=== PATIENT | male | born 1960 | race Hispanic/Latino ===

== ENCOUNTER 2016-12-20 11:06 | Emergency (ER) | payer SELFPAY ==
[2016-12-20 12:49] VITALS: BP 115/92
== END 2016-12-20 15:55 | disposition left against medical advice (07) ==
LOC: ED 11:06
DX: R07.81 Pleurodynia (principal); Z53.21 Procedure and treatment not carried out due to patient leaving prior to being seen by health care provider

== ENCOUNTER 2017-09-22 16:55 | Emergency (ER) | payer MEDICAID, OTHER ==
[2017-09-22 17:15] VITALS: BP 114/74
== END 2017-09-22 17:49 | disposition left against medical advice (07) ==
LOC: ED 16:55
DX: R56.9 Unspecified convulsions (principal); Z53.21 Procedure and treatment not carried out due to patient leaving prior to being seen by health care provider

== ENCOUNTER 2017-09-26 07:24 | Day surgery (SDC) | payer OTHER ==
[~2017-09-26 07:24] MED LIST: TETRACAINE 0.5% OD PRN
--- NOTE | 2017-09-26 08:12 | Anesthesia Consultation ---
Anesthesia Consult and Med Hx Date of service: 09/26/17 - Airway Anesthetic Teeth Evaluation: Edentulous ROM Head & Neck: Adequate Mental/Hyoid Distance: Adequate Mallampati Class: Class III Intubation Access Assessment: Probably Good - Pulmonary Exam CTA: Yes - Cardiac Exam Cardiac Exam: RRR - Pre-Operative Health Status ASA Pre-Surgery Classification: ASA4 Proposed Anesthetic Plan: MAC - Pulmonary Hx Smoking: Yes Hx Asthma: No COPD: No Hx Sleep Apnea: No - Cardiovascular System Hx Hypertension: No Hx Heart Attack/AMI: No Hx Angina: No Hx Heart Murmur: No - Central Nervous System Hx Seizures: Yes (STATES HE HAD SEIZURES EARLIER THIS YEAR BUT DOES NOT TAKE MEDS) CVA: Yes (STAETS HE HAD MILD STROKES IN APRIL AND JUNE 2017) - Endocrine Hx End Stage Renal Disease: No Hx Cirrhosis: No Hx Liver Disease: Yes - Hematic Hx Anemia: No Hx Sickle Cell Disease: No - Other Systems Hx Alcohol Use: No Hx Substance Use: Yes (USES MARIJUANA DAILY) Hx Cancer: Yes (h/p lung cancer, pancreatic cancer) - Additional Comments Anesthesia Medical History Comments: Informed consent obtained
--- NOTE | 2017-09-26 08:13 | Anesthesia Day of Surgery ---
Anesthesia Day of Surgery - Day of Surgery Patient Examined: Yes Patient H&P Reviewed: Yes Patient is NPO: Yes
[2017-09-26] MEDS: VIGAMOX OD SCH ×3 (08:35→08:45)
[2017-09-26] MEDS: AK-Dilate OD SCH ×3 (08:35→08:45)
[2017-09-26] MEDS: MYDRIACYL OD SCH ×3 (08:35→08:45)
[2017-09-26] MEDS ORDERED: VERSED ONE (08:53)
[2017-09-26] MEDS ORDERED: SUBLIMAZE ONE ×2 (08:53→09:15)
--- NOTE | 2017-09-26 09:36 | Operative Report ---
Operative Report Operative Report: PATIENT'S NAME: DATE OF : DATE OF SURGERY: 09/26/2017 PREOPERATIVE DIAGNOSIS: Cataract right eye POSTOPERATIVE DIAGNOSIS: Same OPERATIVE PROCEDURE: Phacoemulsification with intraocular lens implantation, right right eye SURGEON: Gabriela Rodriguez M.D. MENTAL HYGIENIST SURGEON: Victor Manuel Lens: [id number] 24.0 D ANESTHESIA: Monitored anesthesia care in combination with topical and intracameral anesthesia because of the established specific risk of reflux, arrhythmias, or anxiety attacks associated with ocular manipulation, as well as the difficulty of the timber repairer to manage such potentially catastrophic events while simultaneously attempting to complete the surgical procedure and was deemed necessary for the patient's safety to have an Ice Cutter present during the procedure whenever possible. An Ice Cutter was utilized to regulate the intravenous sedation of the patient so the patient was cooperative yet not asleep in order for the patient to successfully maintain fixation of the eye on the operating light of the microscope. COMPLICATIONS: No surgical complications No blood loss. ALLERGIES: No known drug allergies PROGNOSIS: Excellent INDICATIONS FOR SURGERY: The patient is undergoing surgery in the hopes of eliminating or improving these visual difficulties. PROCEDURE: After arriving at the surgery center, the patient was given topical anesthetic and dilating drops, as noted in the record. The patient was then taken into the operating room and given more anesthetic drops. The eyelids , lashes, and lid margins were scrubbed with Betadine solution, and the patient was draped. The Nurse Ice Cutter administered IV sedation and monitored the patient during the procedure. The eye was then fixated with a 0.12, and a stab incision was made in the peripheral clear cornea into the anterior chamber. This was made on my left side. Viscoelastic was next used to fill the anterior chamber. The eye was once again fixated with the 0.12 forceps and a keratome was used make an incision in clear cornea peripherally on my right hand side temporally. The capsule forceps were used to open the central anterior capsule and then make a continuous round capsulotomy. Hydrodissection was carried out utilizing a cannula and balanced salt solution to delineate the cortical material from the capsule and the nucleus from the cortical material. The phaco tip was introduced into the eye and used to remove the anterior cortical material in the area of the capsulotomy. Then the phaco tip was buried into the nucleus, and a chopping instrument was introduced into the eye and used to provide countertraction in the nucleus between this instrument and the phaco tip fracturing the nucleus. This procedure was repeated multiple times, providing multiple small segments of the lens, and then the phaco tip was used to remove each of these segments. An I/A tip was then used to remove the remaining cortex. The anterior chamber was refilled with viscoelastic. An one-piece, acrylic intraocular lens was then placed into an inserting cartridge. The tip of the inserting cartridge was introduced into the keratome incision and into the anterior chamber. The implant was gently advanced through the cartridge and into the eye, where it unfolded, and both haptics were placed in the capsular bag, where it centered nicely and appeared to be well fixated. After placement of the intraocular lens, the I~and~A handpiece was placed back into the eye and used to remove the viscoelastic, including viscoelastic that was behind the optic of the intraocular lens. The anterior chamber was then filled with balanced salt solution, and hydration of the wound was used to cause swelling of the wound and more appropriate watertight closure. When the wound was found to be firm, the patient was asked to comment on how bright the light was. If there was no light perception at all or if the light was substantially dimmer than during the rest of the surgery, the amount of fluid in the eye was decompressed to lower the intraocular pressure until the patient could see the bright light again. This was done to avoid any damage or decreased blood flow to the optic nerve. MEDICATIONS APPLIED AT END OF SURGERY: One drop of Pred Forte and Vigamox The patient was given a shield to wear at night and was instructed not to rub or push on the eye. DISCHARGE SUMMARY: The patient was released in stable condition. The patient and those with the patient were given a written sheet of postoperative instructions and counseling on any abnormal laboratory studies. The patient is to see us tomorrow for follow-up in the office and is to call immediately for any difficulties. Gabriela Rodriguez M.D. Date
--- NOTE | 2017-09-26 09:38 | Short Stay Summary ---
Short Stay Documentation Date of service: 09/26/17 - History H&P: obtained from office - Allergies and Medications Current Medications: Allergies No Known Allergies Allergy (Unverified 12/20/16 12:43) Home Medications Medication Instructions Recorded Confirmed Last Taken Type Bupropion HCl [Bupropion HCl Sr] 150 mg PO BID 09/10/17 09/18/17 Unknown History Dextran 70/Hypromellose 1 each OP QID 09/10/17 09/18/17 Unknown History [Artificial Tears] Ergocalciferol [Vitamin D2] 1 cap PO QWEEK 09/10/17 09/18/17 Unknown History Everolimus [Afinitor] 10 mg PO QDAY 09/10/17 09/18/17 Unknown History Insulin Aspart [NovoLOG Flexpen] 8 units SQ TID 09/10/17 09/18/17 Unknown History Insulin Detemir [Levemir Flextouch] 4 unit SQ BID 09/10/17 09/18/17 Unknown History Lanreotide Acetate [Somatuline 120 mg SQ QMONTH 09/10/17 09/18/17 Unknown History Depot] Multivit-Min/FA/Lycopen/Lutein 1 each PO DAILY 09/10/17 09/18/17 Unknown History [Centrum Silver Tablet] Sertraline [Zoloft] 200 mg PO QDAY 09/10/17 09/18/17 Unknown History Sildenafil Citrate [Viagra] 100 mg PO PRN PRN 09/10/17 09/18/17 Unknown History Sod Sulfacetamide-Sulfur Lotn 1 dose TRANSDERMA DAILY 09/10/17 09/18/17 Unknown History traZODone [Desyrel] 100 mg PO PRN PRN 09/10/17 09/18/17 Unknown History Active Medications Moxifloxacin HCl (Vigamox) 1 drops OD Q5MIN [facility] Stop: 09/28/17 06:01 Last Admin: 09/26/17 08:45 Dose: 1 drops Phenylephrine HCl (Ak-Dilate) 1 drops OD Q5MIN [facility] Stop: 09/28/17 06:01 Last Admin: 09/26/17 08:45 Dose: 1 drops Prednisolone Acetate (Pred Forte 1%) 1 drops OD QID [facility] Tetracaine HCl (Tetracaine 0.5%) 1 drops OD Q5M PRN PRN Reason: Analgesia Last Admin: 09/26/17 08:35 Dose: 1 drops Tropicamide (Mydriacyl) 1 drops OD Q5MIN [facility] Stop: 09/28/17 06:01 Last Admin: 09/26/17 08:45 Dose: 1 drops - Brief post op/procedure progress note Date of procedure: 09/26/17 Pre-op diagnosis: right cataract Post-op diagnosis: same Procedure: Phacoemulsification with intraocular lens insertion right eye Anesthesia: MAC, local Surgeon: MARTHA ARMIJO Estimated blood loss: none Pathology: none Condition: stable - Disposition Condition at discharge: Good Disposition: DC-01 TO HOME OR SELFCARE - Discharge Diagnoses (1) Cataract Status: Acute Qualifiers: Cataract type: age-related Age-related cataract type: nuclear Laterality : right Qualified Code(s): H25.11 - Age-related nuclear cataract, right eye Short Stay Discharge Plan Follow up with: NATALYA CH MD [Primary Care Provider] - 7 Days
[2017-09-26 09:55] VITALS: BP 149/86
[2017-09-26] MEDS ORDERED: PRED FORTE 1% OD SCH (10:00)
--- NOTE | 2017-09-26 12:20 | Post Anesthesia Evaluation ---
- Post Anesthesia Evaluation Patient Participated: Yes Airway Patent: Yes Stable Respiratory Function: Yes Nausea/Vomiting: No Temp > 96.8F: Yes Pain Manageable: Yes Adequeate Hydration: Yes Anesthesia Complications: No
== END 2017-09-26 10:27 | disposition home or self-care (01) ==
LOC: OR 07:24
DX: H26.9 Unspecified cataract (principal); B19.20 Unspecified viral hepatitis C without hepatic coma; F17.210 Nicotine dependence, cigarettes, uncomplicated; Z86.73 Personal history of transient ischemic attack (TIA), and cerebral infarction without residual deficits; Z85.118 Personal history of other malignant neoplasm of bronchus and lung; Z85.07 Personal history of malignant neoplasm of pancreas; Z86.718 Personal history of other venous thrombosis and embolism; Z79.01 Long term (current) use of anticoagulants; Z86.11 Personal history of tuberculosis
CPT/HCPCS: 82962; J2250; J3010; V2632

== ENCOUNTER 2017-10-10 06:06 | Day surgery (SDC) | payer OTHER ==
[~2017-10-10 06:06] MED LIST changes: -TETRACAINE 0.5% OD PRN; +TETRACAINE 0.5% OS PRN
--- NOTE | 2017-10-10 06:49 | Anesthesia Consultation ---
Anesthesia Consult and Med Hx Date of service: 10/10/17 - Airway Anesthetic Teeth Evaluation: Edentulous ROM Head & Neck: Adequate Mental/Hyoid Distance: Adequate Mallampati Class: Class I Intubation Access Assessment: Good - Pulmonary Exam CTA: Yes - Cardiac Exam Cardiac Exam: RRR - Pre-Operative Health Status ASA Pre-Surgery Classification: ASA3 Proposed Anesthetic Plan: MAC - Pulmonary Hx Smoking: Yes Hx Asthma: No COPD: No Hx Sleep Apnea: No - Cardiovascular System Hx Hypertension: Yes Hx Heart Attack/AMI: No Hx Angina: No Hx Heart Murmur: No - Central Nervous System Hx Seizures: Yes (STATES HE HAD SEIZURES EARLIER THIS YEAR BUT DOES NOT TAKE MEDS) CVA: Yes (STAETS HE HAD MILD STROKES IN APRIL AND JUNE 2017) - Endocrine Hx End Stage Renal Disease: No Hx Cirrhosis: No Hx Liver Disease: Yes - Hematic Hx Anemia: No Hx Sickle Cell Disease: No - Other Systems Hx Alcohol Use: No Hx Substance Use: Yes (USES MARIJUANA DAILY) Hx Cancer: Yes (h/p lung cancer, pancreatic cancer) - Additional Comments Anesthesia Medical History Comments: lumg and pancreatic cancer
--- NOTE | 2017-10-10 06:49 | Anesthesia Day of Surgery ---
Anesthesia Day of Surgery - Day of Surgery Patient Examined: Yes Patient H&P Reviewed: Yes Patient is NPO: Yes
[2017-10-10] MEDS ORDERED: VERSED ONE ×2 (07:28→08:50)
[2017-10-10] MEDS ORDERED: SUBLIMAZE ONE (07:29)
[2017-10-10] MEDS: MYDRIACYL OS SCH ×3 (07:30→07:50)
[2017-10-10] MEDS: AK-Dilate OS SCH ×3 (07:45→07:55)
[2017-10-10] MEDS: VIGAMOX OS SCH ×3 (07:45→07:55)
--- NOTE | 2017-10-10 09:12 | Operative Report ---
Operative Report Operative Report: PATIENT'S NAME: DATE OF : DATE OF SURGERY: 10/10/2017 PREOPERATIVE DIAGNOSIS: Cataract left eye POSTOPERATIVE DIAGNOSIS: Same OPERATIVE PROCEDURE: Phacoemulsification with intraocular lens implantation, left eye SURGEON: Gabriela Rodriguez M.D. BEAM CARRIER HAULER PUSHER SURGEON: Victor Manuel Lens: [id number] 24.5 D ANESTHESIA: Monitored anesthesia care in combination with topical and intracameral anesthesia because of the established specific risk of reflux, arrhythmias, or anxiety attacks associated with ocular manipulation, as well as the difficulty of the soil biology teacher to manage such potentially catastrophic events while simultaneously attempting to complete the surgical procedure and was deemed necessary for the patient's safety to have an Wirer present during the procedure whenever possible. An Wirer was utilized to regulate the intravenous sedation of the patient so the patient was cooperative yet not asleep in order for the patient to successfully maintain fixation of the eye on the operating light of the microscope. COMPLICATIONS: No surgical complications No blood loss. ALLERGIES: No known drug allergies PROGNOSIS: Excellent INDICATIONS FOR SURGERY: The patient is undergoing surgery in the hopes of eliminating or improving these visual difficulties. PROCEDURE: After arriving at the surgery center, the patient was given topical anesthetic and dilating drops, as noted in the record. The patient was then taken into the operating room and given more anesthetic drops. The eyelids , lashes, and lid margins were scrubbed with Betadine solution, and the patient was draped. The Nurse Wirer administered IV sedation and monitored the patient during the procedure. The eye was then fixated with a 0.12, and a stab incision was made in the peripheral clear cornea into the anterior chamber. This was made on my left side. Viscoelastic was next used to fill the anterior chamber. The eye was once again fixated with the 0.12 forceps and a keratome was used make an incision in clear cornea peripherally on my right hand side temporally. The capsule forceps were used to open the central anterior capsule and then make a continuous round capsulotomy. Hydrodissection was carried out utilizing a cannula and balanced salt solution to delineate the cortical material from the capsule and the nucleus from the cortical material. The phaco tip was introduced into the eye and used to remove the anterior cortical material in the area of the capsulotomy. Then the phaco tip was buried into the nucleus, and a chopping instrument was introduced into the eye and used to provide countertraction in the nucleus between this instrument and the phaco tip fracturing the nucleus. This procedure was repeated multiple times, providing multiple small segments of the lens, and then the phaco tip was used to remove each of these segments. An I/A tip was then used to remove the remaining cortex. The anterior chamber was refilled with viscoelastic. An one-piece, acrylic intraocular lens was then placed into an inserting cartridge. The tip of the inserting cartridge was introduced into the keratome incision and into the anterior chamber. The implant was gently advanced through the cartridge and into the eye, where it unfolded, and both haptics were placed in the capsular bag, where it centered nicely and appeared to be well fixated. After placement of the intraocular lens, the I~and~A handpiece was placed back into the eye and used to remove the viscoelastic, including viscoelastic that was behind the optic of the intraocular lens. The anterior chamber was then filled with balanced salt solution, and hydration of the wound was used to cause swelling of the wound and more appropriate watertight closure. When the wound was found to be firm, the patient was asked to comment on how bright the light was. If there was no light perception at all or if the light was substantially dimmer than during the rest of the surgery, the amount of fluid in the eye was decompressed to lower the intraocular pressure until the patient could see the bright light again. This was done to avoid any damage or decreased blood flow to the optic nerve. MEDICATIONS APPLIED AT END OF SURGERY: One drop of Pred Forte and Vigamox The patient was given a shield to wear at night and was instructed not to rub or push on the eye. DISCHARGE SUMMARY: The patient was released in stable condition. The patient and those with the patient were given a written sheet of postoperative instructions and counseling on any abnormal laboratory studies. The patient is to see us tomorrow for follow-up in the office and is to call immediately for any difficulties. Gabriela Rodriguez M.D. Date
--- NOTE | 2017-10-10 09:13 | Short Stay Summary ---
Short Stay Documentation Date of service: 10/10/17 - History H&P: obtained from office - Allergies and Medications Current Medications: Allergies No Known Allergies Allergy (Verified 10/09/17 10:46) Home Medications Medication Instructions Recorded Confirmed Last Taken Type Bupropion HCl [Bupropion HCl Sr] 150 mg PO BID 09/10/17 10/09/17 09/25/17 History Dextran 70/Hypromellose 1 each OP QID 09/10/17 10/09/17 09/25/17 History [Artificial Tears] Ergocalciferol [Vitamin D2] 1 cap PO QWEEK 09/10/17 10/09/17 09/25/17 History Everolimus [Afinitor] 10 mg PO QDAY 09/10/17 10/09/17 09/25/17 History Insulin Aspart [NovoLOG Flexpen] 8 units SQ TID 09/10/17 10/09/17 09/25/17 History Insulin Detemir [Levemir Flextouch] 4 unit SQ BID 09/10/17 10/09/17 09/25/17 History Lanreotide Acetate [Somatuline 120 mg SQ QMONTH 09/10/17 10/09/17 09/19/17 History Depot] Multivit-Min/FA/Lycopen/Lutein 1 each PO DAILY 09/10/17 10/09/17 09/25/17 History [Centrum Silver Tablet] Sertraline [Zoloft] 200 mg PO QDAY 09/10/17 10/09/17 09/25/17 History Sildenafil Citrate [Viagra] 100 mg PO PRN PRN 09/10/17 10/09/17 Unknown History Sod Sulfacetamide-Sulfur Lotn 1 dose TRANSDERMA DAILY 09/10/17 10/09/17 History traZODone [Desyrel] 100 mg PO PRN PRN 09/10/17 10/09/17 09/25/17 History Active Medications Acetazolamide (Diamox) 500 mg IV Q12HR ONE Stop: 10/10/17 10:01 Moxifloxacin HCl (Vigamox) 1 drops OS Q5MIN [facility] Stop: 10/12/17 06:01 Last Admin: 10/10/17 07:55 Dose: 1 drops Phenylephrine HCl (Ak-Dilate) 1 drops OS Q5MIN [facility] Stop: 10/12/17 06:01 Last Admin: 10/10/17 07:55 Dose: 1 drops Prednisolone Acetate (Pred Forte 1%) 1 drops OS QID [facility] Tetracaine HCl (Tetracaine 0.5%) 1 drops OS Q5M PRN PRN Reason: Analgesia Last Admin: 10/10/17 07:45 Dose: 1 drops Tropicamide (Mydriacyl) 1 drops OS Q5MIN [facility] Stop: 10/12/17 06:01 Last Admin: 10/10/17 07:50 Dose: 1 drops - Brief post op/procedure progress note Date of procedure: 10/10/17 Pre-op diagnosis: left cataract Post-op diagnosis: same Procedure: A core emulsification with intraocular lens insertion left eye Anesthesia: MAC Surgeon: MARTHA ARMIJO Estimated blood loss: none Pathology: none Condition: stable - Disposition Condition at discharge: Good Disposition: DC-01 TO HOME OR SELFCARE - Discharge Diagnoses (1) Cataract Status: Acute Qualifiers: Cataract type: age-related Age-related cataract type: nuclear Laterality : left Qualified Code(s): H25.12 - Age-related nuclear cataract, left eye Short Stay Discharge Plan Follow up with: NATALYA CH MD [Primary Care Provider] - 7 Days
[2017-10-10] MEDS ORDERED: DIAMOX PO ONE (09:20)
[2017-10-10 09:47] VITALS: BP 120/80
[2017-10-10] MEDS ORDERED: DIAMOX IV ONE (10:00)
[2017-10-10] MEDS ORDERED: PRED FORTE 1% OS SCH (10:00)
== END 2017-10-10 10:40 | disposition home or self-care (01) ==
LOC: OR 06:06
DX: E11.36 Type 2 diabetes mellitus with diabetic cataract (principal); I10 Essential (primary) hypertension; I73.9 Peripheral vascular disease, unspecified; B18.2 Chronic viral hepatitis C; F32.9 Major depressive disorder, single episode, unspecified; F17.200 Nicotine dependence, unspecified, uncomplicated; Z79.4 Long term (current) use of insulin; Z79.899 Other long term (current) drug therapy; Z85.05 Personal history of malignant neoplasm of liver; Z86.73 Personal history of transient ischemic attack (TIA), and cerebral infarction without residual deficits; Z85.118 Personal history of other malignant neoplasm of bronchus and lung; Z85.07 Personal history of malignant neoplasm of pancreas
CPT/HCPCS: 82962; J1120; J2250; J3010; V2632

== ENCOUNTER 2018-11-27 05:39 | Inpatient (IN) | payer MEDICAID, OTHER ==
[2018-11-27] MEDS ORDERED: MORPHINE IV ONE (07:08)
[2018-11-27] MEDS ORDERED: ZOFRAN IV ONE (07:08)
[2018-11-27] MEDS ORDERED: NACL 0.9% 1000 ML 1,000 ML IV ONE (07:09)
[2018-11-27 07:39] LABS: Bacteria,Urine 1+ /HPF (Negative); Bilirubin,Urine NEG (Negative); Blood,Urine MOD (Negative); Color,Urine Straw (Yellow); Mucus,Urine FEW /HPF; Urobilinogen,Urine < 2.0 mg/dL (<2.0)
[2018-11-27 07:40] LABS: Basophils % (Auto) 0.2 % (0.0-1.8); Eosinophils # (Auto) 0.1 K/mm3 (0.0-0.4); Eosinophils % (Auto) 1.2 % (0.0-4.3); Hematocrit 24.4 % (35.5-45.6); Hemoglobin 8.3 gm/dl (11.8-15.2); Lymphocytes % (Auto) 15.3 % (13.4-35.0); Mean Corpuscular HGB Conc 34 % (32-34); Mean Corpuscular Volume 84 fl (84-94); Monocytes # (Auto) 0.6 K/mm3 (0.0-0.8); Platelet Count 255 K/mm3 (140-440); Red Cell Distribution Width 16.7 % (13.2-15.2)
[2018-11-27 07:51] LABS: INR 1.01 (0.87-1.13)
[2018-11-27 07:52] LABS: Partial Thromboplastin Time 34.3 Sec. (24.2-36.6)
[2018-11-27 08:01] LABS: Creatine Kinase MB 7.2 ng/mL (0.0-4.0)
[2018-11-27 08:03] LABS: Alanine Aminotransferase 16 units/L (7-56); Albumin 3.1 g/dL (3.9-5); BUN/Creatinine Ratio 12; Blood Urea Nitrogen 18 mg/dL (9-20); Calcium 8.4 mg/dL (8.4-10.2); Hemolysis Index 0
[2018-11-27 08:04] LABS: Cannabinoid Screen,Urine PRESUMPTIVE POSITIVE
[2018-11-27 08:04] LABS: Bilirubin,Direct < 0.2 mg/dL (0-0.2)
[2018-11-27 08:10] LABS: Amphetamine Screen,Urine PRESUMPTIVE NEGATIVE; Benzodiazepines Screen,Urine PRESUMPTIVE NEGATIVE; Cocaine Screen,Urine PRESUMPTIVE NEGATIVE; Methadone Screen,Urine PRESUMPTIVE NEGATIVE; Opiate Screen,Urine PRESUMPTIVE NEGATIVE
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
[2018-11-27] MEDS ORDERED: MAGNESIUM SULFATE 2GM/50ML 2 GM/50 ML BAG IV ONE (08:20)
[2018-11-27] MEDS ORDERED: BABY ASPIRIN PO ONE (08:24)
--- NOTE | 2018-11-27 09:02 | XRay Report ---
AP CHEST: HISTORY: Hypertension Normal heart size and pulmonary vascularity. Right middle lobe atelectasis is suspected. Otherwise, the lungs are adequately aerated. No evidence for pneumonia, pleural effusion or pneumothorax. The bony structures are demineralized but grossly intact. IMPRESSION: Right middle lobe atelectasis.
--- NOTE | 2018-11-27 09:02 | XRay Report ---
RIGHT HIP, 2 views: History: Trauma, hip pain. Findings: Osteopenia is evident. A mildly displaced right femoral neck fracture is identified. The right femoral head remains well-seated within the right acetabulum. No obvious pelvic fracture. IMPRESSION: Right femoral neck fracture. Osteopenia.
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
--- NOTE | 2018-11-27 14:20 | Anesthesia Consultation ---
Anesthesia Consult and Med Hx Date of service: 11/27/18 - Airway Anesthetic Teeth Evaluation: Edentulous ROM Head & Neck: Adequate Mental/Hyoid Distance: Adequate Mallampati Class: Class II Intubation Access Assessment: Probably Good - Pre-Operative Health Status ASA Pre-Surgery Classification: ASA3 Proposed Anesthetic Plan: General - Pulmonary Hx Smoking: Yes (1 p/d x 45 years) Hx Asthma: No COPD: No Hx Sleep Apnea: No - Cardiovascular System Hx Hypertension: Yes Hx Heart Attack/AMI: No Hx Angina: No Hx Heart Murmur: No - Central Nervous System Hx Seizures: Yes (STATES HE HAD SEIZURES EARLIER THIS YEAR BUT DOES NOT TAKE MEDS) CVA: Yes (STAETS HE HAD MILD STROKES IN APRIL AND JUNE 2017) Hx Psychiatric Problems: Yes (depression) - Endocrine Hx End Stage Renal Disease: No Hx Cirrhosis: No Hx Liver Disease: Yes Hx Insulin Dependent Diabetes: Yes - Hematic Hx Anemia: No Hx Sickle Cell Disease: No - Other Systems Hx Alcohol Use: No Hx Substance Use: Yes (USES MARIJUANA DAILY) Hx Cancer: Yes (h/p lung cancer, pancreatic cancer) - Additional Comments Anesthesia Medical History Comments: Right hip fracture
[2018-11-27] MEDS ORDERED: SODIUM CHLORIDE FLUSH SYRINGE 10 ML IV PRN (19:34)
[2018-11-27] MEDS ORDERED: TYLENOL PO PRN (19:34)
[2018-11-27] MEDS: PEPCID PO SCH (21:03)
[2018-11-27] MEDS: SODIUM CHLORIDE FLUSH SYRINGE 10 ML IV SCH (21:04)
[2018-11-27] MEDS: MORPHINE IV PRN (23:47)
[2018-11-28] MEDS: PEPCID PO SCH ×3 (00:01→22:33)
[2018-11-28 05:00] LABS: Basophils % (Auto) 0.8 % (0.0-1.8); Eosinophils # (Auto) 0.1 K/mm3 (0.0-0.4); Eosinophils % (Auto) 2.5 % (0.0-4.3); Hematocrit 23.7 % (35.5-45.6); Lymphocytes # (Auto) 1.2 K/mm3 (1.2-5.4); Lymphocytes % (Auto) 20.8 % (13.4-35.0); Mean Corpuscular HGB Conc 34 % (32-34); Mean Corpuscular Volume 84 fl (84-94); Monocytes # (Auto) 0.6 K/mm3 (0.0-0.8); Monocytes % (Auto) 10.4 % (0.0-7.3); Platelet Count 266 K/mm3 (140-440); Red Blood Count 2.81 M/mm3 (3.65-5.03)
[2018-11-28 05:12] LABS: Calcium 8.5 mg/dL (8.4-10.2)
[2018-11-28] MEDS: NACL 0.9% 1000 ML 1,000 ML IV SCH ×2 (06:24→08:11)
[2018-11-28] MEDS ORDERED: PEPCID IV NR (07:00)
[2018-11-28] MEDS ORDERED: VERSED IV NR (07:00)
[2018-11-28] MEDS ORDERED: MARCAINE 0.5% INFILTRATI ONE ×2 (07:18→09:50)
[2018-11-28] MEDS ORDERED: MORPHINE ONE (07:19)
[2018-11-28] MEDS ORDERED: TORADOL ONE (07:25)
[2018-11-28] MEDS ORDERED: TRANEXAMIC ACID ONE (07:25)
[2018-11-28] MEDS ORDERED: NACL 0.9% 200 ML ONE (07:25)
[2018-11-28] MEDS ORDERED: DIPRIVAN 10 MG/ML IV ONE (07:25)
[2018-11-28] MEDS ORDERED: XYLOCAINE MPF 2% ONE (07:25)
[2018-11-28] MEDS ORDERED: SUBLIMAZE ONE ×2 (07:25→09:02)
[2018-11-28] MEDS ORDERED: NACL 0.9% 100 ML ONE (07:29)
[2018-11-28] MEDS ORDERED: ANCEF/STERILE WATER 2 GM/20 ML IV NR (08:00)
[2018-11-28] MEDS ORDERED: NACL 0.9% IR ONE (09:00)
[2018-11-28] MEDS ORDERED: NACL 0.9% 500 ML 500 ML IV ONE (09:00)
[2018-11-28] MEDS ORDERED: DILAUDID ONE (09:10)
--- NOTE | 2018-11-28 09:13 | Anesthesia Day of Surgery ---
Anesthesia Day of Surgery - Day of Surgery Patient Examined: Yes Patient H&P Reviewed: Yes Patient is NPO: Yes
--- NOTE | 2018-11-28 09:13 | Anesthesia Day of Surgery ---
Anesthesia Day of Surgery - Day of Surgery Patient Examined: Yes Patient H&P Reviewed: Yes Patient is NPO: Yes
[2018-11-28] MEDS ORDERED: DILAUDID IV PRN (09:30)
[2018-11-28] MEDS ORDERED: ROBINUL ONE ×2 (09:33)
[2018-11-28] MEDS ORDERED: BLOXIVERZ ONE (09:33)
[2018-11-28] MEDS ORDERED: ZOFRAN ONE (09:34)
[2018-11-28] MEDS ORDERED: AMIDATE IV ONE (09:38)
[2018-11-28] MEDS ORDERED: TORADOL IV ONE (09:50)
[2018-11-28] MEDS ORDERED: MORPHINE IM ONE (09:50)
[2018-11-28] MEDS ORDERED: NACL 0.9% IV ONE (09:50)
[2018-11-28] MEDS ORDERED: NORMODYNE IV ONE (10:13)
[2018-11-28] MEDS ORDERED: NARCAN 0.4 MG/1 ML ONE (12:05)
[2018-11-28] MEDS: SODIUM CHLORIDE FLUSH SYRINGE 10 ML IV SCH ×2 (12:06→22:32)
[2018-11-28] MEDS: ZOFRAN IV PRN (12:12)
[2018-11-28] MEDS ORDERED: MORPHINE IV PRN (13:50)
--- NOTE | 2018-11-28 13:56 | Procedure Note ---
Date of procedure: 11/28/18 Pre-op diagnosis: displaced right femoral neck fracture Post-op diagnosis: same Procedure: Bipolar hemiarthroplasty right hip Procedure The patient was brought to the OR and placed on the OR table in supine position following induction and intubation by anesthesia the patient was placed in the left lateral decubitus position The right hip was then prepped and draped in the usual sterile manner a timeout procedure was done to identify the patient and t he correct operative site. Next a lateral incision was made along the proximal femur was taken down sharply through skin and subcutaneous the fascia ernie was seen and incised A Charnley retractor was placed deep within the wound next the anterior capsule was entered the femoral neck fracture was seen the remaining portion of the femoral neck was then osteotomized in line with a stem template The femoral head was retrieved using a corkscrew device measuring the size of the femoral head and a 55 mm diameter was chosen, followed by reaming and broaching to a #5 stem utilizing a neutral neck and a 28 mm head and the construct was then reduced the hip was taken through a range of motion and was found to be stable. All components were removed. Final components were assembled and inserted the hip was then reduced and taken through a range of motion and again it was found to be stable next the wound was copiously irrigated a cocktail mixture of Toradol and morphine. Again and saline was injected into the surrounding soft tissue for postop pain management following this the wound was closed in a standard routine fashion. Dressings were applied the patient tolerated the procedure there were no complications and he was sent to post anesthesia recovery Anesthesia: PARMJIT Surgeon: FRACISCO QUINTANA Inspector Salvage: NATALYA CARDENAS Estimated blood loss: other (300 mL) Pathology: list (right femoral head) Specimen disposition: to lab Condition: stable Disposition: PACU
[2018-11-28] MEDS ORDERED: SODIUM CHLORIDE FLUSH SYRINGE 10 ML IV NR (14:00)
--- NOTE | 2018-11-28 15:04 | Progress Note ---
Assessment and Plan Assessment and plan: Right femur neck fracture after fall. Admitted to surgical floor Ortho consulted and he was evaluated in ED s/p bipolar hemiarthroplasty right hip today 11/28/18 Morphine for pain management Diabetes mellitus type 2 Accucheck Q ac and hs Review home meds Depression History of prostate cancer with mets to lungs Full code status History Interval history: s/p surgery today Hospitalist Physical - Physical exam Narrative exam: GEN: Not in acute distress, lying in bed HEENT: Normocephalic, atraumatic, Neck: supple, No JVD heart: S1 and S2 reg, no murmurs, rubs or gallop Lungs: Clear to auscultation bilaterally, no wheeze Abd:soft, non tender, non distended, normal bowel sounds Ext: No edema,no clubbing, no cyanosis, dressing over right hip Neuro: Lethargic, post-op from anesthesia Skin:multiple bruises - Constitutional Vitals: Temp Pulse Resp BP Pulse Ox 97.9 F 85 10 L 150/82 100 11/28/18 13:15 11/28/18 13:30 11/28/18 13:30 11/28/18 13:30 11/28/18 13:30 Results - Labs CBC & Chem 7: 11/29/18 04:29 11/29/18 04:29 Labs: Laboratory Last Values WBC 5.8 K/mm3 (4.5-11.0) 11/28/18 04:42 RBC 2.81 M/mm3 (3.65-5.03) L 11/28/18 04:42 Hgb 8.0 gm/dl (11.8-15.2) L 11/28/18 04:42 Hct 23.7 % (35.5-45.6) L 11/28/18 04:42 MCV 84 fl (84-94) 11/28/18 04:42 MCH 29 pg (28-32) 11/28/18 04:42 MCHC 34 % (32-34) 11/28/18 04:42 RDW 17.0 % (13.2-15.2) H 11/28/18 04:42 Plt Count 266 K/mm3 (140-440) 11/28/18 04:42 Lymph % (Auto) 20.8 % (13.4-35.0) 11/28/18 04:42 [place] % (Auto) 10.4 % (0.0-7.3) H 11/28/18 04:42 Eos % (Auto) 2.5 % (0.0-4.3) 11/28/18 04:42 Baso % (Auto) 0.8 % (0.0-1.8) 11/28/18 04:42 Lymph # 1.2 K/mm3 (1.2-5.4) 11/28/18 04:42 [place] # 0.6 K/mm3 (0.0-0.8) 11/28/18 04:42 Eos # 0.1 K/mm3 (0.0-0.4) 11/28/18 04:42 Baso # 0.0 K/mm3 (0.0-0.1) 11/28/18 04:42 Seg Neutrophils % 65.5 % (40.0-70.0) 11/28/18 04:42 Seg Neutrophils # 3.8 K/mm3 (1.8-7.7) 11/28/18 04:42 PT 13.9 Sec. (12.2-14.9) 11/27/18 07:20 INR 1.01 (0.87-1.13) 11/27/18 07:20 APTT 34.3 Sec. (24.2-36.6) 11/27/18 07:20 Sodium 135 mmol/L (137-145) L 11/28/18 04:42 Potassium 3.6 mmol/L (3.6-5.0) 11/28/18 04:42 Chloride 103.1 mmol/L (98-107) 11/28/18 04:42 Carbon Dioxide 20 mmol/L (22-30) L 11/28/18 04:42 Anion Gap 16 mmol/L 11/28/18 04:42 BUN 16 mg/dL (9-20) 11/28/18 04:42 Creatinine 1.5 mg/dL (0.8-1.5) 11/28/18 04:42 Estimated GFR 48 ml/min 11/28/18 04:42 BUN/Creatinine Ratio 11 % 11/28/18 04:42 Glucose 177 mg/dL (75-100) H 11/28/18 04:42 POC Glucose 193 (70-105) H 11/28/18 12:55 Hemoglobin A1c 7.7 % (4-6) H 11/27/18 07:20 Lactic Acid 0.80 mmol/L (0.7-2.0) 11/27/18 07:20 Calcium 8.5 mg/dL (8.4-10.2) 11/28/18 04:42 Magnesium 1.60 mg/dL (1.7-2.3) L 11/27/18 07:20 Total Bilirubin 0.30 mg/dL (0.1-1.2) 11/27/18 07:20 Direct Bilirubin < 0.2 mg/dL (0-0.2) 11/27/18 07:20 AST 18 units/L (5-40) 11/27/18 07:20 ALT 16 units/L (7-56) 11/27/18 07:20 Alkaline Phosphatase 93 units/L (35-129) 11/27/18 07:20 Ammonia 34.0 umol/L (25-60) 11/27/18 07:20 Total Creatine Kinase 208 units/L (55-170) H 11/27/18 07:20 CK-MB (CK-2) 7.2 ng/mL (0.0-4.0) H 11/27/18 07:20 CK-MB (CK-2) Rel Index 3.4 (0-4) 11/27/18 07:20 Troponin T 0.023 ng/mL (0.00-0.029) 11/27/18 07:20 NT-Pro-B Natriuret Pep 4286 pg/mL (0-900) H 11/27/18 07:20 Total Protein 6.5 g/dL (6.3-8.2) 11/27/18 07:20 Albumin 3.1 g/dL (3.9-5) L 11/27/18 07:20 Albumin/Globulin Ratio 0.9 % 11/27/18 07:20 Urine Color Straw (Yellow) 11/27/18 Unknown Urine Turbidity Clear (Clear) 11/27/18 Unknown Urine pH 6.0 (5.0-7.0) 11/27/18 Unknown Ur Specific [place] 1.009 (1.003-1.030) 11/27/18 Unknown Urine Protein 100 mg/dl mg/dL (Negative) 11/27/18 Unknown Urine Glucose (UA) >=500 mg/dL (Negative) 11/27/18 Unknown Urine Ketones Neg mg/dL (Negative) 11/27/18 Unknown Urine Blood Mod (Negative) 11/27/18 Unknown Urine Nitrite Neg (Negative) 11/27/18 Unknown Urine Bilirubin Neg (Negative) 11/27/18 Unknown Urine Urobilinogen < 2.0 mg/dL (<2.0) 11/27/18 Unknown Ur Leukocyte Esterase Neg (Negative) 11/27/18 Unknown Urine WBC (Auto) Not Reportable 11/27/18 Unknown Urine RBC (Auto) 2.0 /HPF (0.0-6.0) 11/27/18 Unknown Urine Bacteria (Auto) 1+ /HPF (Negative) 11/27/18 Unknown Urine Mucus Few /HPF 11/27/18 Unknown Urine Opiates Screen Presumptive negative 11/27/18 Unknown Urine Methadone Screen Presumptive negative 11/27/18 Unknown Ur Barbiturates Screen Presumptive negative 11/27/18 Unknown Ur Phencyclidine Scrn Presumptive negative 11/27/18 Unknown Ur Amphetamines Screen Presumptive negative 11/27/18 Unknown U Benzodiazepines Scrn Presumptive negative 11/27/18 Unknown Urine Cocaine Screen Presumptive negative 11/27/18 Unknown U Marijuana (THC) Screen Presumptive positive 11/27/18 Unknown Drugs of Abuse Note Disclamer 11/27/18 Unknown Plasma/Serum Alcohol < 0.01 % (0-0.07) 11/27/18 07:20 Blood Type A POSITIVE 11/27/18 07:20 Antibody Screen Negative 11/27/18 07:20 Crossmatch See Detail 11/27/18 07:20 Active Medications - Current Medications Current Medications: Generic Name Dose Route Start Last Admin Trade Name Freq PRN Reason Stop Dose Admin Acetaminophen 650 mg 11/27/18 19:34 Tylenol PO Q4H PRN Pain MILD(1-3)/Fever >100.5/ISAAC Cefazolin Sodium 2 gm 11/28/18 08:00 Ancef/Sterile Water 2 Gm/20 Ml IV 11/28/18 23:59 PREOP NR Enoxaparin Sodium 40 mg 11/29/18 10:00 Lovenox SUB-Q QDAY SHRUTHI Famotidine 20 mg 11/28/18 07:00 11/28/18 08:11 Pepcid IV 11/28/18 23:00 20 mg PREOP NR Administration Famotidine 20 mg 11/27/18 19:34 11/28/18 12:06 Pepcid PO Not Given BID SHRUTHI Hydromorphone HCl 0.5 mg 11/28/18 09:30 Dilaudid IV 11/28/18 16:00 Q10MIN PRN Pain , Severe (7-10) Sodium Chloride 1,000 mls @ 75 mls/hr 11/28/18 07:00 11/28/18 08:11 Nacl 0.9% 1000 Ml IV 75 mls/hr DIRECT SHRUTHI Administration Midazolam HCl 2 mg 11/28/18 07:00 11/28/18 08:09 Versed IV 11/28/18 23:59 2 mg PREOP NR Administration Morphine Sulfate 2 mg 11/27/18 19:34 11/27/18 23:47 Morphine IV 2 mg Q4H PRN Administration Pain, Moderate (4-6) Morphine Sulfate 4 mg 11/28/18 13:50 Morphine IV Q4H PRN Pain , Severe (7-10) Ondansetron HCl 4 mg 11/27/18 19:34 11/28/18 12:12 Zofran IV 4 mg Q8H PRN Administration Nausea And Vomiting Sodium Chloride 10 ml 11/27/18 22:00 11/28/18 12:06 Sodium Chloride Flush Syringe 10 Ml IV Not Given BID SHRUTHI Sodium Chloride 10 ml 11/27/18 19:34 Sodium Chloride Flush Syringe 10 Ml IV PRN PRN LINE FLUSH Sodium Chloride 10 ml 11/28/18 14:00 Sodium Chloride Flush Syringe 10 Ml IV 11/29/18 13:59 PRN NR
--- NOTE | 2018-11-28 15:06 | Post Anesthesia Evaluation ---
- Post Anesthesia Evaluation Patient Participated: Yes Airway Patent: Yes Stable Respiratory Function: Yes Nausea/Vomiting: No Temp > 96.8F: Yes Pain Manageable: Yes Adequeate Hydration: Yes Anesthesia Complications: No Other Comments: Received narcan x2 in PACU for depressed respiratory rate and slow arousal. No desaturations or hemodynamic instability. At time of discharge, patient arousable to voice, denies pain, mentation at preop baseline.
--- NOTE | 2018-11-28 23:46 | XRay Report ---
PROCEDURE: XR HIP 1V RT TECHNIQUE: Right hip radiograph, one view. HISTORY: postop evaluation COMPARISONS: None . FINDINGS: There has been right hip arthroplasty. The hardware is properly positioned. Please refer to the surge on's procedure notes for full details. IMPRESSION: As above . This document is electronically signed by Elisha Stokes DO., November 28 2018 11:44:30 PM ET
[2018-11-29] MEDS: MORPHINE IV PRN (01:07)
[2018-11-29 04:43] LABS: Hematocrit 23.8 % (35.5-45.6)
[2018-11-29 05:05] LABS: Calcium 8.7 mg/dL (8.4-10.2)
[2018-11-29] MEDS: LOPRESSOR PO SCH ×2 (09:55→21:51)
[2018-11-29] MEDS: PEPCID PO SCH ×2 (09:56→21:51)
[2018-11-29] MEDS: LOVENOX SUB-Q SCH (09:56)
[2018-11-29] MEDS: SODIUM CHLORIDE FLUSH SYRINGE 10 ML IV SCH ×2 (09:56→22:06)
[2018-11-29] MEDS ORDERED: D50W (25GM) Syringe IV PRN (12:46)
--- NOTE | 2018-11-29 13:58 | Progress Note ---
Assessment and Plan Assessment and plan: Right femur neck fracture after fall. Admitted to surgical floor Ortho consulted and he was evaluated in ED s/p bipolar hemiarthroplasty right hip 11/28/18, POD#1 Morphine for pain management Diabetes mellitus type 2 Accucheck Q ac and hs Reviewed home meds Will start Lantus in am Depression History of prostate cancer with mets to lungs Full code status History Interval history: s/p surgery yesterday 11/28 Mild pain at surgical site Hospitalist Physical - Physical exam Narrative exam: GEN: Not in acute distress, lying in bed HEENT: Normocephalic, atraumatic, Neck: supple, No JVD heart: S1 and S2 reg, no murmurs, rubs or gallop Lungs: Clear to auscultation bilaterally, no wheeze Abd:soft, non tender, non distended, normal bowel sounds Ext: No edema,no clubbing, no cyanosis, dressing over right hip Neuro: Lethargic, post-op from anesthesia Skin:multiple bruises - Constitutional Vitals: Temp Pulse Resp BP Pulse Ox 97.9 F 85 16 160/88 100 11/29/18 11:48 11/29/18 11:48 11/29/18 11:48 11/29/18 11:48 11/29/18 08:16 Results - Labs CBC & Chem 7: 11/29/18 04:29 11/29/18 04:29 Labs: Laboratory Last Values WBC 5.8 K/mm3 (4.5-11.0) 11/28/18 04:42 RBC 2.81 M/mm3 (3.65-5.03) L 11/28/18 04:42 Hgb 8.0 gm/dl (11.8-15.2) L 11/29/18 04:29 Hct 23.8 % (35.5-45.6) L 11/29/18 04:29 MCV 84 fl (84-94) 11/28/18 04:42 MCH 29 pg (28-32) 11/28/18 04:42 MCHC 34 % (32-34) 11/28/18 04:42 RDW 17.0 % (13.2-15.2) H 11/28/18 04:42 Plt Count 266 K/mm3 (140-440) 11/28/18 04:42 Lymph % (Auto) 20.8 % (13.4-35.0) 11/28/18 04:42 [place] % (Auto) 10.4 % (0.0-7.3) H 11/28/18 04:42 Eos % (Auto) 2.5 % (0.0-4.3) 11/28/18 04:42 Baso % (Auto) 0.8 % (0.0-1.8) 11/28/18 04:42 Lymph # 1.2 K/mm3 (1.2-5.4) 11/28/18 04:42 [place] # 0.6 K/mm3 (0.0-0.8) 11/28/18 04:42 Eos # 0.1 K/mm3 (0.0-0.4) 11/28/18 04:42 Baso # 0.0 K/mm3 (0.0-0.1) 11/28/18 04:42 Seg Neutrophils % 65.5 % (40.0-70.0) 11/28/18 04:42 Seg Neutrophils # 3.8 K/mm3 (1.8-7.7) 11/28/18 04:42 PT 13.9 Sec. (12.2-14.9) 11/27/18 07:20 INR 1.01 (0.87-1.13) 11/27/18 07:20 APTT 34.3 Sec. (24.2-36.6) 11/27/18 07:20 Sodium 141 mmol/L (137-145) 11/29/18 04:29 Potassium 4.1 mmol/L (3.6-5.0) 11/29/18 04:29 Chloride 108.5 mmol/L (98-107) H 11/29/18 04:29 Carbon Dioxide 18 mmol/L (22-30) L 11/29/18 04:29 Anion Gap 19 mmol/L 11/29/18 04:29 BUN 17 mg/dL (9-20) 11/29/18 04:29 Creatinine 1.5 mg/dL (0.8-1.5) 11/29/18 04:29 Estimated GFR 48 ml/min 11/29/18 04:29 BUN/Creatinine Ratio 11 % 11/29/18 04:29 Glucose 194 mg/dL (75-100) H 11/29/18 04:29 POC Glucose 209 (70-105) H 11/29/18 11:31 Hemoglobin A1c 7.7 % (4-6) H 11/27/18 07:20 Lactic Acid 0.80 mmol/L (0.7-2.0) 11/27/18 07:20 Calcium 8.7 mg/dL (8.4-10.2) 11/29/18 04:29 Magnesium 1.60 mg/dL (1.7-2.3) L 11/27/18 07:20 Total Bilirubin 0.30 mg/dL (0.1-1.2) 11/27/18 07:20 Direct Bilirubin < 0.2 mg/dL (0-0.2) 11/27/18 07:20 AST 18 units/L (5-40) 11/27/18 07:20 ALT 16 units/L (7-56) 11/27/18 07:20 Alkaline Phosphatase 93 units/L (35-129) 11/27/18 07:20 Ammonia 34.0 umol/L (25-60) 11/27/18 07:20 Total Creatine Kinase 208 units/L (55-170) H 11/27/18 07:20 CK-MB (CK-2) 7.2 ng/mL (0.0-4.0) H 11/27/18 07:20 CK-MB (CK-2) Rel Index 3.4 (0-4) 11/27/18 07:20 Troponin T 0.023 ng/mL (0.00-0.029) 11/27/18 07:20 NT-Pro-B Natriuret Pep 4286 pg/mL (0-900) H 11/27/18 07:20 Total Protein 6.5 g/dL (6.3-8.2) 11/27/18 07:20 Albumin 3.1 g/dL (3.9-5) L 11/27/18 07:20 Albumin/Globulin Ratio 0.9 % 11/27/18 07:20 Urine Color Straw (Yellow) 11/27/18 Unknown Urine Turbidity Clear (Clear) 11/27/18 Unknown Urine pH 6.0 (5.0-7.0) 11/27/18 Unknown Ur Specific [place] 1.009 (1.003-1.030) 11/27/18 Unknown Urine Protein 100 mg/dl mg/dL (Negative) 11/27/18 Unknown Urine Glucose (UA) >=500 mg/dL (Negative) 11/27/18 Unknown Urine Ketones Neg mg/dL (Negative) 11/27/18 Unknown Urine Blood Mod (Negative) 11/27/18 Unknown Urine Nitrite Neg (Negative) 11/27/18 Unknown Urine Bilirubin Neg (Negative) 11/27/18 Unknown Urine Urobilinogen < 2.0 mg/dL (<2.0) 11/27/18 Unknown Ur Leukocyte Esterase Neg (Negative) 11/27/18 Unknown Urine WBC (Auto) Not Reportable 11/27/18 Unknown Urine RBC (Auto) 2.0 /HPF (0.0-6.0) 11/27/18 Unknown Urine Bacteria (Auto) 1+ /HPF (Negative) 11/27/18 Unknown Urine Mucus Few /HPF 11/27/18 Unknown Urine Opiates Screen Presumptive negative 11/27/18 Unknown Urine Methadone Screen Presumptive negative 11/27/18 Unknown Ur Barbiturates Screen Presumptive negative 11/27/18 Unknown Ur Phencyclidine Scrn Presumptive negative 11/27/18 Unknown Ur Amphetamines Screen Presumptive negative 11/27/18 Unknown U Benzodiazepines Scrn Presumptive negative 11/27/18 Unknown Urine Cocaine Screen Presumptive negative 11/27/18 Unknown U Marijuana (THC) Screen Presumptive positive 11/27/18 Unknown Drugs of Abuse Note Disclamer 11/27/18 Unknown Plasma/Serum Alcohol < 0.01 % (0-0.07) 11/27/18 07:20 Blood Type A POSITIVE 11/27/18 07:20 Antibody Screen Negative 11/27/18 07:20 Crossmatch See Detail 11/27/18 07:20 Active Medications - Current Medications Current Medications: Generic Name Dose Route Start Last Admin Trade Name Freq PRN Reason Stop Dose Admin Acetaminophen 650 mg 11/27/18 19:34 Tylenol PO Q4H PRN Pain MILD(1-3)/Fever >100.5/ISAAC Dextrose 50 ml 11/29/18 12:46 D50w (25gm) Syringe IV PRN PRN Hypoglycemia Enoxaparin Sodium 40 mg 11/29/18 10:00 11/29/18 09:56 Lovenox SUB-Q 40 mg QDAY SHRUTHI Administration Famotidine 20 mg 11/27/18 19:34 11/29/18 09:56 Pepcid PO 20 mg BID SHRUTHI Administration Sodium Chloride 1,000 mls @ 75 mls/hr 11/28/18 07:00 11/28/18 08:11 Nacl 0.9% 1000 Ml IV 75 mls/hr DIRECT SHRUTHI Administration Insulin Human Lispro 0 unit 11/29/18 16:30 Humalog SUB-Q AC SHRUTHI Protocol Insulin Human Lispro 0 unit 11/29/18 22:00 Humalog SUB-Q QHS [facility] Protocol Metoprolol Tartrate 25 mg 11/29/18 09:00 11/29/18 09:55 Lopressor PO 25 mg BID SHRUTHI Administration Morphine Sulfate 2 mg 11/27/18 19:34 11/29/18 01:07 Morphine IV 2 mg Q4H PRN Administration Pain, Moderate (4-6) Morphine Sulfate 4 mg 11/28/18 13:50 Morphine IV Q4H PRN Pain , Severe (7-10) Ondansetron HCl 4 mg 11/27/18 19:34 11/28/18 12:12 Zofran IV 4 mg Q8H PRN Administration Nausea And Vomiting Sodium Chloride 10 ml 11/27/18 22:00 11/29/18 09:56 Sodium Chloride Flush Syringe 10 Ml IV 10 ml BID SHRUTHI Administration Sodium Chloride 10 ml 11/27/18 19:34 Sodium Chloride Flush Syringe 10 Ml IV PRN PRN LINE FLUSH Sodium Chloride 10 ml 11/28/18 14:00 Sodium Chloride Flush Syringe 10 Ml IV 11/29/18 13:59 PRN NR Nutrition/Malnutrition Assess - Dietary Evaluation Nutrition/Malnutrition Findings: Nutrition Notes Start: 11/28/18 15:37 Freq: Status: Active Protocol: Document 11/28/18 15:37 RM (Rec: 11/28/18 15:44 RM [id number]) Nutrition Notes 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 [place] 18 points. Pt NPO for arthroplasty of hip. Regular diet planned for dinner. Nurse has not seen pt yet d/t pt being in surgery. No indication of nutrition support or need of nutrition support in record. Nutrition Intervention Follow-Up By: 12/01/18 Additional Comments Follow for DM diet education, assessment
[2018-11-29] MEDS: HumaLOG SUB-Q SCH (16:11)
[2018-11-29] MEDS: NORCO 5/325 PO PRN (18:20)
[2018-11-30] MEDS: HumaLOG SUB-Q SCH ×5 (02:29→22:54)
[2018-11-30 07:51] LABS: Hematocrit 23.3 % (35.5-45.6); Mean Corpuscular HGB Conc 34 % (32-34); Mean Corpuscular Volume 85 fl (84-94); Platelet Count 302 K/mm3 (140-440); Red Blood Count 2.75 M/mm3 (3.65-5.03); Red Cell Distribution Width 16.6 % (13.2-15.2)
[2018-11-30 08:14] LABS: Calcium 8.6 mg/dL (8.4-10.2)
[2018-11-30] MEDS: SODIUM CHLORIDE FLUSH SYRINGE 10 ML IV SCH ×2 (10:00→22:21)
[2018-11-30] MEDS: LOPRESSOR PO SCH ×2 (10:58→22:20)
[2018-11-30] MEDS: PEPCID PO SCH ×2 (10:58→22:18)
[2018-11-30] MEDS: LOVENOX SUB-Q SCH (10:59)
--- NOTE | 2018-11-30 11:27 | Progress Note ---
Assessment and Plan Assessment and plan: Right femur neck fracture after fall. Admitted to surgical floor Ortho consulted and he was evaluated in ED s/p bipolar hemiarthroplasty right hip 11/28/18, POD#2 Morphine for pain management Diabetes mellitus type 2 Accucheck Q ac and hs Reviewed home meds Resume metformin Depression History of prostate cancer with mets to lungs Follow with his Physician as outpatient Full code status History Interval history: s/p hip surgery 11/28 Mild pain at surgical site Hospitalist Physical - Physical exam Narrative exam: GEN: Not in acute distress, lying in bed HEENT: Normocephalic, atraumatic, Neck: supple, No JVD heart: S1 and S2 reg, no murmurs, rubs or gallop Lungs: Clear to auscultation bilaterally, no wheeze Abd:soft, non tender, non distended, normal bowel sounds Ext: No edema,no clubbing, no cyanosis, dressing over right hip Neuro: Awake,alert, moves all ext Skin:multiple bruises - Constitutional Vitals: Temp Pulse Resp BP Pulse Ox 97.5 F L 77 18 176/88 95 11/30/18 07:38 11/30/18 10:58 11/30/18 10:28 11/30/18 10:58 11/30/18 10:42 Results - Labs CBC & Chem 7: 11/30/18 07:33 11/30/18 07:33 Labs: Laboratory Last Values WBC 8.9 K/mm3 (4.5-11.0) 11/30/18 07:33 RBC 2.75 M/mm3 (3.65-5.03) L 11/30/18 07:33 Hgb 8.0 gm/dl (11.8-15.2) L 11/30/18 07:33 Hct 23.3 % (35.5-45.6) L 11/30/18 07:33 MCV 85 fl (84-94) 11/30/18 07:33 MCH 29 pg (28-32) 11/30/18 07:33 MCHC 34 % (32-34) 11/30/18 07:33 RDW 16.6 % (13.2-15.2) H 11/30/18 07:33 Plt Count 302 K/mm3 (140-440) 11/30/18 07:33 Lymph % (Auto) 20.8 % (13.4-35.0) 11/28/18 04:42 [place] % (Auto) 10.4 % (0.0-7.3) H 11/28/18 04:42 Eos % (Auto) 2.5 % (0.0-4.3) 11/28/18 04:42 Baso % (Auto) 0.8 % (0.0-1.8) 11/28/18 04:42 Lymph # 1.2 K/mm3 (1.2-5.4) 11/28/18 04:42 [place] # 0.6 K/mm3 (0.0-0.8) 11/28/18 04:42 Eos # 0.1 K/mm3 (0.0-0.4) 11/28/18 04:42 Baso # 0.0 K/mm3 (0.0-0.1) 11/28/18 04:42 Seg Neutrophils % 65.5 % (40.0-70.0) 11/28/18 04:42 Seg Neutrophils # 3.8 K/mm3 (1.8-7.7) 11/28/18 04:42 PT 13.9 Sec. (12.2-14.9) 11/27/18 07:20 INR 1.01 (0.87-1.13) 11/27/18 07:20 APTT 34.3 Sec. (24.2-36.6) 11/27/18 07:20 Sodium 136 mmol/L (137-145) L 11/30/18 07:33 Potassium 3.6 mmol/L (3.6-5.0) 11/30/18 07:33 Chloride 102.7 mmol/L (98-107) 11/30/18 07:33 Carbon Dioxide 18 mmol/L (22-30) L 11/30/18 07:33 Anion Gap 19 mmol/L 11/30/18 07:33 BUN 16 mg/dL (9-20) 11/30/18 07:33 Creatinine 1.4 mg/dL (0.8-1.5) 11/30/18 07:33 Estimated GFR 52 ml/min 11/30/18 07:33 BUN/Creatinine Ratio 11 % 11/30/18 07:33 Glucose 164 mg/dL (75-100) H 11/30/18 07:33 POC Glucose 190 (70-105) H 11/30/18 11:04 Hemoglobin A1c 7.7 % (4-6) H 11/27/18 07:20 Lactic Acid 0.80 mmol/L (0.7-2.0) 11/27/18 07:20 Calcium 8.6 mg/dL (8.4-10.2) 11/30/18 07:33 Magnesium 1.60 mg/dL (1.7-2.3) L 11/27/18 07:20 Total Bilirubin 0.30 mg/dL (0.1-1.2) 11/27/18 07:20 Direct Bilirubin < 0.2 mg/dL (0-0.2) 11/27/18 07:20 AST 18 units/L (5-40) 11/27/18 07:20 ALT 16 units/L (7-56) 11/27/18 07:20 Alkaline Phosphatase 93 units/L (35-129) 11/27/18 07:20 Ammonia 34.0 umol/L (25-60) 11/27/18 07:20 Total Creatine Kinase 208 units/L (55-170) H 11/27/18 07:20 CK-MB (CK-2) 7.2 ng/mL (0.0-4.0) H 11/27/18 07:20 CK-MB (CK-2) Rel Index 3.4 (0-4) 11/27/18 07:20 Troponin T 0.023 ng/mL (0.00-0.029) 11/27/18 07:20 NT-Pro-B Natriuret Pep 4286 pg/mL (0-900) H 11/27/18 07:20 Total Protein 6.5 g/dL (6.3-8.2) 11/27/18 07:20 Albumin 3.1 g/dL (3.9-5) L 11/27/18 07:20 Albumin/Globulin Ratio 0.9 % 11/27/18 07:20 Urine Color Straw (Yellow) 11/27/18 Unknown Urine Turbidity Clear (Clear) 11/27/18 Unknown Urine pH 6.0 (5.0-7.0) 11/27/18 Unknown Ur Specific [place] 1.009 (1.003-1.030) 11/27/18 Unknown Urine Protein 100 mg/dl mg/dL (Negative) 11/27/18 Unknown Urine Glucose (UA) >=500 mg/dL (Negative) 11/27/18 Unknown Urine Ketones Neg mg/dL (Negative) 11/27/18 Unknown Urine Blood Mod (Negative) 11/27/18 Unknown Urine Nitrite Neg (Negative) 11/27/18 Unknown Urine Bilirubin Neg (Negative) 11/27/18 Unknown Urine Urobilinogen < 2.0 mg/dL (<2.0) 11/27/18 Unknown Ur Leukocyte Esterase Neg (Negative) 11/27/18 Unknown Urine WBC (Auto) Not Reportable 11/27/18 Unknown Urine RBC (Auto) 2.0 /HPF (0.0-6.0) 11/27/18 Unknown Urine Bacteria (Auto) 1+ /HPF (Negative) 11/27/18 Unknown Urine Mucus Few /HPF 11/27/18 Unknown Urine Opiates Screen Presumptive negative 11/27/18 Unknown Urine Methadone Screen Presumptive negative 11/27/18 Unknown Ur Barbiturates Screen Presumptive negative 11/27/18 Unknown Ur Phencyclidine Scrn Presumptive negative 11/27/18 Unknown Ur Amphetamines Screen Presumptive negative 11/27/18 Unknown U Benzodiazepines Scrn Presumptive negative 11/27/18 Unknown Urine Cocaine Screen Presumptive negative 11/27/18 Unknown U Marijuana (THC) Screen Presumptive positive 11/27/18 Unknown Drugs of Abuse Note Disclamer 11/27/18 Unknown Plasma/Serum Alcohol < 0.01 % (0-0.07) 11/27/18 07:20 Blood Type A POSITIVE 11/27/18 07:20 Antibody Screen Negative 11/27/18 07:20 Crossmatch See Detail 11/27/18 07:20 Active Medications - Current Medications Current Medications: Generic Name Dose Route Start Last Admin Trade Name Freq PRN Reason Stop Dose Admin Acetaminophen 650 mg 11/27/18 19:34 Tylenol PO Q4H PRN Pain MILD(1-3)/Fever >100.5/ISAAC Acetaminophen/Hydrocodone Bitart 1 each 11/29/18 17:00 11/29/18 18:20 [place] 5/325 PO 1 each Q6H PRN Administration Pain, Moderate (4-6) Dextrose 50 ml 11/29/18 12:46 D50w (25gm) Syringe IV PRN PRN Hypoglycemia Enoxaparin Sodium 40 mg 11/29/18 10:00 11/30/18 10:59 Lovenox SUB-Q 40 mg QDAY SHRUTHI Administration Famotidine 20 mg 11/27/18 19:34 11/30/18 10:58 Pepcid PO 20 mg BID SHRUTHI Administration Insulin Human Lispro 0 unit 11/29/18 16:30 11/29/18 16:11 Humalog SUB-Q 2 unit AC SHRUTHI Administration Protocol Insulin Human Lispro 0 unit 11/29/18 22:00 11/30/18 02:29 Humalog SUB-Q Not Given QHS ON LICENSE OF [facility] Protocol Metoprolol Tartrate 25 mg 11/29/18 09:00 11/30/18 10:58 Lopressor PO 25 mg BID SHRUTHI Administration Morphine Sulfate 2 mg 11/27/18 19:34 11/29/18 01:07 Morphine IV 2 mg Q4H PRN Administration Pain, Moderate (4-6) Morphine Sulfate 4 mg 11/28/18 13:50 Morphine IV Q4H PRN Pain , Severe (7-10) Ondansetron HCl 4 mg 11/27/18 19:34 11/28/18 12:12 Zofran IV 4 mg Q8H PRN Administration Nausea And Vomiting Sodium Bicarbonate 650 mg 11/30/18 14:00 Sodium Bicarbonate PO TID SHRUTHI Sodium Chloride 10 ml 11/27/18 22:00 11/29/18 22:06 Sodium Chloride Flush Syringe 10 Ml IV 10 ml BID SHRUTHI Administration Sodium Chloride 10 ml 11/27/18 19:34 Sodium Chloride Flush Syringe 10 Ml IV PRN PRN LINE FLUSH Nutrition/Malnutrition Assess - Dietary Evaluation Nutrition/Malnutrition Findings: Nutrition Notes Start: 11/28/18 15:37 Freq: Status: Active Protocol: Document 11/28/18 15:37 RM (Rec: 11/28/18 15:44 RM [id number]) Nutrition Notes Need for Assessment generated from: travel service consultant Initial or Follow up Brief Note Current Diagnosis Diabetes Other Pertinent Diagnosis Hx cancer, R femoral neck fracture Current Diet NPO Labs/Tests A1c 7.7 Pertinent Medications Reviewed Height 6 ft Weight 63.5 kg [place] Body Weight (kg) 80.90 BMI 19.0 Subjective/Other Information Screened for new onset DM diet education, difficulty chewing , skin risk, and Hx of TF or TPN. Cesar 18 points. Pt NPO for arthroplasty of hip. Regular diet planned for dinner. Nurse has not seen pt yet d/t pt being in surgery. No indication of nutrition support or need of nutrition support in record. Nutrition Intervention Follow-Up By: 12/01/18 Additional Comments Follow for DM diet education, assessment
[2018-11-30] MEDS ORDERED: NON-FORMULARY (Bupropion Hcl [Bupropion Hcl Sr] 150 MG) PO SCH (12:00)
[2018-11-30] MEDS ORDERED: NON-FORMULARY (Metformin Hcl [Glucophage] 1,000 MG) PO SCH (12:00)
[2018-11-30] MEDS ORDERED: GLUCOPHAGE PO SCH (12:30)
[2018-11-30] MEDS: GLUCOPHAGE PO SCH ×2 (12:51→22:18)
[2018-11-30] MEDS: WELLBUTRIN SR PO SCH ×2 (12:52→22:18)
[2018-11-30] MEDS: SODIUM BICARBONATE PO SCH ×2 (13:00→22:18)
[2018-11-30] MEDS: NORCO 5/325 PO PRN (22:18)
[2018-12-01] MEDS: NORCO 5/325 PO PRN ×2 (05:13→22:41)
[2018-12-01] MEDS: HumaLOG SUB-Q SCH ×4 (07:40→22:50)
[2018-12-01] MEDS: SODIUM BICARBONATE PO SCH ×3 (08:00→22:33)
[2018-12-01] MEDS: SODIUM CHLORIDE FLUSH SYRINGE 10 ML IV SCH ×2 (10:00→22:31)
[2018-12-01] MEDS: LOPRESSOR PO SCH ×2 (10:10→22:47)
[2018-12-01] MEDS: PEPCID PO SCH ×2 (10:10→22:34)
[2018-12-01] MEDS: LOVENOX SUB-Q SCH (10:10)
[2018-12-01] MEDS: WELLBUTRIN SR PO SCH ×2 (10:10→22:34)
[2018-12-01] MEDS: GLUCOPHAGE PO SCH ×2 (12:15→22:33)
[2018-12-01] MEDS: ZOLOFT PO SCH (12:15)
--- NOTE | 2018-12-01 13:58 | Progress Note ---
Assessment and Plan Assessment and plan: Patient is 89 yo with diabetes, depression. He presented to hospital after a fall. He complains he has had repeated falls about 4-5 times over past 1 month. Was evaluated in Emergency Derpartment and hip X-ray revealed right femoral neck fracture . He was admitted, evaluated by Dr. Laird, Orthopedic surgeon and had surgery bipolar hemiarthroplasty right hip on 11/28/18. Placement as per PT. He is medically stable to discharge home or acute rehab. he will need follow up at [place] for known prostate cancer with metastases to lungs. Right femur neck fracture after fall. Admitted to surgical floor Ortho consulted and he was evaluated in ED s/p bipolar hemiarthroplasty right hip 11/28/18, POD#2 Morphine for pain management Diabetes mellitus type 2 Accucheck Q ac and hs Reviewed home meds Resume metformin Depression History of prostate cancer with mets to lungs Follow with his Physician as outpatient Full code status History Interval history: s/p hip surgery 11/28 Mild pain at surgical site Hospitalist Physical - Physical exam Narrative exam: GEN: Not in acute distress, lying in bed HEENT: Normocephalic, atraumatic, Neck: supple, No JVD heart: S1 and S2 reg, no murmurs, rubs or gallop Lungs: Clear to auscultation bilaterally, no wheeze Abd:soft, non tender, non distended, normal bowel sounds Ext: No edema,no clubbing, no cyanosis, dressing over right hip Neuro: Awake,alert, oriented, moves all ext Skin:multiple bruises - Constitutional Vitals: Temp Pulse Resp BP Pulse Ox 97.8 F 64 18 166/78 97 12/01/18 04:51 12/01/18 05:23 12/01/18 11:34 12/01/18 10:10 12/01/18 10:00 Results - Labs CBC & Chem 7: 11/30/18 07:33 11/30/18 07:33 Labs: Laboratory Last Values WBC 8.9 K/mm3 (4.5-11.0) 11/30/18 07:33 RBC 2.75 M/mm3 (3.65-5.03) L 11/30/18 07:33 Hgb 8.0 gm/dl (11.8-15.2) L 11/30/18 07:33 Hct 23.3 % (35.5-45.6) L 11/30/18 07:33 MCV 85 fl (84-94) 11/30/18 07:33 MCH 29 pg (28-32) 11/30/18 07:33 MCHC 34 % (32-34) 11/30/18 07:33 RDW 16.6 % (13.2-15.2) H 11/30/18 07:33 Plt Count 302 K/mm3 (140-440) 11/30/18 07:33 Lymph % (Auto) 20.8 % (13.4-35.0) 11/28/18 04:42 [place] % (Auto) 10.4 % (0.0-7.3) H 11/28/18 04:42 Eos % (Auto) 2.5 % (0.0-4.3) 11/28/18 04:42 Baso % (Auto) 0.8 % (0.0-1.8) 11/28/18 04:42 Lymph # 1.2 K/mm3 (1.2-5.4) 11/28/18 04:42 [place] # 0.6 K/mm3 (0.0-0.8) 11/28/18 04:42 Eos # 0.1 K/mm3 (0.0-0.4) 11/28/18 04:42 Baso # 0.0 K/mm3 (0.0-0.1) 11/28/18 04:42 Seg Neutrophils % 65.5 % (40.0-70.0) 11/28/18 04:42 Seg Neutrophils # 3.8 K/mm3 (1.8-7.7) 11/28/18 04:42 PT 13.9 Sec. (12.2-14.9) 11/27/18 07:20 INR 1.01 (0.87-1.13) 11/27/18 07:20 APTT 34.3 Sec. (24.2-36.6) 11/27/18 07:20 Sodium 136 mmol/L (137-145) L 11/30/18 07:33 Potassium 3.6 mmol/L (3.6-5.0) 11/30/18 07:33 Chloride 102.7 mmol/L (98-107) 11/30/18 07:33 Carbon Dioxide 18 mmol/L (22-30) L 11/30/18 07:33 Anion Gap 19 mmol/L 11/30/18 07:33 BUN 16 mg/dL (9-20) 11/30/18 07:33 Creatinine 1.4 mg/dL (0.8-1.5) 11/30/18 07:33 Estimated GFR 52 ml/min 11/30/18 07:33 BUN/Creatinine Ratio 11 % 11/30/18 07:33 Glucose 164 mg/dL (75-100) H 11/30/18 07:33 POC Glucose 206 (70-105) H 12/01/18 11:11 Hemoglobin A1c 7.7 % (4-6) H 11/27/18 07:20 Lactic Acid 0.80 mmol/L (0.7-2.0) 11/27/18 07:20 Calcium 8.6 mg/dL (8.4-10.2) 11/30/18 07:33 Magnesium 1.60 mg/dL (1.7-2.3) L 11/27/18 07:20 Total Bilirubin 0.30 mg/dL (0.1-1.2) 11/27/18 07:20 Direct Bilirubin < 0.2 mg/dL (0-0.2) 11/27/18 07:20 AST 18 units/L (5-40) 11/27/18 07:20 ALT 16 units/L (7-56) 11/27/18 07:20 Alkaline Phosphatase 93 units/L (35-129) 11/27/18 07:20 Ammonia 34.0 umol/L (25-60) 11/27/18 07:20 Total Creatine Kinase 208 units/L (55-170) H 11/27/18 07:20 CK-MB (CK-2) 7.2 ng/mL (0.0-4.0) H 11/27/18 07:20 CK-MB (CK-2) Rel Index 3.4 (0-4) 11/27/18 07:20 Troponin T 0.023 ng/mL (0.00-0.029) 11/27/18 07:20 NT-Pro-B Natriuret Pep 4286 pg/mL (0-900) H 11/27/18 07:20 Total Protein 6.5 g/dL (6.3-8.2) 11/27/18 07:20 Albumin 3.1 g/dL (3.9-5) L 11/27/18 07:20 Albumin/Globulin Ratio 0.9 % 11/27/18 07:20 Urine Color Straw (Yellow) 11/27/18 Unknown Urine Turbidity Clear (Clear) 11/27/18 Unknown Urine pH 6.0 (5.0-7.0) 11/27/18 Unknown Ur Specific [place] 1.009 (1.003-1.030) 11/27/18 Unknown Urine Protein 100 mg/dl mg/dL (Negative) 11/27/18 Unknown Urine Glucose (UA) >=500 mg/dL (Negative) 11/27/18 Unknown Urine Ketones Neg mg/dL (Negative) 11/27/18 Unknown Urine Blood Mod (Negative) 11/27/18 Unknown Urine Nitrite Neg (Negative) 11/27/18 Unknown Urine Bilirubin Neg (Negative) 11/27/18 Unknown Urine Urobilinogen < 2.0 mg/dL (<2.0) 11/27/18 Unknown Ur Leukocyte Esterase Neg (Negative) 11/27/18 Unknown Urine WBC (Auto) Not Reportable 11/27/18 Unknown Urine RBC (Auto) 2.0 /HPF (0.0-6.0) 11/27/18 Unknown Urine Bacteria (Auto) 1+ /HPF (Negative) 11/27/18 Unknown Urine Mucus Few /HPF 11/27/18 Unknown Urine Opiates Screen Presumptive negative 11/27/18 Unknown Urine Methadone Screen Presumptive negative 11/27/18 Unknown Ur Barbiturates Screen Presumptive negative 11/27/18 Unknown Ur Phencyclidine Scrn Presumptive negative 11/27/18 Unknown Ur Amphetamines Screen Presumptive negative 11/27/18 Unknown U Benzodiazepines Scrn Presumptive negative 11/27/18 Unknown Urine Cocaine Screen Presumptive negative 11/27/18 Unknown U Marijuana (THC) Screen Presumptive positive 11/27/18 Unknown Drugs of Abuse Note Disclamer 11/27/18 Unknown Plasma/Serum Alcohol < 0.01 % (0-0.07) 11/27/18 07:20 Blood Type A POSITIVE 11/27/18 07:20 Antibody Screen Negative 11/27/18 07:20 Crossmatch See Detail 11/27/18 07:20 Active Medications - Current Medications Current Medications: Generic Name Dose Route Start Last Admin Trade Name Freq PRN Reason Stop Dose Admin Acetaminophen 650 mg 11/27/18 19:34 Tylenol PO Q4H PRN Pain MILD(1-3)/Fever >100.5/ISAAC Acetaminophen/Hydrocodone Bitart 1 each 11/29/18 17:00 12/01/18 05:13 [place] 5/325 PO 1 each Q6H PRN Administration Pain, Moderate (4-6) Bupropion HCl 150 mg 11/30/18 12:30 12/01/18 10:10 Wellbutrin Sr PO 150 mg BID SHRUTHI Administration Dextrose 50 ml 11/29/18 12:46 D50w (25gm) Syringe IV PRN PRN Hypoglycemia Enoxaparin Sodium 40 mg 11/29/18 10:00 12/01/18 10:10 Lovenox SUB-Q 40 mg QDAY [facility] Administration Famotidine 20 mg 11/27/18 19:34 12/01/18 10:10 Pepcid PO 20 mg BID SHRUTHI Administration Insulin Human Lispro 0 unit 11/29/18 16:30 11/30/18 17:33 Humalog SUB-Q Not Given AC [facility] Protocol Insulin Human Lispro 0 unit 11/29/18 22:00 11/30/18 22:54 Humalog SUB-Q Not Given QHS [facility] Protocol Metformin HCl 1,000 mg 11/30/18 12:30 11/30/18 22:18 Glucophage PO 1,000 mg BID SHRUTHI Administration Metoprolol Tartrate 25 mg 11/29/18 09:00 12/01/18 10:10 Lopressor PO 25 mg BID SHRUTHI Administration Morphine Sulfate 2 mg 11/27/18 19:34 11/29/18 01:07 Morphine IV 2 mg Q4H PRN Administration Pain, Moderate (4-6) Morphine Sulfate 4 mg 11/28/18 13:50 Morphine IV Q4H PRN Pain , Severe (7-10) Ondansetron HCl 4 mg 11/27/18 19:34 11/28/18 12:12 Zofran IV 4 mg Q8H PRN Administration Nausea And Vomiting Sertraline HCl 200 mg 12/01/18 10:00 Zoloft PO QDAY SHRUTHI Sodium Bicarbonate 650 mg 11/30/18 14:00 12/01/18 08:00 Sodium Bicarbonate PO 650 mg TID SHRUTHI Administration Sodium Chloride 10 ml 11/27/18 22:00 11/30/18 22:21 Sodium Chloride Flush Syringe 10 Ml IV Not Given BID SHRUTHI Sodium Chloride 10 ml 11/27/18 19:34 Sodium Chloride Flush Syringe 10 Ml IV PRN PRN LINE FLUSH Trazodone HCl 100 mg 11/30/18 11:53 Desyrel PO PRN PRN Insomnia Nutrition/Malnutrition Assess - Dietary Evaluation Nutrition/Malnutrition Findings: Nutrition Notes Start: 11/28/18 15:37 Freq: Status: Active Protocol: Document 11/28/18 15:37 RM (Rec: 11/28/18 15:44 RM [id number]) Nutrition Notes Need for Assessment generated from: [employer] supervisor Initial or Follow up Brief Note Current Diagnosis Diabetes Other Pertinent Diagnosis Hx cancer, R femoral neck fracture Current Diet NPO Labs/Tests A1c 7.7 Pertinent Medications Reviewed Height 6 ft Weight 63.5 kg [place] Body Weight (kg) 80.90 BMI 19.0 Subjective/Other Information Screened for new onset DM diet education, difficulty chewing , skin risk, and Hx of TF or TPN. Cesar 18 points. Pt NPO for arthroplasty of hip. Regular diet planned for dinner. Nurse has not seen pt yet d/t pt being in surgery. No indication of nutrition support or need of nutrition support in record. Nutrition Intervention Follow-Up By: 12/01/18 Additional Comments Follow for DM diet education, assessment
[2018-12-02] MEDS ORDERED: APRESOLINE IV PRN (02:44)
[2018-12-02 05:47] LABS: Hematocrit 23.1 % (35.5-45.6); Hemoglobin 7.9 gm/dl (11.8-15.2); Mean Corpuscular HGB Conc 34 % (32-34); Mean Corpuscular Volume 84 fl (84-94); Platelet Count 339 K/mm3 (140-440); Red Blood Count 2.76 M/mm3 (3.65-5.03); Red Cell Distribution Width 16.4 % (13.2-15.2)
[2018-12-02 06:13] LABS: Calcium 8.5 mg/dL (8.4-10.2)
[2018-12-02] MEDS: APRESOLINE IV PRN (06:15)
[2018-12-02] MEDS: MORPHINE IV PRN (06:15)
[2018-12-02] MEDS: SODIUM BICARBONATE PO SCH ×3 (08:30→23:40)
[2018-12-02] MEDS: WELLBUTRIN SR PO SCH ×2 (11:28→23:33)
[2018-12-02] MEDS: GLUCOPHAGE PO SCH ×2 (11:28→23:34)
[2018-12-02] MEDS: PEPCID PO SCH ×2 (11:29→23:33)
[2018-12-02] MEDS: ZOLOFT PO SCH (11:29)
[2018-12-02] MEDS: LOVENOX SUB-Q SCH (11:30)
[2018-12-02] MEDS: SODIUM CHLORIDE FLUSH SYRINGE 10 ML IV SCH ×2 (11:30→23:36)
[2018-12-02] MEDS: LOPRESSOR PO SCH ×2 (11:31→23:33)
--- NOTE | 2018-12-02 11:59 | Progress Note ---
Assessment and Plan Assessment and plan: Right femur neck fracture after fall. Admitted to surgical floor Ortho consulted and he was evaluated in ED s/p bipolar hemiarthroplasty right hip 11/28/18, POD#2 Morphine for pain management Diabetes mellitus type 2 Accucheck Q ac and hs Reviewed home meds Resume metformin Depression History of prostate cancer with mets to lungs Follow with his Physician as outpatient Full code status History Interval history: Patient is 89 yo with diabetes, depression. He presented to hospital after a fall. He complains he has had repeated falls about 4-5 times over past 1 month. Was evaluated in Emergency Derpartment and hip X-ray revealed right femoral neck fracture . He was admitted, evaluated by Dr. Laird, Orthopedic surgeon and had surgery bipolar hemiarthroplasty right hip on 11/28/18. Placement as per PT. He is medically stable to discharge home or acute rehab. he will need follow up at [place] for known prostate cancer with metastases to lungs. No new issues overnight. Hospitalist Physical - Constitutional Vitals: Temp Pulse Resp BP Pulse Ox 97.8 F 79 18 146/85 99 12/02/18 07:30 12/02/18 11:31 12/02/18 07:30 12/02/18 11:31 12/02/18 07:30 General appearance: Present: no acute distress, well-nourished - EENT Eyes: Present: PERRL, EOM intact ENT: hearing intact, clear oral mucosa, dentition normal - Neck Neck: Present: supple, normal ROM - Respiratory Respiratory effort: normal Respiratory: bilateral: CTA - Cardiovascular Rhythm: regular Heart Sounds: Present: S1 & S2. Absent: gallop, rub - Extremities Extremities: no ischemia, No edema, Full ROM - Abdominal General gastrointestinal: soft, non-tender, non-distended, normal bowel sounds - Integumentary Integumentary: Present: clear, warm, dry - Neurologic Neurologic: CNII-XII intact, moves all extremities Results - Labs CBC & Chem 7: 12/02/18 05:22 12/02/18 05:22 Labs: Laboratory Last Values WBC 5.9 K/mm3 (4.5-11.0) 12/02/18 05:22 RBC 2.76 M/mm3 (3.65-5.03) L 12/02/18 05:22 Hgb 7.9 gm/dl (11.8-15.2) L 12/02/18 05:22 Hct 23.1 % (35.5-45.6) L 12/02/18 05:22 MCV 84 fl (84-94) 12/02/18 05:22 MCH 29 pg (28-32) 12/02/18 05:22 MCHC 34 % (32-34) 12/02/18 05:22 RDW 16.4 % (13.2-15.2) H 12/02/18 05:22 Plt Count 339 K/mm3 (140-440) 12/02/18 05:22 Lymph % (Auto) 20.8 % (13.4-35.0) 11/28/18 04:42 [place] % (Auto) 10.4 % (0.0-7.3) H 11/28/18 04:42 Eos % (Auto) 2.5 % (0.0-4.3) 11/28/18 04:42 Baso % (Auto) 0.8 % (0.0-1.8) 11/28/18 04:42 Lymph # 1.2 K/mm3 (1.2-5.4) 11/28/18 04:42 [place] # 0.6 K/mm3 (0.0-0.8) 11/28/18 04:42 Eos # 0.1 K/mm3 (0.0-0.4) 11/28/18 04:42 Baso # 0.0 K/mm3 (0.0-0.1) 11/28/18 04:42 Seg Neutrophils % 65.5 % (40.0-70.0) 11/28/18 04:42 Seg Neutrophils # 3.8 K/mm3 (1.8-7.7) 11/28/18 04:42 PT 13.9 Sec. (12.2-14.9) 11/27/18 07:20 INR 1.01 (0.87-1.13) 11/27/18 07:20 APTT 34.3 Sec. (24.2-36.6) 11/27/18 07:20 Sodium 139 mmol/L (137-145) 12/02/18 05:22 Potassium 3.6 mmol/L (3.6-5.0) 12/02/18 05:22 Chloride 103.3 mmol/L (98-107) 12/02/18 05:22 Carbon Dioxide 20 mmol/L (22-30) L 12/02/18 05:22 Anion Gap 19 mmol/L 12/02/18 05:22 BUN 19 mg/dL (9-20) 12/02/18 05:22 Creatinine 1.3 mg/dL (0.8-1.5) 12/02/18 05:22 Estimated GFR 57 ml/min 12/02/18 05:22 BUN/Creatinine Ratio 15 % 12/02/18 05:22 Glucose 183 mg/dL (75-100) H 12/02/18 05:22 POC Glucose 184 (70-105) H 12/02/18 07:11 Hemoglobin A1c 7.7 % (4-6) H 11/27/18 07:20 Lactic Acid 0.80 mmol/L (0.7-2.0) 11/27/18 07:20 Calcium 8.5 mg/dL (8.4-10.2) 12/02/18 05:22 Magnesium 1.60 mg/dL (1.7-2.3) L 11/27/18 07:20 Total Bilirubin 0.30 mg/dL (0.1-1.2) 11/27/18 07:20 Direct Bilirubin < 0.2 mg/dL (0-0.2) 11/27/18 07:20 AST 18 units/L (5-40) 11/27/18 07:20 ALT 16 units/L (7-56) 11/27/18 07:20 Alkaline Phosphatase 93 units/L (35-129) 11/27/18 07:20 Ammonia 34.0 umol/L (25-60) 11/27/18 07:20 Total Creatine Kinase 208 units/L (55-170) H 11/27/18 07:20 CK-MB (CK-2) 7.2 ng/mL (0.0-4.0) H 11/27/18 07:20 CK-MB (CK-2) Rel Index 3.4 (0-4) 11/27/18 07:20 Troponin T 0.023 ng/mL (0.00-0.029) 11/27/18 07:20 NT-Pro-B Natriuret Pep 4286 pg/mL (0-900) H 11/27/18 07:20 Total Protein 6.5 g/dL (6.3-8.2) 11/27/18 07:20 Albumin 3.1 g/dL (3.9-5) L 11/27/18 07:20 Albumin/Globulin Ratio 0.9 % 11/27/18 07:20 Urine Color Straw (Yellow) 11/27/18 Unknown Urine Turbidity Clear (Clear) 11/27/18 Unknown Urine pH 6.0 (5.0-7.0) 11/27/18 Unknown Ur Specific [place] 1.009 (1.003-1.030) 11/27/18 Unknown Urine Protein 100 mg/dl mg/dL (Negative) 11/27/18 Unknown Urine Glucose (UA) >=500 mg/dL (Negative) 11/27/18 Unknown Urine Ketones Neg mg/dL (Negative) 11/27/18 Unknown Urine Blood Mod (Negative) 11/27/18 Unknown Urine Nitrite Neg (Negative) 11/27/18 Unknown Urine Bilirubin Neg (Negative) 11/27/18 Unknown Urine Urobilinogen < 2.0 mg/dL (<2.0) 11/27/18 Unknown Ur Leukocyte Esterase Neg (Negative) 11/27/18 Unknown Urine WBC (Auto) Not Reportable 11/27/18 Unknown Urine RBC (Auto) 2.0 /HPF (0.0-6.0) 11/27/18 Unknown Urine Bacteria (Auto) 1+ /HPF (Negative) 11/27/18 Unknown Urine Mucus Few /HPF 11/27/18 Unknown Urine Opiates Screen Presumptive negative 11/27/18 Unknown Urine Methadone Screen Presumptive negative 11/27/18 Unknown Ur Barbiturates Screen Presumptive negative 11/27/18 Unknown Ur Phencyclidine Scrn Presumptive negative 11/27/18 Unknown Ur Amphetamines Screen Presumptive negative 11/27/18 Unknown U Benzodiazepines Scrn Presumptive negative 11/27/18 Unknown Urine Cocaine Screen Presumptive negative 11/27/18 Unknown U Marijuana (THC) Screen Presumptive positive 11/27/18 Unknown Drugs of Abuse Note Disclamer 11/27/18 Unknown Plasma/Serum Alcohol < 0.01 % (0-0.07) 11/27/18 07:20 Blood Type A POSITIVE 11/27/18 07:20 Antibody Screen Negative 11/27/18 07:20 Crossmatch See Detail 11/27/18 07:20 Active Medications - Current Medications Current Medications: Generic Name Dose Route Start Last Admin Trade Name Freq PRN Reason Stop Dose Admin Acetaminophen 650 mg 11/27/18 19:34 Tylenol PO Q4H PRN Pain MILD(1-3)/Fever >100.5/ISAAC Acetaminophen/Hydrocodone Bitart 1 each 11/29/18 17:00 12/01/18 22:41 [place] 5/325 PO 1 each Q6H PRN Administration Pain, Moderate (4-6) Bupropion HCl 150 mg 11/30/18 12:30 12/02/18 11:28 Wellbutrin Sr PO 150 mg BID SHRUTHI Administration Dextrose 50 ml 11/29/18 12:46 D50w (25gm) Syringe IV PRN PRN Hypoglycemia Enoxaparin Sodium 40 mg 11/29/18 10:00 12/02/18 11:30 Lovenox SUB-Q 40 mg QDAY SHRUTHI Administration Famotidine 20 mg 11/27/18 19:34 12/02/18 11:29 Pepcid PO 20 mg BID SHRUTHI Administration Hydralazine HCl 10 mg 12/02/18 05:32 12/02/18 06:15 Apresoline IV 10 mg Q4HR PRN Administration SBP greater than 160 Insulin Human Lispro 0 unit 11/29/18 16:30 12/01/18 17:50 Humalog SUB-Q 2 unit AC SHRUTHI Administration Protocol Insulin Human Lispro 0 unit 11/29/18 22:00 12/01/18 22:50 Humalog SUB-Q Not Given QHS [facility] Protocol Metformin HCl 1,000 mg 11/30/18 12:30 12/02/18 11:28 Glucophage PO 1,000 mg BID SHRUTHI Administration Metoprolol Tartrate 25 mg 11/29/18 09:00 12/02/18 11:31 Lopressor PO 25 mg BID SHRUTHI Administration Morphine Sulfate 2 mg 11/27/18 19:34 12/02/18 06:15 Morphine IV 2 mg Q4H PRN Administration Pain, Moderate (4-6) Morphine Sulfate 4 mg 11/28/18 13:50 Morphine IV Q4H PRN Pain , Severe (7-10) Ondansetron HCl 4 mg 11/27/18 19:34 11/28/18 12:12 Zofran IV 4 mg Q8H PRN Administration Nausea And Vomiting Sertraline HCl 200 mg 12/01/18 10:00 12/02/18 11:29 Zoloft PO 200 mg QDAY SHRUTHI Administration Sodium Bicarbonate 650 mg 11/30/18 14:00 12/01/18 22:33 Sodium Bicarbonate PO 650 mg TID SHRUTHI Administration Sodium Chloride 10 ml 11/27/18 22:00 12/01/18 22:31 Sodium Chloride Flush Syringe 10 Ml IV 10 ml BID SHRUTHI Administration Sodium Chloride 10 ml 11/27/18 19:34 Sodium Chloride Flush Syringe 10 Ml IV PRN PRN LINE FLUSH Trazodone HCl 100 mg 11/30/18 11:53 Desyrel PO PRN PRN Insomnia Nutrition/Malnutrition Assess - Dietary Evaluation Nutrition/Malnutrition Findings: Nutrition Notes Start: 11/28/18 15:37 Freq: Status: Active Protocol: Document 12/02/18 11:08 (Rec: 12/02/18 11:45 SA [id number]) Co-Sign 12/02/18 11:08 LP Nutrition Notes Initial or Follow up Assessment Current Diagnosis Diabetes Other Pertinent Diagnosis Hx cancer, R femoral neck fracture, depression Current Diet Consistent Carbohydrate Diet Labs/Tests A1c 7.7 Height 6 ft Weight 63.5 kg [place] Body Weight (kg) 80.90 BMI 19.0 Subjective/Other Information Pt unable to understand diet education, wants to be educated another day. Patient confused at time of visit. Pt reports no appetite. Pt says eats average of 50% of trays. Patient UBW: 180#. Patient experiencing N/V after taking metformin. Percent of energy/protein needs met: 58%/70% Burn Absent Trauma Absent #1 Nutrition Diagnosis Inadequate oral intake Etiology no appetite and nausea and vomiting after taking metformin As Evidenced by Signs and Symptoms eating 50% of trays Is patient on ventilator? No Is Patient Ambulatory and/or Out of Bed No REE-([facility]-confined to bed) [phone] Additional Notes Protein: 1-1.2 g/kg (64-76 grams/day) Fluid: 1ml/kcal Nutrition Intervention Change Diet Order: Continue current Add Supplement/Snack (indicate name/kcal Glucerna 1 daily /protein ) Provides kCal: 220 Provides Protein (gm) 10 Goal #1 Meet at least 75% of kcals and pro needs via PO and ONS intake. Goal #2 Wt maintenance Follow-Up By: 12/04/18 Additional Comments F/U: for DM diet education and PO intakes
[2018-12-02] MEDS: HumaLOG SUB-Q SCH ×3 (12:30→23:41)
[2018-12-02] MEDS: NORCO 5/325 PO PRN (23:33)
[2018-12-03] MEDS: HumaLOG SUB-Q SCH ×3 (08:02→17:57)
[2018-12-03] MEDS: SODIUM BICARBONATE PO SCH ×3 (08:18→21:40)
[2018-12-03] MEDS: LOVENOX SUB-Q SCH (11:03)
[2018-12-03] MEDS: GLUCOPHAGE PO SCH ×2 (11:04→21:42)
[2018-12-03] MEDS: PEPCID PO SCH ×2 (11:04→21:40)
[2018-12-03] MEDS: WELLBUTRIN SR PO SCH ×2 (11:04→21:42)
[2018-12-03] MEDS: LOPRESSOR PO SCH ×2 (11:05→21:40)
[2018-12-03] MEDS: ZOLOFT PO SCH (11:05)
[2018-12-03] MEDS: NORCO 5/325 PO PRN (11:05)
[2018-12-03] MEDS: SODIUM CHLORIDE FLUSH SYRINGE 10 ML IV SCH (11:12)
--- NOTE | 2018-12-03 12:37 | Progress Note ---
Assessment and Plan Assessment and plan: Right femur neck fracture after fall. Admitted to surgical floor Ortho consulted and he was evaluated in ED s/p bipolar hemiarthroplasty right hip 11/28/18, POD#2 Morphine for pain management Diabetes mellitus type 2 Accucheck Q ac and hs Reviewed home meds Resume metformin Depression History of prostate cancer with mets to lungs Follow with his Physician as outpatient Disposition. Await subacute rehabilitation placement. Full code status History Interval history: Patient is 89 yo with diabetes, depression. He presented to hospital after a fall. He complains he has had repeated falls about 4-5 times over past 1 month. Was evaluated in Emergency Derpartment and hip X-ray revealed right femoral neck fracture . He was admitted, evaluated by Dr. Laird, Orthopedic surgeon and had surgery bipolar hemiarthroplasty right hip on 11/28/18. Placement as per PT. He is medically stable to discharge home or acute rehab. he will need follow up at [place] for known prostate cancer with metastases to lungs. No new issues overnight. Hospitalist Physical - Constitutional Vitals: Temp Pulse Resp BP Pulse Ox 97.6 F 81 15 161/84 99 12/03/18 10:14 12/03/18 11:05 12/03/18 12:05 12/03/18 11:05 12/03/18 10:14 General appearance: Present: no acute distress, well-nourished - EENT Eyes: Present: PERRL, EOM intact ENT: hearing intact, clear oral mucosa, dentition normal - Neck Neck: Present: supple, normal ROM - Respiratory Respiratory effort: normal Respiratory: bilateral: CTA - Cardiovascular Rhythm: regular Heart Sounds: Present: S1 & S2. Absent: gallop, rub - Extremities Extremities: no ischemia, No edema, Full ROM - Abdominal General gastrointestinal: soft, non-tender, non-distended, normal bowel sounds - Integumentary Integumentary: Present: clear, warm, dry - Neurologic Neurologic: CNII-XII intact, moves all extremities Results - Labs CBC & Chem 7: 12/02/18 05:22 12/02/18 05:22 Labs: Laboratory Last Values WBC 5.9 K/mm3 (4.5-11.0) 12/02/18 05:22 RBC 2.76 M/mm3 (3.65-5.03) L 12/02/18 05:22 Hgb 7.9 gm/dl (11.8-15.2) L 12/02/18 05:22 Hct 23.1 % (35.5-45.6) L 12/02/18 05:22 MCV 84 fl (84-94) 12/02/18 05:22 MCH 29 pg (28-32) 12/02/18 05:22 MCHC 34 % (32-34) 12/02/18 05:22 RDW 16.4 % (13.2-15.2) H 12/02/18 05:22 Plt Count 339 K/mm3 (140-440) 12/02/18 05:22 Lymph % (Auto) 20.8 % (13.4-35.0) 11/28/18 04:42 [place] % (Auto) 10.4 % (0.0-7.3) H 11/28/18 04:42 Eos % (Auto) 2.5 % (0.0-4.3) 11/28/18 04:42 Baso % (Auto) 0.8 % (0.0-1.8) 11/28/18 04:42 Lymph # 1.2 K/mm3 (1.2-5.4) 11/28/18 04:42 [place] # 0.6 K/mm3 (0.0-0.8) 11/28/18 04:42 Eos # 0.1 K/mm3 (0.0-0.4) 11/28/18 04:42 Baso # 0.0 K/mm3 (0.0-0.1) 11/28/18 04:42 Seg Neutrophils % 65.5 % (40.0-70.0) 11/28/18 04:42 Seg Neutrophils # 3.8 K/mm3 (1.8-7.7) 11/28/18 04:42 PT 13.9 Sec. (12.2-14.9) 11/27/18 07:20 INR 1.01 (0.87-1.13) 11/27/18 07:20 APTT 34.3 Sec. (24.2-36.6) 11/27/18 07:20 Sodium 139 mmol/L (137-145) 12/02/18 05:22 Potassium 3.6 mmol/L (3.6-5.0) 12/02/18 05:22 Chloride 103.3 mmol/L (98-107) 12/02/18 05:22 Carbon Dioxide 20 mmol/L (22-30) L 12/02/18 05:22 Anion Gap 19 mmol/L 12/02/18 05:22 BUN 19 mg/dL (9-20) 12/02/18 05:22 Creatinine 1.3 mg/dL (0.8-1.5) 12/02/18 05:22 Estimated GFR 57 ml/min 12/02/18 05:22 BUN/Creatinine Ratio 15 % 12/02/18 05:22 Glucose 183 mg/dL (75-100) H 12/02/18 05:22 POC Glucose 148 (70-105) H 12/03/18 11:56 Hemoglobin A1c 7.7 % (4-6) H 11/27/18 07:20 Lactic Acid 0.80 mmol/L (0.7-2.0) 11/27/18 07:20 Calcium 8.5 mg/dL (8.4-10.2) 12/02/18 05:22 Magnesium 1.60 mg/dL (1.7-2.3) L 11/27/18 07:20 Total Bilirubin 0.30 mg/dL (0.1-1.2) 11/27/18 07:20 Direct Bilirubin < 0.2 mg/dL (0-0.2) 11/27/18 07:20 AST 18 units/L (5-40) 11/27/18 07:20 ALT 16 units/L (7-56) 11/27/18 07:20 Alkaline Phosphatase 93 units/L (35-129) 11/27/18 07:20 Ammonia 34.0 umol/L (25-60) 11/27/18 07:20 Total Creatine Kinase 208 units/L (55-170) H 11/27/18 07:20 CK-MB (CK-2) 7.2 ng/mL (0.0-4.0) H 11/27/18 07:20 CK-MB (CK-2) Rel Index 3.4 (0-4) 11/27/18 07:20 Troponin T 0.023 ng/mL (0.00-0.029) 11/27/18 07:20 NT-Pro-B Natriuret Pep 4286 pg/mL (0-900) H 11/27/18 07:20 Total Protein 6.5 g/dL (6.3-8.2) 11/27/18 07:20 Albumin 3.1 g/dL (3.9-5) L 11/27/18 07:20 Albumin/Globulin Ratio 0.9 % 11/27/18 07:20 Urine Color Straw (Yellow) 11/27/18 Unknown Urine Turbidity Clear (Clear) 11/27/18 Unknown Urine pH 6.0 (5.0-7.0) 11/27/18 Unknown Ur Specific [place] 1.009 (1.003-1.030) 11/27/18 Unknown Urine Protein 100 mg/dl mg/dL (Negative) 11/27/18 Unknown Urine Glucose (UA) >=500 mg/dL (Negative) 11/27/18 Unknown Urine Ketones Neg mg/dL (Negative) 11/27/18 Unknown Urine Blood Mod (Negative) 11/27/18 Unknown Urine Nitrite Neg (Negative) 11/27/18 Unknown Urine Bilirubin Neg (Negative) 11/27/18 Unknown Urine Urobilinogen < 2.0 mg/dL (<2.0) 11/27/18 Unknown Ur Leukocyte Esterase Neg (Negative) 11/27/18 Unknown Urine WBC (Auto) Not Reportable 11/27/18 Unknown Urine RBC (Auto) 2.0 /HPF (0.0-6.0) 11/27/18 Unknown Urine Bacteria (Auto) 1+ /HPF (Negative) 11/27/18 Unknown Urine Mucus Few /HPF 11/27/18 Unknown Urine Opiates Screen Presumptive negative 11/27/18 Unknown Urine Methadone Screen Presumptive negative 11/27/18 Unknown Ur Barbiturates Screen Presumptive negative 11/27/18 Unknown Ur Phencyclidine Scrn Presumptive negative 11/27/18 Unknown Ur Amphetamines Screen Presumptive negative 11/27/18 Unknown U Benzodiazepines Scrn Presumptive negative 11/27/18 Unknown Urine Cocaine Screen Presumptive negative 11/27/18 Unknown U Marijuana (THC) Screen Presumptive positive 11/27/18 Unknown Drugs of Abuse Note Disclamer 11/27/18 Unknown Plasma/Serum Alcohol < 0.01 % (0-0.07) 11/27/18 07:20 Blood Type A POSITIVE 11/27/18 07:20 Antibody Screen Negative 11/27/18 07:20 Crossmatch See Detail 11/27/18 07:20 Active Medications - Current Medications Current Medications: Generic Name Dose Route Start Last Admin Trade Name Freq PRN Reason Stop Dose Admin Acetaminophen 650 mg 11/27/18 19:34 Tylenol PO Q4H PRN Pain MILD(1-3)/Fever >100.5/ISAAC Acetaminophen/Hydrocodone Bitart 1 each 11/29/18 17:00 12/03/18 11:05 [place] 5/325 PO 1 each Q6H PRN Administration Pain, Moderate (4-6) Bupropion HCl 150 mg 11/30/18 12:30 12/03/18 11:04 Wellbutrin Sr PO 150 mg BID SHRUTHI Administration Dextrose 50 ml 11/29/18 12:46 D50w (25gm) Syringe IV PRN PRN Hypoglycemia Enoxaparin Sodium 40 mg 11/29/18 10:00 12/03/18 11:03 Lovenox SUB-Q 40 mg QDAY SHRUTHI Administration Famotidine 20 mg 11/27/18 19:34 12/03/18 11:04 Pepcid PO 20 mg BID SHRUTHI Administration Hydralazine HCl 10 mg 12/02/18 05:32 12/02/18 06:15 Apresoline IV 10 mg Q4HR PRN Administration SBP greater than 160 Insulin Human Lispro 0 unit 11/29/18 16:30 12/03/18 11:59 Humalog SUB-Q Not Given [facility] Protocol Insulin Human Lispro 0 unit 11/29/18 22:00 12/02/18 23:41 Humalog SUB-Q 2 unit QHS SHRUTHI Administration Protocol Metformin HCl 1,000 mg 11/30/18 12:30 12/03/18 11:04 Glucophage PO 1,000 mg BID SHRUTHI Administration Metoprolol Tartrate 25 mg 11/29/18 09:00 12/03/18 11:05 Lopressor PO 25 mg BID SHRUTHI Administration Morphine Sulfate 2 mg 11/27/18 19:34 12/02/18 06:15 Morphine IV 2 mg Q4H PRN Administration Pain, Moderate (4-6) Morphine Sulfate 4 mg 11/28/18 13:50 Morphine IV Q4H PRN Pain , Severe (7-10) Ondansetron HCl 4 mg 11/27/18 19:34 11/28/18 12:12 Zofran IV 4 mg Q8H PRN Administration Nausea And Vomiting Sertraline HCl 200 mg 12/01/18 10:00 12/03/18 11:05 Zoloft PO 200 mg QDAY SHRUTHI Administration Sodium Bicarbonate 650 mg 11/30/18 14:00 12/03/18 08:18 Sodium Bicarbonate PO 650 mg TID SHRUTHI Administration Sodium Chloride 10 ml 11/27/18 22:00 12/03/18 11:12 Sodium Chloride Flush Syringe 10 Ml IV 10 ml BID SHRUTHI Administration Sodium Chloride 10 ml 11/27/18 19:34 Sodium Chloride Flush Syringe 10 Ml IV PRN PRN LINE FLUSH Trazodone HCl 100 mg 11/30/18 11:53 Desyrel PO PRN PRN Insomnia Nutrition/Malnutrition Assess - Dietary Evaluation Nutrition/Malnutrition Findings: Nutrition Notes Start: 11/28/18 15:37 Freq: Status: Active Protocol: Document 12/02/18 11:08 SA (Rec: 12/02/18 11:45 SA [id number]) Co-Sign 12/02/18 11:08 LP Nutrition Notes Initial or Follow up Assessment Current Diagnosis Diabetes Other Pertinent Diagnosis Hx cancer, R femoral neck fracture, depression Current Diet Consistent Carbohydrate Diet Labs/Tests A1c 7.7 Height 6 ft Weight 63.5 kg [place] Body Weight (kg) 80.90 BMI 19.0 Subjective/Other Information Pt unable to understand diet education, wants to be educated another day. Patient confused at time of visit. Pt reports no appetite. Pt says eats average of 50% of trays. Patient UBW: 180#. Patient experiencing N/V after taking metformin. Percent of energy/protein needs met: 58%/70% Burn Absent Trauma Absent #1 Nutrition Diagnosis Inadequate oral intake Etiology no appetite and nausea and vomiting after taking metformin As Evidenced by Signs and Symptoms eating 50% of trays Is patient on ventilator? No Is Patient Ambulatory and/or Out of Bed No REE-([facility]-confined to bed) 1515.139 Additional Notes Protein: 1-1.2 g/kg (64-76 grams/day) Fluid: 1ml/kcal Nutrition Intervention Change Diet Order: Continue current Add Supplement/Snack (indicate name/kcal Glucerna 1 daily /protein ) Provides kCal: 220 Provides Protein (gm) 10 Goal #1 Meet at least 75% of kcals and pro needs via PO and ONS intake. Goal #2 Wt maintenance Follow-Up By: 12/04/18 Additional Comments F/U: for DM diet education and PO intakes
[2018-12-03] MEDS: MORPHINE IV PRN (13:28)
[2018-12-03] MEDS: HALDOL IV SCH (16:03)
[2018-12-03] MEDS: APRESOLINE IV PRN (17:47)
[2018-12-04] MEDS: SODIUM CHLORIDE FLUSH SYRINGE 10 ML IV SCH ×3 (07:54→22:06)
[2018-12-04] MEDS: HALDOL IV SCH ×5 (07:54→21:59)
[2018-12-04] MEDS: HumaLOG SUB-Q SCH ×6 (07:55→21:59)
[2018-12-04] MEDS: GLUCOPHAGE PO SCH ×2 (09:49→21:56)
[2018-12-04] MEDS: NORCO 5/325 PO PRN (09:49)
[2018-12-04] MEDS: ZOLOFT PO SCH (09:49)
[2018-12-04] MEDS: PEPCID PO SCH ×2 (09:49→21:55)
[2018-12-04] MEDS: SODIUM BICARBONATE PO SCH ×3 (09:49→21:54)
[2018-12-04] MEDS: WELLBUTRIN SR PO SCH ×2 (09:49→21:55)
[2018-12-04] MEDS: LOPRESSOR PO SCH ×2 (09:50→21:56)
[2018-12-04] MEDS: LOVENOX SUB-Q SCH (09:50)
--- NOTE | 2018-12-04 11:04 | Progress Note ---
Assessment and Plan Assessment and plan: Right femur neck fracture after fall. Admitted to surgical floor Ortho consulted and he was evaluated in ED s/p bipolar hemiarthroplasty right hip 11/28/18, POD#2 Morphine for pain management Diabetes mellitus type 2 Accucheck Q ac and hs Reviewed home meds Resume metformin Depression History of prostate cancer with mets to lungs Follow with his Physician as outpatient Disposition. Await subacute rehabilitation placement. Full code status History Interval history: Patient is 89 yo with diabetes, depression. He presented to hospital after a fall. He complains he has had repeated falls about 4-5 times over past 1 month. Was evaluated in Emergency Derpartment and hip X-ray revealed right femoral neck fracture . He was admitted, evaluated by Dr. Laird, Orthopedic surgeon and had surgery bipolar hemiarthroplasty right hip on 11/28/18. Placement as per PT. He is medically stable to discharge home or acute rehab. he will need follow up at [place] for known prostate cancer with metastases to lungs. No new issues overnight. Hospitalist Physical - Constitutional Vitals: Temp Pulse Resp BP Pulse Ox 97.8 F 77 16 156/69 97 12/04/18 04:36 12/04/18 09:50 12/04/18 09:49 12/04/18 09:50 12/04/18 08:08 General appearance: Present: no acute distress, well-nourished - EENT Eyes: Present: PERRL, EOM intact ENT: hearing intact, clear oral mucosa, dentition normal - Neck Neck: Present: supple, normal ROM - Respiratory Respiratory effort: normal Respiratory: bilateral: CTA - Cardiovascular Rhythm: regular Heart Sounds: Present: S1 & S2. Absent: gallop, rub - Extremities Extremities: no ischemia, No edema, Full ROM - Abdominal General gastrointestinal: soft, non-tender, non-distended, normal bowel sounds - Integumentary Integumentary: Present: clear, warm, dry - Neurologic Neurologic: CNII-XII intact, moves all extremities Results - Labs CBC & Chem 7: 12/02/18 05:22 12/02/18 05:22 Labs: Laboratory Last Values WBC 5.9 K/mm3 (4.5-11.0) 12/02/18 05:22 RBC 2.76 M/mm3 (3.65-5.03) L 12/02/18 05:22 Hgb 7.9 gm/dl (11.8-15.2) L 12/02/18 05:22 Hct 23.1 % (35.5-45.6) L 12/02/18 05:22 MCV 84 fl (84-94) 12/02/18 05:22 MCH 29 pg (28-32) 12/02/18 05:22 MCHC 34 % (32-34) 12/02/18 05:22 RDW 16.4 % (13.2-15.2) H 12/02/18 05:22 Plt Count 339 K/mm3 (140-440) 12/02/18 05:22 Lymph % (Auto) 20.8 % (13.4-35.0) 11/28/18 04:42 [place] % (Auto) 10.4 % (0.0-7.3) H 11/28/18 04:42 Eos % (Auto) 2.5 % (0.0-4.3) 11/28/18 04:42 Baso % (Auto) 0.8 % (0.0-1.8) 11/28/18 04:42 Lymph # 1.2 K/mm3 (1.2-5.4) 11/28/18 04:42 [place] # 0.6 K/mm3 (0.0-0.8) 11/28/18 04:42 Eos # 0.1 K/mm3 (0.0-0.4) 11/28/18 04:42 Baso # 0.0 K/mm3 (0.0-0.1) 11/28/18 04:42 Seg Neutrophils % 65.5 % (40.0-70.0) 11/28/18 04:42 Seg Neutrophils # 3.8 K/mm3 (1.8-7.7) 11/28/18 04:42 PT 13.9 Sec. (12.2-14.9) 11/27/18 07:20 INR 1.01 (0.87-1.13) 11/27/18 07:20 APTT 34.3 Sec. (24.2-36.6) 11/27/18 07:20 Sodium 139 mmol/L (137-145) 12/02/18 05:22 Potassium 3.6 mmol/L (3.6-5.0) 12/02/18 05:22 Chloride 103.3 mmol/L (98-107) 12/02/18 05:22 Carbon Dioxide 20 mmol/L (22-30) L 12/02/18 05:22 Anion Gap 19 mmol/L 12/02/18 05:22 BUN 19 mg/dL (9-20) 12/02/18 05:22 Creatinine 1.3 mg/dL (0.8-1.5) 12/02/18 05:22 Estimated GFR 57 ml/min 12/02/18 05:22 BUN/Creatinine Ratio 15 % 12/02/18 05:22 Glucose 183 mg/dL (75-100) H 12/02/18 05:22 POC Glucose 165 (70-105) H 12/04/18 08:29 Hemoglobin A1c 7.7 % (4-6) H 11/27/18 07:20 Lactic Acid 0.80 mmol/L (0.7-2.0) 11/27/18 07:20 Calcium 8.5 mg/dL (8.4-10.2) 12/02/18 05:22 Magnesium 1.60 mg/dL (1.7-2.3) L 11/27/18 07:20 Total Bilirubin 0.30 mg/dL (0.1-1.2) 11/27/18 07:20 Direct Bilirubin < 0.2 mg/dL (0-0.2) 11/27/18 07:20 AST 18 units/L (5-40) 11/27/18 07:20 ALT 16 units/L (7-56) 11/27/18 07:20 Alkaline Phosphatase 93 units/L (35-129) 11/27/18 07:20 Ammonia 34.0 umol/L (25-60) 11/27/18 07:20 Total Creatine Kinase 208 units/L (55-170) H 11/27/18 07:20 CK-MB (CK-2) 7.2 ng/mL (0.0-4.0) H 11/27/18 07:20 CK-MB (CK-2) Rel Index 3.4 (0-4) 11/27/18 07:20 Troponin T 0.023 ng/mL (0.00-0.029) 11/27/18 07:20 NT-Pro-B Natriuret Pep 4286 pg/mL (0-900) H 11/27/18 07:20 Total Protein 6.5 g/dL (6.3-8.2) 11/27/18 07:20 Albumin 3.1 g/dL (3.9-5) L 11/27/18 07:20 Albumin/Globulin Ratio 0.9 % 11/27/18 07:20 Urine Color Straw (Yellow) 11/27/18 Unknown Urine Turbidity Clear (Clear) 11/27/18 Unknown Urine pH 6.0 (5.0-7.0) 11/27/18 Unknown Ur Specific [place] 1.009 (1.003-1.030) 11/27/18 Unknown Urine Protein 100 mg/dl mg/dL (Negative) 11/27/18 Unknown Urine Glucose (UA) >=500 mg/dL (Negative) 11/27/18 Unknown Urine Ketones Neg mg/dL (Negative) 11/27/18 Unknown Urine Blood Mod (Negative) 11/27/18 Unknown Urine Nitrite Neg (Negative) 11/27/18 Unknown Urine Bilirubin Neg (Negative) 11/27/18 Unknown Urine Urobilinogen < 2.0 mg/dL (<2.0) 11/27/18 Unknown Ur Leukocyte Esterase Neg (Negative) 11/27/18 Unknown Urine WBC (Auto) Not Reportable 11/27/18 Unknown Urine RBC (Auto) 2.0 /HPF (0.0-6.0) 11/27/18 Unknown Urine Bacteria (Auto) 1+ /HPF (Negative) 11/27/18 Unknown Urine Mucus Few /HPF 11/27/18 Unknown Urine Opiates Screen Presumptive negative 11/27/18 Unknown Urine Methadone Screen Presumptive negative 11/27/18 Unknown Ur Barbiturates Screen Presumptive negative 11/27/18 Unknown Ur Phencyclidine Scrn Presumptive negative 11/27/18 Unknown Ur Amphetamines Screen Presumptive negative 11/27/18 Unknown U Benzodiazepines Scrn Presumptive negative 11/27/18 Unknown Urine Cocaine Screen Presumptive negative 11/27/18 Unknown U Marijuana (THC) Screen Presumptive positive 11/27/18 Unknown Drugs of Abuse Note Disclamer 11/27/18 Unknown Plasma/Serum Alcohol < 0.01 % (0-0.07) 11/27/18 07:20 Blood Type A POSITIVE 11/27/18 07:20 Antibody Screen Negative 11/27/18 07:20 Crossmatch See Detail 11/27/18 07:20 Active Medications - Current Medications Current Medications: Generic Name Dose Route Start Last Admin Trade Name Freq PRN Reason Stop Dose Admin Acetaminophen 650 mg 11/27/18 19:34 Tylenol PO Q4H PRN Pain MILD(1-3)/Fever >100.5/ISAAC Acetaminophen/Hydrocodone Bitart 1 each 11/29/18 17:00 12/04/18 09:49 [place] 5/325 PO 1 each Q6H PRN Administration Pain, Moderate (4-6) Bupropion HCl 150 mg 11/30/18 12:30 12/04/18 09:49 Wellbutrin Sr PO 150 mg BID SHRUTHI Administration Dextrose 50 ml 11/29/18 12:46 D50w (25gm) Syringe IV PRN PRN Hypoglycemia Enoxaparin Sodium 40 mg 11/29/18 10:00 12/04/18 09:50 Lovenox SUB-Q 40 mg QDAY SHRUTHI Administration Famotidine 20 mg 11/27/18 19:34 12/04/18 09:49 Pepcid PO 20 mg BID SHRUTHI Administration Haloperidol Lactate 2 mg 12/03/18 15:00 12/04/18 07:54 Haldol IV Not Given Q6H SHRUTHI Hydralazine HCl 10 mg 12/02/18 05:32 12/03/18 17:47 Apresoline IV 10 mg Q4HR PRN Administration SBP greater than 160 Insulin Human Lispro 0 unit 11/29/18 16:30 12/04/18 08:34 Humalog SUB-Q Not Given [facility] Protocol Insulin Human Lispro 0 unit 11/29/18 22:00 12/04/18 07:55 Humalog SUB-Q Not Given QHS [facility] Protocol Metformin HCl 1,000 mg 11/30/18 12:30 12/04/18 09:49 Glucophage PO 1,000 mg BID SHRUTHI Administration Metoprolol Tartrate 25 mg 11/29/18 09:00 12/04/18 09:50 Lopressor PO 25 mg BID SHRUTHI Administration Morphine Sulfate 2 mg 11/27/18 19:34 12/03/18 13:28 Morphine IV 2 mg Q4H PRN Administration Pain, Moderate (4-6) Morphine Sulfate 4 mg 11/28/18 13:50 Morphine IV Q4H PRN Pain , Severe (7-10) Ondansetron HCl 4 mg 11/27/18 19:34 11/28/18 12:12 Zofran IV 4 mg Q8H PRN Administration Nausea And Vomiting Sertraline HCl 200 mg 12/01/18 10:00 12/04/18 09:49 Zoloft PO 200 mg QDAY SHRUTHI Administration Sodium Bicarbonate 650 mg 11/30/18 14:00 12/04/18 09:49 Sodium Bicarbonate PO 650 mg TID SHRUTHI Administration Sodium Chloride 10 ml 11/27/18 22:00 12/04/18 09:51 Sodium Chloride Flush Syringe 10 Ml IV 10 ml BID SHRUTHI Administration Sodium Chloride 10 ml 11/27/18 19:34 Sodium Chloride Flush Syringe 10 Ml IV PRN PRN LINE FLUSH Trazodone HCl 100 mg 11/30/18 11:53 Desyrel PO PRN PRN Insomnia Nutrition/Malnutrition Assess - Dietary Evaluation Nutrition/Malnutrition Findings: Nutrition Notes Start: 11/28/18 15:37 Freq: Status: Active Protocol: Document 12/02/18 11:08 (Rec: 12/02/18 11:45 SA [id number]) Co-Sign 12/02/18 11:08 LP Nutrition Notes Initial or Follow up Assessment Current Diagnosis Diabetes Other Pertinent Diagnosis Hx cancer, R femoral neck fracture, depression Current Diet Consistent Carbohydrate Diet Labs/Tests A1c 7.7 Height 6 ft Weight 63.5 kg [place] Body Weight (kg) 80.90 BMI 19.0 Subjective/Other Information Pt unable to understand diet education, wants to be educated another day. Patient confused at time of visit. Pt reports no appetite. Pt says eats average of 50% of trays. Patient UBW: 180#. Patient experiencing N/V after taking metformin. Percent of energy/protein needs met: 58%/70% Burn Absent Trauma Absent #1 Nutrition Diagnosis Inadequate oral intake Etiology no appetite and nausea and vomiting after taking metformin As Evidenced by Signs and Symptoms eating 50% of trays Is patient on ventilator? No Is Patient Ambulatory and/or Out of Bed No REE-([facility]-confined to bed) 7545.527 Additional Notes Protein: 1-1.2 g/kg (64-76 grams/day) Fluid: 1ml/kcal Nutrition Intervention Change Diet Order: Continue current Add Supplement/Snack (indicate name/kcal Glucerna 1 daily /protein ) Provides kCal: 220 Provides Protein (gm) 10 Goal #1 Meet at least 75% of kcals and pro needs via PO and ONS intake. Goal #2 Wt maintenance Follow-Up By: 12/04/18 Additional Comments F/U: for DM diet education and PO intakes
[2018-12-05] MEDS: HALDOL IV SCH ×4 (07:07→22:22)
[2018-12-05] MEDS: ZOLOFT PO SCH (09:41)
[2018-12-05] MEDS: GLUCOPHAGE PO SCH ×2 (09:41→22:11)
[2018-12-05] MEDS: PEPCID PO SCH ×2 (09:41→22:11)
[2018-12-05] MEDS: SODIUM BICARBONATE PO SCH ×3 (09:41→19:58)
[2018-12-05] MEDS: LOVENOX SUB-Q SCH (09:42)
[2018-12-05] MEDS: WELLBUTRIN SR PO SCH ×2 (09:42→22:11)
[2018-12-05] MEDS: LOPRESSOR PO SCH ×2 (09:42→22:11)
[2018-12-05] MEDS: HumaLOG SUB-Q SCH ×4 (09:43→22:24)
--- NOTE | 2018-12-05 11:33 | Progress Note ---
Assessment and Plan Assessment and plan: Right femur neck fracture after fall. Admitted to surgical floor Ortho consulted and he was evaluated in ED s/p bipolar hemiarthroplasty right hip 11/28/18, POD#2 Morphine for pain management Diabetes mellitus type 2 Accucheck Q ac and hs Reviewed home meds Resume metformin Depression History of prostate cancer with mets to lungs Follow with his Physician as outpatient Disposition. Await subacute rehabilitation placement. Full code status History Interval history: Patient is 89 yo with diabetes, depression. He presented to hospital after a fall. He complains he has had repeated falls about 4-5 times over past 1 month. Was evaluated in Emergency Derpartment and hip X-ray revealed right femoral neck fracture . He was admitted, evaluated by Dr. Laird, Orthopedic surgeon and had surgery bipolar hemiarthroplasty right hip on 11/28/18. Placement as per PT. He is medically stable to discharge home or acute rehab. he will need follow up at [facility] for known prostate cancer with metastases to lungs. No new issues overnight. Hospitalist Physical - Constitutional Vitals: Temp Pulse Resp BP Pulse Ox 97.5 F L 92 H 18 156/86 98 12/05/18 07:20 12/05/18 09:42 12/05/18 07:20 12/05/18 09:42 12/05/18 07:20 General appearance: Present: no acute distress, well-nourished - EENT Eyes: Present: PERRL, EOM intact ENT: hearing intact, clear oral mucosa, dentition normal - Neck Neck: Present: supple, normal ROM - Respiratory Respiratory effort: normal Respiratory: bilateral: CTA - Cardiovascular Rhythm: regular Heart Sounds: Present: S1 & S2. Absent: gallop, rub - Extremities Extremities: no ischemia, No edema, Full ROM - Abdominal General gastrointestinal: soft, non-tender, non-distended, normal bowel sounds - Integumentary Integumentary: Present: clear, warm, dry - Neurologic Neurologic: CNII-XII intact, moves all extremities Results - Labs CBC & Chem 7: 12/02/18 05:22 12/02/18 05:22 Labs: Laboratory Last Values WBC 5.9 K/mm3 (4.5-11.0) 12/02/18 05:22 RBC 2.76 M/mm3 (3.65-5.03) L 12/02/18 05:22 Hgb 7.9 gm/dl (11.8-15.2) L 12/02/18 05:22 Hct 23.1 % (35.5-45.6) L 12/02/18 05:22 MCV 84 fl (84-94) 12/02/18 05:22 MCH 29 pg (28-32) 12/02/18 05:22 MCHC 34 % (32-34) 12/02/18 05:22 RDW 16.4 % (13.2-15.2) H 12/02/18 05:22 Plt Count 339 K/mm3 (140-440) 12/02/18 05:22 Lymph % (Auto) 20.8 % (13.4-35.0) 11/28/18 04:42 [place] % (Auto) 10.4 % (0.0-7.3) H 11/28/18 04:42 Eos % (Auto) 2.5 % (0.0-4.3) 11/28/18 04:42 Baso % (Auto) 0.8 % (0.0-1.8) 11/28/18 04:42 Lymph # 1.2 K/mm3 (1.2-5.4) 11/28/18 04:42 [place] # 0.6 K/mm3 (0.0-0.8) 11/28/18 04:42 Eos # 0.1 K/mm3 (0.0-0.4) 11/28/18 04:42 Baso # 0.0 K/mm3 (0.0-0.1) 11/28/18 04:42 Seg Neutrophils % 65.5 % (40.0-70.0) 11/28/18 04:42 Seg Neutrophils # 3.8 K/mm3 (1.8-7.7) 11/28/18 04:42 PT 13.9 Sec. (12.2-14.9) 11/27/18 07:20 INR 1.01 (0.87-1.13) 11/27/18 07:20 APTT 34.3 Sec. (24.2-36.6) 11/27/18 07:20 Sodium 139 mmol/L (137-145) 12/02/18 05:22 Potassium 3.6 mmol/L (3.6-5.0) 12/02/18 05:22 Chloride 103.3 mmol/L (98-107) 12/02/18 05:22 Carbon Dioxide 20 mmol/L (22-30) L 12/02/18 05:22 Anion Gap 19 mmol/L 12/02/18 05:22 BUN 19 mg/dL (9-20) 12/02/18 05:22 Creatinine 1.3 mg/dL (0.8-1.5) 12/02/18 05:22 Estimated GFR 57 ml/min 12/02/18 05:22 BUN/Creatinine Ratio 15 % 12/02/18 05:22 Glucose 183 mg/dL (75-100) H 12/02/18 05:22 POC Glucose 221 (70-105) H 12/05/18 11:14 Hemoglobin A1c 7.7 % (4-6) H 11/27/18 07:20 Lactic Acid 0.80 mmol/L (0.7-2.0) 11/27/18 07:20 Calcium 8.5 mg/dL (8.4-10.2) 12/02/18 05:22 Magnesium 1.60 mg/dL (1.7-2.3) L 11/27/18 07:20 Total Bilirubin 0.30 mg/dL (0.1-1.2) 11/27/18 07:20 Direct Bilirubin < 0.2 mg/dL (0-0.2) 11/27/18 07:20 AST 18 units/L (5-40) 11/27/18 07:20 ALT 16 units/L (7-56) 11/27/18 07:20 Alkaline Phosphatase 93 units/L (35-129) 11/27/18 07:20 Ammonia 34.0 umol/L (25-60) 11/27/18 07:20 Total Creatine Kinase 208 units/L (55-170) H 11/27/18 07:20 CK-MB (CK-2) 7.2 ng/mL (0.0-4.0) H 11/27/18 07:20 CK-MB (CK-2) Rel Index 3.4 (0-4) 11/27/18 07:20 Troponin T 0.023 ng/mL (0.00-0.029) 11/27/18 07:20 NT-Pro-B Natriuret Pep 4286 pg/mL (0-900) H 11/27/18 07:20 Total Protein 6.5 g/dL (6.3-8.2) 11/27/18 07:20 Albumin 3.1 g/dL (3.9-5) L 11/27/18 07:20 Albumin/Globulin Ratio 0.9 % 11/27/18 07:20 Urine Color Straw (Yellow) 11/27/18 Unknown Urine Turbidity Clear (Clear) 11/27/18 Unknown Urine pH 6.0 (5.0-7.0) 11/27/18 Unknown Ur Specific [place] 1.009 (1.003-1.030) 11/27/18 Unknown Urine Protein 100 mg/dl mg/dL (Negative) 11/27/18 Unknown Urine Glucose (UA) >=500 mg/dL (Negative) 11/27/18 Unknown Urine Ketones Neg mg/dL (Negative) 11/27/18 Unknown Urine Blood Mod (Negative) 11/27/18 Unknown Urine Nitrite Neg (Negative) 11/27/18 Unknown Urine Bilirubin Neg (Negative) 11/27/18 Unknown Urine Urobilinogen < 2.0 mg/dL (<2.0) 11/27/18 Unknown Ur Leukocyte Esterase Neg (Negative) 11/27/18 Unknown Urine WBC (Auto) Not Reportable 11/27/18 Unknown Urine RBC (Auto) 2.0 /HPF (0.0-6.0) 11/27/18 Unknown Urine Bacteria (Auto) 1+ /HPF (Negative) 11/27/18 Unknown Urine Mucus Few /HPF 11/27/18 Unknown Urine Opiates Screen Presumptive negative 11/27/18 Unknown Urine Methadone Screen Presumptive negative 11/27/18 Unknown Ur Barbiturates Screen Presumptive negative 11/27/18 Unknown Ur Phencyclidine Scrn Presumptive negative 11/27/18 Unknown Ur Amphetamines Screen Presumptive negative 11/27/18 Unknown U Benzodiazepines Scrn Presumptive negative 11/27/18 Unknown Urine Cocaine Screen Presumptive negative 11/27/18 Unknown U Marijuana (THC) Screen Presumptive positive 11/27/18 Unknown Drugs of Abuse Note Disclamer 11/27/18 Unknown Plasma/Serum Alcohol < 0.01 % (0-0.07) 11/27/18 07:20 Blood Type A POSITIVE 11/27/18 07:20 Antibody Screen Negative 11/27/18 07:20 Crossmatch See Detail 11/27/18 07:20 Active Medications - Current Medications Current Medications: Generic Name Dose Route Start Last Admin Trade Name Freq PRN Reason Stop Dose Admin Acetaminophen 650 mg 11/27/18 19:34 Tylenol PO Q4H PRN Pain MILD(1-3)/Fever >100.5/ISAAC Acetaminophen/Hydrocodone Bitart 1 each 11/29/18 17:00 12/04/18 09:49 [place] 5/325 PO 1 each Q6H PRN Administration Pain, Moderate (4-6) Bupropion HCl 150 mg 11/30/18 12:30 12/05/18 09:42 Wellbutrin Sr PO 150 mg BID SHRUTHI Administration Dextrose 50 ml 11/29/18 12:46 D50w (25gm) Syringe IV PRN PRN Hypoglycemia Enoxaparin Sodium 40 mg 11/29/18 10:00 12/05/18 09:42 Lovenox SUB-Q 40 mg QDAY SHRUTHI Administration Famotidine 20 mg 11/27/18 19:34 12/05/18 09:41 Pepcid PO 20 mg BID SHRUTHI Administration Haloperidol Lactate 2 mg 12/03/18 15:00 12/05/18 09:42 Haldol IV 2 mg Q6H SHRUTHI Administration Hydralazine HCl 10 mg 12/02/18 05:32 12/03/18 17:47 Apresoline IV 10 mg Q4HR PRN Administration SBP greater than 160 Insulin Human Lispro 0 unit 11/29/18 16:30 12/05/18 09:43 Humalog SUB-Q 2 unit AC SHRUTHI Administration Protocol Insulin Human Lispro 0 unit 11/29/18 22:00 12/04/18 21:59 Humalog SUB-Q Not Given QHS [facility] Protocol Metformin HCl 1,000 mg 11/30/18 12:30 12/05/18 09:41 Glucophage PO 1,000 mg BID SHRUTHI Administration Metoprolol Tartrate 25 mg 11/29/18 09:00 12/05/18 09:42 Lopressor PO 25 mg BID SHRUTHI Administration Morphine Sulfate 2 mg 11/27/18 19:34 12/03/18 13:28 Morphine IV 2 mg Q4H PRN Administration Pain, Moderate (4-6) Morphine Sulfate 4 mg 11/28/18 13:50 Morphine IV Q4H PRN Pain , Severe (7-10) Ondansetron HCl 4 mg 11/27/18 19:34 11/28/18 12:12 Zofran IV 4 mg Q8H PRN Administration Nausea And Vomiting Sertraline HCl 200 mg 12/01/18 10:00 12/05/18 09:41 Zoloft PO 200 mg QDAY SHRUTHI Administration Sodium Bicarbonate 650 mg 11/30/18 14:00 12/05/18 09:41 Sodium Bicarbonate PO 650 mg TID SHRUTHI Administration Sodium Chloride 10 ml 11/27/18 22:00 12/04/18 22:06 Sodium Chloride Flush Syringe 10 Ml IV 10 ml BID SHRUTHI Administration Sodium Chloride 10 ml 11/27/18 19:34 Sodium Chloride Flush Syringe 10 Ml IV PRN PRN LINE FLUSH Trazodone HCl 100 mg 11/30/18 11:53 Desyrel PO PRN PRN Insomnia Nutrition/Malnutrition Assess - Dietary Evaluation Nutrition/Malnutrition Findings: Nutrition Notes Start: 11/28/18 15:37 Freq: Status: Active Protocol: Document 12/04/18 11:59 EB (Rec: 12/04/18 12:14 EB [id number]) Co-Sign 12/04/18 11:59 LP Nutrition Notes Initial or Follow up Reassessment Current Diagnosis Diabetes Other Pertinent Diagnosis Hx cancer, R femoral neck fracture, depression Current Diet Consistent Carbohydrate Diet Labs/Tests Reviewed Pertinent Medications Reviewed Height 6 ft Weight 63.5 kg Usual Body Weight 81.647 kg [place] Body Weight (kg) 80.90 BMI 19.0 Subjective/Other Information F/u for intakes. Pt consumed 0% of tray this am and reports not wanting to eat. Pt aware he should eat but reports not being hungry. Observed overall emaciation of pt, including clavicular, temporal, deltoid, and interosseus muscle wasting, as well as sunken eyes. Pt not ready for diet education at this time. Pt accepted offer of ONS daily. 29% wt loss in 3 months. Percent of energy/protein needs met: 0%/0% Burn Absent Trauma Absent Current % PO Negligible Minimum of two criteria Yes Interpretation of Weight Loss (non- 7.5% in 3 months severe) Interpretation of Weight Loss (severe) >7.5% in 3 months Body Fat Depletion Moderate depletion (severe) Muscle Mass Moderate Depletion (severe) Fluid Accumulation N/A Reduced [employer] Strength N/A (non-severe) Protein-Calorie Malnutrition N\A #2 Nutrition Diagnosis Malnutrition Etiology Hx CA and femoral neck Fx As Evidenced by Signs and Symptoms Severe muscle wasting in temporal, clavicular, interosseous, and deltoid regions. Fat depletion noted in orbital region resulting in sunken eyes as well as tricep regions. 29% wt loss in last 3 months #1 Diagnosis Progress(for reassessment Continues documentation) Is patient on ventilator? No Is Patient Ambulatory and/or Out of Bed No REE-([place]-confined to bed) 1790.508 Kcal/Kg value to use for calculation 32 Approximate Energy Requirements Using 2031 kcal/Kg Calculation Used for Recommendations Kcal/kg Additional Notes Protein: 1.2-1.5 g/kg (77-96 grams/day) Fluid: 1ml/kcal Nutrition Intervention Change Diet Order: Continue current Add Supplement/Snack (indicate name/kcal Glucerna BID /protein ) Provides kCal: 440 Provides Protein (gm) 20 Goal #1 Meet at least 75% of kcals and pro needs via PO and ONS intake. Goal #2 Wt maintenance and/or gain Follow-Up By: 12/08/18 Additional Comments F/u: PO and ONS intakes
[2018-12-05] MEDS: SODIUM CHLORIDE FLUSH SYRINGE 10 ML IV SCH ×2 (13:36→22:27)
[2018-12-05] MEDS: NORCO 5/325 PO PRN (22:20)
[2018-12-06] MEDS: MORPHINE IV PRN ×3 (01:09→21:24)
[2018-12-06] MEDS: NORCO 5/325 PO PRN (04:23)
[2018-12-06] MEDS: HALDOL IV SCH ×4 (04:27→21:27)
[2018-12-06] MEDS: LOVENOX SUB-Q SCH (10:09)
[2018-12-06] MEDS: ZOLOFT PO SCH (10:10)
[2018-12-06] MEDS: LOPRESSOR PO SCH ×2 (10:11→21:22)
[2018-12-06] MEDS: SODIUM BICARBONATE PO SCH ×3 (10:11→21:22)
[2018-12-06] MEDS: GLUCOPHAGE PO SCH ×2 (10:11→21:22)
[2018-12-06] MEDS: WELLBUTRIN SR PO SCH ×2 (10:11→21:23)
[2018-12-06] MEDS: PEPCID PO SCH ×2 (10:12→21:22)
[2018-12-06] MEDS: HumaLOG SUB-Q SCH ×4 (10:14→23:04)
--- NOTE | 2018-12-06 12:30 | Progress Note ---
Assessment and Plan Assessment and plan: Right femur neck fracture after fall. Admitted to surgical floor Ortho consulted and he was evaluated in ED s/p bipolar hemiarthroplasty right hip 11/28/18, POD#2 Morphine for pain management Diabetes mellitus type 2 Accucheck Q ac and hs Reviewed home meds Resume metformin Depression History of prostate cancer with mets to lungs Follow with his Physician as outpatient Disposition. Await subacute rehabilitation placement. Full code status History Interval history: Patient is 89 yo with diabetes, depression. He presented to hospital after a fall. He complains he has had repeated falls about 4-5 times over past 1 month. Was evaluated in Emergency Derpartment and hip X-ray revealed right femoral neck fracture . He was admitted, evaluated by Dr. Laird, Orthopedic surgeon and had surgery bipolar hemiarthroplasty right hip on 11/28/18. Placement as per PT. He is medically stable to discharge home or acute rehab. he will need follow up at [place] for known prostate cancer with metastases to lungs. No new issues overnight. Hospitalist Physical - Constitutional Vitals: Temp Pulse Resp BP Pulse Ox 97.0 F L 95 H 16 134/62 99 12/06/18 07:03 12/06/18 10:11 12/06/18 07:03 12/06/18 10:11 12/06/18 03:57 General appearance: Present: no acute distress, well-nourished - EENT Eyes: Present: PERRL, EOM intact ENT: hearing intact, clear oral mucosa, dentition normal - Neck Neck: Present: supple, normal ROM - Respiratory Respiratory effort: normal Respiratory: bilateral: CTA - Cardiovascular Rhythm: regular Heart Sounds: Present: S1 & S2. Absent: gallop, rub - Extremities Extremities: no ischemia, No edema, Full ROM - Abdominal General gastrointestinal: soft, non-tender, non-distended, normal bowel sounds - Integumentary Integumentary: Present: clear, warm, dry - Neurologic Neurologic: CNII-XII intact, moves all extremities Results - Labs CBC & Chem 7: 12/02/18 05:22 12/02/18 05:22 Labs: Laboratory Last Values WBC 5.9 K/mm3 (4.5-11.0) 12/02/18 05:22 RBC 2.76 M/mm3 (3.65-5.03) L 12/02/18 05:22 Hgb 7.9 gm/dl (11.8-15.2) L 12/02/18 05:22 Hct 23.1 % (35.5-45.6) L 12/02/18 05:22 MCV 84 fl (84-94) 12/02/18 05:22 MCH 29 pg (28-32) 12/02/18 05:22 MCHC 34 % (32-34) 12/02/18 05:22 RDW 16.4 % (13.2-15.2) H 12/02/18 05:22 Plt Count 339 K/mm3 (140-440) 12/02/18 05:22 Lymph % (Auto) 20.8 % (13.4-35.0) 11/28/18 04:42 [place] % (Auto) 10.4 % (0.0-7.3) H 11/28/18 04:42 Eos % (Auto) 2.5 % (0.0-4.3) 11/28/18 04:42 Baso % (Auto) 0.8 % (0.0-1.8) 11/28/18 04:42 Lymph # 1.2 K/mm3 (1.2-5.4) 11/28/18 04:42 [place] # 0.6 K/mm3 (0.0-0.8) 11/28/18 04:42 Eos # 0.1 K/mm3 (0.0-0.4) 11/28/18 04:42 Baso # 0.0 K/mm3 (0.0-0.1) 11/28/18 04:42 Seg Neutrophils % 65.5 % (40.0-70.0) 11/28/18 04:42 Seg Neutrophils # 3.8 K/mm3 (1.8-7.7) 11/28/18 04:42 PT 13.9 Sec. (12.2-14.9) 11/27/18 07:20 INR 1.01 (0.87-1.13) 11/27/18 07:20 APTT 34.3 Sec. (24.2-36.6) 11/27/18 07:20 Sodium 139 mmol/L (137-145) 12/02/18 05:22 Potassium 3.6 mmol/L (3.6-5.0) 12/02/18 05:22 Chloride 103.3 mmol/L (98-107) 12/02/18 05:22 Carbon Dioxide 20 mmol/L (22-30) L 12/02/18 05:22 Anion Gap 19 mmol/L 12/02/18 05:22 BUN 19 mg/dL (9-20) 12/02/18 05:22 Creatinine 1.3 mg/dL (0.8-1.5) 12/02/18 05:22 Estimated GFR 57 ml/min 12/02/18 05:22 BUN/Creatinine Ratio 15 % 12/02/18 05:22 Glucose 183 mg/dL (75-100) H 12/02/18 05:22 POC Glucose 249 (70-105) H 12/06/18 11:19 Hemoglobin A1c 7.7 % (4-6) H 11/27/18 07:20 Lactic Acid 0.80 mmol/L (0.7-2.0) 11/27/18 07:20 Calcium 8.5 mg/dL (8.4-10.2) 12/02/18 05:22 Magnesium 1.60 mg/dL (1.7-2.3) L 11/27/18 07:20 Total Bilirubin 0.30 mg/dL (0.1-1.2) 11/27/18 07:20 Direct Bilirubin < 0.2 mg/dL (0-0.2) 11/27/18 07:20 AST 18 units/L (5-40) 11/27/18 07:20 ALT 16 units/L (7-56) 11/27/18 07:20 Alkaline Phosphatase 93 units/L (35-129) 11/27/18 07:20 Ammonia 34.0 umol/L (25-60) 11/27/18 07:20 Total Creatine Kinase 208 units/L (55-170) H 11/27/18 07:20 CK-MB (CK-2) 7.2 ng/mL (0.0-4.0) H 11/27/18 07:20 CK-MB (CK-2) Rel Index 3.4 (0-4) 11/27/18 07:20 Troponin T 0.023 ng/mL (0.00-0.029) 11/27/18 07:20 NT-Pro-B Natriuret Pep 4286 pg/mL (0-900) H 11/27/18 07:20 Total Protein 6.5 g/dL (6.3-8.2) 11/27/18 07:20 Albumin 3.1 g/dL (3.9-5) L 11/27/18 07:20 Albumin/Globulin Ratio 0.9 % 11/27/18 07:20 Urine Color Straw (Yellow) 11/27/18 Unknown Urine Turbidity Clear (Clear) 11/27/18 Unknown Urine pH 6.0 (5.0-7.0) 11/27/18 Unknown Ur Specific [place] 1.009 (1.003-1.030) 11/27/18 Unknown Urine Protein 100 mg/dl mg/dL (Negative) 11/27/18 Unknown Urine Glucose (UA) >=500 mg/dL (Negative) 11/27/18 Unknown Urine Ketones Neg mg/dL (Negative) 11/27/18 Unknown Urine Blood Mod (Negative) 11/27/18 Unknown Urine Nitrite Neg (Negative) 11/27/18 Unknown Urine Bilirubin Neg (Negative) 11/27/18 Unknown Urine Urobilinogen < 2.0 mg/dL (<2.0) 11/27/18 Unknown Ur Leukocyte Esterase Neg (Negative) 11/27/18 Unknown Urine WBC (Auto) Not Reportable 11/27/18 Unknown Urine RBC (Auto) 2.0 /HPF (0.0-6.0) 11/27/18 Unknown Urine Bacteria (Auto) 1+ /HPF (Negative) 11/27/18 Unknown Urine Mucus Few /HPF 11/27/18 Unknown Urine Opiates Screen Presumptive negative 11/27/18 Unknown Urine Methadone Screen Presumptive negative 11/27/18 Unknown Ur Barbiturates Screen Presumptive negative 11/27/18 Unknown Ur Phencyclidine Scrn Presumptive negative 11/27/18 Unknown Ur Amphetamines Screen Presumptive negative 11/27/18 Unknown U Benzodiazepines Scrn Presumptive negative 11/27/18 Unknown Urine Cocaine Screen Presumptive negative 11/27/18 Unknown U Marijuana (THC) Screen Presumptive positive 11/27/18 Unknown Drugs of Abuse Note Disclamer 11/27/18 Unknown Plasma/Serum Alcohol < 0.01 % (0-0.07) 11/27/18 07:20 Blood Type A POSITIVE 11/27/18 07:20 Antibody Screen Negative 11/27/18 07:20 Crossmatch See Detail 11/27/18 07:20 Active Medications - Current Medications Current Medications: Generic Name Dose Route Start Last Admin Trade Name Freq PRN Reason Stop Dose Admin Acetaminophen 650 mg 11/27/18 19:34 Tylenol PO Q4H PRN Pain MILD(1-3)/Fever >100.5/ISAAC Acetaminophen/Hydrocodone Bitart 1 each 11/29/18 17:00 12/06/18 04:23 [place] 5/325 PO 1 each Q6H PRN Administration Pain, Moderate (4-6) Bupropion HCl 150 mg 11/30/18 12:30 12/06/18 10:11 Wellbutrin Sr PO 150 mg BID SHRUTHI Administration Dextrose 50 ml 11/29/18 12:46 D50w (25gm) Syringe IV PRN PRN Hypoglycemia Enoxaparin Sodium 40 mg 11/29/18 10:00 12/06/18 10:09 Lovenox SUB-Q 40 mg QDAY SHRUTHI Administration Famotidine 20 mg 11/27/18 19:34 12/06/18 10:12 Pepcid PO 20 mg BID SHRUTHI Administration Haloperidol Lactate 2 mg 12/03/18 15:00 12/06/18 10:24 Haldol IV 2 mg Q6H SHRUTHI Administration Hydralazine HCl 10 mg 12/02/18 05:32 12/03/18 17:47 Apresoline IV 10 mg Q4HR PRN Administration SBP greater than 160 Insulin Human Lispro 0 unit 11/29/18 16:30 12/06/18 10:14 Humalog SUB-Q 1 unit AC SHRUTHI Administration Protocol Insulin Human Lispro 0 unit 11/29/18 22:00 12/05/18 22:24 Humalog SUB-Q 3 unit QHS SHRUTHI Administration Protocol Metformin HCl 1,000 mg 11/30/18 12:30 12/06/18 10:11 Glucophage PO 1,000 mg BID SHRUTHI Administration Metoprolol Tartrate 25 mg 11/29/18 09:00 12/06/18 10:11 Lopressor PO 25 mg BID SHRUTHI Administration Morphine Sulfate 2 mg 11/27/18 19:34 12/06/18 10:10 Morphine IV 2 mg Q4H PRN Administration Pain, Moderate (4-6) Morphine Sulfate 4 mg 11/28/18 13:50 Morphine IV Q4H PRN Pain , Severe (7-10) Ondansetron HCl 4 mg 11/27/18 19:34 11/28/18 12:12 Zofran IV 4 mg Q8H PRN Administration Nausea And Vomiting Sertraline HCl 200 mg 12/01/18 10:00 12/06/18 10:10 Zoloft PO 200 mg QDAY SHRUTHI Administration Sodium Bicarbonate 650 mg 11/30/18 14:00 12/06/18 10:11 Sodium Bicarbonate PO 650 mg TID SHRUTHI Administration Sodium Chloride 10 ml 11/27/18 22:00 12/05/18 22:27 Sodium Chloride Flush Syringe 10 Ml IV 10 ml BID SHRUTHI Administration Sodium Chloride 10 ml 11/27/18 19:34 Sodium Chloride Flush Syringe 10 Ml IV PRN PRN LINE FLUSH Trazodone HCl 100 mg 11/30/18 11:53 Desyrel PO PRN PRN Insomnia Nutrition/Malnutrition Assess - Dietary Evaluation Nutrition/Malnutrition Findings: Nutrition Notes Start: 11/28/18 15:37 Freq: Status: Active Protocol: Document 12/04/18 11:59 EB (Rec: 12/04/18 12:14 EB [id number]) Co-Sign 12/04/18 11:59 LP Nutrition Notes Initial or Follow up Reassessment Current Diagnosis Diabetes Other Pertinent Diagnosis Hx cancer, R femoral neck fracture, depression Current Diet Consistent Carbohydrate Diet Labs/Tests Reviewed Pertinent Medications Reviewed Height 6 ft Weight 63.5 kg Usual Body Weight 81.647 kg [place] Body Weight (kg) 80.90 BMI 19.0 Subjective/Other Information F/u for intakes. Pt consumed 0% of tray this am and reports not wanting to eat. Pt aware he should eat but reports not being hungry. Observed overall emaciation of pt, including clavicular, temporal, deltoid, and interosseus muscle wasting, as well as sunken eyes. Pt not ready for diet education at this time. Pt accepted offer of ONS daily. 29% wt loss in 3 months. Percent of energy/protein needs met: 0%/0% Burn Absent Trauma Absent Current % PO Negligible Minimum of two criteria Yes Interpretation of Weight Loss (non- 7.5% in 3 months severe) Interpretation of Weight Loss (severe) >7.5% in 3 months Body Fat Depletion Moderate depletion (severe) Muscle Mass Moderate Depletion (severe) Fluid Accumulation N/A Reduced [employer] Strength N/A (non-severe) Protein-Calorie Malnutrition N\A #2 Nutrition Diagnosis Malnutrition Etiology Hx CA and femoral neck Fx As Evidenced by Signs and Symptoms Severe muscle wasting in temporal, clavicular, interosseous, and deltoid regions. Fat depletion noted in orbital region resulting in sunken eyes as well as tricep regions. 29% wt loss in last 3 months #1 Diagnosis Progress(for reassessment Continues documentation) Is patient on ventilator? No Is Patient Ambulatory and/or Out of Bed No REE-([facility]-confined to bed) 1790.508 Kcal/Kg value to use for calculation 32 Approximate Energy Requirements Using 2031 kcal/Kg Calculation Used for Recommendations Kcal/kg Additional Notes Protein: 1.2-1.5 g/kg (77-96 grams/day) Fluid: 1ml/kcal Nutrition Intervention Change Diet Order: Continue current Add Supplement/Snack (indicate name/kcal Glucerna BID /protein ) Provides kCal: 440 Provides Protein (gm) 20 Goal #1 Meet at least 75% of kcals and pro needs via PO and ONS intake. Goal #2 Wt maintenance and/or gain Follow-Up By: 12/08/18 Additional Comments F/u: PO and ONS intakes
[2018-12-06] MEDS: SODIUM CHLORIDE FLUSH SYRINGE 10 ML IV SCH ×2 (13:12→23:03)
[2018-12-07] MEDS: HALDOL IV SCH ×4 (04:28→21:38)
[2018-12-07] MEDS: SODIUM BICARBONATE PO SCH ×3 (08:40→21:34)
[2018-12-07] MEDS: LOVENOX SUB-Q SCH (10:34)
[2018-12-07] MEDS: WELLBUTRIN SR PO SCH ×2 (10:34→21:35)
[2018-12-07] MEDS: PEPCID PO SCH ×2 (10:34→21:35)
[2018-12-07] MEDS: ZOLOFT PO SCH (10:34)
[2018-12-07] MEDS: LOPRESSOR PO SCH ×2 (10:34→21:35)
[2018-12-07] MEDS: GLUCOPHAGE PO SCH ×2 (10:35→21:35)
[2018-12-07] MEDS: HumaLOG SUB-Q SCH ×4 (10:40→22:04)
--- NOTE | 2018-12-07 11:06 | Progress Note ---
Assessment and Plan Assessment and plan: Right femur neck fracture after fall. Admitted to surgical floor Ortho consulted and he was evaluated in ED s/p bipolar hemiarthroplasty right hip 11/28/18, POD#2 Morphine for pain management Diabetes mellitus type 2 Accucheck Q ac and hs Reviewed home meds Resume metformin Depression History of prostate cancer with mets to lungs Follow with his Physician as outpatient Disposition. Await subacute rehabilitation placement. Full code status History Interval history: Patient is 89 yo with diabetes, depression. He presented to hospital after a fall. He complains he has had repeated falls about 4-5 times over past 1 month. Was evaluated in Emergency Derpartment and hip X-ray revealed right femoral neck fracture . He was admitted, evaluated by Dr. Laird, Orthopedic surgeon and had surgery bipolar hemiarthroplasty right hip on 11/28/18. Placement as per PT. He is medically stable to discharge home or acute rehab. he will need follow up at [place] for known prostate cancer with metastases to lungs. No new issues overnight. Patient currently out of restraints Hospitalist Physical - Constitutional Vitals: Temp Pulse Resp BP Pulse Ox 97.5 F L 70 18 162/79 97 12/07/18 08:15 12/07/18 08:15 12/07/18 08:15 12/07/18 08:15 12/07/18 08:15 General appearance: Present: no acute distress, well-nourished - EENT Eyes: Present: PERRL, EOM intact ENT: hearing intact, clear oral mucosa, dentition normal - Neck Neck: Present: supple, normal ROM - Respiratory Respiratory effort: normal Respiratory: bilateral: CTA - Cardiovascular Rhythm: regular Heart Sounds: Present: S1 & S2. Absent: gallop, rub - Extremities Extremities: no ischemia, No edema, Full ROM - Abdominal General gastrointestinal: soft, non-tender, non-distended, normal bowel sounds - Integumentary Integumentary: Present: clear, warm, dry - Neurologic Neurologic: CNII-XII intact, moves all extremities Results - Labs CBC & Chem 7: 12/02/18 05:22 12/02/18 05:22 Labs: Laboratory Last Values WBC 5.9 K/mm3 (4.5-11.0) 12/02/18 05:22 RBC 2.76 M/mm3 (3.65-5.03) L 12/02/18 05:22 Hgb 7.9 gm/dl (11.8-15.2) L 12/02/18 05:22 Hct 23.1 % (35.5-45.6) L 12/02/18 05:22 MCV 84 fl (84-94) 12/02/18 05:22 MCH 29 pg (28-32) 12/02/18 05:22 MCHC 34 % (32-34) 12/02/18 05:22 RDW 16.4 % (13.2-15.2) H 12/02/18 05:22 Plt Count 339 K/mm3 (140-440) 12/02/18 05:22 Lymph % (Auto) 20.8 % (13.4-35.0) 11/28/18 04:42 [place] % (Auto) 10.4 % (0.0-7.3) H 11/28/18 04:42 Eos % (Auto) 2.5 % (0.0-4.3) 11/28/18 04:42 Baso % (Auto) 0.8 % (0.0-1.8) 11/28/18 04:42 Lymph # 1.2 K/mm3 (1.2-5.4) 11/28/18 04:42 [place] # 0.6 K/mm3 (0.0-0.8) 11/28/18 04:42 Eos # 0.1 K/mm3 (0.0-0.4) 11/28/18 04:42 Baso # 0.0 K/mm3 (0.0-0.1) 11/28/18 04:42 Seg Neutrophils % 65.5 % (40.0-70.0) 11/28/18 04:42 Seg Neutrophils # 3.8 K/mm3 (1.8-7.7) 11/28/18 04:42 PT 13.9 Sec. (12.2-14.9) 11/27/18 07:20 INR 1.01 (0.87-1.13) 11/27/18 07:20 APTT 34.3 Sec. (24.2-36.6) 11/27/18 07:20 Sodium 139 mmol/L (137-145) 12/02/18 05:22 Potassium 3.6 mmol/L (3.6-5.0) 12/02/18 05:22 Chloride 103.3 mmol/L (98-107) 12/02/18 05:22 Carbon Dioxide 20 mmol/L (22-30) L 12/02/18 05:22 Anion Gap 19 mmol/L 12/02/18 05:22 BUN 19 mg/dL (9-20) 12/02/18 05:22 Creatinine 1.3 mg/dL (0.8-1.5) 12/02/18 05:22 Estimated GFR 57 ml/min 12/02/18 05:22 BUN/Creatinine Ratio 15 % 12/02/18 05:22 Glucose 183 mg/dL (75-100) H 12/02/18 05:22 POC Glucose 191 (70-105) H 12/07/18 08:18 Hemoglobin A1c 7.7 % (4-6) H 11/27/18 07:20 Lactic Acid 0.80 mmol/L (0.7-2.0) 11/27/18 07:20 Calcium 8.5 mg/dL (8.4-10.2) 12/02/18 05:22 Magnesium 1.60 mg/dL (1.7-2.3) L 11/27/18 07:20 Total Bilirubin 0.30 mg/dL (0.1-1.2) 11/27/18 07:20 Direct Bilirubin < 0.2 mg/dL (0-0.2) 11/27/18 07:20 AST 18 units/L (5-40) 11/27/18 07:20 ALT 16 units/L (7-56) 11/27/18 07:20 Alkaline Phosphatase 93 units/L (35-129) 11/27/18 07:20 Ammonia 34.0 umol/L (25-60) 11/27/18 07:20 Total Creatine Kinase 208 units/L (55-170) H 11/27/18 07:20 CK-MB (CK-2) 7.2 ng/mL (0.0-4.0) H 11/27/18 07:20 CK-MB (CK-2) Rel Index 3.4 (0-4) 11/27/18 07:20 Troponin T 0.023 ng/mL (0.00-0.029) 11/27/18 07:20 NT-Pro-B Natriuret Pep 4286 pg/mL (0-900) H 11/27/18 07:20 Total Protein 6.5 g/dL (6.3-8.2) 11/27/18 07:20 Albumin 3.1 g/dL (3.9-5) L 11/27/18 07:20 Albumin/Globulin Ratio 0.9 % 11/27/18 07:20 Urine Color Straw (Yellow) 11/27/18 Unknown Urine Turbidity Clear (Clear) 11/27/18 Unknown Urine pH 6.0 (5.0-7.0) 11/27/18 Unknown Ur Specific [place] 1.009 (1.003-1.030) 11/27/18 Unknown Urine Protein 100 mg/dl mg/dL (Negative) 11/27/18 Unknown Urine Glucose (UA) >=500 mg/dL (Negative) 11/27/18 Unknown Urine Ketones Neg mg/dL (Negative) 11/27/18 Unknown Urine Blood Mod (Negative) 11/27/18 Unknown Urine Nitrite Neg (Negative) 11/27/18 Unknown Urine Bilirubin Neg (Negative) 11/27/18 Unknown Urine Urobilinogen < 2.0 mg/dL (<2.0) 11/27/18 Unknown Ur Leukocyte Esterase Neg (Negative) 11/27/18 Unknown Urine WBC (Auto) Not Reportable 11/27/18 Unknown Urine RBC (Auto) 2.0 /HPF (0.0-6.0) 11/27/18 Unknown Urine Bacteria (Auto) 1+ /HPF (Negative) 11/27/18 Unknown Urine Mucus Few /HPF 11/27/18 Unknown Urine Opiates Screen Presumptive negative 11/27/18 Unknown Urine Methadone Screen Presumptive negative 11/27/18 Unknown Ur Barbiturates Screen Presumptive negative 11/27/18 Unknown Ur Phencyclidine Scrn Presumptive negative 11/27/18 Unknown Ur Amphetamines Screen Presumptive negative 11/27/18 Unknown U Benzodiazepines Scrn Presumptive negative 11/27/18 Unknown Urine Cocaine Screen Presumptive negative 11/27/18 Unknown U Marijuana (THC) Screen Presumptive positive 11/27/18 Unknown Drugs of Abuse Note Disclamer 11/27/18 Unknown Plasma/Serum Alcohol < 0.01 % (0-0.07) 11/27/18 07:20 Blood Type A POSITIVE 11/27/18 07:20 Antibody Screen Negative 11/27/18 07:20 Crossmatch See Detail 11/27/18 07:20 Active Medications - Current Medications Current Medications: Generic Name Dose Route Start Last Admin Trade Name Freq PRN Reason Stop Dose Admin Acetaminophen 650 mg 11/27/18 19:34 Tylenol PO Q4H PRN Pain MILD(1-3)/Fever >100.5/ISAAC Acetaminophen/Hydrocodone Bitart 1 each 11/29/18 17:00 12/06/18 04:23 [place] 5/325 PO 1 each Q6H PRN Administration Pain, Moderate (4-6) Bupropion HCl 150 mg 11/30/18 12:30 12/07/18 10:34 Wellbutrin Sr PO 150 mg BID SHRUTHI Administration Dextrose 50 ml 11/29/18 12:46 D50w (25gm) Syringe IV PRN PRN Hypoglycemia Enoxaparin Sodium 40 mg 11/29/18 10:00 12/07/18 10:34 Lovenox SUB-Q 40 mg QDAY SHRUTHI Administration Famotidine 20 mg 11/27/18 19:34 12/07/18 10:34 Pepcid PO 20 mg BID SHRUTHI Administration Haloperidol Lactate 2 mg 12/03/18 15:00 12/07/18 10:38 Haldol IV Not Given Q6H SHRUTHI Hydralazine HCl 10 mg 12/02/18 05:32 12/03/18 17:47 Apresoline IV 10 mg Q4HR PRN Administration SBP greater than 160 Insulin Human Lispro 0 unit 11/29/18 16:30 12/07/18 10:40 Humalog SUB-Q 1 unit AC SHRUTHI Administration Protocol Insulin Human Lispro 0 unit 11/29/18 22:00 12/06/18 23:04 Humalog SUB-Q 2 unit QHS SHRUTHI Administration Protocol Metformin HCl 1,000 mg 11/30/18 12:30 12/07/18 10:35 Glucophage PO 1,000 mg BID SHRUTHI Administration Metoprolol Tartrate 25 mg 11/29/18 09:00 12/07/18 10:34 Lopressor PO 25 mg BID SHRUTHI Administration Morphine Sulfate 2 mg 11/27/18 19:34 12/06/18 21:24 Morphine IV 2 mg Q4H PRN Administration Pain, Moderate (4-6) Morphine Sulfate 4 mg 11/28/18 13:50 Morphine IV Q4H PRN Pain , Severe (7-10) Ondansetron HCl 4 mg 11/27/18 19:34 11/28/18 12:12 Zofran IV 4 mg Q8H PRN Administration Nausea And Vomiting Sertraline HCl 200 mg 12/01/18 10:00 12/07/18 10:34 Zoloft PO 200 mg QDAY SHRUTHI Administration Sodium Bicarbonate 650 mg 11/30/18 14:00 12/07/18 08:40 Sodium Bicarbonate PO 650 mg TID SHRUTHI Administration Sodium Chloride 10 ml 11/27/18 22:00 12/06/18 23:03 Sodium Chloride Flush Syringe 10 Ml IV 10 ml BID SHRUTHI Administration Sodium Chloride 10 ml 11/27/18 19:34 Sodium Chloride Flush Syringe 10 Ml IV PRN PRN LINE FLUSH Trazodone HCl 100 mg 11/30/18 11:53 Desyrel PO PRN PRN Insomnia Nutrition/Malnutrition Assess - Dietary Evaluation Nutrition/Malnutrition Findings: Nutrition Notes Start: 11/28/18 15:37 Freq: Status: Active Protocol: Document 12/04/18 11:59 EB (Rec: 12/04/18 12:14 EB [id number]) Co-Sign 12/04/18 11:59 LP Nutrition Notes Initial or Follow up Reassessment Current Diagnosis Diabetes Other Pertinent Diagnosis Hx cancer, R femoral neck fracture, depression Current Diet Consistent Carbohydrate Diet Labs/Tests Reviewed Pertinent Medications Reviewed Height 6 ft Weight 63.5 kg Usual Body Weight 81.647 kg [place] Body Weight (kg) 80.90 BMI 19.0 Subjective/Other Information F/u for intakes. Pt consumed 0% of tray this am and reports not wanting to eat. Pt aware he should eat but reports not being hungry. Observed overall emaciation of pt, including clavicular, temporal, deltoid, and interosseus muscle wasting, as well as sunken eyes. Pt not ready for diet education at this time. Pt accepted offer of ONS daily. 29% wt loss in 3 months. 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 Fat depletion noted in orbital region resulting in sunken eyes as well as tricep regions. 29% wt loss in last 3 months #1 Diagnosis Progress(for reassessment Continues documentation) Is patient on ventilator? No Is Patient Ambulatory and/or Out of Bed No REE-([place]-confined to bed) 1790.508 Kcal/Kg value to use for calculation 32 Approximate Energy Requirements Using 2031 kcal/Kg Calculation Used for Recommendations Kcal/kg Additional Notes Protein: 1.2-1.5 g/kg (77-96 grams/day) Fluid: 1ml/kcal Nutrition Intervention Change Diet Order: Continue current Add Supplement/Snack (indicate name/kcal Glucerna BID /protein ) Provides kCal: 440 Provides Protein (gm) 20 Goal #1 Meet at least 75% of kcals and pro needs via PO and ONS intake. Goal #2 Wt maintenance and/or gain Follow-Up By: 12/08/18 Additional Comments F/u: PO and ONS intakes
[2018-12-07] MEDS: SODIUM CHLORIDE FLUSH SYRINGE 10 ML IV SCH (21:34)
[2018-12-08] MEDS: DESYREL PO PRN (01:12)
[2018-12-08] MEDS: MORPHINE IV PRN ×2 (01:13→21:35)
[2018-12-08] MEDS: HALDOL IV SCH ×4 (03:55→21:34)
[2018-12-08] MEDS: HumaLOG SUB-Q SCH ×4 (08:30→22:23)
--- NOTE | 2018-12-08 09:36 | Progress Note ---
Assessment and Plan Assessment and plan: Right femur neck fracture after fall. Admitted to surgical floor Ortho consulted and he was evaluated in ED s/p bipolar hemiarthroplasty right hip 11/28/18, Morphine for pain management Diabetes mellitus type 2 Accucheck Q ac and hs Reviewed home meds Continue metformin Depression History of prostate cancer with mets to lungs Follow with his Physician as outpatient Disposition. Await subacute rehabilitation placement. Full code status History Interval history: Patient is 89 yo with diabetes, depression. He presented to hospital after a fall. He complains he has had repeated falls about 4-5 times over past 1 month. Was evaluated in Emergency Derpartment and hip X-ray revealed right femoral neck fracture . He was admitted, evaluated by Dr. Laird, Orthopedic surgeon and had surgery bipolar hemiarthroplasty right hip on 11/28/18. Placement as per PT. He is medically stable to discharge home or acute rehab. he will need follow up at [place] for known prostate cancer with metastases to lungs. No new issues overnight. Patient currently out of restraints Hospitalist Physical - Constitutional Vitals: Temp Pulse Resp BP Pulse Ox 98.5 F 93 H 18 152/75 98 12/08/18 07:30 12/08/18 07:30 12/08/18 07:30 12/08/18 07:30 12/08/18 07:30 General appearance: Present: no acute distress, well-nourished - EENT Eyes: Present: PERRL, EOM intact ENT: hearing intact, clear oral mucosa, dentition normal - Neck Neck: Present: supple, normal ROM - Respiratory Respiratory effort: normal Respiratory: bilateral: CTA - Cardiovascular Rhythm: regular Heart Sounds: Present: S1 & S2. Absent: gallop, rub - Extremities Extremities: no ischemia, No edema, Full ROM - Abdominal General gastrointestinal: soft, non-tender, non-distended, normal bowel sounds - Integumentary Integumentary: Present: clear, warm, dry - Neurologic Neurologic: CNII-XII intact, moves all extremities Results - Labs CBC & Chem 7: 12/02/18 05:22 12/02/18 05:22 Labs: Laboratory Last Values WBC 5.9 K/mm3 (4.5-11.0) 12/02/18 05:22 RBC 2.76 M/mm3 (3.65-5.03) L 12/02/18 05:22 Hgb 7.9 gm/dl (11.8-15.2) L 12/02/18 05:22 Hct 23.1 % (35.5-45.6) L 12/02/18 05:22 MCV 84 fl (84-94) 12/02/18 05:22 MCH 29 pg (28-32) 12/02/18 05:22 MCHC 34 % (32-34) 12/02/18 05:22 RDW 16.4 % (13.2-15.2) H 12/02/18 05:22 Plt Count 339 K/mm3 (140-440) 12/02/18 05:22 Lymph % (Auto) 20.8 % (13.4-35.0) 11/28/18 04:42 [place] % (Auto) 10.4 % (0.0-7.3) H 11/28/18 04:42 Eos % (Auto) 2.5 % (0.0-4.3) 11/28/18 04:42 Baso % (Auto) 0.8 % (0.0-1.8) 11/28/18 04:42 Lymph # 1.2 K/mm3 (1.2-5.4) 11/28/18 04:42 [place] # 0.6 K/mm3 (0.0-0.8) 11/28/18 04:42 Eos # 0.1 K/mm3 (0.0-0.4) 11/28/18 04:42 Baso # 0.0 K/mm3 (0.0-0.1) 11/28/18 04:42 Seg Neutrophils % 65.5 % (40.0-70.0) 11/28/18 04:42 Seg Neutrophils # 3.8 K/mm3 (1.8-7.7) 11/28/18 04:42 PT 13.9 Sec. (12.2-14.9) 11/27/18 07:20 INR 1.01 (0.87-1.13) 11/27/18 07:20 APTT 34.3 Sec. (24.2-36.6) 11/27/18 07:20 Sodium 139 mmol/L (137-145) 12/02/18 05:22 Potassium 3.6 mmol/L (3.6-5.0) 12/02/18 05:22 Chloride 103.3 mmol/L (98-107) 12/02/18 05:22 Carbon Dioxide 20 mmol/L (22-30) L 12/02/18 05:22 Anion Gap 19 mmol/L 12/02/18 05:22 BUN 19 mg/dL (9-20) 12/02/18 05:22 Creatinine 1.3 mg/dL (0.8-1.5) 12/02/18 05:22 Estimated GFR 57 ml/min 12/02/18 05:22 BUN/Creatinine Ratio 15 % 12/02/18 05:22 Glucose 183 mg/dL (75-100) H 12/02/18 05:22 POC Glucose 195 (70-105) H 12/08/18 07:06 Hemoglobin A1c 7.7 % (4-6) H 11/27/18 07:20 Lactic Acid 0.80 mmol/L (0.7-2.0) 11/27/18 07:20 Calcium 8.5 mg/dL (8.4-10.2) 12/02/18 05:22 Magnesium 1.60 mg/dL (1.7-2.3) L 11/27/18 07:20 Total Bilirubin 0.30 mg/dL (0.1-1.2) 11/27/18 07:20 Direct Bilirubin < 0.2 mg/dL (0-0.2) 11/27/18 07:20 AST 18 units/L (5-40) 11/27/18 07:20 ALT 16 units/L (7-56) 11/27/18 07:20 Alkaline Phosphatase 93 units/L (35-129) 11/27/18 07:20 Ammonia 34.0 umol/L (25-60) 11/27/18 07:20 Total Creatine Kinase 208 units/L (55-170) H 11/27/18 07:20 CK-MB (CK-2) 7.2 ng/mL (0.0-4.0) H 11/27/18 07:20 CK-MB (CK-2) Rel Index 3.4 (0-4) 11/27/18 07:20 Troponin T 0.023 ng/mL (0.00-0.029) 11/27/18 07:20 NT-Pro-B Natriuret Pep 4286 pg/mL (0-900) H 11/27/18 07:20 Total Protein 6.5 g/dL (6.3-8.2) 11/27/18 07:20 Albumin 3.1 g/dL (3.9-5) L 11/27/18 07:20 Albumin/Globulin Ratio 0.9 % 11/27/18 07:20 Urine Color Straw (Yellow) 11/27/18 Unknown Urine Turbidity Clear (Clear) 11/27/18 Unknown Urine pH 6.0 (5.0-7.0) 11/27/18 Unknown Ur Specific [place] 1.009 (1.003-1.030) 11/27/18 Unknown Urine Protein 100 mg/dl mg/dL (Negative) 11/27/18 Unknown Urine Glucose (UA) >=500 mg/dL (Negative) 11/27/18 Unknown Urine Ketones Neg mg/dL (Negative) 11/27/18 Unknown Urine Blood Mod (Negative) 11/27/18 Unknown Urine Nitrite Neg (Negative) 11/27/18 Unknown Urine Bilirubin Neg (Negative) 11/27/18 Unknown Urine Urobilinogen < 2.0 mg/dL (<2.0) 11/27/18 Unknown Ur Leukocyte Esterase Neg (Negative) 11/27/18 Unknown Urine WBC (Auto) Not Reportable 11/27/18 Unknown Urine RBC (Auto) 2.0 /HPF (0.0-6.0) 11/27/18 Unknown Urine Bacteria (Auto) 1+ /HPF (Negative) 11/27/18 Unknown Urine Mucus Few /HPF 11/27/18 Unknown Urine Opiates Screen Presumptive negative 11/27/18 Unknown Urine Methadone Screen Presumptive negative 11/27/18 Unknown Ur Barbiturates Screen Presumptive negative 11/27/18 Unknown Ur Phencyclidine Scrn Presumptive negative 11/27/18 Unknown Ur Amphetamines Screen Presumptive negative 11/27/18 Unknown U Benzodiazepines Scrn Presumptive negative 11/27/18 Unknown Urine Cocaine Screen Presumptive negative 11/27/18 Unknown U Marijuana (THC) Screen Presumptive positive 11/27/18 Unknown Drugs of Abuse Note Disclamer 11/27/18 Unknown Plasma/Serum Alcohol < 0.01 % (0-0.07) 11/27/18 07:20 Blood Type A POSITIVE 11/27/18 07:20 Antibody Screen Negative 11/27/18 07:20 Crossmatch See Detail 11/27/18 07:20 Active Medications - Current Medications Current Medications: Generic Name Dose Route Start Last Admin Trade Name Freq PRN Reason Stop Dose Admin Acetaminophen 650 mg 11/27/18 19:34 Tylenol PO Q4H PRN Pain MILD(1-3)/Fever >100.5/ISAAC Acetaminophen/Hydrocodone Bitart 1 each 11/29/18 17:00 12/06/18 04:23 [place] 5/325 PO 1 each Q6H PRN Administration Pain, Moderate (4-6) Bupropion HCl 150 mg 11/30/18 12:30 12/07/18 21:35 Wellbutrin Sr PO 150 mg BID SHRUTHI Administration Dextrose 50 ml 11/29/18 12:46 D50w (25gm) Syringe IV PRN PRN Hypoglycemia Enoxaparin Sodium 40 mg 11/29/18 10:00 12/07/18 10:34 Lovenox SUB-Q 40 mg QDAY SHRUTHI Administration Famotidine 20 mg 11/27/18 19:34 12/07/18 21:35 Pepcid PO 20 mg BID SHRUTHI Administration Haloperidol Lactate 2 mg 12/03/18 15:00 12/08/18 03:55 Haldol IV 2 mg Q6H SHRUTHI Administration Hydralazine HCl 10 mg 12/02/18 05:32 12/03/18 17:47 Apresoline IV 10 mg Q4HR PRN Administration SBP greater than 160 Insulin Human Lispro 0 unit 11/29/18 16:30 12/07/18 17:51 Humalog SUB-Q Not Given [facility] Protocol Insulin Human Lispro 0 unit 11/29/18 22:00 12/07/18 22:04 Humalog SUB-Q 3 unit QHS SHRUTHI Administration Protocol Metformin HCl 1,000 mg 11/30/18 12:30 12/07/18 21:35 Glucophage PO 1,000 mg BID SHRUTHI Administration Metoprolol Tartrate 25 mg 11/29/18 09:00 12/07/18 21:35 Lopressor PO 25 mg BID SHRUTHI Administration Morphine Sulfate 2 mg 11/27/18 19:34 12/08/18 01:13 Morphine IV 2 mg Q4H PRN Administration Pain, Moderate (4-6) Morphine Sulfate 4 mg 11/28/18 13:50 Morphine IV Q4H PRN Pain , Severe (7-10) Ondansetron HCl 4 mg 11/27/18 19:34 11/28/18 12:12 Zofran IV 4 mg Q8H PRN Administration Nausea And Vomiting Sertraline HCl 200 mg 12/01/18 10:00 12/07/18 10:34 Zoloft PO 200 mg QDAY SHRUTHI Administration Sodium Bicarbonate 650 mg 11/30/18 14:00 12/07/18 21:34 Sodium Bicarbonate PO 650 mg TID SHRUTHI Administration Sodium Chloride 10 ml 11/27/18 22:00 12/07/18 21:34 Sodium Chloride Flush Syringe 10 Ml IV 10 ml BID SHRUTHI Administration Sodium Chloride 10 ml 11/27/18 19:34 Sodium Chloride Flush Syringe 10 Ml IV PRN PRN LINE FLUSH Trazodone HCl 100 mg 11/30/18 11:53 12/08/18 01:12 Desyrel PO 100 mg PRN PRN Administration Insomnia Nutrition/Malnutrition Assess - Dietary Evaluation Nutrition/Malnutrition Findings: Nutrition Notes Start: 11/28/18 15:37 Freq: Status: Active Protocol: Document 12/04/18 11:59 EB (Rec: 12/04/18 12:14 EB [id number]) Co-Sign 12/04/18 11:59 LP Nutrition Notes Initial or Follow up Reassessment Current Diagnosis Diabetes Other Pertinent Diagnosis Hx cancer, R femoral neck fracture, depression Current Diet Consistent Carbohydrate Diet Labs/Tests Reviewed Pertinent Medications Reviewed Height 6 ft Weight 63.5 kg Usual Body Weight 81.647 kg [place] Body Weight (kg) 80.90 BMI 19.0 Subjective/Other Information F/u for intakes. Pt consumed 0% of tray this am and reports not wanting to eat. Pt aware he should eat but reports not being hungry. Observed overall emaciation of pt, including clavicular, temporal, deltoid, and interosseus muscle wasting, as well as sunken eyes. Pt not ready for diet education at this time. Pt accepted offer of ONS daily. 29% wt loss in 3 months. Percent of energy/protein needs met: 0%/0% Burn Absent Trauma Absent Current % PO Negligible Minimum of two criteria Yes Interpretation of Weight Loss (non- 7.5% in 3 months severe) Interpretation of Weight Loss (severe) >7.5% in 3 months Body Fat Depletion Moderate depletion (severe) Muscle Mass Moderate Depletion (severe) Fluid Accumulation N/A Reduced [employer] E[employer]ing Strength N/A (non-severe) Protein-Calorie Malnutrition N\A #2 Nutrition Diagnosis Malnutrition Etiology Hx CA and femoral neck Fx As Evidenced by Signs and Symptoms Severe muscle wasting in temporal, clavicular, interosseous, and deltoid regions. Fat depletion noted in orbital region resulting in sunken eyes as well as tricep regions. 29% wt loss in last 3 months #1 Diagnosis Progress(for reassessment Continues documentation) Is patient on ventilator? No Is Patient Ambulatory and/or Out of Bed No REE-([place]-confined to bed) 1790.508 Kcal/Kg value to use for calculation 32 Approximate Energy Requirements Using 2031 kcal/Kg Calculation Used for Recommendations Kcal/kg Additional Notes Protein: 1.2-1.5 g/kg (77-96 grams/day) Fluid: 1ml/kcal Nutrition Intervention Change Diet Order: Continue current Add Supplement/Snack (indicate name/kcal Glucerna BID /protein ) Provides kCal: 440 Provides Protein (gm) 20 Goal #1 Meet at least 75% of kcals and pro needs via PO and ONS intake. Goal #2 Wt maintenance and/or gain Follow-Up By: 12/08/18 Additional Comments F/u: PO and ONS intakes
[2018-12-08] MEDS: GLUCOPHAGE PO SCH ×2 (10:59→21:27)
[2018-12-08] MEDS: PEPCID PO SCH ×2 (10:59→21:27)
[2018-12-08] MEDS: LOPRESSOR PO SCH ×2 (10:59→21:27)
[2018-12-08] MEDS: WELLBUTRIN SR PO SCH ×2 (10:59→21:27)
[2018-12-08] MEDS: ZOLOFT PO SCH (11:00)
[2018-12-08] MEDS: LOVENOX SUB-Q SCH (11:00)
[2018-12-08] MEDS: SODIUM CHLORIDE FLUSH SYRINGE 10 ML IV SCH ×3 (11:01→21:28)
[2018-12-08] MEDS: SODIUM BICARBONATE PO SCH ×3 (11:06→21:27)
[2018-12-08] MEDS: NORCO 5/325 PO PRN (23:56)
[2018-12-09 04:58] LABS: Basophils % (Auto) 0.7 % (0.0-1.8); Eosinophils # (Auto) 0.1 K/mm3 (0.0-0.4); Eosinophils % (Auto) 2.5 % (0.0-4.3); Hematocrit 20.4 % (35.5-45.6); Hemoglobin 6.9 gm/dl (11.8-15.2); Lymphocytes # (Auto) 1.2 K/mm3 (1.2-5.4); Lymphocytes % (Auto) 20.5 % (13.4-35.0); Mean Corpuscular HGB Conc 34 % (32-34); Mean Corpuscular Volume 85 fl (84-94); Monocytes # (Auto) 0.4 K/mm3 (0.0-0.8); Monocytes % (Auto) 7.4 % (0.0-7.3); Platelet Count 364 K/mm3 (140-440); Red Cell Distribution Width 16.4 % (13.2-15.2)
[2018-12-09 05:12] LABS: Calcium 8.5 mg/dL (8.4-10.2)
[2018-12-09] MEDS: HALDOL IV SCH ×4 (06:06→21:32)
[2018-12-09] MEDS: NORCO 5/325 PO PRN ×2 (06:11→21:31)
[2018-12-09] MEDS: GLUCOPHAGE PO SCH ×2 (09:54→21:20)
[2018-12-09] MEDS: ZOLOFT PO SCH (09:54)
[2018-12-09] MEDS: LOVENOX SUB-Q SCH (09:55)
[2018-12-09] MEDS: PEPCID PO SCH ×2 (09:55→21:20)
[2018-12-09] MEDS: LOPRESSOR PO SCH ×2 (09:55→21:20)
[2018-12-09] MEDS: WELLBUTRIN SR PO SCH ×2 (09:55→21:19)
[2018-12-09] MEDS: HumaLOG SUB-Q SCH ×4 (09:56→23:07)
[2018-12-09] MEDS: SODIUM BICARBONATE PO SCH ×3 (09:57→20:33)
[2018-12-09] MEDS: SODIUM CHLORIDE FLUSH SYRINGE 10 ML IV SCH (09:58)
[2018-12-09] MEDS ORDERED: NACL 0.9% 500 ML 500 ML IV ONE (13:12)
--- NOTE | 2018-12-09 13:21 | Progress Note ---
Assessment and Plan Assessment and plan: Patient is 89 yo with diabetes, depression. He presented to hospital after a fall. He complains he has had repeated falls about 4-5 times over past 1 month. Was evaluated in Emergency Derpartment and hip X-ray revealed right femoral neck fracture . He was admitted, evaluated by Dr. Laird, Orthopedic surgeon and had surgery bipolar hemiarthroplasty right hip on 11/28/18. Placement as per PT. He is medically stable to discharge home or acute rehab. 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 Severe anemia - Hemoglobin this morning was 6.9 and will transfuse 2 units of blood - Will do anemia W/u Right femur neck fracture after fall. Admitted to surgical floor Ortho consulted and he was evaluated in ED s/p bipolar hemiarthroplasty right hip 11/28/18, Morphine for pain management Diabetes mellitus type 2 Accucheck Q ac and hs Reviewed home meds Continue metformin Depression History of prostate cancer with mets to lungs Follow with his Physician as outpatient Disposition. Await subacute rehabilitation placement. Full code status Patient currently off restraints History Interval history: Patient was seen and evaluated this morning, patient didn't have any complaints. Patient was alert and oriented. Hospitalist Physical - Physical exam Narrative exam: Not in cardiopulmonary distress. The patient appeared well nourished and normally developed. Vital signs as documented. Head exam is unremarkable. No scleral icterus . Neck is without jugular venous distension, thyromegaly, or carotid bruits. Lungs are clear to auscultation. Cardiac exam reveals regular rate and Rhythm. First and second heart sounds normal. No murmurs, rubs or gallops. Abdominal exam reveals normal bowel sounds, no masses, no organomegaly and no aortic enlargement. Extremities are nonedematous and both femoral and pedal pulses are normal. 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 No focal weakness. - Constitutional Vitals: Temp Pulse Resp BP Pulse Ox 97.9 F 65 18 135/70 98 12/09/18 11:50 12/09/18 11:50 12/09/18 11:50 12/09/18 11:50 12/09/18 11:50 General appearance: Present: no acute distress, well-nourished Results - Labs CBC & Chem 7: 12/09/18 04:10 12/09/18 04:10 Labs: Laboratory Last Values WBC 5.9 K/mm3 (4.5-11.0) 12/09/18 04:10 RBC 2.40 M/mm3 (3.65-5.03) L 12/09/18 04:10 Hgb 6.9 gm/dl (11.8-15.2) L 12/09/18 04:10 Hct 20.4 % (35.5-45.6) L 12/09/18 04:10 MCV 85 fl (84-94) 12/09/18 04:10 MCH 29 pg (28-32) 12/09/18 04:10 MCHC 34 % (32-34) 12/09/18 04:10 RDW 16.4 % (13.2-15.2) H 12/09/18 04:10 Plt Count 364 K/mm3 (140-440) 12/09/18 04:10 Lymph % (Auto) 20.5 % (13.4-35.0) 12/09/18 04:10 [place] % (Auto) 7.4 % (0.0-7.3) H 12/09/18 04:10 Eos % (Auto) 2.5 % (0.0-4.3) 12/09/18 04:10 Baso % (Auto) 0.7 % (0.0-1.8) 12/09/18 04:10 Lymph # 1.2 K/mm3 (1.2-5.4) 12/09/18 04:10 [place] # 0.4 K/mm3 (0.0-0.8) 12/09/18 04:10 Eos # 0.1 K/mm3 (0.0-0.4) 12/09/18 04:10 Baso # 0.0 K/mm3 (0.0-0.1) 12/09/18 04:10 Seg Neutrophils % 68.9 % (40.0-70.0) 12/09/18 04:10 Seg Neutrophils # 4.1 K/mm3 (1.8-7.7) 12/09/18 04:10 PT 13.9 Sec. (12.2-14.9) 11/27/18 07:20 INR 1.01 (0.87-1.13) 11/27/18 07:20 APTT 34.3 Sec. (24.2-36.6) 11/27/18 07:20 Sodium 138 mmol/L (137-145) 12/09/18 04:10 Potassium 3.8 mmol/L (3.6-5.0) 12/09/18 04:10 Chloride 101.9 mmol/L (98-107) 12/09/18 04:10 Carbon Dioxide 25 mmol/L (22-30) 12/09/18 04:10 Anion Gap 15 mmol/L 12/09/18 04:10 BUN 15 mg/dL (9-20) 12/09/18 04:10 Creatinine 1.3 mg/dL (0.8-1.5) 12/09/18 04:10 Estimated GFR 57 ml/min 12/09/18 04:10 BUN/Creatinine Ratio 12 % 12/09/18 04:10 Glucose 180 mg/dL (75-100) H 12/09/18 04:10 POC Glucose 249 (70-105) H 12/09/18 11:11 Hemoglobin A1c 7.7 % (4-6) H 11/27/18 07:20 Lactic Acid 0.80 mmol/L (0.7-2.0) 11/27/18 07:20 Calcium 8.5 mg/dL (8.4-10.2) 12/09/18 04:10 Magnesium 1.60 mg/dL (1.7-2.3) L 11/27/18 07:20 Total Bilirubin 0.30 mg/dL (0.1-1.2) 11/27/18 07:20 Direct Bilirubin < 0.2 mg/dL (0-0.2) 11/27/18 07:20 AST 18 units/L (5-40) 11/27/18 07:20 ALT 16 units/L (7-56) 11/27/18 07:20 Alkaline Phosphatase 93 units/L (35-129) 11/27/18 07:20 Ammonia 34.0 umol/L (25-60) 11/27/18 07:20 Total Creatine Kinase 208 units/L (55-170) H 11/27/18 07:20 CK-MB (CK-2) 7.2 ng/mL (0.0-4.0) H 11/27/18 07:20 CK-MB (CK-2) Rel Index 3.4 (0-4) 11/27/18 07:20 Troponin T 0.023 ng/mL (0.00-0.029) 11/27/18 07:20 NT-Pro-B Natriuret Pep 4286 pg/mL (0-900) H 11/27/18 07:20 Total Protein 6.5 g/dL (6.3-8.2) 11/27/18 07:20 Albumin 3.1 g/dL (3.9-5) L 11/27/18 07:20 Albumin/Globulin Ratio 0.9 % 11/27/18 07:20 Urine Color Straw (Yellow) 11/27/18 Unknown Urine Turbidity Clear (Clear) 11/27/18 Unknown Urine pH 6.0 (5.0-7.0) 11/27/18 Unknown Ur Specific [place] 1.009 (1.003-1.030) 11/27/18 Unknown Urine Protein 100 mg/dl mg/dL (Negative) 11/27/18 Unknown Urine Glucose (UA) >=500 mg/dL (Negative) 11/27/18 Unknown Urine Ketones Neg mg/dL (Negative) 11/27/18 Unknown Urine Blood Mod (Negative) 11/27/18 Unknown Urine Nitrite Neg (Negative) 11/27/18 Unknown Urine Bilirubin Neg (Negative) 11/27/18 Unknown Urine Urobilinogen < 2.0 mg/dL (<2.0) 11/27/18 Unknown Ur Leukocyte Esterase Neg (Negative) 11/27/18 Unknown Urine WBC (Auto) Not Reportable 11/27/18 Unknown Urine RBC (Auto) 2.0 /HPF (0.0-6.0) 11/27/18 Unknown Urine Bacteria (Auto) 1+ /HPF (Negative) 11/27/18 Unknown Urine Mucus Few /HPF 11/27/18 Unknown Urine Opiates Screen Presumptive negative 11/27/18 Unknown Urine Methadone Screen Presumptive negative 11/27/18 Unknown Ur Barbiturates Screen Presumptive negative 11/27/18 Unknown Ur Phencyclidine Scrn Presumptive negative 11/27/18 Unknown Ur Amphetamines Screen Presumptive negative 11/27/18 Unknown U Benzodiazepines Scrn Presumptive negative 11/27/18 Unknown Urine Cocaine Screen Presumptive negative 11/27/18 Unknown U Marijuana (THC) Screen Presumptive positive 11/27/18 Unknown Drugs of Abuse Note Disclamer 11/27/18 Unknown Plasma/Serum Alcohol < 0.01 % (0-0.07) 11/27/18 07:20 Blood Type A POSITIVE 11/27/18 07:20 Antibody Screen Negative 11/27/18 07:20 Crossmatch See Detail 11/27/18 07:20 Active Medications - Current Medications Current Medications: Generic Name Dose Route Start Last Admin Trade Name Freq PRN Reason Stop Dose Admin Acetaminophen 650 mg 11/27/18 19:34 Tylenol PO Q4H PRN Pain MILD(1-3)/Fever >100.5/ISAAC Acetaminophen/Hydrocodone Bitart 1 each 11/29/18 17:00 12/09/18 06:11 [place] 5/325 PO 1 each Q6H PRN Administration Pain, Moderate (4-6) Bupropion HCl 150 mg 11/30/18 12:30 12/09/18 09:55 Wellbutrin Sr PO 150 mg BID SHRUTHI Administration Dextrose 50 ml 11/29/18 12:46 D50w (25gm) Syringe IV PRN PRN Hypoglycemia Enoxaparin Sodium 40 mg 11/29/18 10:00 12/09/18 09:55 Lovenox SUB-Q 40 mg QDAY SHRUTHI Administration Famotidine 20 mg 11/27/18 19:34 12/09/18 09:55 Pepcid PO 20 mg BID SHRUTHI Administration Haloperidol Lactate 2 mg 12/03/18 15:00 12/09/18 09:57 Haldol IV Not Given Q6H SHRUTHI Hydralazine HCl 10 mg 12/02/18 05:32 12/03/18 17:47 Apresoline IV 10 mg Q4HR PRN Administration SBP greater than 160 Sodium Chloride 500 mls @ 0 mls/hr 12/09/18 13:12 Nacl 0.9% 500 Ml IV 12/09/18 13:13 ONCE ONE As Directed Insulin Human Lispro 0 unit 11/29/18 16:30 12/09/18 11:46 Humalog SUB-Q 2 unit AC SHRUTHI Administration Protocol Insulin Human Lispro 0 unit 11/29/18 22:00 12/08/18 22:23 Humalog SUB-Q 1 unit [facility] Administration Protocol Metformin HCl 1,000 mg 11/30/18 12:30 12/09/18 09:54 Glucophage PO 1,000 mg BID SHRUTHI Administration Metoprolol Tartrate 25 mg 11/29/18 09:00 12/09/18 09:55 Lopressor PO 25 mg BID SHRUTHI Administration Morphine Sulfate 2 mg 11/27/18 19:34 12/08/18 21:35 Morphine IV 2 mg Q4H PRN Administration Pain, Moderate (4-6) Morphine Sulfate 4 mg 11/28/18 13:50 Morphine IV Q4H PRN Pain , Severe (7-10) Ondansetron HCl 4 mg 11/27/18 19:34 11/28/18 12:12 Zofran IV 4 mg Q8H PRN Administration Nausea And Vomiting Sertraline HCl 200 mg 12/01/18 10:00 12/09/18 09:54 Zoloft PO 200 mg QDAY SHRUTHI Administration Sodium Bicarbonate 650 mg 11/30/18 14:00 12/09/18 09:57 Sodium Bicarbonate PO 650 mg TID SHRUTHI Administration Sodium Chloride 10 ml 11/27/18 22:00 12/09/18 09:58 Sodium Chloride Flush Syringe 10 Ml IV 10 ml BID SHRUTHI Administration Sodium Chloride 10 ml 11/27/18 19:34 Sodium Chloride Flush Syringe 10 Ml IV PRN PRN LINE FLUSH Trazodone HCl 100 mg 11/30/18 11:53 12/08/18 01:12 Desyrel PO 100 mg PRN PRN Administration Insomnia Nutrition/Malnutrition Assess - Dietary Evaluation Nutrition/Malnutrition Findings: Nutrition Notes Start: 11/28/18 15:37 Freq: Status: Active Protocol: Document 12/08/18 16:31 FAROOQ (Rec: 12/08/18 16:36 [email or web address]) Nutrition Notes Initial or Follow up Reassessment Current Diagnosis Diabetes Other Pertinent Diagnosis (R) femur fx s/p repair, Depression Current Diet Consistent CHO + Glucerna BID Labs/Tests Reviewed Pertinent Medications Reviewed Height 6 ft Weight 56.8 kg [place] Body Weight (kg) 80.90 BMI 16.9 Weight change and time frame Current wt obtained from bed scale Subjective/Other Information Pt has consumed 27% of meals since last assessment. He says he drinks the ONS daily. Percent of energy/protein needs met: 59% energy 65% pro (includes ONS) Burn Absent Trauma Absent #2 Nutrition Diagnosis Malnutrition Diagnosis Progress(for reassessment Continues documentation) #1 Nutrition Diagnosis Inadequate oral intake Diagnosis Progress(for reassessment Continues documentation) Is patient on ventilator? No Is Patient Ambulatory and/or Out of Bed No REE-([place]-confined to bed) 1710.180 Kcal/Kg value to use for calculation 35 Approximate Energy Requirements Using 1988 kcal/Kg Calculation Used for Recommendations Kcal/kg Additional Notes Pro needs 1.2-1.5g/k-85g/ day. Fluid needs 1ml/kcal Nutrition Intervention Change Diet Order: Continue current diet Add Supplement/Snack (indicate name/kcal Glucerna TID /protein ) Provides kCal: 660 Provides Protein (gm) 30 Goal #1 PO intake of meals plus ONS to meet 100% energy and pro needs Goal #2 Wt maintenance and/or gain Follow-Up By: 12/15/18 Additional Comments F/U: intakes (meals/ONS), wt
[2018-12-09 14:05] LABS: Hematocrit 22.7 % (35.5-45.6); Hemoglobin 7.5 gm/dl (11.8-15.2)
[2018-12-09 14:32] LABS: Total Iron Binding Capacity 189 mcg/dL (250-450)
[2018-12-09 14:33] LABS: Iron 40 ug/dL (49-181)
[2018-12-10] MEDS: SODIUM CHLORIDE FLUSH SYRINGE 10 ML IV SCH ×3 (00:06→21:41)
[2018-12-10] MEDS: DESYREL PO PRN (00:07)
[2018-12-10] MEDS: HALDOL IV SCH ×2 (04:20→10:03)
[2018-12-10] MEDS: SODIUM BICARBONATE PO SCH ×3 (08:31→21:38)
[2018-12-10] MEDS: HumaLOG SUB-Q SCH ×4 (08:31→22:20)
[2018-12-10 09:37] LABS: Hematocrit 22.3 % (35.5-45.6); Hemoglobin 7.6 gm/dl (11.8-15.2)
[2018-12-10] MEDS ORDERED: LANTUS SUB-Q ONE (10:00)
[2018-12-10] MEDS: GLUCOPHAGE PO SCH ×2 (10:51→22:21)
[2018-12-10] MEDS: LOVENOX SUB-Q SCH (10:52)
[2018-12-10] MEDS: ZOLOFT PO SCH (10:53)
[2018-12-10] MEDS: PEPCID PO SCH ×2 (10:54→21:38)
[2018-12-10] MEDS: WELLBUTRIN SR PO SCH ×2 (10:54→21:38)
[2018-12-10] MEDS: LOPRESSOR PO SCH ×2 (10:55→21:38)
--- NOTE | 2018-12-10 14:50 | Progress Note ---
Assessment and Plan Assessment and plan: Patient is 89 yo with diabetes, depression. He presented to hospital after a fall. He complains he has had repeated falls about 4-5 times over past 1 month. Was evaluated in Emergency Derpartment and hip X-ray revealed right femoral neck fracture . He was admitted, evaluated by Dr. Laird, Orthopedic surgeon and had surgery bipolar hemiarthroplasty right hip on 11/28/18. Placement as per PT. He is medically stable to discharge home or acute rehab. he will need follow up at [place] for known prostate cancer with metastases to lungs. Severe anemia - patient's hemoglobin yesterday morning was reported as 6.9 but the repeat one was 7.6 and doesn't need transfusion - Iron workup showed 1 month chronic illness Right femur neck fracture after fall. Admitted to surgical floor Ortho consulted and he was evaluated in ED s/p bipolar hemiarthroplasty right hip 11/28/18, Morphine for pain management Diabetes mellitus type 2 Accucheck Q ac and hs Reviewed home meds Continue metformin Depression History of prostate cancer with mets to lungs Follow with his Physician as outpatient Disposition. Await subacute rehabilitation placement. Case management is working it. Full code status History Interval history: Patient was seen and evaluated this morning, patient didn't have any complaints. Patient was alert and oriented. Hospitalist Physical - Physical exam Narrative exam: Not in cardiopulmonary distress. The patient appeared well nourished and normally developed. Vital signs as documented. Head exam is unremarkable. No scleral icterus . Neck is without jugular venous distension, thyromegaly, or carotid bruits. Lungs are clear to auscultation. Cardiac exam reveals regular rate and Rhythm. First and second heart sounds normal. No murmurs, rubs or gallops. Abdominal exam reveals normal bowel sounds, no masses, no organomegaly and no aortic enlargement. Extremities are nonedematous and both femoral and pedal pulses are normal. 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 No focal weakness. - Constitutional Vitals: Temp Pulse Resp BP Pulse Ox 96.3 F L 70 16 118/64 98 12/10/18 07:41 12/10/18 10:55 12/10/18 07:41 12/10/18 10:55 12/10/18 07:41 General appearance: Present: no acute distress, well-nourished Results - Labs CBC & Chem 7: 12/10/18 09:28 12/09/18 04:10 Labs: Laboratory Last Values WBC 5.9 K/mm3 (4.5-11.0) 12/09/18 04:10 RBC 2.40 M/mm3 (3.65-5.03) L 12/09/18 04:10 Hgb 7.6 gm/dl (11.8-15.2) L 12/10/18 09:28 Hct 22.3 % (35.5-45.6) L 12/10/18 09:28 MCV 85 fl (84-94) 12/09/18 04:10 MCH 29 pg (28-32) 12/09/18 04:10 MCHC 34 % (32-34) 12/09/18 04:10 RDW 16.4 % (13.2-15.2) H 12/09/18 04:10 Plt Count 364 K/mm3 (140-440) 12/09/18 04:10 Lymph % (Auto) 20.5 % (13.4-35.0) 12/09/18 04:10 [place] % (Auto) 7.4 % (0.0-7.3) H 12/09/18 04:10 Eos % (Auto) 2.5 % (0.0-4.3) 12/09/18 04:10 Baso % (Auto) 0.7 % (0.0-1.8) 12/09/18 04:10 Lymph # 1.2 K/mm3 (1.2-5.4) 12/09/18 04:10 [place] # 0.4 K/mm3 (0.0-0.8) 12/09/18 04:10 Eos # 0.1 K/mm3 (0.0-0.4) 12/09/18 04:10 Baso # 0.0 K/mm3 (0.0-0.1) 12/09/18 04:10 Seg Neutrophils % 68.9 % (40.0-70.0) 12/09/18 04:10 Seg Neutrophils # 4.1 K/mm3 (1.8-7.7) 12/09/18 04:10 PT 13.9 Sec. (12.2-14.9) 11/27/18 07:20 INR 1.01 (0.87-1.13) 11/27/18 07:20 APTT 34.3 Sec. (24.2-36.6) 11/27/18 07:20 Sodium 138 mmol/L (137-145) 12/09/18 04:10 Potassium 3.8 mmol/L (3.6-5.0) 12/09/18 04:10 Chloride 101.9 mmol/L (98-107) 12/09/18 04:10 Carbon Dioxide 25 mmol/L (22-30) 12/09/18 04:10 Anion Gap 15 mmol/L 12/09/18 04:10 BUN 15 mg/dL (9-20) 12/09/18 04:10 Creatinine 1.3 mg/dL (0.8-1.5) 12/09/18 04:10 Estimated GFR 57 ml/min 12/09/18 04:10 BUN/Creatinine Ratio 12 % 12/09/18 04:10 Glucose 180 mg/dL (75-100) H 12/09/18 04:10 POC Glucose 225 (70-105) H 12/10/18 11:56 Hemoglobin A1c 7.7 % (4-6) H 11/27/18 07:20 Lactic Acid 0.80 mmol/L (0.7-2.0) 11/27/18 07:20 Calcium 8.5 mg/dL (8.4-10.2) 12/09/18 04:10 Magnesium 1.60 mg/dL (1.7-2.3) L 11/27/18 07:20 Iron 40 ug/dL (49-181) L 12/09/18 13:40 TIBC 189 mcg/dL (250-450) L 12/09/18 13:40 Ferritin 607.0 ng/mL (13.0-400.0) H 12/09/18 13:40 Total Bilirubin 0.30 mg/dL (0.1-1.2) 11/27/18 07:20 Direct Bilirubin < 0.2 mg/dL (0-0.2) 11/27/18 07:20 AST 18 units/L (5-40) 11/27/18 07:20 ALT 16 units/L (7-56) 11/27/18 07:20 Alkaline Phosphatase 93 units/L (35-129) 11/27/18 07:20 Ammonia 34.0 umol/L (25-60) 11/27/18 07:20 Total Creatine Kinase 208 units/L (55-170) H 11/27/18 07:20 CK-MB (CK-2) 7.2 ng/mL (0.0-4.0) H 11/27/18 07:20 CK-MB (CK-2) Rel Index 3.4 (0-4) 11/27/18 07:20 Troponin T 0.023 ng/mL (0.00-0.029) 11/27/18 07:20 NT-Pro-B Natriuret Pep 4286 pg/mL (0-900) H 11/27/18 07:20 Total Protein 6.5 g/dL (6.3-8.2) 11/27/18 07:20 Albumin 3.1 g/dL (3.9-5) L 11/27/18 07:20 Albumin/Globulin Ratio 0.9 % 11/27/18 07:20 Vitamin B12 365.2 pg/mL (211-911) 12/09/18 13:40 Urine Color Straw (Yellow) 11/27/18 Unknown Urine Turbidity Clear (Clear) 11/27/18 Unknown Urine pH 6.0 (5.0-7.0) 11/27/18 Unknown Ur Specific [place] 1.009 (1.003-1.030) 11/27/18 Unknown Urine Protein 100 mg/dl mg/dL (Negative) 11/27/18 Unknown Urine Glucose (UA) >=500 mg/dL (Negative) 11/27/18 Unknown Urine Ketones Neg mg/dL (Negative) 11/27/18 Unknown Urine Blood Mod (Negative) 11/27/18 Unknown Urine Nitrite Neg (Negative) 11/27/18 Unknown Urine Bilirubin Neg (Negative) 11/27/18 Unknown Urine Urobilinogen < 2.0 mg/dL (<2.0) 11/27/18 Unknown Ur Leukocyte Esterase Neg (Negative) 11/27/18 Unknown Urine WBC (Auto) Not Reportable 11/27/18 Unknown Urine RBC (Auto) 2.0 /HPF (0.0-6.0) 11/27/18 Unknown Urine Bacteria (Auto) 1+ /HPF (Negative) 11/27/18 Unknown Urine Mucus Few /HPF 11/27/18 Unknown Urine Opiates Screen Presumptive negative 11/27/18 Unknown Urine Methadone Screen Presumptive negative 11/27/18 Unknown Ur Barbiturates Screen Presumptive negative 11/27/18 Unknown Ur Phencyclidine Scrn Presumptive negative 11/27/18 Unknown Ur Amphetamines Screen Presumptive negative 11/27/18 Unknown U Benzodiazepines Scrn Presumptive negative 11/27/18 Unknown Urine Cocaine Screen Presumptive negative 11/27/18 Unknown U Marijuana (THC) Screen Presumptive positive 11/27/18 Unknown Drugs of Abuse Note Disclamer 11/27/18 Unknown Plasma/Serum Alcohol < 0.01 % (0-0.07) 11/27/18 07:20 Blood Type A POSITIVE 12/09/18 13:33 Antibody Screen Negative 12/09/18 13:33 Crossmatch See Detail 12/09/18 13:33 Active Medications - Current Medications Current Medications: Generic Name Dose Route Start Last Admin Trade Name Freq PRN Reason Stop Dose Admin Acetaminophen 650 mg 11/27/18 19:34 Tylenol PO Q4H PRN Pain MILD(1-3)/Fever >100.5/ISAAC Acetaminophen/Hydrocodone Bitart 1 each 11/29/18 17:00 12/09/18 21:31 [place] 5/325 PO 1 each Q6H PRN Administration Pain, Moderate (4-6) Bupropion HCl 150 mg 11/30/18 12:30 12/10/18 10:54 Wellbutrin Sr PO 150 mg BID SHRUTHI Administration Dextrose 50 ml 11/29/18 12:46 D50w (25gm) Syringe IV PRN PRN Hypoglycemia Enoxaparin Sodium 40 mg 11/29/18 10:00 12/10/18 10:52 Lovenox SUB-Q 40 mg QDAY SHRUTHI Administration Famotidine 20 mg 11/27/18 19:34 12/10/18 10:54 Pepcid PO 20 mg BID SHRUTHI Administration Haloperidol Lactate 2 mg 12/10/18 15:00 Haldol IM Q6H SHRUTHI Hydralazine HCl 10 mg 12/02/18 05:32 12/03/18 17:47 Apresoline IV 10 mg Q4HR PRN Administration SBP greater than 160 Insulin Human Lispro 0 unit 11/29/18 16:30 12/10/18 12:30 Humalog SUB-Q 2 unit AC SHRUTHI Administration Protocol Insulin Human Lispro 0 unit 11/29/18 22:00 12/09/18 23:07 Humalog SUB-Q 2 unit QHS SHRUTHI Administration Protocol Metformin HCl 1,000 mg 11/30/18 12:30 12/10/18 10:51 Glucophage PO 1,000 mg BID SHRUTHI Administration Metoprolol Tartrate 25 mg 11/29/18 09:00 12/10/18 10:55 Lopressor PO 25 mg BID SHRUTHI Administration Morphine Sulfate 2 mg 11/27/18 19:34 12/08/18 21:35 Morphine IV 2 mg Q4H PRN Administration Pain, Moderate (4-6) Morphine Sulfate 4 mg 11/28/18 13:50 Morphine IV Q4H PRN Pain , Severe (7-10) Ondansetron HCl 4 mg 11/27/18 19:34 11/28/18 12:12 Zofran IV 4 mg Q8H PRN Administration Nausea And Vomiting Sertraline HCl 200 mg 12/01/18 10:00 12/10/18 10:53 Zoloft PO 200 mg QDAY SHRUTHI Administration Sodium Bicarbonate 650 mg 11/30/18 14:00 12/10/18 08:31 Sodium Bicarbonate PO 650 mg TID SHRUTHI Administration Sodium Chloride 10 ml 11/27/18 22:00 12/10/18 11:07 Sodium Chloride Flush Syringe 10 Ml IV 10 ml BID SHRUTHI Administration Sodium Chloride 10 ml 11/27/18 19:34 Sodium Chloride Flush Syringe 10 Ml IV PRN PRN LINE FLUSH Trazodone HCl 100 mg 11/30/18 11:53 12/10/18 00:07 Desyrel PO 100 mg PRN PRN Administration Insomnia Nutrition/Malnutrition Assess - Dietary Evaluation Nutrition/Malnutrition Findings: Nutrition Notes Start: 11/28/18 15:37 Freq: Status: Active Protocol: Document 12/08/18 16:31 FAROOQ (Rec: 12/08/18 16:36 [facility] [email or web address]) Nutrition Notes Initial or Follow up Reassessment Current Diagnosis Diabetes Other Pertinent Diagnosis (R) femur fx s/p repair, Depression Current Diet Consistent CHO + Glucerna BID Labs/Tests Reviewed Pertinent Medications Reviewed Height 6 ft Weight 56.8 kg [place] Body Weight (kg) 80.90 BMI 16.9 Weight change and time frame Current wt obtained from bed scale Subjective/Other Information Pt has consumed 27% of meals since last assessment. He says he drinks the ONS daily. Percent of energy/protein needs met: 59% energy 65% pro (includes ONS) Burn Absent Trauma Absent #2 Nutrition Diagnosis Malnutrition Diagnosis Progress(for reassessment Continues documentation) #1 Nutrition Diagnosis Inadequate oral intake Diagnosis Progress(for reassessment Continues documentation) Is patient on ventilator? No Is Patient Ambulatory and/or Out of Bed No [facility] 1710.180 Kcal/Kg value to use for calculation 35 Approximate Energy Requirements Using 1988 kcal/Kg Calculation Used for Recommendations Kcal/kg Additional Notes Pro needs 1.2-1.5g/k-85g/ day. Fluid needs 1ml/kcal Nutrition Intervention Change Diet Order: Continue current diet Add Supplement/Snack (indicate name/kcal Glucerna TID /protein ) Provides kCal: 660 Provides Protein (gm) 30 Goal #1 PO intake of meals plus ONS to meet 100% energy and pro needs Goal #2 Wt maintenance and/or gain Follow-Up By: 12/15/18 Additional Comments F/U: intakes (meals/ONS), wt
[2018-12-10] MEDS: HALDOL IM SCH ×2 (15:00→23:22)
[2018-12-11] MEDS: DESYREL PO PRN (00:39)
[2018-12-11] MEDS: MORPHINE IV PRN ×2 (03:46→22:42)
[2018-12-11] MEDS: HALDOL IM SCH ×4 (05:48→21:33)
[2018-12-11] MEDS: SODIUM BICARBONATE PO SCH ×3 (08:58→21:31)
[2018-12-11] MEDS: ZOLOFT PO SCH (10:57)
[2018-12-11] MEDS: GLUCOPHAGE PO SCH ×2 (10:57→21:32)
[2018-12-11] MEDS: PEPCID PO SCH ×2 (10:58→21:32)
[2018-12-11] MEDS: LOPRESSOR PO SCH ×2 (10:58→21:32)
[2018-12-11] MEDS: WELLBUTRIN SR PO SCH ×2 (10:58→21:32)
[2018-12-11] MEDS: LOVENOX SUB-Q SCH (10:58)
[2018-12-11] MEDS: HumaLOG SUB-Q SCH ×2 (14:33→16:39)
--- NOTE | 2018-12-11 14:52 | Progress Note ---
Assessment and Plan Assessment and plan: Patient is 89 yo with diabetes, depression. He presented to hospital after a fall. He complains he has had repeated falls about 4-5 times over past 1 month. Was evaluated in Emergency Derpartment and hip X-ray revealed right femoral neck fracture . He was admitted, evaluated by Dr. Laird, Orthopedic surgeon and had surgery bipolar hemiarthroplasty right hip on 11/28/18. Placement as per PT. He is medically stable to discharge home or acute rehab. he will need follow up at [facility] for known prostate cancer with metastases to lungs. Severe anemia - patient's hemoglobin yesterday morning was reported as 6.9 but the repeat one was 7.6 and doesn't need transfusion - Iron workup showed 1 month chronic illness Right femur neck fracture after fall. Admitted to surgical floor Ortho consulted and he was evaluated in ED s/p bipolar hemiarthroplasty right hip 11/28/18, Morphine for pain management Diabetes mellitus type 2 Accucheck Q ac and hs Reviewed home meds Continue metformin still uncontrolled Added insulin 10 units QHS Depression History of prostate cancer with mets to lungs Follow with his Physician as outpatient Disposition. Await subacute rehabilitation placement. Case management is working it. Full code status History Interval history: Patient was seen and evaluated this morning, patient didn't have any complaints. Patient was alert and oriented. Hospitalist Physical - Physical exam Narrative exam: Not in cardiopulmonary distress. The patient appeared well nourished and normally developed. Vital signs as documented. Head exam is unremarkable. No scleral icterus . Neck is without jugular venous distension, thyromegaly, or carotid bruits. Lungs are clear to auscultation. Cardiac exam reveals regular rate and Rhythm. First and second heart sounds normal. No murmurs, rubs or gallops. Abdominal exam reveals normal bowel sounds, no masses, no organomegaly and no aortic enlargement. Extremities are nonedematous and both femoral and pedal pulses are normal. 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 No focal weakness. - Constitutional Vitals: Temp Pulse Resp BP Pulse Ox 98.4 F 74 18 121/70 99 12/11/18 12:00 12/11/18 12:00 12/11/18 12:00 12/11/18 12:00 12/11/18 11:51 General appearance: Present: no acute distress, well-nourished Results - Labs CBC & Chem 7: 12/10/18 09:28 12/09/18 04:10 Labs: Laboratory Last Values WBC 5.9 K/mm3 (4.5-11.0) 12/09/18 04:10 RBC 2.40 M/mm3 (3.65-5.03) L 12/09/18 04:10 Hgb 7.6 gm/dl (11.8-15.2) L 12/10/18 09:28 Hct 22.3 % (35.5-45.6) L 12/10/18 09:28 MCV 85 fl (84-94) 12/09/18 04:10 MCH 29 pg (28-32) 12/09/18 04:10 MCHC 34 % (32-34) 12/09/18 04:10 RDW 16.4 % (13.2-15.2) H 12/09/18 04:10 Plt Count 364 K/mm3 (140-440) 12/09/18 04:10 Lymph % (Auto) 20.5 % (13.4-35.0) 12/09/18 04:10 [place] % (Auto) 7.4 % (0.0-7.3) H 12/09/18 04:10 Eos % (Auto) 2.5 % (0.0-4.3) 12/09/18 04:10 Baso % (Auto) 0.7 % (0.0-1.8) 12/09/18 04:10 Lymph # 1.2 K/mm3 (1.2-5.4) 12/09/18 04:10 [place] # 0.4 K/mm3 (0.0-0.8) 12/09/18 04:10 Eos # 0.1 K/mm3 (0.0-0.4) 12/09/18 04:10 Baso # 0.0 K/mm3 (0.0-0.1) 12/09/18 04:10 Seg Neutrophils % 68.9 % (40.0-70.0) 12/09/18 04:10 Seg Neutrophils # 4.1 K/mm3 (1.8-7.7) 12/09/18 04:10 PT 13.9 Sec. (12.2-14.9) 11/27/18 07:20 INR 1.01 (0.87-1.13) 11/27/18 07:20 APTT 34.3 Sec. (24.2-36.6) 11/27/18 07:20 Sodium 138 mmol/L (137-145) 12/09/18 04:10 Potassium 3.8 mmol/L (3.6-5.0) 12/09/18 04:10 Chloride 101.9 mmol/L (98-107) 12/09/18 04:10 Carbon Dioxide 25 mmol/L (22-30) 12/09/18 04:10 Anion Gap 15 mmol/L 12/09/18 04:10 BUN 15 mg/dL (9-20) 12/09/18 04:10 Creatinine 1.3 mg/dL (0.8-1.5) 12/09/18 04:10 Estimated GFR 57 ml/min 12/09/18 04:10 BUN/Creatinine Ratio 12 % 12/09/18 04:10 Glucose 180 mg/dL (75-100) H 12/09/18 04:10 POC Glucose 323 (70-105) H 12/11/18 11:53 Hemoglobin A1c 7.7 % (4-6) H 11/27/18 07:20 Lactic Acid 0.80 mmol/L (0.7-2.0) 11/27/18 07:20 Calcium 8.5 mg/dL (8.4-10.2) 12/09/18 04:10 Magnesium 1.60 mg/dL (1.7-2.3) L 11/27/18 07:20 Iron 40 ug/dL (49-181) L 12/09/18 13:40 TIBC 189 mcg/dL (250-450) L 12/09/18 13:40 Ferritin 607.0 ng/mL (13.0-400.0) H 12/09/18 13:40 Total Bilirubin 0.30 mg/dL (0.1-1.2) 11/27/18 07:20 Direct Bilirubin < 0.2 mg/dL (0-0.2) 11/27/18 07:20 AST 18 units/L (5-40) 11/27/18 07:20 ALT 16 units/L (7-56) 11/27/18 07:20 Alkaline Phosphatase 93 units/L (35-129) 11/27/18 07:20 Ammonia 34.0 umol/L (25-60) 11/27/18 07:20 Total Creatine Kinase 208 units/L (55-170) H 11/27/18 07:20 CK-MB (CK-2) 7.2 ng/mL (0.0-4.0) H 11/27/18 07:20 CK-MB (CK-2) Rel Index 3.4 (0-4) 11/27/18 07:20 Troponin T 0.023 ng/mL (0.00-0.029) 11/27/18 07:20 NT-Pro-B Natriuret Pep 4286 pg/mL (0-900) H 11/27/18 07:20 Total Protein 6.5 g/dL (6.3-8.2) 11/27/18 07:20 Albumin 3.1 g/dL (3.9-5) L 11/27/18 07:20 Albumin/Globulin Ratio 0.9 % 11/27/18 07:20 Vitamin B12 365.2 pg/mL (211-911) 12/09/18 13:40 Urine Color Straw (Yellow) 11/27/18 Unknown Urine Turbidity Clear (Clear) 11/27/18 Unknown Urine pH 6.0 (5.0-7.0) 11/27/18 Unknown Ur Specific [place] 1.009 (1.003-1.030) 11/27/18 Unknown Urine Protein 100 mg/dl mg/dL (Negative) 11/27/18 Unknown Urine Glucose (UA) >=500 mg/dL (Negative) 11/27/18 Unknown Urine Ketones Neg mg/dL (Negative) 11/27/18 Unknown Urine Blood Mod (Negative) 11/27/18 Unknown Urine Nitrite Neg (Negative) 11/27/18 Unknown Urine Bilirubin Neg (Negative) 11/27/18 Unknown Urine Urobilinogen < 2.0 mg/dL (<2.0) 11/27/18 Unknown Ur Leukocyte Esterase Neg (Negative) 11/27/18 Unknown Urine WBC (Auto) Not Reportable 11/27/18 Unknown Urine RBC (Auto) 2.0 /HPF (0.0-6.0) 11/27/18 Unknown Urine Bacteria (Auto) 1+ /HPF (Negative) 11/27/18 Unknown Urine Mucus Few /HPF 11/27/18 Unknown Urine Opiates Screen Presumptive negative 11/27/18 Unknown Urine Methadone Screen Presumptive negative 11/27/18 Unknown Ur Barbiturates Screen Presumptive negative 11/27/18 Unknown Ur Phencyclidine Scrn Presumptive negative 11/27/18 Unknown Ur Amphetamines Screen Presumptive negative 11/27/18 Unknown U Benzodiazepines Scrn Presumptive negative 11/27/18 Unknown Urine Cocaine Screen Presumptive negative 11/27/18 Unknown U Marijuana (THC) Screen Presumptive positive 11/27/18 Unknown Drugs of Abuse Note Disclamer 11/27/18 Unknown Plasma/Serum Alcohol < 0.01 % (0-0.07) 11/27/18 07:20 Blood Type A POSITIVE 12/09/18 13:33 Antibody Screen Negative 12/09/18 13:33 Crossmatch See Detail 12/09/18 13:33 Active Medications - Current Medications Current Medications: Generic Name Dose Route Start Last Admin Trade Name Freq PRN Reason Stop Dose Admin Acetaminophen 650 mg 11/27/18 19:34 Tylenol PO Q4H PRN Pain MILD(1-3)/Fever >100.5/ISAAC Acetaminophen/Hydrocodone Bitart 1 each 11/29/18 17:00 12/09/18 21:31 [place] 5/325 PO 1 each Q6H PRN Administration Pain, Moderate (4-6) Bupropion HCl 150 mg 11/30/18 12:30 12/11/18 10:58 Wellbutrin Sr PO 150 mg BID SHRUTHI Administration Dextrose 50 ml 11/29/18 12:46 D50w (25gm) Syringe IV PRN PRN Hypoglycemia Enoxaparin Sodium 40 mg 11/29/18 10:00 12/11/18 10:58 Lovenox SUB-Q 40 mg QDAY SHRUTHI Administration Famotidine 20 mg 11/27/18 19:34 12/11/18 10:58 Pepcid PO 20 mg BID SHRUTHI Administration Haloperidol Lactate 2 mg 12/10/18 15:00 12/11/18 05:48 Haldol IM 2 mg Q6H SHRUTHI Administration Hydralazine HCl 10 mg 12/02/18 05:32 12/03/18 17:47 Apresoline IV 10 mg Q4HR PRN Administration SBP greater than 160 Insulin Glargine 10 units 12/11/18 22:00 Lantus SUB-Q QHS SHRUTHI Insulin Human Lispro 0 unit 11/29/18 16:30 12/11/18 14:33 Humalog SUB-Q 4 unit AC SHRUTHI Administration Protocol Insulin Human Lispro 0 unit 11/29/18 22:00 12/10/18 22:20 Humalog SUB-Q 2 unit QHS SHRUTHI Administration Protocol Metformin HCl 1,000 mg 11/30/18 12:30 12/11/18 10:57 Glucophage PO 1,000 mg BID SHRUTHI Administration Metoprolol Tartrate 25 mg 11/29/18 09:00 12/11/18 10:58 Lopressor PO 25 mg BID SHRUTHI Administration Morphine Sulfate 2 mg 11/27/18 19:34 12/11/18 03:46 Morphine IV 2 mg Q4H PRN Administration Pain, Moderate (4-6) Morphine Sulfate 4 mg 11/28/18 13:50 Morphine IV Q4H PRN Pain , Severe (7-10) Ondansetron HCl 4 mg 11/27/18 19:34 11/28/18 12:12 Zofran IV 4 mg Q8H PRN Administration Nausea And Vomiting Sertraline HCl 200 mg 12/01/18 10:00 12/11/18 10:57 Zoloft PO 200 mg QDAY SHRUTHI Administration Sodium Bicarbonate 650 mg 11/30/18 14:00 12/11/18 08:58 Sodium Bicarbonate PO 650 mg TID SHRUTHI Administration Sodium Chloride 10 ml 11/27/18 22:00 12/10/18 21:41 Sodium Chloride Flush Syringe 10 Ml IV 10 ml BID SHRUTHI Administration Sodium Chloride 10 ml 11/27/18 19:34 Sodium Chloride Flush Syringe 10 Ml IV PRN PRN LINE FLUSH Trazodone HCl 100 mg 11/30/18 11:53 12/11/18 00:39 Desyrel PO 100 mg PRN PRN Administration Insomnia Nutrition/Malnutrition Assess - Dietary Evaluation Nutrition/Malnutrition Findings: Nutrition Notes Start: 11/28/18 15:37 Freq: Status: Active Protocol: Document 12/08/18 16:31 FAROOQ (Rec: 12/08/18 16:36 [id number] [email or web address]) Nutrition Notes Initial or Follow up Reassessment Current Diagnosis Diabetes Other Pertinent Diagnosis (R) femur fx s/p repair, Depression Current Diet Consistent CHO + Glucerna BID Labs/Tests Reviewed Pertinent Medications Reviewed Height 6 ft Weight 56.8 kg [place] Body Weight (kg) 80.90 BMI 16.9 Weight change and time frame Current wt obtained from bed scale Subjective/Other Information Pt has consumed 27% of meals since last assessment. He says he drinks the ONS daily. Percent of energy/protein needs met: 59% energy 65% pro (includes ONS) Burn Absent Trauma Absent #2 Nutrition Diagnosis Malnutrition Diagnosis Progress(for reassessment Continues documentation) #1 Nutrition Diagnosis Inadequate oral intake Diagnosis Progress(for reassessment Continues documentation) Is patient on ventilator? No Is Patient Ambulatory and/or Out of Bed No REE-([facility]-confined to bed) 1710.180 Kcal/Kg value to use for calculation 35 Approximate Energy Requirements Using 1988 kcal/Kg Calculation Used for Recommendations Kcal/kg Additional Notes Pro needs 1.2-1.5g/k-85g/ day. Fluid needs 1ml/kcal Nutrition Intervention Change Diet Order: Continue current diet Add Supplement/Snack (indicate name/kcal Glucerna TID /protein ) Provides kCal: 660 Provides Protein (gm) 30 Goal #1 PO intake of meals plus ONS to meet 100% energy and pro needs Goal #2 Wt maintenance and/or gain Follow-Up By: 12/15/18 Additional Comments F/U: intakes (meals/ONS), wt
[2018-12-11] MEDS ORDERED: LANTUS SUB-Q SCH (22:00)
[2018-12-12] MEDS: HumaLOG SUB-Q SCH ×3 (00:13→12:14)
[2018-12-12] MEDS: SODIUM CHLORIDE FLUSH SYRINGE 10 ML IV SCH ×2 (00:20→12:04)
[2018-12-12] MEDS: HALDOL IM SCH ×3 (04:00→15:53)
[2018-12-12] MEDS: GLUCOPHAGE PO SCH (10:42)
[2018-12-12] MEDS: LOPRESSOR PO SCH (10:42)
[2018-12-12] MEDS: PEPCID PO SCH (10:42)
[2018-12-12] MEDS: ZOLOFT PO SCH (10:42)
[2018-12-12] MEDS: WELLBUTRIN SR PO SCH (10:42)
[2018-12-12] MEDS: LOVENOX SUB-Q SCH (10:43)
[2018-12-12] MEDS: ZOFRAN IV PRN (11:19)
[2018-12-12] MEDS: SODIUM BICARBONATE PO SCH (12:05)
--- NOTE | 2018-12-12 12:17 | Progress Note ---
Assessment and Plan Assessment and plan: Patient is 89 yo with diabetes, depression. He presented to hospital after a fall. He complains he has had repeated falls about 4-5 times over past 1 month. Was evaluated in Emergency Derpartment and hip X-ray revealed right femoral neck fracture . He was admitted, evaluated by Dr. Laird, Orthopedic surgeon and had surgery bipolar hemiarthroplasty right hip on 11/28/18. Placement as per PT. He is medically stable to discharge home or acute rehab. he will need follow up at [place] for known prostate cancer with metastases to lungs. Severe anemia - patient's hemoglobin yesterday morning was reported as 6.9 but the repeat one was 7.6 and doesn't need transfusion - Iron workup showed anemia chronic illness Right femur neck fracture after fall. - s/p bipolar hemiarthroplasty right hip 11/28/18, - Morphine for pain management Diabetes mellitus type 2 Accucheck Q ac and hs Reviewed home meds Continue metformin Added insulin 10 units QHS and controlled now. Depression History of prostate cancer with mets to lungs Follow with his Physician as outpatient Disposition. Await subacute rehabilitation placement. Case management is working it. patient is not safe for home discharge. Full code status History Interval history: Patient was seen and evaluated this morning, patient didn't have any complaints. Patient was alert and oriented. Patient wants to go home. Hospitalist Physical - Physical exam Narrative exam: Not in cardiopulmonary distress. The patient appeared well nourished and normally developed. Vital signs as documented. Head exam is unremarkable. No scleral icterus . Neck is without jugular venous distension, thyromegaly, or carotid bruits. Lungs are clear to auscultation. Cardiac exam reveals regular rate and Rhythm. First and second heart sounds normal. No murmurs, rubs or gallops. Abdominal exam reveals normal bowel sounds, no masses, no organomegaly and no aortic enlargement. Extremities are nonedematous and both femoral and pedal pulses are normal. 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 No focal weakness. - Constitutional Vitals: Temp Pulse Resp BP Pulse Ox 98.0 F 68 18 146/73 100 12/12/18 11:34 12/12/18 06:29 12/12/18 11:34 12/12/18 11:34 12/12/18 06:29 General appearance: Present: no acute distress, well-nourished Results - Labs CBC & Chem 7: 12/10/18 09:28 12/09/18 04:10 Labs: Laboratory Last Values WBC 5.9 K/mm3 (4.5-11.0) 12/09/18 04:10 RBC 2.40 M/mm3 (3.65-5.03) L 12/09/18 04:10 Hgb 7.6 gm/dl (11.8-15.2) L 12/10/18 09:28 Hct 22.3 % (35.5-45.6) L 12/10/18 09:28 MCV 85 fl (84-94) 12/09/18 04:10 MCH 29 pg (28-32) 12/09/18 04:10 MCHC 34 % (32-34) 12/09/18 04:10 RDW 16.4 % (13.2-15.2) H 12/09/18 04:10 Plt Count 364 K/mm3 (140-440) 12/09/18 04:10 Lymph % (Auto) 20.5 % (13.4-35.0) 12/09/18 04:10 [place] % (Auto) 7.4 % (0.0-7.3) H 12/09/18 04:10 Eos % (Auto) 2.5 % (0.0-4.3) 12/09/18 04:10 Baso % (Auto) 0.7 % (0.0-1.8) 12/09/18 04:10 Lymph # 1.2 K/mm3 (1.2-5.4) 12/09/18 04:10 [place] # 0.4 K/mm3 (0.0-0.8) 12/09/18 04:10 Eos # 0.1 K/mm3 (0.0-0.4) 12/09/18 04:10 Baso # 0.0 K/mm3 (0.0-0.1) 12/09/18 04:10 Seg Neutrophils % 68.9 % (40.0-70.0) 12/09/18 04:10 Seg Neutrophils # 4.1 K/mm3 (1.8-7.7) 12/09/18 04:10 PT 13.9 Sec. (12.2-14.9) 11/27/18 07:20 INR 1.01 (0.87-1.13) 11/27/18 07:20 APTT 34.3 Sec. (24.2-36.6) 11/27/18 07:20 Sodium 138 mmol/L (137-145) 12/09/18 04:10 Potassium 3.8 mmol/L (3.6-5.0) 12/09/18 04:10 Chloride 101.9 mmol/L (98-107) 12/09/18 04:10 Carbon Dioxide 25 mmol/L (22-30) 12/09/18 04:10 Anion Gap 15 mmol/L 12/09/18 04:10 BUN 15 mg/dL (9-20) 12/09/18 04:10 Creatinine 1.3 mg/dL (0.8-1.5) 12/09/18 04:10 Estimated GFR 57 ml/min 12/09/18 04:10 BUN/Creatinine Ratio 12 % 12/09/18 04:10 Glucose 180 mg/dL (75-100) H 12/09/18 04:10 POC Glucose 238 (70-105) H 12/12/18 11:37 Hemoglobin A1c 7.7 % (4-6) H 11/27/18 07:20 Lactic Acid 0.80 mmol/L (0.7-2.0) 11/27/18 07:20 Calcium 8.5 mg/dL (8.4-10.2) 12/09/18 04:10 Magnesium 1.60 mg/dL (1.7-2.3) L 11/27/18 07:20 Iron 40 ug/dL (49-181) L 12/09/18 13:40 TIBC 189 mcg/dL (250-450) L 12/09/18 13:40 Ferritin 607.0 ng/mL (13.0-400.0) H 12/09/18 13:40 Total Bilirubin 0.30 mg/dL (0.1-1.2) 11/27/18 07:20 Direct Bilirubin < 0.2 mg/dL (0-0.2) 11/27/18 07:20 AST 18 units/L (5-40) 11/27/18 07:20 ALT 16 units/L (7-56) 11/27/18 07:20 Alkaline Phosphatase 93 units/L (35-129) 11/27/18 07:20 Ammonia 34.0 umol/L (25-60) 11/27/18 07:20 Total Creatine Kinase 208 units/L (55-170) H 11/27/18 07:20 CK-MB (CK-2) 7.2 ng/mL (0.0-4.0) H 11/27/18 07:20 CK-MB (CK-2) Rel Index 3.4 (0-4) 11/27/18 07:20 Troponin T 0.023 ng/mL (0.00-0.029) 11/27/18 07:20 NT-Pro-B Natriuret Pep 4286 pg/mL (0-900) H 11/27/18 07:20 Total Protein 6.5 g/dL (6.3-8.2) 11/27/18 07:20 Albumin 3.1 g/dL (3.9-5) L 11/27/18 07:20 Albumin/Globulin Ratio 0.9 % 11/27/18 07:20 Vitamin B12 365.2 pg/mL (211-911) 12/09/18 13:40 Urine Color Straw (Yellow) 11/27/18 Unknown Urine Turbidity Clear (Clear) 11/27/18 Unknown Urine pH 6.0 (5.0-7.0) 11/27/18 Unknown Ur Specific [place] 1.009 (1.003-1.030) 11/27/18 Unknown Urine Protein 100 mg/dl mg/dL (Negative) 11/27/18 Unknown Urine Glucose (UA) >=500 mg/dL (Negative) 11/27/18 Unknown Urine Ketones Neg mg/dL (Negative) 11/27/18 Unknown Urine Blood Mod (Negative) 11/27/18 Unknown Urine Nitrite Neg (Negative) 11/27/18 Unknown Urine Bilirubin Neg (Negative) 11/27/18 Unknown Urine Urobilinogen < 2.0 mg/dL (<2.0) 11/27/18 Unknown Ur Leukocyte Esterase Neg (Negative) 11/27/18 Unknown Urine WBC (Auto) Not Reportable 11/27/18 Unknown Urine RBC (Auto) 2.0 /HPF (0.0-6.0) 11/27/18 Unknown Urine Bacteria (Auto) 1+ /HPF (Negative) 11/27/18 Unknown Urine Mucus Few /HPF 11/27/18 Unknown Urine Opiates Screen Presumptive negative 11/27/18 Unknown Urine Methadone Screen Presumptive negative 11/27/18 Unknown Ur Barbiturates Screen Presumptive negative 11/27/18 Unknown Ur Phencyclidine Scrn Presumptive negative 11/27/18 Unknown Ur Amphetamines Screen Presumptive negative 11/27/18 Unknown U Benzodiazepines Scrn Presumptive negative 11/27/18 Unknown Urine Cocaine Screen Presumptive negative 11/27/18 Unknown U Marijuana (THC) Screen Presumptive positive 11/27/18 Unknown Drugs of Abuse Note Disclamer 11/27/18 Unknown Plasma/Serum Alcohol < 0.01 % (0-0.07) 11/27/18 07:20 Blood Type A POSITIVE 12/09/18 13:33 Antibody Screen Negative 12/09/18 13:33 Crossmatch See Detail 12/09/18 13:33 Active Medications - Current Medications Current Medications: Generic Name Dose Route Start Last Admin Trade Name Freq PRN Reason Stop Dose Admin Acetaminophen 650 mg 11/27/18 19:34 Tylenol PO Q4H PRN Pain MILD(1-3)/Fever >100.5/ISAAC Acetaminophen/Hydrocodone Bitart 1 each 11/29/18 17:00 12/09/18 21:31 [place] 5/325 PO 1 each Q6H PRN Administration Pain, Moderate (4-6) Bupropion HCl 150 mg 11/30/18 12:30 12/12/18 10:42 Wellbutrin Sr PO 150 mg BID SHRUTHI Administration Dextrose 50 ml 11/29/18 12:46 D50w (25gm) Syringe IV PRN PRN Hypoglycemia Enoxaparin Sodium 40 mg 11/29/18 10:00 12/12/18 10:43 Lovenox SUB-Q 40 mg QDAY SHRUTHI Administration Famotidine 20 mg 11/27/18 19:34 12/12/18 10:42 Pepcid PO 20 mg BID SHRUTHI Administration Haloperidol Lactate 2 mg 12/10/18 15:00 12/12/18 12:06 Haldol IM 2 mg Q6H SHRUTHI Administration Hydralazine HCl 10 mg 12/02/18 05:32 12/03/18 17:47 Apresoline IV 10 mg Q4HR PRN Administration SBP greater than 160 Insulin Glargine 10 units 12/11/18 22:00 12/11/18 22:42 Lantus SUB-Q 10 units QHS SHRUTHI Administration Insulin Human Lispro 0 unit 11/29/18 16:30 12/12/18 12:14 Humalog SUB-Q 2 unit AC [facility] Administration Protocol Insulin Human Lispro 0 unit 11/29/18 22:00 12/12/18 00:13 Humalog SUB-Q Not Given QHS [facility] Protocol Metformin HCl 1,000 mg 11/30/18 12:30 12/12/18 10:42 Glucophage PO 1,000 mg BID SHRUTHI Administration Metoprolol Tartrate 25 mg 11/29/18 09:00 12/12/18 10:42 Lopressor PO 25 mg BID SHRUTHI Administration Morphine Sulfate 2 mg 11/27/18 19:34 12/11/18 22:42 Morphine IV 2 mg Q4H PRN Administration Pain, Moderate (4-6) Morphine Sulfate 4 mg 11/28/18 13:50 Morphine IV Q4H PRN Pain , Severe (7-10) Ondansetron HCl 4 mg 11/27/18 19:34 12/12/18 11:19 Zofran IV 4 mg Q8H PRN Administration Nausea And Vomiting Sertraline HCl 200 mg 12/01/18 10:00 12/12/18 10:42 Zoloft PO 200 mg QDAY SHRUTHI Administration Sodium Bicarbonate 650 mg 11/30/18 14:00 12/12/18 12:05 Sodium Bicarbonate PO 650 mg TID SHRUTHI Administration Sodium Chloride 10 ml 11/27/18 22:00 12/12/18 12:04 Sodium Chloride Flush Syringe 10 Ml IV 10 ml BID SHRUTHI Administration Sodium Chloride 10 ml 11/27/18 19:34 Sodium Chloride Flush Syringe 10 Ml IV PRN PRN LINE FLUSH Trazodone HCl 100 mg 11/30/18 11:53 12/11/18 00:39 Desyrel PO 100 mg PRN PRN Administration Insomnia Nutrition/Malnutrition Assess - Dietary Evaluation Nutrition/Malnutrition Findings: Nutrition Notes Start: 11/28/18 15:37 Freq: Status: Active Protocol: Document 12/08/18 16:31 FAROOQ (Rec: 12/08/18 16:36 FAROOQ [id number] [email or web address]) Nutrition Notes Initial or Follow up Reassessment Current Diagnosis Diabetes Other Pertinent Diagnosis (R) femur fx s/p repair, Depression Current Diet Consistent CHO + Glucerna BID Labs/Tests Reviewed Pertinent Medications Reviewed Height 6 ft Weight 56.8 kg [place] Body Weight (kg) 80.90 BMI 16.9 Weight change and time frame Current wt obtained from bed scale Subjective/Other Information Pt has consumed 27% of meals since last assessment. He says he drinks the ONS daily. Percent of energy/protein needs met: 59% energy 65% pro (includes ONS) Burn Absent Trauma Absent #2 Nutrition Diagnosis Malnutrition Diagnosis Progress(for reassessment Continues documentation) #1 Nutrition Diagnosis Inadequate oral intake Diagnosis Progress(for reassessment Continues documentation) Is patient on ventilator? No Is Patient Ambulatory and/or Out of Bed No REE-([facility]-confined to bed) 1710.180 Kcal/Kg value to use for calculation 35 Approximate Energy Requirements Using 1988 kcal/Kg Calculation Used for Recommendations Kcal/kg Additional Notes Pro needs 1.2-1.5g/k-85g/ day. Fluid needs 1ml/kcal Nutrition Intervention Change Diet Order: Continue current diet Add Supplement/Snack (indicate name/kcal Glucerna TID /protein ) Provides kCal: 660 Provides Protein (gm) 30 Goal #1 PO intake of meals plus ONS to meet 100% energy and pro needs Goal #2 Wt maintenance and/or gain Follow-Up By: 12/15/18 Additional Comments F/U: intakes (meals/ONS), wt
--- NOTE | 2018-12-12 14:19 | Discharge Summary ---
Providers - Providers Date of Admission: 11/27/18 08:29 Attending physician: MARKIE SUAREZ MD 11/27/18 08:08 Consult to Physician [CONS] Urgent Comment: DR LAIRD NOTIFIED [id number] Consulting Provider: FRACISCO LAIRD Physician Instructions: Reason For Exam: subcapital r femoral fx 11/28/18 13:50 Consult to Case Management [CONS] Routine Services Needed at Discharge: Home Health Services Complaints Coordinator Physical Therapy 11/28/18 13:52 Physical Therapy Evaluation and Treat [CONS] Routine Comment: Reason For Exam: postop evaluation Weight bearing status?: Full wt bearing Assistive devices?: Yes If so list: Walker 11/29/18 09:27 Physical Therapy Evaluation and Treat [CONS] Routine Comment: Reason For Exam: s/p right hip surgery Mode of Transport?: Walker Weight bearing status?: Full wt bearing Assistive devices?: Yes: walker [facility] Reason for admission: Right femoral fracture Condition: Stable Pertinent studies: xray of the hip -right femoral fracture Procedures: ORIF Hospital course: Patient is 58 yo with diabetes, depression presented to hospital after a fall. He complained he has had repeated falls about 4-5 times over past 1 month. Was evaluated in Emergency Derpartment and hip X-ray revealed right femoral neck fracture . He was admitted, evaluated by Dr. Laird, Orthopedic surgeon and had surgery bipolar hemiarthroplasty right hip on 11/28/18. Need subacute rehab placement as per PT. He was discharged to subacute rehab. he will need follow up at [place] for known prostate cancer with metastases to lungs. Anemia of chronic illness and need to follow with PCP. [facility] Time spent for discharge: 32 minutes - Discharge Diagnoses (1) Anemia of chronic disease Status: Acute (2) Cardiomyopathy Status: Acute Qualifiers: Cardiomyopathy type: unspecified Qualified Code(s): I42.9 - Cardiomyopathy, unspecified (3) Hyperglycemia due to type 1 diabetes mellitus Status: Acute (4) Prostate cancer metastatic to lung Status: Acute (5) Subcapital fracture of right femur Status: Acute Qualifiers: Encounter type: initial encounter Fracture type: closed Qualified Code(s): S72.011A - Unspecified intracapsular fracture of right femur, initial encounter for closed fracture (6) Cataract Status: Acute Qualifiers: Cataract type: age-related Age-related cataract type: nuclear Laterality: left Qualified Code(s): H25.12 - Age-related nuclear cataract, left eye Core Measure Documentation - Palliative Care Palliative Care/ Comfort Measures: Not Applicable - Core Measures Any of the following diagnoses?: none Exam - Physical Exam Narrative exam: Not in cardiopulmonary distress. The patient appeared well nourished and normally developed. Vital signs as documented. Head exam is unremarkable. No scleral icterus . Neck is without jugular venous distension, thyromegaly, or carotid bruits. Lungs are clear to auscultation. Cardiac exam reveals regular rate and Rhythm. First and second heart sounds normal. No murmurs, rubs or gallops. Abdominal exam reveals normal bowel sounds, no masses, no organomegaly and no aortic enlargement. Extremities are nonedematous and both femoral and pedal pulses are normal. [employer]: Alert and oriented 3. No focal weakness. - Constitutional Vitals: Temp Pulse Resp BP Pulse Ox 98.0 F 72 18 146/73 100 12/12/18 11:34 12/12/18 12:00 12/12/18 11:34 12/12/18 11:34 12/12/18 06:29 Plan Activity: no restrictions Weight Bearing Status: Full Weight Bearing Diet: low salt, diabetic Follow up with: LUIS ABBOTT MD [Primary Care Provider] - 3-5 Days
[2018-12-12 21:04] VITALS: BP 149/73
== END 2018-12-12 21:30 | DRG 470 ==
LOC: ED 05:39 → 3A 08:29 → 3B-SURG 13:18
PROVIDERS: ADMIT Internal Medicine; ATTEND Internal Medicine
PROC: 0SRR0JZ Replacement of Right Hip Joint, Femoral Surface with Synthetic Substitute, Open Approach (ICD-10-PCS; principal; 2018-11-28)
DX: S72.011A Unspecified intracapsular fracture of right femur, initial encounter for closed fracture (principal); I42.9 Cardiomyopathy, unspecified; D63.8 Anemia in other chronic diseases classified elsewhere; W18.39XA Other fall on same level, initial encounter; Y93.89 Activity, other specified; Y92.89 Other specified places as the place of occurrence of the external cause; Y99.8 Other external cause status; Z86.73 Personal history of transient ischemic attack (TIA), and cerebral infarction without residual deficits; Z79.4 Long term (current) use of insulin; I10 Essential (primary) hypertension; Z88.8 Allergy status to other drugs, medicaments and biological substances; Z85.07 Personal history of malignant neoplasm of pancreas; C78.00 Secondary malignant neoplasm of unspecified lung; F32.9 Major depressive disorder, single episode, unspecified; F17.200 Nicotine dependence, unspecified, uncomplicated; E11.65 Type 2 diabetes mellitus with hyperglycemia; Z85.46 Personal history of malignant neoplasm of prostate
CPT/HCPCS: 36415; 71045; 80048; 80076; 80307; 80320; 81001; 82140; 82550; 82553; 82607; 82728; 82747; 82962; 83036; 83550; 83735; 83880; 84484; 85014; 85018; 85025; 85027; 85610; 85730; 86850; 86900; 86901; 86920; 88304; 88311; 93005; 93010; 94760; 96361; 96365; 96375; G0378; C1776; G0480; J0360; J1170; J1630; J1650; J1815; J1885; J2250; J2270; J2310; J2405; J2704; J2710; J3010; J3475; J7030

== ENCOUNTER 2018-12-25 10:52 | Inpatient (IN) | payer MEDICAID, OTHER ==
[2018-12-25] MEDS ORDERED: NACL 0.9% 500 ML 500 ML IV ONE ×2 (11:17→12:17)
[2018-12-25] MEDS ORDERED: DILAUDID IV ONE (11:19)
[2018-12-25] MEDS ORDERED: ZOFRAN IV ONE (11:19)
[2018-12-25] MEDS ORDERED: ZOFRAN ONE (11:20)
[2018-12-25] MEDS ORDERED: BENADRYL IV ONE (11:20)
[2018-12-25] MEDS ORDERED: BENADRYL ONE (11:20)
[2018-12-25] MEDS ORDERED: DILAUDID ONE (11:20)
[2018-12-25] MEDS ORDERED: NORMODYNE IV ONE (11:26)
[2018-12-25] MEDS ORDERED: DIPRIVAN 10 MG/ML IV ONE ×2 (11:42→11:46)
--- NOTE | 2018-12-25 11:42 | XRay Report ---
AP CHEST: HISTORY: Sepsis AP view of the chest demonstrates a normal mediastinal and cardiac contour with clear lungs and normal bony and soft tissue structures. IMPRESSION: No acute cardiopulmonary process.
--- NOTE | 2018-12-25 11:48 | XRay Report ---
RIGHT HIP, 2 views: History: Hip deformity. Compared to 11/28/18. The entire right hip prosthesis including the acetabular component is dislocated superiorly and laterally. There is no obvious associated fracture on this limited image. Mild osteopenia. IMPRESSION: Superolateral dislocation of the right hip prosthesis including the acetabular component. Please correlate with the images.
[2018-12-25] MEDS ORDERED: KETAMINE HCL IV ONE (11:53)
[2018-12-25 11:58] LABS: Basophils # (Auto) 0.1 K/mm3 (0.0-0.1); Basophils % (Auto) 0.9 % (0.0-1.8); Eosinophils # (Auto) 0.2 K/mm3 (0.0-0.4); Eosinophils % (Auto) 2.5 % (0.0-4.3); Hematocrit 22.4 % (35.5-45.6); Hemoglobin 7.4 gm/dl (11.8-15.2); Lymphocytes # (Auto) 1.6 K/mm3 (1.2-5.4); Lymphocytes % (Auto) 20.4 % (13.4-35.0); Mean Corpuscular HGB Conc 33 % (32-34); Mean Corpuscular Volume 89 fl (84-94); Monocytes # (Auto) 0.9 K/mm3 (0.0-0.8); Monocytes % (Auto) 11.7 % (0.0-7.3); Platelet Count 288 K/mm3 (140-440); Red Blood Count 2.53 M/mm3 (3.65-5.03); Red Cell Distribution Width 19.2 % (13.2-15.2)
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
[2018-12-25 12:19] LABS: INR 0.94 (0.87-1.13); Partial Thromboplastin Time 26.2 Sec. (24.2-36.6)
[2018-12-25] MEDS: KETAMINE HCL IV ONE ×2 (12:27→15:19)
--- NOTE | 2018-12-25 12:38 | XRay Report ---
RIGHT HIP, ONE VIEW History: Post reduction film. Findings: There is persistent superior dislocation of the right hip prosthesis since earlier today at 1122 hrs.
[2018-12-25 12:39] LABS: Creatine Kinase MB 5.3 ng/mL (0.0-4.0)
[2018-12-25 12:40] LABS: Alanine Aminotransferase 140 units/L (7-56); Albumin 3.3 g/dL (3.9-5); BUN/Creatinine Ratio 21; Blood Urea Nitrogen 32 mg/dL (9-20); Calcium 9.1 mg/dL (8.4-10.2); Hemolysis Index 87
[2018-12-25 12:44] LABS: Bilirubin,Direct < 0.2 mg/dL (0-0.2)
[2018-12-25 12:49] LABS: Free T4 (Free Thyroxine) 0.79 ng/dL (0.76-1.46)
[2018-12-25] MEDS ORDERED: NACL 0.9% 1000 ML 1,000 ML IV ONE (12:58)
[2018-12-25] MEDS ORDERED: HumuLIN R IV ONE (12:58)
[2018-12-25] MEDS ORDERED: MERREM 1,000 MG in NACL 0.9% 100 ML IV ONE (12:58)
[2018-12-25] MEDS ORDERED: VANCOMYCIN PHARMACY TO DOSE IV SCH (13:00)
[2018-12-25] MEDS ORDERED: SODIUM CHLORIDE FLUSH SYRINGE 10 ML IV PRN (13:12)
[2018-12-25] MEDS ORDERED: ZOFRAN IV PRN (13:12)
[2018-12-25] MEDS ORDERED: D50W (25GM) Syringe IV PRN (13:19)
[2018-12-25] MEDS ORDERED: VANCOMYCIN 1,500 MG in NACL 0.9% 500 ML 500 ML IV ONE (13:30)
[2018-12-25 13:46] LABS: % Iron Saturation 16.44 %
[2018-12-25 14:10] LABS: WBC,Urine < 1.0 /HPF (0.0-6.0)
[2018-12-25 14:11] LABS: Bilirubin,Urine NEG (Negative); Blood,Urine MOD (Negative); Color,Urine Colorless (Yellow); Urobilinogen,Urine < 2.0 mg/dL (<2.0)
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
[2018-12-25] MEDS: NORVASC PO SCH (15:30)
[2018-12-25] MEDS: MORPHINE IV PRN ×3 (16:04→23:53)
[2018-12-25] MEDS ORDERED: MORPHINE ONE (16:04)
--- NOTE | 2018-12-25 16:24 | XRay Report ---
PROCEDURE: XR HIP 1V RT TECHNIQUE: Right hip, frontal portable view HISTORY: Post reduction COMPARISONS: Earlier the same day FINDINGS: Right hip femoral head prosthesis and acetabular cup are again displaced superior and lateral to the [place] acetabulum. This is most compatible with persisting dislocation. No radiographically visible f racture on this single image. No significant interval change. IMPRESSION: Persisting right hip dislocation This document is electronically signed by Kole Arce MD., December 25 2018 04:22:45 PM ET
[2018-12-25] MEDS ORDERED: NACL 0.9% 1000 ML 1,000 ML IV SCH (17:00)
[2018-12-25] MEDS: HumaLOG SUB-Q SCH ×2 (19:12→22:30)
[2018-12-25] MEDS ORDERED: NACL 0.9% 250ML 250 ML ONE (20:23)
[2018-12-25] MEDS ORDERED: NON-FORMULARY (Bupropion Hcl [Bupropion Hcl Sr] 150 MG) PO SCH (22:00)
[2018-12-25] MEDS ORDERED: NON-FORMULARY (Metformin Hcl [Glucophage] 1,000 MG) PO SCH (22:00)
[2018-12-25] MEDS: SODIUM CHLORIDE FLUSH SYRINGE 10 ML IV SCH (22:30)
[2018-12-25] MEDS: GLUCOPHAGE PO SCH (22:31)
[2018-12-25] MEDS: LANTUS SUB-Q SCH (22:32)
[2018-12-25] MEDS: APRESOLINE IV PRN (22:42)
[2018-12-26] MEDS: APRESOLINE IV PRN (05:09)
[2018-12-26] MEDS: HumaLOG SUB-Q SCH ×4 (07:30→23:27)
[2018-12-26] MEDS ORDERED: VERSED ONE (08:27)
[2018-12-26] MEDS ORDERED: AMIDATE IV ONE (08:55)
[2018-12-26] MEDS ORDERED: SUBLIMAZE ONE ×2 (08:56→09:14)
[2018-12-26] MEDS ORDERED: DIPRIVAN 10 MG/ML IV ONE (09:05)
[2018-12-26] MEDS ORDERED: HumuLIN R ONE (09:49)
[2018-12-26] MEDS: GLUCOPHAGE PO SCH ×2 (10:00→23:27)
[2018-12-26] MEDS ORDERED: HumuLIN R IV ONE (10:00)
[2018-12-26] MEDS: NORVASC PO SCH (10:00)
[2018-12-26] MEDS: ROCEPHIN/NS 2 GM/100 ML 2 GM/100 ML BAG IV SCH (10:00)
[2018-12-26] MEDS: WELLBUTRIN SR PO SCH ×2 (10:00→23:27)
[2018-12-26] MEDS: ZOLOFT PO SCH (10:00)
[2018-12-26] MEDS: MORPHINE IV PRN (12:54)
[2018-12-26] MEDS: VANCOMYCIN/NS 1 GM/250 ML 1 GM/250 ML BAG IV SCH (14:09)
[2018-12-26] MEDS ORDERED: HALDOL IV PRN (15:34)
[2018-12-26] MEDS ORDERED: ATIVAN IV PRN ×2 (15:34)
--- NOTE | 2018-12-26 15:51 | Progress Note ---
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 Paramedics stated that patient fell out of his Tri[place] and required assistance to get back on. Patient is not able to stand up on his own. He is complaining of right hip pain. He was treated with intranasal fentanyl by paramedics prior to arrival [facility]. Patient was found to be anemic with hemoglobin of 7.4, and 1 unit PRBC transfused and 80. Patient will be admitted to the Med/Surg. Dr. Laird, orthopedic surgeon has been consult. 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 Follow-up on current diagnosis of right dislocated hip. Overnight uneventful. Patient is not talking. Imaging, nursing note, chart, labs and old chart reviewed. Hospitalist Physical - Physical exam Narrative exam: Gen: thin frail, NAD, Awake, Orientated x 0 and confused HEENT: NCAT, EOMI, PERRL, OP Clear Neck: supple, no adenopathy, no thyromegaly, no JVD CVS/Heart: Regular tachycardia, normal S1S2, pulses present bilaterally Chest/Lungs: CTA B, Symmetrical chest expansion, good air entry bilaterally GI/Abdomen: soft, NTND, good bowel sounds, no guarding or rebound /Bladder: no suprapubic tenderness, no CVA or paraspinal tenderness Extermity/Skin: no c/c/e, no obvious rash MSK: FROM x3 Neuro: CN 2-12 grossly intact, not following commands, no talking Psych: calm - Constitutional Vitals: Temp Pulse Resp BP Pulse Ox 98.7 F 120 H 18 156/85 98 12/26/18 11:45 12/26/18 11:45 12/26/18 11:45 12/26/18 11:45 12/26/18 11:45 General appearance: Present: disheveled Results - Labs CBC & Chem 7: 12/25/18 11:10 12/25/18 11:10 Labs: Laboratory Last Values WBC 7.7 K/mm3 (4.5-11.0) 12/25/18 11:10 RBC 2.53 M/mm3 (3.65-5.03) L 12/25/18 11:10 Hgb 7.4 gm/dl (11.8-15.2) L 12/25/18 11:10 Hct 22.4 % (35.5-45.6) L 12/25/18 11:10 MCV 89 fl (84-94) 12/25/18 11:10 MCH 29 pg (28-32) 12/25/18 11:10 MCHC 33 % (32-34) 12/25/18 11:10 RDW 19.2 % (13.2-15.2) H 12/25/18 11:10 Plt Count 288 K/mm3 (140-440) 12/25/18 11:10 Lymph % (Auto) 20.4 % (13.4-35.0) 12/25/18 11:10 [place] % (Auto) 11.7 % (0.0-7.3) H 12/25/18 11:10 Eos % (Auto) 2.5 % (0.0-4.3) 12/25/18 11:10 Baso % (Auto) 0.9 % (0.0-1.8) 12/25/18 11:10 Lymph # 1.6 K/mm3 (1.2-5.4) 12/25/18 11:10 [place] # 0.9 K/mm3 (0.0-0.8) H 12/25/18 11:10 Eos # 0.2 K/mm3 (0.0-0.4) 12/25/18 11:10 Baso # 0.1 K/mm3 (0.0-0.1) 12/25/18 11:10 Seg Neutrophils % 64.5 % (40.0-70.0) 12/25/18 11:10 Seg Neutrophils # 5.0 K/mm3 (1.8-7.7) 12/25/18 11:10 PT 13.1 Sec. (12.2-14.9) 12/25/18 11:10 INR 0.94 (0.87-1.13) 12/25/18 11:10 APTT 26.2 Sec. (24.2-36.6) 12/25/18 11:10 VBG pH 7.298 (7.320-7.420) L 12/25/18 13:04 Sodium 136 mmol/L (137-145) L 12/25/18 11:10 Potassium 4.3 mmol/L (3.6-5.0) 12/25/18 11:10 Chloride 99.9 mmol/L (98-107) 12/25/18 11:10 Carbon Dioxide 17 mmol/L (22-30) L 12/25/18 11:10 Anion Gap 23 mmol/L 12/25/18 11:10 BUN 32 mg/dL (9-20) H 12/25/18 11:10 Creatinine 1.5 mg/dL (0.8-1.5) 12/25/18 11:10 Estimated GFR 48 ml/min 12/25/18 11:10 BUN/Creatinine Ratio 21 % 12/25/18 11:10 Glucose 369 mg/dL (75-100) H 12/25/18 11:10 POC Glucose 131 (70-105) H 12/26/18 11:31 Hemoglobin A1c 7.1 % (4-6) H 12/25/18 11:10 Ketones Quantitative Negative (Negative) 12/25/18 11:10 Lactic Acid 1.70 mmol/L (0.7-2.0) 12/25/18 13:04 Calcium 9.1 mg/dL (8.4-10.2) 12/25/18 11:10 Phosphorus 5.10 mg/dL (2.5-4.5) H 12/25/18 11:10 Magnesium 1.90 mg/dL (1.7-2.3) 12/25/18 11:10 Iron 48 ug/dL (49-181) L 12/25/18 Unknown TIBC 292 mcg/dL (250-450) 12/25/18 Unknown % Saturation 16.44 % 12/25/18 Unknown Transferrin 128 mg/dl (180-329) L 12/25/18 Unknown Total Bilirubin 0.20 mg/dL (0.1-1.2) 12/25/18 11:10 Direct Bilirubin < 0.2 mg/dL (0-0.2) 12/25/18 11:10 Indirect Bilirubin 0.0 mg/dL 12/25/18 11:10 AST 71 units/L (5-40) H 12/25/18 11:10 ALT 140 units/L (7-56) H 12/25/18 11:10 Alkaline Phosphatase 147 units/L (35-129) H 12/25/18 11:10 Ammonia 41.0 umol/L (25-60) 12/25/18 11:10 Total Creatine Kinase 113 units/L (55-170) 12/25/18 11:10 CK-MB (CK-2) 5.3 ng/mL (0.0-4.0) H 12/25/18 11:10 CK-MB (CK-2) Rel Index 4.6 (0-4) H 12/25/18 11:10 NT-Pro-B Natriuret Pep 2450 pg/mL (0-900) H 12/25/18 11:10 Total Protein 6.9 g/dL (6.3-8.2) 12/25/18 11:10 Albumin 3.3 g/dL (3.9-5) L 12/25/18 11:10 Albumin/Globulin Ratio 0.9 % 12/25/18 11:10 Vitamin B12 654.9 pg/mL (211-911) 12/25/18 Unknown Folate > 20.0 ng/mL (7.3-26.0) 12/25/18 Unknown TSH 16.800 mlU/mL (0.270-4.200) H 12/25/18 11:10 Free T4 0.79 ng/dL (0.76-1.46) 12/25/18 11:10 Urine Color Colorless (Yellow) 12/25/18 Unknown Urine Turbidity Clear (Clear) 12/25/18 Unknown Urine pH 6.0 (5.0-7.0) 12/25/18 Unknown Ur Specific [place] 1.007 (1.003-1.030) 12/25/18 Unknown Urine Protein 30 mg/dl mg/dL (Negative) 12/25/18 Unknown Urine Glucose (UA) >=500 mg/dL (Negative) 12/25/18 Unknown Urine Ketones Neg mg/dL (Negative) 12/25/18 Unknown Urine Blood Mod (Negative) 12/25/18 Unknown Urine Nitrite Neg (Negative) 12/25/18 Unknown Ur Reducing Substances Not Reportable 12/25/18 Unknown Urine Bilirubin Neg (Negative) 12/25/18 Unknown Urine Ictotest Not Reportable 12/25/18 Unknown Urine Urobilinogen < 2.0 mg/dL (<2.0) 12/25/18 Unknown Ur Leukocyte Esterase Neg (Negative) 12/25/18 Unknown Urine WBC (Auto) < 1.0 /HPF (0.0-6.0) 12/25/18 Unknown Urine RBC (Auto) 3.0 /HPF (0.0-6.0) 12/25/18 Unknown Blood Type A POSITIVE 12/25/18 11:10 Antibody Screen Negative 12/25/18 11:10 Crossmatch See Detail 12/25/18 11:10 Active Medications - Current Medications Current Medications: Generic Name Dose Route Start Last Admin Trade Name Freq PRN Reason Stop Dose Admin Acetaminophen 650 mg 12/25/18 13:12 Tylenol PO Q4H PRN Pain MILD(1-3)/Fever >100.5/ISAAC Amlodipine Besylate 10 mg 12/25/18 15:00 12/26/18 10:00 Norvasc PO Not Given DAILY SHRUTHI Bupropion HCl 150 mg 12/26/18 10:00 12/26/18 10:00 Wellbutrin Sr PO Not Given BID SHRUTHI Dextrose 50 ml 12/25/18 13:19 D50w (25gm) Syringe IV PRN PRN Hypoglycemia Haloperidol Lactate 5 mg 12/26/18 15:34 Haldol IV Q1H PRN Unrespon. to mult. doses BZD's Hydralazine HCl 10 mg 12/25/18 13:23 12/26/18 05:09 Apresoline IV 10 mg Q4HR PRN Administration Blood Pressure Ceftriaxone Sodium 2 gm in 100 mls @ 200 mls/hr 12/26/18 10:00 12/26/18 10:00 Rocephin/Ns 2 Gm/100 Ml IV Not Given Q24HR [facility] Protocol Vancomycin HCl 1 gm in 250 mls @ 166.667 mls/hr 12/26/18 13:00 12/26/18 14:09 Vancomycin/Ns 1 Gm/250 Ml IV 166.667 mls/hr Q24H SHRUTHI Administration Insulin Glargine 10 units 12/25/18 22:00 12/25/18 22:32 Lantus SUB-Q 10 units QHS SHRUTHI Administration Insulin Human Lispro 0 unit 12/25/18 16:30 12/26/18 11:49 Humalog SUB-Q Not Given ACHS SHRUTHI Protocol Lorazepam 2 mg 12/26/18 15:34 Ativan IV Q1H PRN CIWA-Ar 8-15 Lorazepam 4 mg 12/26/18 15:34 Ativan IV Q1H PRN CIWA-Ar 16-25 Lorazepam 4 mg 12/26/18 15:34 Ativan IV Q15MIN PRN CIWA-Ar >25 Metformin HCl 1,000 mg 12/25/18 22:00 12/26/18 10:00 Glucophage PO Not Given BID SHRUTHI Morphine Sulfate 2 mg 12/25/18 13:12 12/26/18 12:54 Morphine IV 12/26/18 23:59 2 mg Q4H PRN Administration Pain, Moderate (4-6) Ondansetron HCl 4 mg 12/25/18 13:12 Zofran IV Q8H PRN Nausea And Vomiting Sertraline HCl 200 mg 12/26/18 10:00 12/26/18 10:00 Zoloft PO Not Given QDAY SHRUTHI Sodium Chloride 10 ml 12/25/18 22:00 12/25/18 22:30 Sodium Chloride Flush Syringe 10 Ml IV 10 ml BID SHRUTHI Administration Sodium Chloride 10 ml 12/25/18 13:12 Sodium Chloride Flush Syringe 10 Ml IV PRN PRN LINE FLUSH
--- NOTE | 2018-12-26 16:13 | Procedure Note ---
Date of procedure: 12/26/18 Pre-op diagnosis: Dislocated right hip prosthesis Post-op diagnosis: same Procedure: Closed reduction under general anesthesia Procedure The patient was brought to the OR on the hospital bed. Induction with general anesthesia a timeout procedure was done to identify the patient and the correct operative site following administration of muscle relaxation the patient's right lower extremity was placed in longitudinal traction with some flexion at both t he hip and knee, traction was applied to the patient's pelvis next the hip was then manipulated into a reduced position C-arm fluoroscopy was used to verify the reduction next C Immobilizer was applied and secured to the right lower extremity The patient was extubated and was then taken to postanesthesia recovery in a stable condition Anesthesia: GETA Surgeon: FRACISCO QUINTANA Estimated blood loss: none Condition: stable Disposition: PACU
[2018-12-26] MEDS: ATIVAN IV PRN (18:40)
[2018-12-26] MEDS: SODIUM CHLORIDE FLUSH SYRINGE 10 ML IV SCH ×2 (20:56→23:18)
[2018-12-26] MEDS: LANTUS SUB-Q SCH (23:27)
[2018-12-27] MEDS: ATIVAN IV PRN ×5 (00:14→15:55)
[2018-12-27] MEDS: APRESOLINE IV PRN (07:18)
[2018-12-27] MEDS: HumaLOG SUB-Q SCH ×4 (10:03→22:55)
[2018-12-27] MEDS: GLUCOPHAGE PO SCH ×2 (10:04→22:56)
[2018-12-27] MEDS: WELLBUTRIN SR PO SCH ×2 (10:05→22:57)
[2018-12-27] MEDS: NORVASC PO SCH (10:05)
[2018-12-27] MEDS: ZOLOFT PO SCH (10:05)
[2018-12-27] MEDS: SODIUM CHLORIDE FLUSH SYRINGE 10 ML IV SCH ×2 (10:09→23:00)
--- NOTE | 2018-12-27 15:20 | Progress Note ---
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 Paramedics stated that patient fell out of his Tri[place] and required assistance to get back on. Patient is not able to stand up on his own. He is complaining of right hip pain. He was treated with intranasal fentanyl by paramedics prior to arrival [facility]. Patient was found to be anemic with hemoglobin of 7.4, and 1 unit PRBC transfused and 80. Patient will be admitted to the Med/Surg. Dr. Laird, orthopedic surgeon following. 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 Follow-up on current diagnosis of right dislocated hip. Overnight uneventful. Patient is not talking. Imaging, nursing note, chart, labs and old chart reviewed. Hospitalist Physical - Physical exam Narrative exam: Gen: thin frail, NAD, Awake, Orientated x 0 and confused HEENT: NCAT, EOMI, PERRL, OP Clear Neck: supple, no adenopathy, no thyromegaly, no JVD CVS/Heart: Regular tachycardia, normal S1S2, pulses present bilaterally Chest/Lungs: CTA B, Symmetrical chest expansion, good air entry bilaterally GI/Abdomen: soft, NTND, good bowel sounds, no guarding or rebound /Bladder: no suprapubic tenderness, no CVA or paraspinal tenderness Extermity/Skin: no c/c/e, no obvious rash MSK: FROM x3 Neuro: CN 2-12 grossly intact, not following commands, no talking Psych: calm - Constitutional Vitals: Temp Pulse Resp BP Pulse Ox 97.8 F 110 H 18 147/84 99 12/27/18 11:33 12/27/18 10:05 12/27/18 11:33 12/27/18 11:33 12/27/18 07:47 General appearance: Present: disheveled Results - Labs CBC & Chem 7: 12/25/18 11:10 12/25/18 11:10 Labs: Laboratory Last Values WBC 7.7 K/mm3 (4.5-11.0) 12/25/18 11:10 RBC 2.53 M/mm3 (3.65-5.03) L 12/25/18 11:10 Hgb 7.4 gm/dl (11.8-15.2) L 12/25/18 11:10 Hct 22.4 % (35.5-45.6) L 12/25/18 11:10 MCV 89 fl (84-94) 12/25/18 11:10 MCH 29 pg (28-32) 12/25/18 11:10 MCHC 33 % (32-34) 12/25/18 11:10 RDW 19.2 % (13.2-15.2) H 12/25/18 11:10 Plt Count 288 K/mm3 (140-440) 12/25/18 11:10 Lymph % (Auto) 20.4 % (13.4-35.0) 12/25/18 11:10 [place] % (Auto) 11.7 % (0.0-7.3) H 12/25/18 11:10 Eos % (Auto) 2.5 % (0.0-4.3) 12/25/18 11:10 Baso % (Auto) 0.9 % (0.0-1.8) 12/25/18 11:10 Lymph # 1.6 K/mm3 (1.2-5.4) 12/25/18 11:10 [place] # 0.9 K/mm3 (0.0-0.8) H 12/25/18 11:10 Eos # 0.2 K/mm3 (0.0-0.4) 12/25/18 11:10 Baso # 0.1 K/mm3 (0.0-0.1) 12/25/18 11:10 Seg Neutrophils % 64.5 % (40.0-70.0) 12/25/18 11:10 Seg Neutrophils # 5.0 K/mm3 (1.8-7.7) 12/25/18 11:10 PT 13.1 Sec. (12.2-14.9) 12/25/18 11:10 INR 0.94 (0.87-1.13) 12/25/18 11:10 APTT 26.2 Sec. (24.2-36.6) 12/25/18 11:10 VBG pH 7.298 (7.320-7.420) L 12/25/18 13:04 Sodium 136 mmol/L (137-145) L 12/25/18 11:10 Potassium 4.3 mmol/L (3.6-5.0) 12/25/18 11:10 Chloride 99.9 mmol/L (98-107) 12/25/18 11:10 Carbon Dioxide 17 mmol/L (22-30) L 12/25/18 11:10 Anion Gap 23 mmol/L 12/25/18 11:10 BUN 32 mg/dL (9-20) H 12/25/18 11:10 Creatinine 1.5 mg/dL (0.8-1.5) 12/25/18 11:10 Estimated GFR 48 ml/min 12/25/18 11:10 BUN/Creatinine Ratio 21 % 12/25/18 11:10 Glucose 369 mg/dL (75-100) H 12/25/18 11:10 POC Glucose 121 (70-105) H 12/27/18 11:37 Hemoglobin A1c 7.1 % (4-6) H 12/25/18 11:10 Ketones Quantitative Negative (Negative) 12/25/18 11:10 Lactic Acid 1.70 mmol/L (0.7-2.0) 12/25/18 13:04 Calcium 9.1 mg/dL (8.4-10.2) 12/25/18 11:10 Phosphorus 5.10 mg/dL (2.5-4.5) H 12/25/18 11:10 Magnesium 1.90 mg/dL (1.7-2.3) 12/25/18 11:10 Iron 48 ug/dL (49-181) L 12/25/18 Unknown TIBC 292 mcg/dL (250-450) 12/25/18 Unknown % Saturation 16.44 % 12/25/18 Unknown Transferrin 128 mg/dl (180-329) L 12/25/18 Unknown Total Bilirubin 0.20 mg/dL (0.1-1.2) 12/25/18 11:10 Direct Bilirubin < 0.2 mg/dL (0-0.2) 12/25/18 11:10 Indirect Bilirubin 0.0 mg/dL 12/25/18 11:10 AST 71 units/L (5-40) H 12/25/18 11:10 ALT 140 units/L (7-56) H 12/25/18 11:10 Alkaline Phosphatase 147 units/L (35-129) H 12/25/18 11:10 Ammonia 41.0 umol/L (25-60) 12/25/18 11:10 Total Creatine Kinase 113 units/L (55-170) 12/25/18 11:10 CK-MB (CK-2) 5.3 ng/mL (0.0-4.0) H 12/25/18 11:10 CK-MB (CK-2) Rel Index 4.6 (0-4) H 12/25/18 11:10 NT-Pro-B Natriuret Pep 2450 pg/mL (0-900) H 12/25/18 11:10 Total Protein 6.9 g/dL (6.3-8.2) 12/25/18 11:10 Albumin 3.3 g/dL (3.9-5) L 12/25/18 11:10 Albumin/Globulin Ratio 0.9 % 12/25/18 11:10 Vitamin B12 654.9 pg/mL (211-911) 12/25/18 Unknown Folate > 20.0 ng/mL (7.3-26.0) 12/25/18 Unknown TSH 16.800 mlU/mL (0.270-4.200) H 12/25/18 11:10 Free T4 0.79 ng/dL (0.76-1.46) 12/25/18 11:10 Urine Color Colorless (Yellow) 12/25/18 Unknown Urine Turbidity Clear (Clear) 12/25/18 Unknown Urine pH 6.0 (5.0-7.0) 12/25/18 Unknown Ur Specific [place] 1.007 (1.003-1.030) 12/25/18 Unknown Urine Protein 30 mg/dl mg/dL (Negative) 12/25/18 Unknown Urine Glucose (UA) >=500 mg/dL (Negative) 12/25/18 Unknown Urine Ketones Neg mg/dL (Negative) 12/25/18 Unknown Urine Blood Mod (Negative) 12/25/18 Unknown Urine Nitrite Neg (Negative) 12/25/18 Unknown Ur Reducing Substances Not Reportable 12/25/18 Unknown Urine Bilirubin Neg (Negative) 12/25/18 Unknown Urine Ictotest Not Reportable 12/25/18 Unknown Urine Urobilinogen < 2.0 mg/dL (<2.0) 12/25/18 Unknown Ur Leukocyte Esterase Neg (Negative) 12/25/18 Unknown Urine WBC (Auto) < 1.0 /HPF (0.0-6.0) 12/25/18 Unknown Urine RBC (Auto) 3.0 /HPF (0.0-6.0) 12/25/18 Unknown Blood Type A POSITIVE 12/25/18 11:10 Antibody Screen Negative 12/25/18 11:10 Crossmatch See Detail 12/25/18 11:10 Active Medications - Current Medications Current Medications: Generic Name Dose Route Start Last Admin Trade Name Freq PRN Reason Stop Dose Admin Acetaminophen 650 mg 12/25/18 13:12 Tylenol PO Q4H PRN Pain MILD(1-3)/Fever >100.5/ISAAC Amlodipine Besylate 10 mg 12/25/18 15:00 12/27/18 10:05 Norvasc PO 10 mg DAILY SHRUTHI Administration Bupropion HCl 150 mg 12/26/18 10:00 12/27/18 10:05 Wellbutrin Sr PO 150 mg BID SHRUTHI Administration Dextrose 50 ml 12/25/18 13:19 D50w (25gm) Syringe IV PRN PRN Hypoglycemia Haloperidol Lactate 5 mg 12/26/18 15:34 Haldol IV Q1H PRN Unrespon. to mult. doses BZD's Hydralazine HCl 10 mg 12/25/18 13:23 12/27/18 07:18 Apresoline IV 10 mg Q4HR PRN Administration Blood Pressure Ceftriaxone Sodium 2 gm in 100 mls @ 200 mls/hr 12/26/18 10:00 12/26/18 10:00 Rocephin/Ns 2 Gm/100 Ml IV Not Given Q24HR [facility] Protocol Vancomycin HCl 1 gm in 250 mls @ 166.667 mls/hr 12/26/18 13:00 12/26/18 14:09 Vancomycin/Ns 1 Gm/250 Ml IV 166.667 mls/hr Q24H SHRUTHI Administration Insulin Glargine 10 units 12/25/18 22:00 12/26/18 23:27 Lantus SUB-Q 10 units QHS SHRUTHI Administration Insulin Human Lispro 0 unit 12/25/18 16:30 12/27/18 10:03 Humalog SUB-Q 2 unit ACHS SHRUTHI Administration Protocol Lorazepam 2 mg 12/26/18 15:34 12/27/18 12:04 Ativan IV 2 mg Q1H PRN Administration CIWA-Ar 8-15 Lorazepam 4 mg 12/26/18 15:34 Ativan IV Q1H PRN CIWA-Ar 16-25 Lorazepam 4 mg 12/26/18 15:34 Ativan IV Q15MIN PRN CIWA-Ar >25 Metformin HCl 1,000 mg 12/25/18 22:00 12/27/18 10:04 Glucophage PO 1,000 mg BID SHRUTHI Administration Ondansetron HCl 4 mg 12/25/18 13:12 Zofran IV Q8H PRN Nausea And Vomiting Sertraline HCl 200 mg 12/26/18 10:00 12/27/18 10:05 Zoloft PO 200 mg QDAY SHRUTHI Administration Sodium Chloride 10 ml 12/25/18 22:00 12/27/18 10:09 Sodium Chloride Flush Syringe 10 Ml IV 10 ml BID SHRUTHI Administration Sodium Chloride 10 ml 12/25/18 13:12 Sodium Chloride Flush Syringe 10 Ml IV PRN PRN LINE FLUSH Nutrition/Malnutrition Assess - Dietary Evaluation Nutrition/Malnutrition Findings: Nutrition Notes Start: 12/26/18 15:51 Freq: Status: Active Protocol: Document 12/26/18 15:51 RM (Rec: 12/26/18 15:56 RM [id number]) Nutrition Notes Need for Assessment generated from: MD Order Initial or Follow up Brief Note Current Diagnosis Diabetes,Hypertension Other Pertinent Diagnosis S/P closed hip reduction, Hx prostate cancer, Hx of depression Current Diet NPO Labs/Tests No recent labs Pertinent Medications Reviewed Height 6 ft Weight 72.575 kg [place] Body Weight (kg) 80.90 BMI 21.7 Subjective/Other Information Consulted for DM diet education. Screened for difficulty chewing and skin risk. Cesar 16 points. Pt asleep at time of visit. Nutrition Intervention Follow-Up By: 12/29/18 Additional Comments Follow for DM diet education, difficulty chewing, skin risk
[2018-12-27] MEDS: ROCEPHIN/NS 2 GM/100 ML 2 GM/100 ML BAG IV SCH (16:00)
--- NOTE | 2018-12-27 18:20 | Progress Note ---
Assessment and Plan s/p closed reduction right hip dislocation continue observation Subjective Date of service: 12/27/18 Interval history: more confused today, retrained in bed, knee immobilizer in place Objective Vital signs: Vital Signs - 12hr 12/27/18 12/27/18 12/27/18 07:18 07:28 07:47 Temperature 98.2 F Pulse Rate 110 H Respiratory 18 Rate Blood Pressure 189/105 141/87 Blood Pressure [Right] O2 Sat by Pulse 100 99 Oximetry 12/27/18 12/27/18 12/27/18 10:05 11:33 16:00 Temperature 97.8 F 98 F Pulse Rate 110 H 112 H Respiratory 18 18 Rate Blood Pressure 141/87 147/84 Blood Pressure 148/86 [Right] O2 Sat by Pulse 96 Oximetry - Labs CBC & BMP: 12/25/18 11:10 12/25/18 11:10 Labs: Abnormal lab results 12/26/18 12/27/18 12/27/18 Range/Units 21:35 07:34 11:37 POC Glucose 231 H 169 H 121 H (70-105)
[2018-12-27] MEDS: VANCOMYCIN/NS 1 GM/250 ML 1 GM/250 ML BAG IV SCH (18:34)
[2018-12-27] MEDS: LANTUS SUB-Q SCH (22:59)
[2018-12-28] MEDS: APRESOLINE IV PRN ×2 (00:04→22:38)
[2018-12-28] MEDS: ATIVAN IV PRN ×2 (00:04→05:14)
[2018-12-28] MEDS: HumaLOG SUB-Q SCH ×5 (09:08→22:48)
[2018-12-28] MEDS: ROCEPHIN/NS 2 GM/100 ML 2 GM/100 ML BAG IV SCH (09:41)
[2018-12-28] MEDS: ZOLOFT PO SCH (09:42)
[2018-12-28] MEDS: GLUCOPHAGE PO SCH ×2 (09:42→22:37)
[2018-12-28] MEDS: NORVASC PO SCH (09:42)
[2018-12-28] MEDS: SODIUM CHLORIDE FLUSH SYRINGE 10 ML IV SCH ×2 (09:43→22:49)
[2018-12-28] MEDS: WELLBUTRIN SR PO SCH ×2 (09:43→22:37)
--- NOTE | 2018-12-28 13:41 | Progress Note ---
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 Paramedics stated that patient fell out of his Trike and required assistance to get back on. Patient is not able to stand up on his own. He is complaining of right hip pain. He was treated with intranasal fentanyl by paramedics prior to arrival [facility]. Patient was found to be anemic with hemoglobin of 7.4, and 1 unit PRBC transfused and 80. Patient will be admitted to the Med/Surg. Dr. Laird, orthopedic surgeon following. 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 Follow-up on current diagnosis of right dislocated hip. Overnight uneventful. Patient is not talking. Imaging, nursing note, chart, labs and old chart reviewed. Hospitalist Physical - Physical exam Narrative exam: Gen: thin frail, NAD, Awake, Orientated x 0 and confused HEENT: NCAT, EOMI, PERRL, OP Clear Neck: supple, no adenopathy, no thyromegaly, no JVD CVS/Heart: Regular tachycardia, normal S1S2, pulses present bilaterally Chest/Lungs: CTA B, Symmetrical chest expansion, good air entry bilaterally GI/Abdomen: soft, NTND, good bowel sounds, no guarding or rebound /Bladder: no suprapubic tenderness, no CVA or paraspinal tenderness Extermity/Skin: no c/c/e, no obvious rash MSK: FROM x3 Neuro: CN 2-12 grossly intact, not following commands, no talking Psych: calm - Constitutional Vitals: Temp Pulse Resp BP Pulse Ox 97.9 F 117 H 18 175/91 97 12/27/18 19:54 12/28/18 12:42 12/28/18 07:30 12/28/18 12:42 12/28/18 12:42 General appearance: Present: disheveled Results - Labs CBC & Chem 7: 12/25/18 11:10 12/25/18 11:10 Labs: Laboratory Last Values WBC 7.7 K/mm3 (4.5-11.0) 12/25/18 11:10 RBC 2.53 M/mm3 (3.65-5.03) L 12/25/18 11:10 Hgb 7.4 gm/dl (11.8-15.2) L 12/25/18 11:10 Hct 22.4 % (35.5-45.6) L 12/25/18 11:10 MCV 89 fl (84-94) 12/25/18 11:10 MCH 29 pg (28-32) 12/25/18 11:10 MCHC 33 % (32-34) 12/25/18 11:10 RDW 19.2 % (13.2-15.2) H 12/25/18 11:10 Plt Count 288 K/mm3 (140-440) 12/25/18 11:10 Lymph % (Auto) 20.4 % (13.4-35.0) 12/25/18 11:10 [place] % (Auto) 11.7 % (0.0-7.3) H 12/25/18 11:10 Eos % (Auto) 2.5 % (0.0-4.3) 12/25/18 11:10 Baso % (Auto) 0.9 % (0.0-1.8) 12/25/18 11:10 Lymph # 1.6 K/mm3 (1.2-5.4) 12/25/18 11:10 [place] # 0.9 K/mm3 (0.0-0.8) H 12/25/18 11:10 Eos # 0.2 K/mm3 (0.0-0.4) 12/25/18 11:10 Baso # 0.1 K/mm3 (0.0-0.1) 12/25/18 11:10 Seg Neutrophils % 64.5 % (40.0-70.0) 12/25/18 11:10 Seg Neutrophils # 5.0 K/mm3 (1.8-7.7) 12/25/18 11:10 PT 13.1 Sec. (12.2-14.9) 12/25/18 11:10 INR 0.94 (0.87-1.13) 12/25/18 11:10 APTT 26.2 Sec. (24.2-36.6) 12/25/18 11:10 VBG pH 7.298 (7.320-7.420) L 12/25/18 13:04 Sodium 136 mmol/L (137-145) L 12/25/18 11:10 Potassium 4.3 mmol/L (3.6-5.0) 12/25/18 11:10 Chloride 99.9 mmol/L (98-107) 12/25/18 11:10 Carbon Dioxide 17 mmol/L (22-30) L 12/25/18 11:10 Anion Gap 23 mmol/L 12/25/18 11:10 BUN 32 mg/dL (9-20) H 12/25/18 11:10 Creatinine 1.5 mg/dL (0.8-1.5) 12/25/18 11:10 Estimated GFR 48 ml/min 12/25/18 11:10 BUN/Creatinine Ratio 21 % 12/25/18 11:10 Glucose 369 mg/dL (75-100) H 12/25/18 11:10 POC Glucose 144 (70-105) H 12/28/18 07:43 Hemoglobin A1c 7.1 % (4-6) H 12/25/18 11:10 Ketones Quantitative Negative (Negative) 12/25/18 11:10 Lactic Acid 1.70 mmol/L (0.7-2.0) 12/25/18 13:04 Calcium 9.1 mg/dL (8.4-10.2) 12/25/18 11:10 Phosphorus 5.10 mg/dL (2.5-4.5) H 12/25/18 11:10 Magnesium 1.90 mg/dL (1.7-2.3) 12/25/18 11:10 Iron 48 ug/dL (49-181) L 12/25/18 Unknown TIBC 292 mcg/dL (250-450) 12/25/18 Unknown % Saturation 16.44 % 12/25/18 Unknown Transferrin 128 mg/dl (180-329) L 12/25/18 Unknown Total Bilirubin 0.20 mg/dL (0.1-1.2) 12/25/18 11:10 Direct Bilirubin < 0.2 mg/dL (0-0.2) 12/25/18 11:10 Indirect Bilirubin 0.0 mg/dL 12/25/18 11:10 AST 71 units/L (5-40) H 12/25/18 11:10 ALT 140 units/L (7-56) H 12/25/18 11:10 Alkaline Phosphatase 147 units/L (35-129) H 12/25/18 11:10 Ammonia 41.0 umol/L (25-60) 12/25/18 11:10 Total Creatine Kinase 113 units/L (55-170) 12/25/18 11:10 CK-MB (CK-2) 5.3 ng/mL (0.0-4.0) H 12/25/18 11:10 CK-MB (CK-2) Rel Index 4.6 (0-4) H 12/25/18 11:10 NT-Pro-B Natriuret Pep 2450 pg/mL (0-900) H 12/25/18 11:10 Total Protein 6.9 g/dL (6.3-8.2) 12/25/18 11:10 Albumin 3.3 g/dL (3.9-5) L 12/25/18 11:10 Albumin/Globulin Ratio 0.9 % 12/25/18 11:10 Vitamin B12 654.9 pg/mL (211-911) 12/25/18 Unknown Folate > 20.0 ng/mL (7.3-26.0) 12/25/18 Unknown TSH 16.800 mlU/mL (0.270-4.200) H 12/25/18 11:10 Free T4 0.79 ng/dL (0.76-1.46) 12/25/18 11:10 Urine Color Colorless (Yellow) 12/25/18 Unknown Urine Turbidity Clear (Clear) 12/25/18 Unknown Urine pH 6.0 (5.0-7.0) 12/25/18 Unknown Ur Specific [place] 1.007 (1.003-1.030) 12/25/18 Unknown Urine Protein 30 mg/dl mg/dL (Negative) 12/25/18 Unknown Urine Glucose (UA) >=500 mg/dL (Negative) 12/25/18 Unknown Urine Ketones Neg mg/dL (Negative) 12/25/18 Unknown Urine Blood Mod (Negative) 12/25/18 Unknown Urine Nitrite Neg (Negative) 12/25/18 Unknown Ur Reducing Substances Not Reportable 12/25/18 Unknown Urine Bilirubin Neg (Negative) 12/25/18 Unknown Urine Ictotest Not Reportable 12/25/18 Unknown Urine Urobilinogen < 2.0 mg/dL (<2.0) 12/25/18 Unknown Ur Leukocyte Esterase Neg (Negative) 12/25/18 Unknown Urine WBC (Auto) < 1.0 /HPF (0.0-6.0) 12/25/18 Unknown Urine RBC (Auto) 3.0 /HPF (0.0-6.0) 12/25/18 Unknown Blood Type A POSITIVE 12/25/18 11:10 Antibody Screen Negative 12/25/18 11:10 Crossmatch See Detail 12/25/18 11:10 Active Medications - Current Medications Current Medications: Generic Name Dose Route Start Last Admin Trade Name Freq PRN Reason Stop Dose Admin Acetaminophen 650 mg 12/25/18 13:12 Tylenol PO Q4H PRN Pain MILD(1-3)/Fever >100.5/ISAAC Amlodipine Besylate 10 mg 12/25/18 15:00 12/28/18 09:42 Norvasc PO 10 mg DAILY SHRUTHI Administration Bupropion HCl 150 mg 12/26/18 10:00 12/28/18 09:43 Wellbutrin Sr PO 150 mg BID SHRUTHI Administration Dextrose 50 ml 12/25/18 13:19 D50w (25gm) Syringe IV PRN PRN Hypoglycemia Haloperidol Lactate 5 mg 12/26/18 15:34 Haldol IV Q1H PRN Unrespon. to mult. doses BZD's Hydralazine HCl 10 mg 12/25/18 13:23 12/28/18 00:04 Apresoline IV 10 mg Q4HR PRN Administration Blood Pressure Ceftriaxone Sodium 2 gm in 100 mls @ 200 mls/hr 12/26/18 10:00 12/28/18 09:41 Rocephin/Ns 2 Gm/100 Ml IV 200 mls/hr Q24HR SHRUTHI Administration Protocol Vancomycin HCl 1 gm in 250 mls @ 166.667 mls/hr 12/26/18 13:00 12/27/18 18:34 Vancomycin/Ns 1 Gm/250 Ml IV 166.667 mls/hr Q24H SHRUTHI Administration Insulin Glargine 10 units 12/25/18 22:00 12/27/18 22:59 Lantus SUB-Q 10 units QHS SHRUTHI Administration Insulin Human Lispro 0 unit 12/25/18 16:30 12/28/18 13:04 Humalog SUB-Q Not Given ACHS SHRUTHI Protocol Lorazepam 2 mg 12/26/18 15:34 12/28/18 05:14 Ativan IV 2 mg Q1H PRN Administration CIWA-Ar 8-15 Lorazepam 4 mg 12/26/18 15:34 Ativan IV Q1H PRN CIWA-Ar 16-25 Lorazepam 4 mg 12/26/18 15:34 Ativan IV Q15MIN PRN CIWA-Ar >25 Metformin HCl 1,000 mg 12/25/18 22:00 12/28/18 09:42 Glucophage PO 1,000 mg BID SHRUTHI Administration Ondansetron HCl 4 mg 12/25/18 13:12 Zofran IV Q8H PRN Nausea And Vomiting Sertraline HCl 200 mg 12/26/18 10:00 12/28/18 09:42 Zoloft PO 200 mg QDAY SHRUTHI Administration Sodium Chloride 10 ml 12/25/18 22:00 12/28/18 09:43 Sodium Chloride Flush Syringe 10 Ml IV 10 ml BID SHRUTHI Administration Sodium Chloride 10 ml 12/25/18 13:12 Sodium Chloride Flush Syringe 10 Ml IV PRN PRN LINE FLUSH Nutrition/Malnutrition Assess - Dietary Evaluation Nutrition/Malnutrition Findings: Nutrition Notes Start: 12/26/18 15:51 Freq: Status: Active Protocol: Document 12/26/18 15:51 RM (Rec: 12/26/18 15:56 RM [email or web address]) Nutrition Notes Need for Assessment generated from: MD Order Initial or Follow up Brief Note Current Diagnosis Diabetes,Hypertension Other Pertinent Diagnosis S/P closed hip reduction, Hx prostate cancer, Hx of depression Current Diet NPO Labs/Tests No recent labs Pertinent Medications Reviewed Height 6 ft Weight 72.575 kg [place] Body Weight (kg) 80.90 BMI 21.7 Subjective/Other Information Consulted for DM diet education. Screened for difficulty chewing and skin risk. Cesar 16 points. Pt asleep at time of visit. Nutrition Intervention Follow-Up By: 12/29/18 Additional Comments Follow for DM diet education, difficulty chewing, skin risk
[2018-12-28] MEDS: VANCOMYCIN/NS 1 GM/250 ML 1 GM/250 ML BAG IV SCH (14:20)
[2018-12-28] MEDS: LANTUS SUB-Q SCH (22:37)
[2018-12-29] MEDS: ATIVAN IV PRN ×2 (01:14→11:12)
[2018-12-29 05:31] LABS: Hematocrit 23.8 % (35.5-45.6); Mean Corpuscular HGB Conc 34 % (32-34); Mean Corpuscular Volume 90 fl (84-94); Platelet Count 343 K/mm3 (140-440); Red Blood Count 2.66 M/mm3 (3.65-5.03); Red Cell Distribution Width 18.4 % (13.2-15.2)
[2018-12-29 05:34] LABS: Calcium 8.6 mg/dL (8.4-10.2)
--- NOTE | 2018-12-29 08:06 | XRay Report ---
RIGHT HIP, ONE VIEW History: Right hip dislocation. Findings: A single AP fluoroscopic image was saved during surgery. The previously described dislocated right hip prosthesis has been reduced since 12/25/18 at 1418 hrs. No obvious fracture is identified. Please correlate with the procedural report by Dr. Laird as needed. Impression: Anatomic alignment at the right hip.
[2018-12-29] MEDS: ROCEPHIN/NS 2 GM/100 ML 2 GM/100 ML BAG IV SCH (11:07)
[2018-12-29] MEDS: NORVASC PO SCH (11:21)
[2018-12-29] MEDS: ZOLOFT PO SCH (11:21)
[2018-12-29] MEDS: WELLBUTRIN SR PO SCH ×3 (11:21→23:42)
[2018-12-29] MEDS: SODIUM CHLORIDE FLUSH SYRINGE 10 ML IV SCH ×2 (11:22→23:44)
[2018-12-29] MEDS: HumaLOG SUB-Q SCH ×4 (11:23→23:44)
--- NOTE | 2018-12-29 11:52 | Progress Note ---
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 Paramedics stated that patient fell out of his Trike and required assistance to get back on. Patient is not able to stand up on his own. He is complaining of right hip pain. He was treated with intranasal fentanyl by paramedics prior to arrival [facility]. Patient was found to be anemic with hemoglobin of 7.4, and 1 unit PRBC transfused and 80. Patient will be admitted to the Med/Surg. Dr. Laird, orthopedic surgeon following. 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 Follow-up on current diagnosis of right dislocated hip. Overnight uneventful. Patient is not talking. Imaging, nursing note, chart, labs and old chart reviewed. Hospitalist Physical - Physical exam Narrative exam: Gen: thin frail, NAD, Awake, Orientated x 0 and confused HEENT: NCAT, EOMI, PERRL, OP Clear Neck: supple, no adenopathy, no thyromegaly, no JVD CVS/Heart: Regular tachycardia, normal S1S2, pulses present bilaterally Chest/Lungs: CTA B, Symmetrical chest expansion, good air entry bilaterally GI/Abdomen: soft, NTND, good bowel sounds, no guarding or rebound /Bladder: no suprapubic tenderness, no CVA or paraspinal tenderness Extermity/Skin: no c/c/e, no obvious rash MSK: FROM x3 Neuro: CN 2-12 grossly intact, not following commands, no talking Psych: calm - Constitutional Vitals: Temp Pulse Resp BP Pulse Ox 99.0 F 101 H 18 168/84 97 12/29/18 04:27 12/29/18 11:21 12/29/18 04:27 12/29/18 11:21 12/29/18 04:28 General appearance: Present: disheveled Results - Labs CBC & Chem 7: 12/29/18 04:11 12/29/18 04:11 Labs: Laboratory Last Values WBC 9.8 K/mm3 (4.5-11.0) 12/29/18 04:11 RBC 2.66 M/mm3 (3.65-5.03) L 12/29/18 04:11 Hgb 8.0 gm/dl (11.8-15.2) L 12/29/18 04:11 Hct 23.8 % (35.5-45.6) L 12/29/18 04:11 MCV 90 fl (84-94) 12/29/18 04:11 MCH 30 pg (28-32) 12/29/18 04:11 MCHC 34 % (32-34) 12/29/18 04:11 RDW 18.4 % (13.2-15.2) H 12/29/18 04:11 Plt Count 343 K/mm3 (140-440) 12/29/18 04:11 Lymph % (Auto) 20.4 % (13.4-35.0) 12/25/18 11:10 [place] % (Auto) 11.7 % (0.0-7.3) H 12/25/18 11:10 Eos % (Auto) 2.5 % (0.0-4.3) 12/25/18 11:10 Baso % (Auto) 0.9 % (0.0-1.8) 12/25/18 11:10 Lymph # 1.6 K/mm3 (1.2-5.4) 12/25/18 11:10 [place] # 0.9 K/mm3 (0.0-0.8) H 12/25/18 11:10 Eos # 0.2 K/mm3 (0.0-0.4) 12/25/18 11:10 Baso # 0.1 K/mm3 (0.0-0.1) 12/25/18 11:10 Seg Neutrophils % 64.5 % (40.0-70.0) 12/25/18 11:10 Seg Neutrophils # 5.0 K/mm3 (1.8-7.7) 12/25/18 11:10 PT 13.1 Sec. (12.2-14.9) 12/25/18 11:10 INR 0.94 (0.87-1.13) 12/25/18 11:10 APTT 26.2 Sec. (24.2-36.6) 12/25/18 11:10 VBG pH 7.298 (7.320-7.420) L 12/25/18 13:04 Sodium 149 mmol/L (137-145) H D 12/29/18 04:11 Potassium 3.5 mmol/L (3.6-5.0) L 12/29/18 04:11 Chloride 115.3 mmol/L (98-107) H 12/29/18 04:11 Carbon Dioxide 15 mmol/L (22-30) L 12/29/18 04:11 Anion Gap 22 mmol/L 12/29/18 04:11 BUN 39 mg/dL (9-20) H 12/29/18 04:11 Creatinine 2.7 mg/dL (0.8-1.5) H D 12/29/18 04:11 Estimated GFR 24 ml/min 12/29/18 04:11 BUN/Creatinine Ratio 14 % 12/29/18 04:11 Glucose 147 mg/dL (75-100) H 12/29/18 04:11 POC Glucose 162 (70-105) H 12/28/18 22:39 Hemoglobin A1c 7.1 % (4-6) H 12/25/18 11:10 Ketones Quantitative Negative (Negative) 12/25/18 11:10 Lactic Acid 1.70 mmol/L (0.7-2.0) 12/25/18 13:04 Calcium 8.6 mg/dL (8.4-10.2) 12/29/18 04:11 Phosphorus 5.10 mg/dL (2.5-4.5) H 12/25/18 11:10 Magnesium 1.90 mg/dL (1.7-2.3) 12/25/18 11:10 Iron 48 ug/dL (49-181) L 12/25/18 Unknown TIBC 292 mcg/dL (250-450) 12/25/18 Unknown % Saturation 16.44 % 12/25/18 Unknown Transferrin 128 mg/dl (180-329) L 12/25/18 Unknown Total Bilirubin 0.20 mg/dL (0.1-1.2) 12/25/18 11:10 Direct Bilirubin < 0.2 mg/dL (0-0.2) 12/25/18 11:10 Indirect Bilirubin 0.0 mg/dL 12/25/18 11:10 AST 71 units/L (5-40) H 12/25/18 11:10 ALT 140 units/L (7-56) H 12/25/18 11:10 Alkaline Phosphatase 147 units/L (35-129) H 12/25/18 11:10 Ammonia 41.0 umol/L (25-60) 12/25/18 11:10 Total Creatine Kinase 113 units/L (55-170) 12/25/18 11:10 CK-MB (CK-2) 5.3 ng/mL (0.0-4.0) H 12/25/18 11:10 CK-MB (CK-2) Rel Index 4.6 (0-4) H 12/25/18 11:10 NT-Pro-B Natriuret Pep 2450 pg/mL (0-900) H 12/25/18 11:10 Total Protein 6.9 g/dL (6.3-8.2) 12/25/18 11:10 Albumin 3.3 g/dL (3.9-5) L 12/25/18 11:10 Albumin/Globulin Ratio 0.9 % 12/25/18 11:10 Vitamin B12 654.9 pg/mL (211-911) 12/25/18 Unknown Folate > 20.0 ng/mL (7.3-26.0) 12/25/18 Unknown TSH 16.800 mlU/mL (0.270-4.200) H 12/25/18 11:10 Free T4 0.79 ng/dL (0.76-1.46) 12/25/18 11:10 Urine Color Colorless (Yellow) 12/25/18 Unknown Urine Turbidity Clear (Clear) 12/25/18 Unknown Urine pH 6.0 (5.0-7.0) 12/25/18 Unknown Ur Specific [place] 1.007 (1.003-1.030) 12/25/18 Unknown Urine Protein 30 mg/dl mg/dL (Negative) 12/25/18 Unknown Urine Glucose (UA) >=500 mg/dL (Negative) 12/25/18 Unknown Urine Ketones Neg mg/dL (Negative) 12/25/18 Unknown Urine Blood Mod (Negative) 12/25/18 Unknown Urine Nitrite Neg (Negative) 12/25/18 Unknown Ur Reducing Substances Not Reportable 12/25/18 Unknown Urine Bilirubin Neg (Negative) 12/25/18 Unknown Urine Ictotest Not Reportable 12/25/18 Unknown Urine Urobilinogen < 2.0 mg/dL (<2.0) 12/25/18 Unknown Ur Leukocyte Esterase Neg (Negative) 12/25/18 Unknown Urine WBC (Auto) < 1.0 /HPF (0.0-6.0) 12/25/18 Unknown Urine RBC (Auto) 3.0 /HPF (0.0-6.0) 12/25/18 Unknown Blood Type A POSITIVE 12/25/18 11:10 Antibody Screen Negative 12/25/18 11:10 Crossmatch See Detail 12/25/18 11:10 Active Medications - Current Medications Current Medications: Generic Name Dose Route Start Last Admin Trade Name Freq PRN Reason Stop Dose Admin Acetaminophen 650 mg 12/25/18 13:12 Tylenol PO Q4H PRN Pain MILD(1-3)/Fever >100.5/ISAAC Amlodipine Besylate 10 mg 12/25/18 15:00 12/29/18 11:21 Norvasc PO 10 mg DAILY SHRUTHI Administration Bupropion HCl 150 mg 12/26/18 10:00 12/29/18 11:45 Wellbutrin Sr PO Not Given BID SHRUTHI Dextrose 50 ml 12/25/18 13:19 D50w (25gm) Syringe IV PRN PRN Hypoglycemia Haloperidol Lactate 5 mg 12/26/18 15:34 Haldol IV Q1H PRN Unrespon. to mult. doses BZD's Hydralazine HCl 10 mg 12/25/18 13:23 12/28/18 22:38 Apresoline IV 10 mg Q4HR PRN Administration Blood Pressure Ceftriaxone Sodium 2 gm in 100 mls @ 200 mls/hr 12/26/18 10:00 12/29/18 11:07 Rocephin/Ns 2 Gm/100 Ml IV 200 mls/hr Q24HR SHRUTHI Administration Protocol Insulin Glargine 10 units 12/25/18 22:00 12/28/18 22:37 Lantus SUB-Q Not Given QHS [facility] Insulin Human Lispro 0 unit 12/25/18 16:30 12/29/18 11:23 Humalog SUB-Q Not Given ACHS [facility] Protocol Lorazepam 2 mg 12/26/18 15:34 12/29/18 11:12 Ativan IV 2 mg Q1H PRN Administration CIWA-Ar 8-15 Lorazepam 4 mg 12/26/18 15:34 Ativan IV Q1H PRN CIWA-Ar 16-25 Lorazepam 4 mg 12/26/18 15:34 Ativan IV Q15MIN PRN CIWA-Ar >25 Ondansetron HCl 4 mg 12/25/18 13:12 Zofran IV Q8H PRN Nausea And Vomiting Sertraline HCl 200 mg 12/26/18 10:00 12/29/18 11:21 Zoloft PO 200 mg QDAY SHRUTHI Administration Sodium Chloride 10 ml 12/25/18 22:00 12/29/18 11:22 Sodium Chloride Flush Syringe 10 Ml IV 10 ml BID SHRUTHI Administration Sodium Chloride 10 ml 12/25/18 13:12 Sodium Chloride Flush Syringe 10 Ml IV PRN PRN LINE FLUSH Nutrition/Malnutrition Assess - Dietary Evaluation Nutrition/Malnutrition Findings: Nutrition Notes Start: 12/26/18 15:51 Freq: Status: Active Protocol: Document 12/26/18 15:51 RM (Rec: 12/26/18 15:56 RM [email or web address]) Nutrition Notes Need for Assessment generated from: MD Order Initial or Follow up Brief Note Current Diagnosis Diabetes,Hypertension Other Pertinent Diagnosis S/P closed hip reduction, Hx prostate cancer, Hx of depression Current Diet NPO Labs/Tests No recent labs Pertinent Medications Reviewed Height 6 ft Weight 72.575 kg [place] Body Weight (kg) 80.90 BMI 21.7 Subjective/Other Information Consulted for DM diet education. Screened for difficulty chewing and skin risk. Cesar 16 points. Pt asleep at time of visit. Nutrition Intervention Follow-Up By: 12/29/18 Additional Comments Follow for DM diet education, difficulty chewing, skin risk
[2018-12-29] MEDS ORDERED: K-DUR PO ONE (15:35)
[2018-12-29] MEDS ORDERED: NACL 0.45% 1000 ML 1,000 ML IV SCH (16:00)
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
[2018-12-29 19:43] LABS: Creatinine,Urine 57.7 mg/dL (0.1-20.0)
--- NOTE | 2018-12-29 21:01 | Ultrasound Report ---
PROCEDURE: US RENAL BILAT TECHNIQUE: Real-time sonography in multiple planes of the kidneys, ureters and urinary bladder was p erformed with image documentation. HISTORY: ARF COMPARISONS: None . FINDINGS: RIGHT kidney: Normal echotexture. No focal renal mass or calculus. Mildly prominent renal pelvis. Cor christen measures 1.4 cm in thickness. Length: 10.6 cm. LEFT kidney: Normal echotexture. No focal renal mass or calculus. Mildly prominent renal pelvis. Ti ex measures 1.7 cm in thickness. Length: 10.1 cm. Bladder: Distended urinary bladder, measuring 1600 cc. Patient was unable to void. There is debris i n the urinary bladder lumen. IMPRESSION: Distended urinary bladder. Bilateral renal pelviectasis may be related to the distended urinary bladd er . Correlate for bladder outlet obstruction This document is electronically signed by Evelia Flannery MD., December 29 2018 08:58:57 PM ET
[2018-12-29] MEDS ORDERED: SODIUM BICARBONATE 100 MEQ in STERILE WATER 1,000 ML IV SCH (23:00)
[2018-12-29] MEDS: LANTUS SUB-Q SCH (23:43)
[2018-12-30] MEDS: ATIVAN IV PRN ×4 (01:55→22:02)
[2018-12-30 06:03] LABS: Hematocrit 22.4 % (35.5-45.6); Hemoglobin 7.6 gm/dl (11.8-15.2); Mean Corpuscular HGB Conc 34 % (32-34); Mean Corpuscular Volume 89 fl (84-94); Platelet Count 308 K/mm3 (140-440); Red Blood Count 2.51 M/mm3 (3.65-5.03); Red Cell Distribution Width 17.7 % (13.2-15.2)
[2018-12-30 06:40] LABS: Albumin 2.7 g/dL (3.9-5); Calcium 8.4 mg/dL (8.4-10.2)
--- NOTE | 2018-12-30 09:39 | Progress Note ---
Subjective Interval history: Patient was seen today for follow-up on multiple renal related issues Events of this hospitalization noted Patient has had large urinary retention patient is somewhat more arousable He does have a Ramirez catheter Ultrasonogram showed evidence of urinary retention Vitals labs intake output medications were reviewed Social history: Reviewed Allergies: Reviewed Family history: Reviewed Physical examination HEENT: Oral mucosa moist no pallor or icterus Neck: Supple no JVD Chest: Clear to auscultation anteriorly CVS: Regular rate and rhythm S1 and S2 heard Abdomen: Soft nontender no suprapubic masses no organomegaly appreciable Extremity: Dry skin less than 1+ peripheral edema Musculoskeletal: No joint effusion noted in knees and ankle Neurological: he is unarousable today Dermatology: No petechial rashes Psychiatry: No evidence of any agitation and aggression noted Assessment and plan Acute kidney injury in a patient also appears to be volume depleted as well as obstructed, current creatinine is 3.0 patient will need to keep an indwelling Ramirez catheter due to history of prostate cancer large volume urinary retention, he should also be seen by urology Will need follow-up on BMP in the evening Urine output was 4600 after placement of Rmairez catheter Hypernatremia consider changing the IV fluid, patient does need free water Metabolic acidosis slowly improving Mild hypokalemia patient needs potassium replacement May need to change his IV fluid to D5 LR Needs ongoing monitoring of electrolytes BUN/creatinine Hyperuricemia likely due to volume depletion patient also does have elevated osmolality indicating intravascular volume depletion Anemia: May consider packed red blood cell transfusion Overall prognosis guarded: There is no emergent indication for renal replacement therapy for now We'll continue to follow and make recommendation from renal standpoint Objective - Vital Signs Vital signs: Vital Signs - 12hr 12/29/18 12/30/18 12/30/18 23:54 00:15 04:25 Temperature 97.7 F 99.2 F Pulse Rate 112 H 109 H Respiratory 19 16 Rate Blood Pressure 172/91 165/87 Blood Pressure [Right] O2 Sat by Pulse 98 100 99 Oximetry 12/30/18 07:10 Temperature 97.8 F Pulse Rate 110 H Respiratory 19 Rate Blood Pressure Blood Pressure 159/82 [Right] O2 Sat by Pulse 100 Oximetry - Lab 12/30/18 05:16 12/30/18 05:16 Most recent lab results Calcium 8.4 mg/dL (8.4-10.2) 12/30/18 05:16 Phosphorus 5.10 mg/dL (2.5-4.5) H 12/25/18 11:10 Magnesium 1.90 mg/dL (1.7-2.3) 12/25/18 11:10 Urine Creatinine 57.7 mg/dL (0.1-20.0) H 12/29/18 19:00 Urine Sodium 47 mmol/L 12/29/18 19:00 Medications & Allergies - Medications Allergies/Adverse Reactions: Allergies poison oak extract Allergy (Verified 11/27/18 06:08) Itching Home Medications: Home Medications Medication Instructions Recorded Confirmed Last Taken Type Bupropion HCl [Bupropion HCl Sr] 150 mg PO BID 09/10/17 12/26/18 11/24/18 09:00 History Insulin Detemir [Levemir Flextouch] 4 unit SQ QDAY 09/10/17 12/26/18 11/24/18 21:00 History Lanreotide Acetate [Somatuline 120 mg SQ QMONTH 09/10/17 12/26/18 11/24/18 09:00 History Depot] Sertraline [Zoloft] 200 mg PO QDAY 09/10/17 12/26/18 11/24/18 09:00 History Sildenafil Citrate [Viagra] 100 mg PO PRN PRN 09/10/17 12/26/18 11/24/18 09:00 History traZODone [Desyrel] 100 mg PO PRN PRN 09/10/17 12/26/18 11/24/18 09:00 History Metformin HCl [Glucophage] 1,000 mg PO BID 11/27/18 12/26/18 11/24/18 09:00 History Active Medications: Generic Name Dose Route Start Last Admin Trade Name Freq PRN Reason Stop Dose Admin Acetaminophen 650 mg 12/25/18 13:12 Tylenol PO Q4H PRN Pain MILD(1-3)/Fever >100.5/ISAAC Amlodipine Besylate 10 mg 12/25/18 15:00 12/29/18 11:21 Norvasc PO 10 mg DAILY SHRUTHI Administration Bupropion HCl 150 mg 12/26/18 10:00 12/29/18 23:42 Wellbutrin Sr PO 150 mg BID SHRUTHI Administration Dextrose 50 ml 12/25/18 13:19 D50w (25gm) Syringe IV PRN PRN Hypoglycemia Haloperidol Lactate 5 mg 12/26/18 15:34 Haldol IV Q1H PRN Unrespon. to mult. doses BZD's Hydralazine HCl 10 mg 12/25/18 13:23 12/28/18 22:38 Apresoline IV 10 mg Q4HR PRN Administration Blood Pressure Sodium Bicarbonate 100 meq/ 1,100 mls @ 125 mls/hr 12/29/18 23:00 12/29/18 23:42 Sterile Water IV 125 mls/hr DIRECT SHRUTHI Administration Insulin Glargine 10 units 12/25/18 22:00 12/29/18 23:43 Lantus SUB-Q 10 units QHS [facility]RUTHI Administration Insulin Human Lispro 0 unit 12/25/18 16:30 12/29/18 23:44 Humalog SUB-Q 4 unit ACHS SHRUTHI Administration Protocol Lorazepam 2 mg 12/26/18 15:34 12/30/18 06:41 Ativan IV 2 mg Q1H PRN Administration CIWA-Ar 8-15 Lorazepam 4 mg 12/26/18 15:34 Ativan IV Q1H PRN CIWA-Ar 16-25 Lorazepam 4 mg 12/26/18 15:34 Ativan IV Q15MIN PRN CIWA-Ar >25 Ondansetron HCl 4 mg 12/25/18 13:12 Zofran IV Q8H PRN Nausea And Vomiting Sertraline HCl 200 mg 12/26/18 10:00 12/29/18 11:21 Zoloft PO 200 mg QDAY SHRUTHI Administration Sodium Chloride 10 ml 12/25/18 22:00 12/29/18 23:44 Sodium Chloride Flush Syringe 10 Ml IV 10 ml BID SHRUTHI Administration Sodium Chloride 10 ml 12/25/18 13:12 Sodium Chloride Flush Syringe 10 Ml IV PRN PRN LINE FLUSH
[2018-12-30] MEDS: HumaLOG SUB-Q SCH ×4 (10:00→22:00)
[2018-12-30] MEDS: NORVASC PO SCH (10:07)
[2018-12-30] MEDS: WELLBUTRIN SR PO SCH ×2 (10:07→21:57)
[2018-12-30] MEDS: SODIUM CHLORIDE FLUSH SYRINGE 10 ML IV SCH ×2 (10:07→22:03)
[2018-12-30] MEDS: ZOLOFT PO SCH (10:07)
--- NOTE | 2018-12-30 12:33 | Progress Note ---
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 Paramedics stated that patient fell out of his Tri[place] and required assistance to get back on. Patient is not able to stand up on his own. He is complaining of right hip pain. He was treated with intranasal fentanyl by paramedics prior to arrival [facility]. Patient was found to be anemic with hemoglobin of 7.4, and 1 unit PRBC transfused and 80. Patient admitted to the Surgical. Right hip fracture Hip XR revealed Superolateral dislocation of the right hip prosthesis including the acetabular component. Status post closed reduction right hip on 12/[address] Eitan Laird Following an admission Acute on chronic Right hip pain-secondary to frequent falls Pain management PT following Hypertension Continue to monitor BP Continue Norvasc 10mg daily IV hydralazine when necessary Diabetes type 2 Continue POC BG monitoring SSI and scheduled Lantus Continue home dose metformin 1000 mg twice a day Chronic anemia Hgb on admission 7.4 Received 1u PRBC Montior CBC Transfuse when necessary History of depression Continue Wellbutrin 150 mg twice a day, Zoloft 200 mg daily Suspicion of UTI Urine culture NGTD Treated with ceftriaxone prophylactically; discontinued 12/29 SEVERIANO- likely multifactorial secondary to obstruction and volume depletion Creatinine on admission 1.5 trending up now 3.0 Involvement Ramirez placed Received in IV fluids Nephrology following and managing Hypernatremia Currently on D5 LR prior nephrology Hypokalmeia Order IV potassium 40Meq Monitor electrolytes Replete as needed Metabolic acidosis- improving Received bicarbonate infusion History of 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 History of Tobacco abuse DVT PPX On SCDs holding anti-coagulation due to anemia I have spoken with the family regarding home hospice. Family speak with hospice provider and decide if you want to accept hospice services. History Interval history: Mr. Delgadillo is seen today in the surgical floor. Patient is still unable to answer questions. There are no acute overnight events Hospitalist Physical - Physical exam Narrative exam: Present: disheveled - EENT Eyes: Present: PERRL, EOM intact ENT: hearing intact, clear oral mucosa, poor dentition - Neck Neck: Present: supple, normal ROM - Respiratory Respiratory effort: normal Respiratory: bilateral: diminished (bases) - Cardiovascular Heart rate: 112 ( minute) Heart Sounds: Present: S1 & S2. Absent: rub, click - Extremities Extremities: no ischemia, pulses intact, abnormal (scattered bruising to upper extremities; limited ROM to right hip) Peripheral Pulses: within normal limits - Abdominal General gastrointestinal: Present: soft, non-tender, normal bowel sounds Male genitourinary: Present: deferred - Rectal Rectal Exam: deferred - Integumentary Integumentary: Present: warm, dry (scattered bruising to upper extremities) - Musculoskeletal Musculoskeletal: generalized weakness - Psychiatric Psychiatric: other (flat affect, was drawn, follows command) - Neurologic Neurologic: moves all extremities - Constitutional Vitals: Temp Pulse Resp BP Pulse Ox 98 F 112 H 18 162/85 100 12/30/18 12:15 12/30/18 12:15 12/30/18 12:15 12/30/18 12:15 12/30/18 07:10 Results - Labs CBC & Chem 7: 12/30/18 05:16 12/30/18 05:16 Labs: Laboratory Last Values WBC 8.9 K/mm3 (4.5-11.0) 12/30/18 05:16 RBC 2.51 M/mm3 (3.65-5.03) L 12/30/18 05:16 Hgb 7.6 gm/dl (11.8-15.2) L 12/30/18 05:16 Hct 22.4 % (35.5-45.6) L 12/30/18 05:16 MCV 89 fl (84-94) 12/30/18 05:16 MCH 30 pg (28-32) 12/30/18 05:16 MCHC 34 % (32-34) 12/30/18 05:16 RDW 17.7 % (13.2-15.2) H 12/30/18 05:16 Plt Count 308 K/mm3 (140-440) 12/30/18 05:16 Lymph % (Auto) 20.4 % (13.4-35.0) 12/25/18 11:10 Mathews % (Auto) 11.7 % (0.0-7.3) H 12/25/18 11:10 Eos % (Auto) 2.5 % (0.0-4.3) 12/25/18 11:10 Baso % (Auto) 0.9 % (0.0-1.8) 12/25/18 11:10 Lymph # 1.6 K/mm3 (1.2-5.4) 12/25/18 11:10 Mathews # 0.9 K/mm3 (0.0-0.8) H 12/25/18 11:10 Eos # 0.2 K/mm3 (0.0-0.4) 12/25/18 11:10 Baso # 0.1 K/mm3 (0.0-0.1) 12/25/18 11:10 Seg Neutrophils % 64.5 % (40.0-70.0) 12/25/18 11:10 Seg Neutrophils # 5.0 K/mm3 (1.8-7.7) 12/25/18 11:10 PT 13.1 Sec. (12.2-14.9) 12/25/18 11:10 INR 0.94 (0.87-1.13) 12/25/18 11:10 APTT 26.2 Sec. (24.2-36.6) 12/25/18 11:10 VBG pH 7.298 (7.320-7.420) L 12/25/18 13:04 Sodium 152 mmol/L (137-145) H 12/30/18 05:16 Potassium 3.2 mmol/L (3.6-5.0) L 12/30/18 05:16 Chloride 116.2 mmol/L (98-107) H 12/30/18 05:16 Carbon Dioxide 18 mmol/L (22-30) L 12/30/18 05:16 Anion Gap 21 mmol/L 12/30/18 05:16 BUN 45 mg/dL (9-20) H 12/30/18 05:16 Creatinine 3.0 mg/dL (0.8-1.5) H 12/30/18 05:16 Estimated GFR 22 ml/min 12/30/18 05:16 BUN/Creatinine Ratio 15 % 12/30/18 05:16 Glucose 196 mg/dL (75-100) H 12/30/18 05:16 POC Glucose 205 (70-105) H 12/30/18 11:16 Hemoglobin A1c 7.1 % (4-6) H 12/25/18 11:10 Ketones Quantitative Negative (Negative) 12/25/18 11:10 Osmolality 333 Mosm/kg 12/29/18 17:18 Lactic Acid 1.70 mmol/L (0.7-2.0) 12/25/18 13:04 Uric Acid 12.9 mg/dL (3.5-7.6) H 12/29/18 17:18 Calcium 8.4 mg/dL (8.4-10.2) 12/30/18 05:16 Phosphorus 5.10 mg/dL (2.5-4.5) H 12/25/18 11:10 Magnesium 1.90 mg/dL (1.7-2.3) 12/25/18 11:10 Iron 48 ug/dL (49-181) L 12/25/18 Unknown TIBC 292 mcg/dL (250-450) 12/25/18 Unknown % Saturation 16.44 % 12/25/18 Unknown Transferrin 128 mg/dl (180-329) L 12/25/18 Unknown Total Bilirubin 0.30 mg/dL (0.1-1.2) 12/30/18 05:16 Direct Bilirubin < 0.2 mg/dL (0-0.2) 12/25/18 11:10 Indirect Bilirubin 0.0 mg/dL 12/25/18 11:10 AST 26 units/L (5-40) 12/30/18 05:16 ALT 47 units/L (7-56) 12/30/18 05:16 Alkaline Phosphatase 98 units/L (35-129) 12/30/18 05:16 Ammonia 41.0 umol/L (25-60) 12/25/18 11:10 Total Creatine Kinase 343 units/L (55-170) H 12/29/18 17:18 CK-MB (CK-2) 5.3 ng/mL (0.0-4.0) H 12/25/18 11:10 CK-MB (CK-2) Rel Index 4.6 (0-4) H 12/25/18 11:10 NT-Pro-B Natriuret Pep 2450 pg/mL (0-900) H 12/25/18 11:10 Total Protein 6.0 g/dL (6.3-8.2) L 12/30/18 05:16 Albumin 2.7 g/dL (3.9-5) L 12/30/18 05:16 Albumin/Globulin Ratio 0.8 % 12/30/18 05:16 Vitamin B12 654.9 pg/mL (211-911) 12/25/18 Unknown Folate > 20.0 ng/mL (7.3-26.0) 12/25/18 Unknown TSH 16.800 mlU/mL (0.270-4.200) H 12/25/18 11:10 Free T4 0.79 ng/dL (0.76-1.46) 12/25/18 11:10 Urine Color Colorless (Yellow) 12/25/18 Unknown Urine Turbidity Clear (Clear) 12/25/18 Unknown Urine pH 6.0 (5.0-7.0) 12/25/18 Unknown Ur Specific Sweet [place] 1.007 (1.003-1.030) 12/25/18 Unknown Urine Protein 30 mg/dl mg/dL (Negative) 12/25/18 Unknown Urine Glucose (UA) >=500 mg/dL (Negative) 12/25/18 Unknown Urine Ketones Neg mg/dL (Negative) 12/25/18 Unknown Urine Blood Mod (Negative) 12/25/18 Unknown Urine Nitrite Neg (Negative) 12/25/18 Unknown Ur Reducing Substances Not Reportable 12/25/18 Unknown Urine Bilirubin Neg (Negative) 12/25/18 Unknown Urine Ictotest Not Reportable 12/25/18 Unknown Urine Urobilinogen < 2.0 mg/dL (<2.0) 12/25/18 Unknown Ur Leukocyte Esterase Neg (Negative) 12/25/18 Unknown Urine WBC (Auto) < 1.0 /HPF (0.0-6.0) 12/25/18 Unknown Urine RBC (Auto) 3.0 /HPF (0.0-6.0) 12/25/18 Unknown Urine Creatinine 57.7 mg/dL (0.1-20.0) H 12/29/18 19:00 Urine Sodium 47 mmol/L 12/29/18 19:00 Vancomycin Trough 22.5 ug/mL (5.0-20.0) H 12/29/18 13:27 Blood Type A POSITIVE 12/25/18 11:10 Antibody Screen Negative 12/25/18 11:10 Crossmatch See Detail 12/25/18 11:10 Active Medications - Current Medications Current Medications: Generic Name Dose Route Start Last Admin Trade Name Freq PRN Reason Stop Dose Admin Acetaminophen 650 mg 12/25/18 13:12 Tylenol PO Q4H PRN Pain MILD(1-3)/Fever >100.5/ISAAC Amlodipine Besylate 10 mg 12/25/18 15:00 12/30/18 10:07 Norvasc PO 10 mg DAILY SHRUTHI Administration Bupropion HCl 150 mg 12/26/18 10:00 12/30/18 10:07 Wellbutrin Sr PO 150 mg BID SHRUTHI Administration Dextrose 50 ml 12/25/18 13:19 D50w (25gm) Syringe IV PRN PRN Hypoglycemia Haloperidol Lactate 5 mg 12/26/18 15:34 Haldol IV Q1H PRN Unrespon. to mult. doses BZD's Hydralazine HCl 10 mg 12/25/18 13:23 12/28/18 22:38 Apresoline IV 10 mg Q4HR PRN Administration Blood Pressure Dextrose/Lactated Ringer's 1,000 mls @ 150 mls/hr 12/30/18 10:00 D5lr IV DIRECT SHRUTHI Insulin Glargine 10 units 12/25/18 22:00 12/29/18 23:43 Lantus SUB-Q 10 units QHS SHRUTHI Administration Insulin Human Lispro 0 unit 12/25/18 16:30 12/30/18 10:00 Humalog SUB-Q Not Given ACHS [facility] Protocol Lorazepam 2 mg 12/26/18 15:34 12/30/18 06:41 Ativan IV 2 mg Q1H PRN Administration CIWA-Ar 8-15 Lorazepam 4 mg 12/26/18 15:34 Ativan IV Q1H PRN CIWA-Ar 16-25 Lorazepam 4 mg 12/26/18 15:34 Ativan IV Q15MIN PRN CIWA-Ar >25 Ondansetron HCl 4 mg 12/25/18 13:12 Zofran IV Q8H PRN Nausea And Vomiting Sertraline HCl 200 mg 12/26/18 10:00 12/30/18 10:07 Zoloft PO 200 mg QDAY SHRUTHI Administration Sodium Chloride 10 ml 12/25/18 22:00 12/30/18 10:07 Sodium Chloride Flush Syringe 10 Ml IV 10 ml BID SHRUTHI Administration Sodium Chloride 10 ml 12/25/18 13:12 Sodium Chloride Flush Syringe 10 Ml IV PRN PRN LINE FLUSH Nutrition/Malnutrition Assess - Dietary Evaluation Nutrition/Malnutrition Findings: Nutrition Notes Start: 12/26/18 15:51 Freq: Status: Active Protocol: Document 12/29/18 16:24 RM (Rec: 12/29/18 16:33 RM [id number]) Nutrition Notes Initial or Follow up Assessment Current Diagnosis Diabetes,Hypertension Other Pertinent Diagnosis S/P closed hip reduction, Hx prostate cancer, Hx of depression,Sacral wound Current Diet Cardiac/Consistent CHO Labs/Tests Reviewed Pertinent Medications Reviewed Height 6 ft Weight 72.575 kg [place] Body Weight (kg) 80.90 BMI 21.7 Subjective/Other Information Pt lethargic at time of visit. Pt shook head or nodded to communicate. Pt stated that his appetite is poor. Noted lunch at bedside w/none eaten. Pt tech stated that pt did not eat Saturday. Noted temporal wasting. Pt not appropriate for diet education at this time. Burn Absent Trauma Absent #1 Nutrition Diagnosis Inadequate oral intake Etiology decreased appetite As Evidenced by Signs and Symptoms uneaten lunch at bedside, pt tech statement that pt did not eat Saturday Is patient on ventilator? No Is Patient Ambulatory and/or Out of Bed No REE-([facility]-confined to bed) 0519.288 Calculation Used for Recommendations [facility] Additional Notes Protein Needs: 87-109g (1.2-1. 5g/kg) Fluid Needs: 1 ml/kcal Nutrition Intervention Change Diet Order: Cardiac/Consistent CHO, Mech soft Add Supplement/Snack (indicate name/kcal Glucerna 1 daily /protein ) Provides kCal: 220 Provides Protein (gm) 10 Goal #1 Meet at least 75% of calorie and protein needs via PO and ONS intakes Anticipated Discharge Needs: Cardiac/Consistent CHO Follow-Up By: 01/01/19 Additional Comments Follow for PO and ONS intakes, DM diet education, chewing difficulty <KATHARINA PERDUE M - Last Filed: 01/02/19 14:11> Assessment and Plan Assessment and plan: I saw and evaluated the patient. I agree with the findings and the plan of care as documented in the Nurse Practitioner's~note, with the following corrections and additions. Hypernatremia, D5 LR was discontinued, hypotonic IV fluid has been ordered -Patient had advanced cancer, he has obstructive uropathy, Ramirez has to stay in place. -Patient was in the half-way, he had signed out against medical advise, and fell and broke his hip that day. The half-way is not willing to take him back -Discussed with sister at the time the goal is to discharge him home with hospice care Acute kidney injury due to vasomotor nephropathy, patient has CKD stage 2-3 at baseline, continue IV fluids, patient is dehydrated History Interval history: Patient remains confused, no agitation, no fevers, no chest pain or shortness of breath. Nurses reported that his by mouth intake of food and liquids is very poor Hospitalist Physical - Physical exam Narrative exam: Psychiatric correction withdrawn, follows commands - Constitutional Vitals: Temp Pulse Resp BP Pulse Ox 99 F 110 H 18 170/85 97 01/02/19 12:00 01/02/19 12:00 01/02/19 12:00 01/02/19 12:00 01/02/19 12:00 Results - Labs CBC & Chem 7: 01/02/19 04:27 01/02/19 04:27 Labs: Laboratory Last Values WBC 10.2 K/mm3 (4.5-11.0) 01/02/19 04:27 RBC 2.55 M/mm3 (3.65-5.03) L 01/02/19 04:27 Hgb 7.9 gm/dl (11.8-15.2) L 01/02/19 04:27 Hct 23.0 % (35.5-45.6) L 01/02/19 04:27 MCV 90 fl (84-94) 01/02/19 04:27 MCH 31 pg (28-32) 01/02/19 04:27 MCHC 34 % (32-34) 01/02/19 04:27 RDW 17.5 % (13.2-15.2) H 01/02/19 04:27 Plt Count 296 K/mm3 (140-440) 01/02/19 04:27 Lymph % (Auto) 16.7 % (13.4-35.0) 01/02/19 04:27 Mathews % (Auto) 6.4 % (0.0-7.3) 01/02/19 04:27 Eos % (Auto) 1.4 % (0.0-4.3) 01/02/19 04:27 Baso % (Auto) 0.5 % (0.0-1.8) 01/02/19 04:27 Lymph # 1.7 K/mm3 (1.2-5.4) 01/02/19 04:27 Mathews # 0.7 K/mm3 (0.0-0.8) 01/02/19 04:27 Eos # 0.1 K/mm3 (0.0-0.4) 01/02/19 04:27 Baso # 0.0 K/mm3 (0.0-0.1) 01/02/19 04:27 Seg Neutrophils % 75.0 % (40.0-70.0) H 01/02/19 04:27 Seg Neutrophils # 7.6 K/mm3 (1.8-7.7) 01/02/19 04:27 PT 13.1 Sec. (12.2-14.9) 12/25/18 11:10 INR 0.94 (0.87-1.13) 12/25/18 11:10 APTT 26.2 Sec. (24.2-36.6) 12/25/18 11:10 VBG pH 7.298 (7.320-7.420) L 12/25/18 13:04 Sodium 148 mmol/L (137-145) H 01/02/19 04:27 Potassium 3.4 mmol/L (3.6-5.0) L 01/02/19 04:27 Chloride 112.6 mmol/L (98-107) H 01/02/19 04:27 Carbon Dioxide 23 mmol/L (22-30) 01/02/19 04:27 Anion Gap 16 mmol/L 01/02/19 04:27 BUN 26 mg/dL (9-20) H 01/02/19 04:27 Creatinine 1.7 mg/dL (0.8-1.5) H 01/02/19 04:27 Estimated GFR 41 ml/min 01/02/19 04:27 BUN/Creatinine Ratio 15 % 01/02/19 04:27 Glucose 234 mg/dL (75-100) H 01/02/19 04:27 POC Glucose 187 (70-105) H 01/02/19 07:18 Hemoglobin A1c 7.1 % (4-6) H 12/25/18 11:10 Ketones Quantitative Negative (Negative) 12/25/18 11:10 Osmolality 326 Mosm/kg 01/01/19 09:01 Lactic Acid 1.70 mmol/L (0.7-2.0) 12/25/18 13:04 Uric Acid 9.1 mg/dL (3.5-7.6) H 01/01/19 09:01 Calcium 7.7 mg/dL (8.4-10.2) L 01/02/19 04:27 Phosphorus 5.10 mg/dL (2.5-4.5) H 12/25/18 11:10 Magnesium 1.70 mg/dL (1.7-2.3) 01/02/19 Unknown Iron 48 ug/dL (49-181) L 12/25/18 Unknown TIBC 292 mcg/dL (250-450) 12/25/18 Unknown % Saturation 16.44 % 12/25/18 Unknown Transferrin 128 mg/dl (180-329) L 12/25/18 Unknown Total Bilirubin 0.30 mg/dL (0.1-1.2) 12/30/18 05:16 Direct Bilirubin < 0.2 mg/dL (0-0.2) 12/25/18 11:10 Indirect Bilirubin 0.0 mg/dL 12/25/18 11:10 AST 26 units/L (5-40) 12/30/18 05:16 ALT 47 units/L (7-56) 12/30/18 05:16 Alkaline Phosphatase 98 units/L (35-129) 12/30/18 05:16 Ammonia 41.0 umol/L (25-60) 12/25/18 11:10 Total Creatine Kinase 343 units/L (55-170) H 12/29/18 17:18 CK-MB (CK-2) 5.3 ng/mL (0.0-4.0) H 12/25/18 11:10 CK-MB (CK-2) Rel Index 4.6 (0-4) H 12/25/18 11:10 NT-Pro-B Natriuret Pep 2450 pg/mL (0-900) H 12/25/18 11:10 Total Protein 6.0 g/dL (6.3-8.2) L 12/30/18 05:16 Albumin 2.7 g/dL (3.9-5) L 12/30/18 05:16 Albumin/Globulin Ratio 0.8 % 12/30/18 05:16 Vitamin B12 654.9 pg/mL (211-911) 12/25/18 Unknown Folate > 20.0 ng/mL (7.3-26.0) 12/25/18 Unknown TSH 16.800 mlU/mL (0.270-4.200) H 12/25/18 11:10 Free T4 0.79 ng/dL (0.76-1.46) 12/25/18 11:10 Urine Color Colorless (Yellow) 12/25/18 Unknown Urine Turbidity Clear (Clear) 12/25/18 Unknown Urine pH 6.0 (5.0-7.0) 12/25/18 Unknown Ur Specific [place] 1.007 (1.003-1.030) 12/25/18 Unknown Urine Protein 30 mg/dl mg/dL (Negative) 12/25/18 Unknown Urine Glucose (UA) >=500 mg/dL (Negative) 12/25/18 Unknown Urine Ketones Neg mg/dL (Negative) 12/25/18 Unknown Urine Blood Mod (Negative) 12/25/18 Unknown Urine Nitrite Neg (Negative) 12/25/18 Unknown Ur Reducing Substances Not Reportable 12/25/18 Unknown Urine Bilirubin Neg (Negative) 12/25/18 Unknown Urine Ictotest Not Reportable 12/25/18 Unknown Urine Urobilinogen < 2.0 mg/dL (<2.0) 12/25/18 Unknown Ur Leukocyte Esterase Neg (Negative) 12/25/18 Unknown Urine WBC (Auto) < 1.0 /HPF (0.0-6.0) 12/25/18 Unknown Urine RBC (Auto) 3.0 /HPF (0.0-6.0) 12/25/18 Unknown Urine Creatinine 57.7 mg/dL (0.1-20.0) H 12/29/18 19:00 Urine Sodium 47 mmol/L 12/29/18 19:00 Vancomycin Trough 22.5 ug/mL (5.0-20.0) H 12/29/18 13:27 Blood Type A POSITIVE 12/25/18 11:10 Antibody Screen Negative 12/25/18 11:10 Crossmatch See Detail 12/25/18 11:10 Active Medications - Current Medications Current Medications: Generic Name Dose Route Start Last Admin Trade Name Freq PRN Reason Stop Dose Admin Acetaminophen 650 mg 12/25/18 13:12 01/01/19 11:25 Tylenol PO 650 mg Q4H PRN Administration Pain MILD(1-3)/Fever >100.5/ISAAC Bupropion HCl 150 mg 12/26/18 10:00 01/01/19 22:26 Wellbutrin Sr PO 150 mg BID SHRUTHI Administration Dextrose 50 ml 12/25/18 13:19 D50w (25gm) Syringe IV PRN PRN Hypoglycemia Haloperidol Lactate 5 mg 12/26/18 15:34 Haldol IV Q1H PRN Unrespon. to mult. doses BZD's Hydralazine HCl 10 mg 01/01/19 10:00 01/01/19 11:46 Apresoline IV 10 mg Q4HR PRN Administration BP > 160/100 Insulin Glargine 12 units 01/01/19 22:00 01/01/19 22:26 Lantus SUB-Q 12 units QHS SHRUTHI Administration Insulin Human Lispro 0 unit 12/25/18 16:30 01/02/19 01:25 Humalog SUB-Q Not Given ACHS [facility] Protocol Lorazepam 2 mg 12/26/18 15:34 01/01/19 21:11 Ativan IV 2 mg Q1H PRN Administration CIWA-Ar 8-15 Lorazepam 4 mg 12/26/18 15:34 Ativan IV Q1H PRN CIWA-Ar 16-25 Lorazepam 4 mg 12/26/18 15:34 Ativan IV Q15MIN PRN CIWA-Ar >25 Metformin HCl 1,000 mg 01/02/19 17:00 Glucophage PO BIDDIAB SHRUTHI Nifedipine 60 mg 12/31/18 22:00 01/01/19 22:26 Procardia Xl PO 60 mg Q12HR SHRUTHI Administration Ondansetron HCl 4 mg 12/25/18 13:12 Zofran IV Q8H PRN Nausea And Vomiting Sertraline HCl 200 mg 12/26/18 10:00 01/01/19 11:26 Zoloft PO 200 mg QDAY SHRUTHI Administration Sodium Chloride 10 ml 12/25/18 22:00 01/02/19 01:32 Sodium Chloride Flush Syringe 10 Ml IV 10 ml BID SHRUTHI Administration Sodium Chloride 10 ml 12/25/18 13:12 12/31/18 09:29 Sodium Chloride Flush Syringe 10 Ml IV 10 ml PRN PRN Administration LINE FLUSH Nutrition/Malnutrition Assess - Dietary Evaluation Nutrition/Malnutrition Findings: Nutrition Notes Start: 12/26/18 15:51 Freq: Status: Active Protocol: Document 01/01/19 09:47 TW (Rec: 01/01/19 09:53 TW [id number]) Co-Sign 01/01/19 09:47 LP Nutrition Notes Initial or Follow up Reassessment Current Diagnosis Diabetes,Hypertension Other Pertinent Diagnosis S/P closed hip reduction, Hx prostate cancer, Hx of depression,Sacral wound Current Diet Cardiac/Consistent CHO Labs/Tests Reviewed Pertinent Medications Reviewed Height 6 ft Weight 72.575 kg [place] Body Weight (kg) 80.90 BMI 21.7 Subjective/Other Information Pt asleep and nonresponsive at time of visit. Pt commmunicated a poor appetite. RN stated he ate 10% of his breakfast, and did not want to eat more than that. Pt not drinking any of his ONS. Percent of energy/protein needs met: 10%/10% Burn Absent Trauma Absent #1 Nutrition Diagnosis Inadequate oral intake Diagnosis Progress(for reassessment Continues documentation) Is patient on ventilator? No Is Patient Ambulatory and/or Out of Bed No REE-([facility]-confined to bed) 4427.288 Calculation Used for Recommendations [facility] Additional Notes Protein Needs: 87-109g (1.2-1. 5g/kg) Fluid Needs: 1 ml/kcal Nutrition Intervention Change Diet Order: Cardiac/Consistent CHO, Mech soft Add Supplement/Snack (indicate name/kcal Ensure Clear 1 daily /protein ) Provides kCal: 240 Provides Protein (gm) 8 Goal #1 Meet at least 75% of calorie and protein needs via PO and ONS intakes Anticipated Discharge Needs: Cardiac/Consistent CHO Follow-Up By: 01/05/19 Additional Comments Follow for PO and ONS intakes and DM diet education
[2018-12-30] MEDS: D5LR 1,000 ML IV SCH ×2 (12:47→23:22)
[2018-12-30] MEDS: KCL 10MEQ/100ML 10 MEQ/100 ML BAG IV SCH ×3 (15:01→16:57)
[2018-12-30 21:57] LABS: Calcium 8.2 mg/dL (8.4-10.2)
[2018-12-30] MEDS: LANTUS SUB-Q SCH (22:02)
[2018-12-30] MEDS: TYLENOL PO PRN (22:44)
[2018-12-30] MEDS ORDERED: POTASSIUM CHLORIDE PO ONE (23:09)
[2018-12-31] MEDS: D5LR 1,000 ML IV SCH (05:44)
[2018-12-31] MEDS: ATIVAN IV PRN (07:05)
[2018-12-31] MEDS: TYLENOL PO PRN ×2 (07:05→16:18)
[2018-12-31] MEDS: HumaLOG SUB-Q SCH ×4 (08:00→23:29)
--- NOTE | 2018-12-31 08:58 | Progress Note ---
Subjective Interval history: Patient was seen today for follow-up on multiple renal related issues renal function improving He is more alert but still not communicative Ultrasonogram showed evidence of urinary retention Vitals labs intake output medications were reviewed Social history: Reviewed Allergies: Reviewed Family history: Reviewed Physical examination HEENT: Oral mucosa moist no pallor or icterus Neck: Supple no JVD Chest: Clear to auscultation anteriorly CVS: Regular rate and rhythm S1 and S2 heard Abdomen: Soft nontender no suprapubic masses no organomegaly appreciable Extremity: Dry skin no edema Hydration status appears to be better Musculoskeletal: No joint effusion noted in knees and ankle Neurological: he is unarousable today Dermatology: No petechial rashes Psychiatry: No evidence of any agitation and aggression noted Assessment and plan Acute kidney injury: Combination of prerenal state as well as obstructive uropathy: Patient appears to be improving well there is no evidence to suggest acute tubular necrosis at this time Patient is in need for close monitoring of intake and output obstructive uropathy: Needs to be followed by urology even an outpatient setting Hypokalemia: Needs ongoing monitoring and replacement of potassium follow up on the potassium level in the evening Follow-up on the magnesium level Hypernatremia to monitor and follow Creatinine appears to be improving slowly Diabetes mellitus type 2, try to keep blood sugar less than 200 for now Overall improvement from renal standpoint Avoid nephrotoxic medication Encephalopathy slowly improving patient is more alert today We'll continue to follow and make recommendation from renal standpoint Objective - Vital Signs Vital signs: Vital Signs - 12hr 12/30/18 12/31/18 12/31/18 21:37 00:05 04:21 Temperature 97.1 F L 97.3 F L Pulse Rate 113 H 108 H Respiratory 19 18 Rate Blood Pressure 138/100 Blood Pressure 168/92 [Right] O2 Sat by Pulse 100 99 96 Oximetry 12/31/18 07:45 Temperature 99.1 F Pulse Rate 106 H Respiratory 16 Rate Blood Pressure Blood Pressure 177/87 [Right] O2 Sat by Pulse 98 Oximetry - Lab 12/30/18 05:16 12/31/18 17:03 Most recent lab results Calcium 8.2 mg/dL (8.4-10.2) L 12/30/18 21:15 Phosphorus 5.10 mg/dL (2.5-4.5) H 12/25/18 11:10 Magnesium 1.70 mg/dL (1.7-2.3) 12/30/18 21:15 Urine Creatinine 57.7 mg/dL (0.1-20.0) H 12/29/18 19:00 Urine Sodium 47 mmol/L 12/29/18 19:00 Medications & Allergies - Medications Allergies/Adverse Reactions: Allergies poison oak extract Allergy (Verified 11/27/18 06:08) Itching Home Medications: Home Medications Medication Instructions Recorded Confirmed Last Taken Type Bupropion HCl [Bupropion HCl Sr] 150 mg PO BID 09/10/17 12/26/18 11/24/18 09:00 History Insulin Detemir [Levemir Flextouch] 4 unit SQ QDAY 09/10/17 12/26/18 11/24/18 21:00 History Lanreotide Acetate [Somatuline 120 mg SQ QMONTH 09/10/17 12/26/18 11/24/18 09:00 History Depot] Sertraline [Zoloft] 200 mg PO QDAY 09/10/17 12/26/18 11/24/18 09:00 History Sildenafil Citrate [Viagra] 100 mg PO PRN PRN 09/10/17 12/26/18 11/24/18 09:00 History traZODone [Desyrel] 100 mg PO PRN PRN 09/10/17 12/26/18 11/24/18 09:00 History Metformin HCl [Glucophage] 1,000 mg PO BID 11/27/18 12/26/18 11/24/18 09:00 History Active Medications: Generic Name Dose Route Start Last Admin Trade Name Sienna PRN Reason Stop Dose Admin Acetaminophen 650 mg 12/25/18 13:12 12/31/18 07:05 Tylenol PO 650 mg Q4H PRN Administration Pain MILD(1-3)/Fever >100.5/ISAAC Amlodipine Besylate 10 mg 12/25/18 15:00 12/30/18 10:07 Norvasc PO 10 mg DAILY SHRUTHI Administration Bupropion HCl 150 mg 12/26/18 10:00 12/30/18 21:57 Wellbutrin Sr PO 150 mg BID SHRUTHI Administration Dextrose 50 ml 12/25/18 13:19 D50w (25gm) Syringe IV PRN PRN Hypoglycemia Haloperidol Lactate 5 mg 12/26/18 15:34 Haldol IV Q1H PRN Unrespon. to mult. doses BZD's Hydralazine HCl 10 mg 12/25/18 13:23 12/28/18 22:38 Apresoline IV 10 mg Q4HR PRN Administration Blood Pressure Dextrose/Lactated Ringer's 1,000 mls @ 150 mls/hr 12/30/18 10:00 12/31/18 05:44 D5lr IV 150 mls/hr DIRECT SHRUTHI Administration Insulin Glargine 10 units 12/25/18 22:00 12/30/18 22:02 Lantus SUB-Q 10 units QHS SHRUTHI Administration Insulin Human Lispro 0 unit 12/25/18 16:30 12/30/18 22:00 Humalog SUB-Q 4 unit ACHS SHRUTHI Administration Protocol Lorazepam 2 mg 12/26/18 15:34 12/31/18 07:05 Ativan IV 2 mg Q1H PRN Administration CIWA-Ar 8-15 Lorazepam 4 mg 12/26/18 15:34 Ativan IV Q1H PRN CIWA-Ar 16-25 Lorazepam 4 mg 12/26/18 15:34 Ativan IV Q15MIN PRN CIWA-Ar >25 Ondansetron HCl 4 mg 12/25/18 13:12 Zofran IV Q8H PRN Nausea And Vomiting Sertraline HCl 200 mg 12/26/18 10:00 12/30/18 10:07 Zoloft PO 200 mg QDAY SHRUTHI Administration Sodium Chloride 10 ml 12/25/18 22:00 12/30/18 22:03 Sodium Chloride Flush Syringe 10 Ml IV 10 ml BID SHRUTHI Administration Sodium Chloride 10 ml 12/25/18 13:12 Sodium Chloride Flush Syringe 10 Ml IV PRN PRN LINE FLUSH
[2018-12-31] MEDS: ZOLOFT PO SCH (09:27)
[2018-12-31] MEDS: NORVASC PO SCH (09:27)
[2018-12-31] MEDS: WELLBUTRIN SR PO SCH ×2 (09:27→21:26)
[2018-12-31] MEDS ORDERED: MAGNESIUM SULFATE 2GM/50ML 2 GM/50 ML BAG IV ONE (10:00)
[2018-12-31] MEDS: SODIUM CHLORIDE FLUSH SYRINGE 10 ML IV SCH (10:00)
--- NOTE | 2018-12-31 10:21 | Progress Note ---
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 Paramedics stated that patient fell out of his Trike and required assistance to get back on. Patient is not able to stand up on his own. He is complaining of right hip pain. He was treated with intranasal fentanyl by paramedics prior to arrival [facility]. Patient was found to be anemic with hemoglobin of 7.4, and 1 unit PRBC transfused and 80. Patient admitted to the Surgical. Right hip fracture Hip XR revealed Superolateral dislocation of the right hip prosthesis including the acetabular component. Status post closed reduction right hip on 12/[address] Eitan Laird Following an admission Acute on chronic Right hip pain-secondary to frequent falls Pain management PT following Hypertension Continue to monitor BP Continue Norvasc 10mg daily IV hydralazine when necessary Hypernatremia Discontinued D5W LR Order one fourth normal saline with potassium 20Meq Diabetes type 2 Continue POC BG monitoring SSI and scheduled Lantus Continue home dose metformin 1000 mg twice a day Chronic anemia Hgb on admission 7.4 Received 1u PRBC Montior CBC Transfuse when necessary History of depression Continue Wellbutrin 150 mg twice a day, Zoloft 200 mg daily Suspicion of UTI Urine culture NGTD Treated with ceftriaxone prophylactically; discontinued 12/29 SEVERIANO- likely multifactorial secondary to obstruction and volume depletion Creatinine on admission 1.5 Improving Cr this am 1.9 ( down from 3.0 yesterday) Sapp placed Receiving IV fluids Nephrology following and managing Hypernatremia Discontinued D5W LR Order one fourth normal saline with potassium 20Meq Nephrology following Hypokalmeia Monitor electrolytes Replete as needed Metabolic acidosis- resolved Received bicarbonate infusion History of 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 History of Tobacco abuse DVT PPX On SCDs holding anti-coagulation due to anemia History Interval history: Mr. Delgadillo is seen today in the surgical floor. Patient is still unable to answer questions. As per case management, family will make decision regarding home hospice today. There were no acute overnight events Hospitalist Physical - Physical exam Narrative exam: Present: disheveled - EENT Eyes: Present: PERRL, EOM intact ENT: hearing intact, clear oral mucosa, poor dentition - Neck Neck: Present: supple, normal ROM - Respiratory Respiratory effort: normal Respiratory: bilateral: diminished (bases) - Cardiovascular Heart rate: 108 ( minute) Heart Sounds: Present: S1 & S2. Absent: rub, click - Extremities Extremities: no ischemia, pulses intact, abnormal (scattered bruising to upper extremities; limited ROM to right hip) Peripheral Pulses: within normal limits - Abdominal General gastrointestinal: Present: soft, non-tender, normal bowel sounds Male genitourinary: Present: deferred - Rectal Rectal Exam: deferred - Integumentary Integumentary: Present: warm, dry (scattered bruising to upper extremities) - Musculoskeletal Musculoskeletal: generalized weakness - Psychiatric Psychiatric: other (flat affect, was drawn, follows command) - Neurologic Neurologic: moves all extremities - Constitutional Vitals: Temp Pulse Resp BP Pulse Ox 99.1 F 108 H 16 168/92 98 12/31/18 07:45 12/31/18 09:27 12/31/18 07:45 12/31/18 09:27 12/31/18 09:00 Results - Labs CBC & Chem 7: 12/30/18 05:16 12/30/18 21:15 Labs: Laboratory Last Values WBC 8.9 K/mm3 (4.5-11.0) 12/30/18 05:16 RBC 2.51 M/mm3 (3.65-5.03) L 12/30/18 05:16 Hgb 7.6 gm/dl (11.8-15.2) L 12/30/18 05:16 Hct 22.4 % (35.5-45.6) L 12/30/18 05:16 MCV 89 fl (84-94) 12/30/18 05:16 MCH 30 pg (28-32) 12/30/18 05:16 MCHC 34 % (32-34) 12/30/18 05:16 RDW 17.7 % (13.2-15.2) H 12/30/18 05:16 Plt Count 308 K/mm3 (140-440) 12/30/18 05:16 Lymph % (Auto) 20.4 % (13.4-35.0) 12/25/18 11:10 Randolph % (Auto) 11.7 % (0.0-7.3) H 12/25/18 11:10 Eos % (Auto) 2.5 % (0.0-4.3) 12/25/18 11:10 Baso % (Auto) 0.9 % (0.0-1.8) 12/25/18 11:10 Lymph # 1.6 K/mm3 (1.2-5.4) 12/25/18 11:10 Randolph # 0.9 K/mm3 (0.0-0.8) H 12/25/18 11:10 Eos # 0.2 K/mm3 (0.0-0.4) 12/25/18 11:10 Baso # 0.1 K/mm3 (0.0-0.1) 12/25/18 11:10 Seg Neutrophils % 64.5 % (40.0-70.0) 12/25/18 11:10 Seg Neutrophils # 5.0 K/mm3 (1.8-7.7) 12/25/18 11:10 PT 13.1 Sec. (12.2-14.9) 12/25/18 11:10 INR 0.94 (0.87-1.13) 12/25/18 11:10 APTT 26.2 Sec. (24.2-36.6) 12/25/18 11:10 VBG pH 7.298 (7.320-7.420) L 12/25/18 13:04 Sodium 151 mmol/L (137-145) H 12/30/18 21:15 Potassium 2.9 mmol/L (3.6-5.0) L* 12/30/18 21:15 Chloride 115.0 mmol/L (98-107) H 12/30/18 21:15 Carbon Dioxide 24 mmol/L (22-30) 12/30/18 21:15 Anion Gap 15 mmol/L 12/30/18 21:15 BUN 32 mg/dL (9-20) H 12/30/18 21:15 Creatinine 1.9 mg/dL (0.8-1.5) H 12/30/18 21:15 Estimated GFR 36 ml/min 12/30/18 21:15 BUN/Creatinine Ratio 17 % 12/30/18 21:15 Glucose 277 mg/dL (75-100) H 12/30/18 21:15 POC Glucose 212 (70-105) H 12/31/18 07:49 Hemoglobin A1c 7.1 % (4-6) H 12/25/18 11:10 Ketones Quantitative Negative (Negative) 12/25/18 11:10 Osmolality 333 Mosm/kg 12/29/18 17:18 Lactic Acid 1.70 mmol/L (0.7-2.0) 12/25/18 13:04 Uric Acid 12.9 mg/dL (3.5-7.6) H 12/29/18 17:18 Calcium 8.2 mg/dL (8.4-10.2) L 12/30/18 21:15 Phosphorus 5.10 mg/dL (2.5-4.5) H 12/25/18 11:10 Magnesium 1.70 mg/dL (1.7-2.3) 12/30/18 21:15 Iron 48 ug/dL (49-181) L 12/25/18 Unknown TIBC 292 mcg/dL (250-450) 12/25/18 Unknown % Saturation 16.44 % 12/25/18 Unknown Transferrin 128 mg/dl (180-329) L 12/25/18 Unknown Total Bilirubin 0.30 mg/dL (0.1-1.2) 12/30/18 05:16 Direct Bilirubin < 0.2 mg/dL (0-0.2) 12/25/18 11:10 Indirect Bilirubin 0.0 mg/dL 12/25/18 11:10 AST 26 units/L (5-40) 12/30/18 05:16 ALT 47 units/L (7-56) 12/30/18 05:16 Alkaline Phosphatase 98 units/L (35-129) 12/30/18 05:16 Ammonia 41.0 umol/L (25-60) 12/25/18 11:10 Total Creatine Kinase 343 units/L (55-170) H 12/29/18 17:18 CK-MB (CK-2) 5.3 ng/mL (0.0-4.0) H 12/25/18 11:10 CK-MB (CK-2) Rel Index 4.6 (0-4) H 12/25/18 11:10 NT-Pro-B Natriuret Pep 2450 pg/mL (0-900) H 12/25/18 11:10 Total Protein 6.0 g/dL (6.3-8.2) L 12/30/18 05:16 Albumin 2.7 g/dL (3.9-5) L 12/30/18 05:16 Albumin/Globulin Ratio 0.8 % 12/30/18 05:16 Vitamin B12 654.9 pg/mL (211-911) 12/25/18 Unknown Folate > 20.0 ng/mL (7.3-26.0) 12/25/18 Unknown TSH 16.800 mlU/mL (0.270-4.200) H 12/25/18 11:10 Free T4 0.79 ng/dL (0.76-1.46) 12/25/18 11:10 Urine Color Colorless (Yellow) 12/25/18 Unknown Urine Turbidity Clear (Clear) 12/25/18 Unknown Urine pH 6.0 (5.0-7.0) 12/25/18 Unknown Ur Specific [place] 1.007 (1.003-1.030) 12/25/18 Unknown Urine Protein 30 mg/dl mg/dL (Negative) 12/25/18 Unknown Urine Glucose (UA) >=500 mg/dL (Negative) 12/25/18 Unknown Urine Ketones Neg mg/dL (Negative) 12/25/18 Unknown Urine Blood Mod (Negative) 12/25/18 Unknown Urine Nitrite Neg (Negative) 12/25/18 Unknown Ur Reducing Substances Not Reportable 12/25/18 Unknown Urine Bilirubin Neg (Negative) 12/25/18 Unknown Urine Ictotest Not Reportable 12/25/18 Unknown Urine Urobilinogen < 2.0 mg/dL (<2.0) 12/25/18 Unknown Ur Leukocyte Esterase Neg (Negative) 12/25/18 Unknown Urine WBC (Auto) < 1.0 /HPF (0.0-6.0) 12/25/18 Unknown Urine RBC (Auto) 3.0 /HPF (0.0-6.0) 12/25/18 Unknown Urine Creatinine 57.7 mg/dL (0.1-20.0) H 12/29/18 19:00 Urine Sodium 47 mmol/L 12/29/18 19:00 Vancomycin Trough 22.5 ug/mL (5.0-20.0) H 12/29/18 13:27 Blood Type A POSITIVE 12/25/18 11:10 Antibody Screen Negative 12/25/18 11:10 Crossmatch See Detail 12/25/18 11:10 Active Medications - Current Medications Current Medications: Generic Name Dose Route Start Last Admin Trade Name Freq PRN Reason Stop Dose Admin Acetaminophen 650 mg 12/25/18 13:12 12/31/18 07:05 Tylenol PO 650 mg Q4H PRN Administration Pain MILD(1-3)/Fever >100.5/ISAAC Amlodipine Besylate 10 mg 12/25/18 15:00 12/31/18 09:27 Norvasc PO 10 mg DAILY SHRUTHI Administration Bupropion HCl 150 mg 12/26/18 10:00 12/31/18 09:27 Wellbutrin Sr PO 150 mg BID SHRUTHI Administration Dextrose 50 ml 12/25/18 13:19 D50w (25gm) Syringe IV PRN PRN Hypoglycemia Haloperidol Lactate 5 mg 12/26/18 15:34 Haldol IV Q1H PRN Unrespon. to mult. doses BZD's Hydralazine HCl 10 mg 12/25/18 13:23 12/28/18 22:38 Apresoline IV 10 mg Q4HR PRN Administration Blood Pressure Magnesium Sulfate 2 gm in 50 mls @ 25 mls/hr 12/31/18 10:00 Magnesium Sulfate 2gm/50ml IV 12/31/18 11:59 ONCE ONE Potassium Chloride 10 meq in 100 mls @ 100 mls/hr 12/31/18 10:00 Kcl 10meq/100ml IV 12/31/18 13:59 Q1H SHRUTHI Insulin Glargine 10 units 12/25/18 22:00 12/30/18 22:02 Lantus SUB-Q 10 units QHS SHRUTHI Administration Insulin Human Lispro 0 unit 12/25/18 16:30 12/31/18 08:00 Humalog SUB-Q 3 unit ACHS SHRUTHI Administration Protocol Lorazepam 2 mg 12/26/18 15:34 12/31/18 07:05 Ativan IV 2 mg Q1H PRN Administration CIWA-Ar 8-15 Lorazepam 4 mg 12/26/18 15:34 Ativan IV Q1H PRN CIWA-Ar 16-25 Lorazepam 4 mg 12/26/18 15:34 Ativan IV Q15MIN PRN CIWA-Ar >25 Ondansetron HCl 4 mg 12/25/18 13:12 Zofran IV Q8H PRN Nausea And Vomiting Sertraline HCl 200 mg 12/26/18 10:00 12/31/18 09:27 Zoloft PO 200 mg QDAY SHRUTHI Administration Sodium Chloride 10 ml 12/25/18 22:00 12/30/18 22:03 Sodium Chloride Flush Syringe 10 Ml IV 10 ml BID SHRUTHI Administration Sodium Chloride 10 ml 12/25/18 13:12 12/31/18 09:29 Sodium Chloride Flush Syringe 10 Ml IV 10 ml PRN PRN Administration LINE FLUSH Nutrition/Malnutrition Assess - Dietary Evaluation Nutrition/Malnutrition Findings: Nutrition Notes Start: 12/26/18 15:51 Freq: Status: Active Protocol: Document 12/29/18 16:24 RM (Rec: 12/29/18 16:33 RM [id number]) Nutrition Notes Initial or Follow up Assessment Current Diagnosis Diabetes,Hypertension Other Pertinent Diagnosis S/P closed hip reduction, Hx prostate cancer, Hx of depression,Sacral wound Current Diet Cardiac/Consistent CHO Labs/Tests Reviewed Pertinent Medications Reviewed Height 6 ft Weight 72.575 kg [place] Body Weight (kg) 80.90 BMI 21.7 Subjective/Other Information Pt lethargic at time of visit. Pt shook head or nodded to communicate. Pt stated that his appetite is poor. Noted lunch at bedside w/none eaten. Pt tech stated that pt did not eat Saturday. Noted temporal wasting. Pt not appropriate for diet education at this time. Burn Absent Trauma Absent #1 Nutrition Diagnosis Inadequate oral intake Etiology decreased appetite As Evidenced by Signs and Symptoms uneaten lunch at bedside, pt tech statement that pt did not eat Saturday Is patient on ventilator? No Is Patient Ambulatory and/or Out of Bed No REE-([facility]-confined to bed) [phone] Calculation Used for Recommendations [facility] Additional Notes Protein Needs: 87-109g (1.2-1. 5g/kg) Fluid Needs: 1 ml/kcal Nutrition Intervention Change Diet Order: Cardiac/Consistent CHO, Mech soft Add Supplement/Snack (indicate name/kcal Glucerna 1 daily /protein ) Provides kCal: 220 Provides Protein (gm) 10 Goal #1 Meet at least 75% of calorie and protein needs via PO and ONS intakes Anticipated Discharge Needs: Cardiac/Consistent CHO Follow-Up By: 01/01/19 Additional Comments Follow for PO and ONS intakes, DM diet education, chewing difficulty <KATHARINA PERDUE M - Last Filed: 01/03/19 18:43> Assessment and Plan Assessment and plan: I saw and evaluated the patient. I agree with the findings and the plan of care as documented in the Nurse Practitioner's~note, with the following corrections and additions. cont isotonic IVF -cont sapp for obstructive uropathy -planned for placement with hospice -his sister is making decisions for him due to inability to give consent Dx acute metabolic encephalopathy obstructive uropathy due to metastatic prostate ca History Interval history: RN reports that he has been confused and lethargic no Fever, no agitation or discomfort reported to me Hospitalist Physical - Physical exam Narrative exam: psych; calm and cooperative, but confused - Constitutional Vitals: Temp Pulse Resp BP Pulse Ox 97.1 F L 76 16 144/84 96 01/03/19 15:00 01/03/19 15:00 01/03/19 15:00 01/03/19 15:00 01/03/19 15:00 Results - Labs CBC & Chem 7: 01/02/19 04:27 01/03/19 13:55 Labs: Laboratory Last Values WBC 10.2 K/mm3 (4.5-11.0) 01/02/19 04:27 RBC 2.55 M/mm3 (3.65-5.03) L 01/02/19 04:27 Hgb 7.9 gm/dl (11.8-15.2) L 01/02/19 04:27 Hct 23.0 % (35.5-45.6) L 01/02/19 04:27 MCV 90 fl (84-94) 01/02/19 04:27 MCH 31 pg (28-32) 01/02/19 04:27 MCHC 34 % (32-34) 01/02/19 04:27 RDW 17.5 % (13.2-15.2) H 01/02/19 04:27 Plt Count 296 K/mm3 (140-440) 01/02/19 04:27 Lymph % (Auto) 16.7 % (13.4-35.0) 01/02/19 04:27 Randolph % (Auto) 6.4 % (0.0-7.3) 01/02/19 04:27 Eos % (Auto) 1.4 % (0.0-4.3) 01/02/19 04:27 Baso % (Auto) 0.5 % (0.0-1.8) 01/02/19 04:27 Lymph # 1.7 K/mm3 (1.2-5.4) 01/02/19 04:27 Randolph # 0.7 K/mm3 (0.0-0.8) 01/02/19 04:27 Eos # 0.1 K/mm3 (0.0-0.4) 01/02/19 04:27 Baso # 0.0 K/mm3 (0.0-0.1) 01/02/19 04:27 Seg Neutrophils % 75.0 % (40.0-70.0) H 01/02/19 04:27 Seg Neutrophils # 7.6 K/mm3 (1.8-7.7) 01/02/19 04:27 PT 13.1 Sec. (12.2-14.9) 12/25/18 11:10 INR 0.94 (0.87-1.13) 12/25/18 11:10 APTT 26.2 Sec. (24.2-36.6) 12/25/18 11:10 VBG pH 7.298 (7.320-7.420) L 12/25/18 13:04 Sodium 148 mmol/L (137-145) H 01/03/19 13:55 Potassium 2.7 mmol/L (3.6-5.0) L* D 01/03/19 13:55 Chloride 110.2 mmol/L (98-107) H 01/03/19 13:55 Carbon Dioxide 22 mmol/L (22-30) 01/03/19 13:55 Anion Gap 19 mmol/L 01/03/19 13:55 BUN 20 mg/dL (9-20) 01/03/19 13:55 Creatinine 1.5 mg/dL (0.8-1.5) 01/03/19 13:55 Estimated GFR 48 ml/min 01/03/19 13:55 BUN/Creatinine Ratio 13 % 01/03/19 13:55 Glucose 238 mg/dL (75-100) H 01/03/19 13:55 POC Glucose 248 (70-105) H 01/03/19 16:35 Hemoglobin A1c 7.1 % (4-6) H 12/25/18 11:10 Ketones Quantitative Negative (Negative) 12/25/18 11:10 Osmolality 326 Mosm/kg 01/01/19 09:01 Lactic Acid 1.70 mmol/L (0.7-2.0) 12/25/18 13:04 Uric Acid 9.1 mg/dL (3.5-7.6) H 01/01/19 09:01 Calcium 8.1 mg/dL (8.4-10.2) L 01/03/19 13:55 Phosphorus 5.10 mg/dL (2.5-4.5) H 12/25/18 11:10 Magnesium 1.70 mg/dL (1.7-2.3) 01/02/19 Unknown Iron 48 ug/dL (49-181) L 12/25/18 Unknown TIBC 292 mcg/dL (250-450) 12/25/18 Unknown % Saturation 16.44 % 12/25/18 Unknown Transferrin 128 mg/dl (180-329) L 12/25/18 Unknown Total Bilirubin 0.30 mg/dL (0.1-1.2) 12/30/18 05:16 Direct Bilirubin < 0.2 mg/dL (0-0.2) 12/25/18 11:10 Indirect Bilirubin 0.0 mg/dL 12/25/18 11:10 AST 26 units/L (5-40) 12/30/18 05:16 ALT 47 units/L (7-56) 12/30/18 05:16 Alkaline Phosphatase 98 units/L (35-129) 12/30/18 05:16 Ammonia 41.0 umol/L (25-60) 12/25/18 11:10 Total Creatine Kinase 343 units/L (55-170) H 12/29/18 17:18 CK-MB (CK-2) 5.3 ng/mL (0.0-4.0) H 12/25/18 11:10 CK-MB (CK-2) Rel Index 4.6 (0-4) H 12/25/18 11:10 NT-Pro-B Natriuret Pep 2450 pg/mL (0-900) H 12/25/18 11:10 Total Protein 6.0 g/dL (6.3-8.2) L 12/30/18 05:16 Albumin 2.7 g/dL (3.9-5) L 12/30/18 05:16 Albumin/Globulin Ratio 0.8 % 12/30/18 05:16 Vitamin B12 654.9 pg/mL (211-911) 12/25/18 Unknown Folate > 20.0 ng/mL (7.3-26.0) 12/25/18 Unknown TSH 16.800 mlU/mL (0.270-4.200) H 12/25/18 11:10 Free T4 0.79 ng/dL (0.76-1.46) 12/25/18 11:10 Urine Color Colorless (Yellow) 12/25/18 Unknown Urine Turbidity Clear (Clear) 12/25/18 Unknown Urine pH 6.0 (5.0-7.0) 12/25/18 Unknown Ur Specific [place] 1.007 (1.003-1.030) 12/25/18 Unknown Urine Protein 30 mg/dl mg/dL (Negative) 12/25/18 Unknown Urine Glucose (UA) >=500 mg/dL (Negative) 12/25/18 Unknown Urine Ketones Neg mg/dL (Negative) 12/25/18 Unknown Urine Blood Mod (Negative) 12/25/18 Unknown Urine Nitrite Neg (Negative) 12/25/18 Unknown Ur Reducing Substances Not Reportable 12/25/18 Unknown Urine Bilirubin Neg (Negative) 12/25/18 Unknown Urine Ictotest Not Reportable 12/25/18 Unknown Urine Urobilinogen < 2.0 mg/dL (<2.0) 12/25/18 Unknown Ur Leukocyte Esterase Neg (Negative) 12/25/18 Unknown Urine WBC (Auto) < 1.0 /HPF (0.0-6.0) 12/25/18 Unknown Urine RBC (Auto) 3.0 /HPF (0.0-6.0) 12/25/18 Unknown Urine Creatinine 57.7 mg/dL (0.1-20.0) H 12/29/18 19:00 Urine Sodium 47 mmol/L 12/29/18 19:00 Vancomycin Trough 22.5 ug/mL (5.0-20.0) H 12/29/18 13:27 Blood Type A POSITIVE 12/25/18 11:10 Antibody Screen Negative 12/25/18 11:10 Crossmatch See Detail 12/25/18 11:10 Active Medications - Current Medications Current Medications: Generic Name Dose Route Start Last Admin Trade Name Freq PRN Reason Stop Dose Admin Acetaminophen 650 mg 12/25/18 13:12 01/01/19 11:25 Tylenol PO 650 mg Q4H PRN Administration Pain MILD(1-3)/Fever >100.5/ISAAC Bupropion HCl 150 mg 12/26/18 10:00 01/03/19 12:11 Wellbutrin Sr PO Not Given BID SHRUTHI Dextrose 50 ml 12/25/18 13:19 D50w (25gm) Syringe IV PRN PRN Hypoglycemia Haloperidol Lactate 5 mg 12/26/18 15:34 Haldol IV Q1H PRN Unrespon. to mult. doses BZD's Hydralazine HCl 10 mg 01/01/19 10:00 01/01/19 11:46 Apresoline IV 10 mg Q4HR PRN Administration BP > 160/100 Dextrose 1,000 mls @ 75 mls/hr 01/03/19 14:00 01/03/19 17:19 D5w IV 75 mls/hr DIRECT SHRUTHI Administration Potassium Chloride 40 meq/ 520 mls @ 125 mls/hr 01/03/19 17:00 01/03/19 17:19 Sodium Chloride IV 01/05/19 21:10 125 mls/hr DIRECT SHRUTHI Administration Insulin Glargine 14 units 01/03/19 22:00 Lantus SUB-Q QHS SHRUTHI Insulin Human Lispro 0 unit 12/25/18 16:30 01/03/19 17:20 Humalog SUB-Q 6 unit ACHS SHRUTHI Administration Protocol Lorazepam 2 mg 12/26/18 15:34 01/01/19 21:11 Ativan IV 2 mg Q1H PRN Administration CIWA-Ar 8-15 Lorazepam 4 mg 12/26/18 15:34 Ativan IV Q1H PRN CIWA-Ar 16-25 Lorazepam 4 mg 12/26/18 15:34 Ativan IV Q15MIN PRN CIWA-Ar >25 Metformin HCl 1,000 mg 01/02/19 17:00 01/03/19 17:19 Glucophage PO 1,000 mg BIDDIAB SHRUTHI Administration Nifedipine 60 mg 12/31/18 22:00 01/03/19 12:02 Procardia Xl PO Not Given Q12HR SHRUTHI Ondansetron HCl 4 mg 12/25/18 13:12 Zofran IV Q8H PRN Nausea And Vomiting Sertraline HCl 200 mg 12/26/18 10:00 01/03/19 12:11 Zoloft PO Not Given QDAY SHRUTHI Sodium Chloride 10 ml 12/25/18 22:00 01/03/19 12:02 Sodium Chloride Flush Syringe 10 Ml IV Not Given BID SHRUTHI Sodium Chloride 10 ml 12/25/18 13:12 12/31/18 09:29 Sodium Chloride Flush Syringe 10 Ml IV 10 ml PRN PRN Administration LINE FLUSH Nutrition/Malnutrition Assess - Dietary Evaluation Nutrition/Malnutrition Findings: Nutrition Notes Start: 12/26/18 15:51 Freq: Status: Active Protocol: Document 01/01/19 09:47 TW (Rec: 01/01/19 09:53 TW [id number]) Co-Sign 01/01/19 09:47 LP Nutrition Notes Initial or Follow up Reassessment Current Diagnosis Diabetes,Hypertension Other Pertinent Diagnosis S/P closed hip reduction, Hx prostate cancer, Hx of depression,Sacral wound Current Diet Cardiac/Consistent CHO Labs/Tests Reviewed Pertinent Medications Reviewed Height 6 ft Weight 72.575 kg [place] Body Weight (kg) 80.90 BMI 21.7 Subjective/Other Information Pt asleep and nonresponsive at time of visit. Pt commmunicated a poor appetite. RN stated he ate 10% of his breakfast, and did not want to eat more than that. Pt not drinking any of his ONS. Percent of energy/protein needs met: 10%/10% Burn Absent Trauma Absent #1 Nutrition Diagnosis Inadequate oral intake Diagnosis Progress(for reassessment Continues documentation) Is patient on ventilator? No Is Patient Ambulatory and/or Out of Bed No REE-([facility]-confined to bed) 4543.288 Calculation Used for Recommendations [facility] Additional Notes Protein Needs: 87-109g (1.2-1. 5g/kg) Fluid Needs: 1 ml/kcal Nutrition Intervention Change Diet Order: Cardiac/Consistent CHO, Mech soft Add Supplement/Snack (indicate name/kcal Ensure Clear 1 daily /protein ) Provides kCal: 240 Provides Protein (gm) 8 Goal #1 Meet at least 75% of calorie and protein needs via PO and ONS intakes Anticipated Discharge Needs: Cardiac/Consistent CHO Follow-Up By: 01/05/19 Additional Comments Follow for PO and ONS intakes and DM diet education
[2018-12-31] MEDS: KCL 10MEQ/100ML 10 MEQ/100 ML BAG IV SCH ×4 (12:28→17:55)
[2018-12-31] MEDS: APRESOLINE IV PRN ×2 (12:37→17:52)
[2018-12-31] MEDS: STERILE WATER IV SCH (14:56)
[2018-12-31] MEDS: KCL IV SCH (14:56)
[2018-12-31] MEDS: NACL IV SCH (14:56)
[2018-12-31 17:45] LABS: Calcium 8.1 mg/dL (8.4-10.2)
[2018-12-31] MEDS: PROCARDIA XL PO SCH (21:26)
[2019-01-01] MEDS: LANTUS SUB-Q SCH ×2 (00:59→22:26)
[2019-01-01] MEDS: KCL IV SCH (06:39)
[2019-01-01] MEDS: NACL IV SCH ×3 (06:39→19:56)
[2019-01-01] MEDS: STERILE WATER IV SCH ×3 (06:39→19:56)
[2019-01-01] MEDS: SODIUM CHLORIDE FLUSH SYRINGE 10 ML IV SCH ×2 (06:42→11:36)
[2019-01-01] MEDS: HumaLOG SUB-Q SCH ×3 (07:30→18:52)
--- NOTE | 2019-01-01 08:56 | Progress Note ---
Subjective Interval history: Patient was seen today for follow-up on multiple renal related issues No new labs today Ultrasonogram showed evidence of urinary retention Vitals labs intake output medications were reviewed Social history: Reviewed Allergies: Reviewed Family history: Reviewed Physical examination HEENT: Oral mucosa moist no pallor or icterus Neck: Supple no JVD Chest: Clear to auscultation anteriorly CVS: Regular rate and rhythm S1 and S2 heard Abdomen: Soft nontender no suprapubic masses no organomegaly appreciable Extremity: Dry skin no edema Hydration status appears to be better Musculoskeletal: No joint effusion noted in knees and ankle Neurological: he is unarousable today Dermatology: No petechial rashes Psychiatry: No evidence of any agitation and aggression noted Assessment and plan Acute kidney injury renal function appears to be improving well Patient needs follow-up labs for renal function, electrolytes Hypokalemia receive replacement will do a follow-up Obstructive uropathy needs to be seen and followed by urology Hyperuricemia likely resulting from dehydration Hypernatremia: Will need free water follow-up labs Patient may require packed red blood cell transfusion Overall better from renal standpoint Encephalopathy slowly improving patient is more alert today We'll continue to follow and make recommendation from renal standpoint Objective - Vital Signs Vital signs: Vital Signs - 12hr 12/31/18 01/01/19 01/01/19 22:00 00:05 00:06 Temperature 98.9 F Pulse Rate 131 H 133 H Respiratory 16 Rate Respiratory 17 Rate [Right Leg ] Blood Pressure 99/76 Blood Pressure [Right] O2 Sat by Pulse 97 97 98 Oximetry 01/01/19 01/01/19 01/01/19 04:25 04:28 07:05 Temperature 98.2 F 97.5 F L Pulse Rate 117 H 116 H 78 Respiratory 16 16 20 Rate Respiratory Rate [Right Leg ] Blood Pressure 178/94 Blood Pressure 146/90 [Right] O2 Sat by Pulse 96 97 85 Oximetry - Lab 12/30/18 05:16 12/31/18 17:03 Most recent lab results Calcium 8.1 mg/dL (8.4-10.2) L 12/31/18 17:03 Phosphorus 5.10 mg/dL (2.5-4.5) H 12/25/18 11:10 Magnesium 1.70 mg/dL (1.7-2.3) 12/30/18 21:15 Urine Creatinine 57.7 mg/dL (0.1-20.0) H 12/29/18 19:00 Urine Sodium 47 mmol/L 12/29/18 19:00 Medications & Allergies - Medications Allergies/Adverse Reactions: Allergies poison oak extract Allergy (Verified 11/27/18 06:08) Itching Home Medications: Home Medications Medication Instructions Recorded Confirmed Last Taken Type Bupropion HCl [Bupropion HCl Sr] 150 mg PO BID 09/10/17 12/26/18 11/24/18 09:00 History Insulin Detemir [Levemir Flextouch] 4 unit SQ QDAY 09/10/17 12/26/18 11/24/18 21:00 History Lanreotide Acetate [Somatuline 120 mg SQ QMONTH 09/10/17 12/26/18 11/24/18 09:00 History Depot] Sertraline [Zoloft] 200 mg PO QDAY 09/10/17 12/26/18 11/24/18 09:00 History Sildenafil Citrate [Viagra] 100 mg PO PRN PRN 09/10/17 12/26/18 11/24/18 09:00 History traZODone [Desyrel] 100 mg PO PRN PRN 09/10/17 12/26/18 11/24/18 09:00 History Metformin HCl [Glucophage] 1,000 mg PO BID 11/27/18 12/26/18 11/24/18 09:00 History Active Medications: Generic Name Dose Route Start Last Admin Trade Name Freq PRN Reason Stop Dose Admin Acetaminophen 650 mg 12/25/18 13:12 12/31/18 16:18 Tylenol PO 650 mg Q4H PRN Administration Pain MILD(1-3)/Fever >100.5/ISAAC Bupropion HCl 150 mg 12/26/18 10:00 12/31/18 21:26 Wellbutrin Sr PO 150 mg BID SHRUTHI Administration Dextrose 50 ml 12/25/18 13:19 D50w (25gm) Syringe IV PRN PRN Hypoglycemia Haloperidol Lactate 5 mg 12/26/18 15:34 Haldol IV Q1H PRN Unrespon. to mult. doses BZD's Hydralazine HCl 10 mg 12/25/18 13:23 12/31/18 17:52 Apresoline IV 10 mg Q4HR PRN Administration Blood Pressure Sodium Chloride 38.5 meq/ 1,000 mls @ 75 mls/hr 12/31/18 12:00 01/01/19 06:39 Potassium Chloride 20 meq/ IV 75 mls/hr Sterile Water DIRECT SHURTHI Administration Insulin Glargine 10 units 12/25/18 22:00 01/01/19 00:59 Lantus SUB-Q Not Given QHS [facility] Insulin Human Lispro 0 unit 12/25/18 16:30 12/31/18 23:29 Humalog SUB-Q 2 unit ACHS SHRUTHI Administration Protocol Lorazepam 2 mg 12/26/18 15:34 12/31/18 07:05 Ativan IV 2 mg Q1H PRN Administration CIWA-Ar 8-15 Lorazepam 4 mg 12/26/18 15:34 Ativan IV Q1H PRN CIWA-Ar 16-25 Lorazepam 4 mg 12/26/18 15:34 Ativan IV Q15MIN PRN CIWA-Ar >25 Nifedipine 60 mg 12/31/18 22:00 12/31/18 21:26 Procardia Xl PO 60 mg Q12HR SHRUTHI Administration Ondansetron HCl 4 mg 12/25/18 13:12 Zofran IV Q8H PRN Nausea And Vomiting Sertraline HCl 200 mg 12/26/18 10:00 12/31/18 09:27 Zoloft PO 200 mg QDAY SHRUTHI Administration Sodium Chloride 10 ml 12/25/18 22:00 01/01/19 06:42 Sodium Chloride Flush Syringe 10 Ml IV 10 ml BID SHRUTHI Administration Sodium Chloride 10 ml 12/25/18 13:12 12/31/18 09:29 Sodium Chloride Flush Syringe 10 Ml IV 10 ml PRN PRN Administration LINE FLUSH
[2019-01-01 09:50] LABS: Uric Acid 9.1 mg/dL (3.5-7.6)
[2019-01-01] MEDS ORDERED: APRESOLINE IV PRN (10:00)
[2019-01-01] MEDS: WELLBUTRIN SR PO SCH ×2 (11:25→22:26)
[2019-01-01] MEDS: TYLENOL PO PRN (11:25)
[2019-01-01] MEDS: ZOLOFT PO SCH (11:26)
[2019-01-01] MEDS: PROCARDIA XL PO SCH ×2 (11:26→22:26)
--- NOTE | 2019-01-01 11:35 | Progress Note ---
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 Paramedics stated that patient fell out of his [place] and required assistance to get back on. Patient is not able to stand up on his own. He is complaining of right hip pain. He was treated with intranasal fentanyl by paramedics prior to arrival [facility]. Patient was found to be anemic with hemoglobin of 7.4, and 1 unit PRBC transfused and 80. Patient admitted to the Surgical. Right hip fracture Hip XR revealed Superolateral dislocation of the right hip prosthesis including the acetabular component. Status post closed reduction right hip on 12/[address] Eitan Laird Following an admission Acute on chronic Right hip pain-secondary to frequent falls Pain management PT following Hypertension Continue to monitor BP Continue Norvasc 10mg daily IV hydralazine when necessary Hypernatremia Discontinued D5W LR Discontinued one fourth normal saline with potassium 20Meq Ordered one fourth normal saline at 200mL/hr Continue to monitor electrolytes Hypokalmeia Monitor electrolytes Replete as needed Diabetes type 2 Continue POC BG monitoring SSI and scheduled Lantus Continue home dose metformin 1000 mg twice a day Chronic anemia Hgb on admission 7.4 Received 1u PRBC Montior CBC Transfuse when necessary History of depression Continue Wellbutrin 150 mg twice a day, Zoloft 200 mg daily Suspicion of UTI Urine culture NGTD Treated with ceftriaxone prophylactically; discontinued 12/29 SEVERIANO- likely multifactorial secondary to obstruction and volume depletion Creatinine on admission 1.5 Cr continues to improve now at 1.7 ( down from 3.0) Ramirez placed Receiving IV fluids Nephrology following and managing Metabolic acidosis- resolved Received bicarbonate infusion History of 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 History of Tobacco abuse DVT PPX On SCDs holding anti-coagulation due to anemia Disposition Plan: d/c to home with or home hospice once medically cleared History Interval history: Mr. Delgadillo is seen today in the Surgical floor. Patient seems more alert this morning. He continues to have poor oral intake. However, he is still unable to answer questions. He is on 2 L nasal cannula with saturation of 98%. As per case management, family has avoided hospice care support representative phone call. Hospitalist Physical - Physical exam Narrative exam: Present: disheveled, awake, alert - EENT Eyes: Present: PERRL, EOM intact ENT: hearing intact, clear oral mucosa, poor dentition - Neck Neck: Present: supple, normal ROM - Respiratory Respiratory effort: normal Respiratory: bilateral: diminished (bases) - Cardiovascular Heart rate: 108 ( minute) Heart Sounds: Present: S1 & S2. Absent: rub, click - Extremities Extremities: no ischemia, pulses intact, abnormal (scattered bruising to upper extremities; limited ROM to right hip) Peripheral Pulses: within normal limits - Abdominal General gastrointestinal: Present: soft, non-tender, normal bowel sounds Male genitourinary: Present: deferred - Rectal Rectal Exam: deferred - Integumentary Integumentary: Present: warm, dry (scattered bruising to upper extremities) - Musculoskeletal Musculoskeletal: generalized weakness - Psychiatric Psychiatric: other (flat affect, was drawn, follows command) - Neurologic Neurologic: moves all extremities - Constitutional Vitals: Temp Pulse Resp BP Pulse Ox 97.5 F L 78 20 178/94 99 01/01/19 07:05 01/01/19 07:05 01/01/19 07:05 01/01/19 07:05 01/01/19 08:41 General appearance: Present: mild distress, disheveled Results - Labs CBC & Chem 7: 12/30/18 05:16 01/01/19 09:01 Labs: Laboratory Last Values WBC 8.9 K/mm3 (4.5-11.0) 12/30/18 05:16 RBC 2.51 M/mm3 (3.65-5.03) L 12/30/18 05:16 Hgb 7.6 gm/dl (11.8-15.2) L 12/30/18 05:16 Hct 22.4 % (35.5-45.6) L 12/30/18 05:16 MCV 89 fl (84-94) 12/30/18 05:16 MCH 30 pg (28-32) 12/30/18 05:16 MCHC 34 % (32-34) 12/30/18 05:16 RDW 17.7 % (13.2-15.2) H 12/30/18 05:16 Plt Count 308 K/mm3 (140-440) 12/30/18 05:16 Lymph % (Auto) 20.4 % (13.4-35.0) 12/25/18 11:10 [place] % (Auto) 11.7 % (0.0-7.3) H 12/25/18 11:10 Eos % (Auto) 2.5 % (0.0-4.3) 12/25/18 11:10 Baso % (Auto) 0.9 % (0.0-1.8) 12/25/18 11:10 Lymph # 1.6 K/mm3 (1.2-5.4) 12/25/18 11:10 [place] # 0.9 K/mm3 (0.0-0.8) H 12/25/18 11:10 Eos # 0.2 K/mm3 (0.0-0.4) 12/25/18 11:10 Baso # 0.1 K/mm3 (0.0-0.1) 12/25/18 11:10 Seg Neutrophils % 64.5 % (40.0-70.0) 12/25/18 11:10 Seg Neutrophils # 5.0 K/mm3 (1.8-7.7) 12/25/18 11:10 PT 13.1 Sec. (12.2-14.9) 12/25/18 11:10 INR 0.94 (0.87-1.13) 12/25/18 11:10 APTT 26.2 Sec. (24.2-36.6) 12/25/18 11:10 VBG pH 7.298 (7.320-7.420) L 12/25/18 13:04 Sodium 155 mmol/L (137-145) H 01/01/19 09:01 Potassium 3.9 mmol/L (3.6-5.0) 01/01/19 09:01 Chloride 116.2 mmol/L (98-107) H 01/01/19 09:01 Carbon Dioxide 20 mmol/L (22-30) L 01/01/19 09:01 Anion Gap 23 mmol/L 01/01/19 09:01 BUN 23 mg/dL (9-20) H 01/01/19 09:01 Creatinine 1.7 mg/dL (0.8-1.5) H 01/01/19 09:01 Estimated GFR 41 ml/min 01/01/19 09:01 BUN/Creatinine Ratio 14 % 01/01/19 09:01 Glucose 214 mg/dL (75-100) H 01/01/19 09:01 POC Glucose 224 (70-105) H 01/01/19 11:29 Hemoglobin A1c 7.1 % (4-6) H 12/25/18 11:10 Ketones Quantitative Negative (Negative) 12/25/18 11:10 Osmolality 326 Mosm/kg 01/01/19 09:01 Lactic Acid 1.70 mmol/L (0.7-2.0) 12/25/18 13:04 Uric Acid 9.1 mg/dL (3.5-7.6) H 01/01/19 09:01 Calcium 8.0 mg/dL (8.4-10.2) L 01/01/19 09:01 Phosphorus 5.10 mg/dL (2.5-4.5) H 12/25/18 11:10 Magnesium 1.70 mg/dL (1.7-2.3) 12/30/18 21:15 Iron 48 ug/dL (49-181) L 12/25/18 Unknown TIBC 292 mcg/dL (250-450) 12/25/18 Unknown % Saturation 16.44 % 12/25/18 Unknown Transferrin 128 mg/dl (180-329) L 12/25/18 Unknown Total Bilirubin 0.30 mg/dL (0.1-1.2) 12/30/18 05:16 Direct Bilirubin < 0.2 mg/dL (0-0.2) 12/25/18 11:10 Indirect Bilirubin 0.0 mg/dL 12/25/18 11:10 AST 26 units/L (5-40) 12/30/18 05:16 ALT 47 units/L (7-56) 12/30/18 05:16 Alkaline Phosphatase 98 units/L (35-129) 12/30/18 05:16 Ammonia 41.0 umol/L (25-60) 12/25/18 11:10 Total Creatine Kinase 343 units/L (55-170) H 12/29/18 17:18 CK-MB (CK-2) 5.3 ng/mL (0.0-4.0) H 12/25/18 11:10 CK-MB (CK-2) Rel Index 4.6 (0-4) H 12/25/18 11:10 NT-Pro-B Natriuret Pep 2450 pg/mL (0-900) H 12/25/18 11:10 Total Protein 6.0 g/dL (6.3-8.2) L 12/30/18 05:16 Albumin 2.7 g/dL (3.9-5) L 12/30/18 05:16 Albumin/Globulin Ratio 0.8 % 12/30/18 05:16 Vitamin B12 654.9 pg/mL (211-911) 12/25/18 Unknown Folate > 20.0 ng/mL (7.3-26.0) 12/25/18 Unknown TSH 16.800 mlU/mL (0.270-4.200) H 12/25/18 11:10 Free T4 0.79 ng/dL (0.76-1.46) 12/25/18 11:10 Urine Color Colorless (Yellow) 12/25/18 Unknown Urine Turbidity Clear (Clear) 12/25/18 Unknown Urine pH 6.0 (5.0-7.0) 12/25/18 Unknown Ur Specific [place] 1.007 (1.003-1.030) 12/25/18 Unknown Urine Protein 30 mg/dl mg/dL (Negative) 12/25/18 Unknown Urine Glucose (UA) >=500 mg/dL (Negative) 12/25/18 Unknown Urine Ketones Neg mg/dL (Negative) 12/25/18 Unknown Urine Blood Mod (Negative) 12/25/18 Unknown Urine Nitrite Neg (Negative) 12/25/18 Unknown Ur Reducing Substances Not Reportable 12/25/18 Unknown Urine Bilirubin Neg (Negative) 12/25/18 Unknown Urine Ictotest Not Reportable 12/25/18 Unknown Urine Urobilinogen < 2.0 mg/dL (<2.0) 12/25/18 Unknown Ur Leukocyte Esterase Neg (Negative) 12/25/18 Unknown Urine WBC (Auto) < 1.0 /HPF (0.0-6.0) 12/25/18 Unknown Urine RBC (Auto) 3.0 /HPF (0.0-6.0) 12/25/18 Unknown Urine Creatinine 57.7 mg/dL (0.1-20.0) H 12/29/18 19:00 Urine Sodium 47 mmol/L 12/29/18 19:00 Vancomycin Trough 22.5 ug/mL (5.0-20.0) H 12/29/18 13:27 Blood Type A POSITIVE 12/25/18 11:10 Antibody Screen Negative 12/25/18 11:10 Crossmatch See Detail 12/25/18 11:10 Active Medications - Current Medications Current Medications: Generic Name Dose Route Start Last Admin Trade Name Freq PRN Reason Stop Dose Admin Acetaminophen 650 mg 12/25/18 13:12 01/01/19 11:25 Tylenol PO 650 mg Q4H PRN Administration Pain MILD(1-3)/Fever >100.5/ISAAC Bupropion HCl 150 mg 12/26/18 10:00 01/01/19 11:25 Wellbutrin Sr PO 150 mg BID SHRUTHI Administration Dextrose 50 ml 12/25/18 13:19 D50w (25gm) Syringe IV PRN PRN Hypoglycemia Haloperidol Lactate 5 mg 12/26/18 15:34 Haldol IV Q1H PRN Unrespon. to mult. doses BZD's Hydralazine HCl 10 mg 01/01/19 10:00 Apresoline IV Q4HR PRN BP > 160/100 Sodium Chloride 38.5 meq/ 1,000 mls @ 200 mls/hr 01/01/19 11:00 Sterile Water IV DIRECT SHRUTHI Insulin Glargine 12 units 01/01/19 22:00 Lantus SUB-Q QHS [facility] Insulin Human Lispro 0 unit 12/25/18 16:30 12/31/18 23:29 Humalog SUB-Q 2 unit ACHS [facility] Administration Protocol Lorazepam 2 mg 12/26/18 15:34 12/31/18 07:05 Ativan IV 2 mg Q1H PRN Administration CIWA-Ar 8-15 Lorazepam 4 mg 12/26/18 15:34 Ativan IV Q1H PRN CIWA-Ar 16-25 Lorazepam 4 mg 12/26/18 15:34 Ativan IV Q15MIN PRN CIWA-Ar >25 Nifedipine 60 mg 12/31/18 22:00 01/01/19 11:26 Procardia Xl PO 60 mg Q12HR SHRUTHI Administration Ondansetron HCl 4 mg 12/25/18 13:12 Zofran IV Q8H PRN Nausea And Vomiting Sertraline HCl 200 mg 12/26/18 10:00 01/01/19 11:26 Zoloft PO 200 mg QDAY SHRUTHI Administration Sodium Chloride 10 ml 12/25/18 22:00 01/01/19 06:42 Sodium Chloride Flush Syringe 10 Ml IV 10 ml BID SHRUTHI Administration Sodium Chloride 10 ml 12/25/18 13:12 12/31/18 09:29 Sodium Chloride Flush Syringe 10 Ml IV 10 ml PRN PRN Administration LINE FLUSH Nutrition/Malnutrition Assess - Dietary Evaluation Nutrition/Malnutrition Findings: Nutrition Notes Start: 12/26/18 15:51 Freq: Status: Active Protocol: Document 01/01/19 09:47 TW (Rec: 01/01/19 09:53 TW [id number]) Co-Sign 01/01/19 09:47 LP Nutrition Notes Initial or Follow up Reassessment Current Diagnosis Diabetes,Hypertension Other Pertinent Diagnosis S/P closed hip reduction, Hx prostate cancer, Hx of depression,Sacral wound Current Diet Cardiac/Consistent CHO Labs/Tests Reviewed Pertinent Medications Reviewed Height 6 ft Weight 72.575 kg Mallory Body Weight (kg) 80.90 BMI 21.7 Subjective/Other Information Pt asleep and nonresponsive at time of visit. Pt commmunicated a poor appetite. RN stated he ate 10% of his breakfast, and did not want to eat more than that. Pt not drinking any of his ONS. Percent of energy/protein needs met: 10%/10% Burn Absent Trauma Absent #1 Nutrition Diagnosis Inadequate oral intake Diagnosis Progress(for reassessment Continues documentation) Is patient on ventilator? No Is Patient Ambulatory and/or Out of Bed No REE-([facility]-confined to bed) [phone] Calculation Used for Recommendations [facility] Additional Notes Protein Needs: 87-109g (1.2-1. 5g/kg) Fluid Needs: 1 ml/kcal Nutrition Intervention Change Diet Order: Cardiac/Consistent CHO, Mech soft Add Supplement/Snack (indicate name/kcal Ensure Clear 1 daily /protein ) Provides kCal: 240 Provides Protein (gm) 8 Goal #1 Meet at least 75% of calorie and protein needs via PO and ONS intakes Anticipated Discharge Needs: Cardiac/Consistent CHO Follow-Up By: 01/05/19 Additional Comments Follow for PO and ONS intakes and DM diet education <ONUIGBO,NWAMAKA M - Last Filed: 01/03/19 20:20> Assessment and Plan Assessment and plan: I saw and evaluated the patient. I agree with the findings and the plan of care as documented in the Nurse Practitioner's~note, with the following corrections and additions. SEVERIANO- vasomotor nephropathy, improving on IVF severe malnutrition, cont supplements Acute metabolic encephalopathy- improving Hospitalist Physical - Constitutional Vitals: Temp Pulse Resp BP Pulse Ox 97.1 F L 76 16 144/84 96 01/03/19 15:00 01/03/19 15:00 01/03/19 15:00 01/03/19 15:00 01/03/19 15:00 Results - Labs CBC & Chem 7: 01/02/19 04:27 01/03/19 13:55 Labs: Laboratory Last Values WBC 10.2 K/mm3 (4.5-11.0) 01/02/19 04:27 RBC 2.55 M/mm3 (3.65-5.03) L 01/02/19 04:27 Hgb 7.9 gm/dl (11.8-15.2) L 01/02/19 04:27 Hct 23.0 % (35.5-45.6) L 01/02/19 04:27 MCV 90 fl (84-94) 01/02/19 04:27 MCH 31 pg (28-32) 01/02/19 04:27 MCHC 34 % (32-34) 01/02/19 04:27 RDW 17.5 % (13.2-15.2) H 01/02/19 04:27 Plt Count 296 K/mm3 (140-440) 01/02/19 04:27 Lymph % (Auto) 16.7 % (13.4-35.0) 01/02/19 04:27 [place] % (Auto) 6.4 % (0.0-7.3) 01/02/19 04:27 Eos % (Auto) 1.4 % (0.0-4.3) 01/02/19 04:27 Baso % (Auto) 0.5 % (0.0-1.8) 01/02/19 04:27 Lymph # 1.7 K/mm3 (1.2-5.4) 01/02/19 04:27 [place] # 0.7 K/mm3 (0.0-0.8) 01/02/19 04:27 Eos # 0.1 K/mm3 (0.0-0.4) 01/02/19 04:27 Baso # 0.0 K/mm3 (0.0-0.1) 01/02/19 04:27 Seg Neutrophils % 75.0 % (40.0-70.0) H 01/02/19 04:27 Seg Neutrophils # 7.6 K/mm3 (1.8-7.7) 01/02/19 04:27 PT 13.1 Sec. (12.2-14.9) 12/25/18 11:10 INR 0.94 (0.87-1.13) 12/25/18 11:10 APTT 26.2 Sec. (24.2-36.6) 12/25/18 11:10 VBG pH 7.298 (7.320-7.420) L 12/25/18 13:04 Sodium 148 mmol/L (137-145) H 01/03/19 13:55 Potassium 2.7 mmol/L (3.6-5.0) L* D 01/03/19 13:55 Chloride 110.2 mmol/L (98-107) H 01/03/19 13:55 Carbon Dioxide 22 mmol/L (22-30) 01/03/19 13:55 Anion Gap 19 mmol/L 01/03/19 13:55 BUN 20 mg/dL (9-20) 01/03/19 13:55 Creatinine 1.5 mg/dL (0.8-1.5) 01/03/19 13:55 Estimated GFR 48 ml/min 01/03/19 13:55 BUN/Creatinine Ratio 13 % 01/03/19 13:55 Glucose 238 mg/dL (75-100) H 01/03/19 13:55 POC Glucose 248 (70-105) H 01/03/19 16:35 Hemoglobin A1c 7.1 % (4-6) H 12/25/18 11:10 Ketones Quantitative Negative (Negative) 12/25/18 11:10 Osmolality 326 Mosm/kg 01/01/19 09:01 Lactic Acid 1.70 mmol/L (0.7-2.0) 12/25/18 13:04 Uric Acid 9.1 mg/dL (3.5-7.6) H 01/01/19 09:01 Calcium 8.1 mg/dL (8.4-10.2) L 01/03/19 13:55 Phosphorus 5.10 mg/dL (2.5-4.5) H 12/25/18 11:10 Magnesium 1.70 mg/dL (1.7-2.3) 01/02/19 Unknown Iron 48 ug/dL (49-181) L 12/25/18 Unknown TIBC 292 mcg/dL (250-450) 12/25/18 Unknown % Saturation 16.44 % 12/25/18 Unknown Transferrin 128 mg/dl (180-329) L 12/25/18 Unknown Total Bilirubin 0.30 mg/dL (0.1-1.2) 12/30/18 05:16 Direct Bilirubin < 0.2 mg/dL (0-0.2) 12/25/18 11:10 Indirect Bilirubin 0.0 mg/dL 12/25/18 11:10 AST 26 units/L (5-40) 12/30/18 05:16 ALT 47 units/L (7-56) 12/30/18 05:16 Alkaline Phosphatase 98 units/L (35-129) 12/30/18 05:16 Ammonia 41.0 umol/L (25-60) 12/25/18 11:10 Total Creatine Kinase 343 units/L (55-170) H 12/29/18 17:18 CK-MB (CK-2) 5.3 ng/mL (0.0-4.0) H 12/25/18 11:10 CK-MB (CK-2) Rel Index 4.6 (0-4) H 12/25/18 11:10 NT-Pro-B Natriuret Pep 2450 pg/mL (0-900) H 12/25/18 11:10 Total Protein 6.0 g/dL (6.3-8.2) L 12/30/18 05:16 Albumin 2.7 g/dL (3.9-5) L 12/30/18 05:16 Albumin/Globulin Ratio 0.8 % 12/30/18 05:16 Vitamin B12 654.9 pg/mL (211-911) 12/25/18 Unknown Folate > 20.0 ng/mL (7.3-26.0) 12/25/18 Unknown TSH 16.800 mlU/mL (0.270-4.200) H 12/25/18 11:10 Free T4 0.79 ng/dL (0.76-1.46) 12/25/18 11:10 Urine Color Colorless (Yellow) 12/25/18 Unknown Urine Turbidity Clear (Clear) 12/25/18 Unknown Urine pH 6.0 (5.0-7.0) 12/25/18 Unknown Ur Specific [place] 1.007 (1.003-1.030) 12/25/18 Unknown Urine Protein 30 mg/dl mg/dL (Negative) 12/25/18 Unknown Urine Glucose (UA) >=500 mg/dL (Negative) 12/25/18 Unknown Urine Ketones Neg mg/dL (Negative) 12/25/18 Unknown Urine Blood Mod (Negative) 12/25/18 Unknown Urine Nitrite Neg (Negative) 12/25/18 Unknown Ur Reducing Substances Not Reportable 12/25/18 Unknown Urine Bilirubin Neg (Negative) 12/25/18 Unknown Urine Ictotest Not Reportable 12/25/18 Unknown Urine Urobilinogen < 2.0 mg/dL (<2.0) 12/25/18 Unknown Ur Leukocyte Esterase Neg (Negative) 12/25/18 Unknown Urine WBC (Auto) < 1.0 /HPF (0.0-6.0) 12/25/18 Unknown Urine RBC (Auto) 3.0 /HPF (0.0-6.0) 12/25/18 Unknown Urine Creatinine 57.7 mg/dL (0.1-20.0) H 12/29/18 19:00 Urine Sodium 47 mmol/L 12/29/18 19:00 Vancomycin Trough 22.5 ug/mL (5.0-20.0) H 12/29/18 13:27 Blood Type A POSITIVE 12/25/18 11:10 Antibody Screen Negative 12/25/18 11:10 Crossmatch See Detail 12/25/18 11:10 Active Medications - Current Medications Current Medications: Generic Name Dose Route Start Last Admin Trade Name Freq PRN Reason Stop Dose Admin Acetaminophen 650 mg 12/25/18 13:12 01/01/19 11:25 Tylenol PO 650 mg Q4H PRN Administration Pain MILD(1-3)/Fever >100.5/ISAAC Bupropion HCl 150 mg 12/26/18 10:00 01/03/19 12:11 Wellbutrin Sr PO Not Given BID SHRUTHI Dextrose 50 ml 12/25/18 13:19 D50w (25gm) Syringe IV PRN PRN Hypoglycemia Haloperidol Lactate 5 mg 12/26/18 15:34 Haldol IV Q1H PRN Unrespon. to mult. doses BZD's Hydralazine HCl 10 mg 01/01/19 10:00 01/01/19 11:46 Apresoline IV 10 mg Q4HR PRN Administration BP > 160/100 Dextrose 1,000 mls @ 75 mls/hr 01/03/19 14:00 01/03/19 17:19 D5w IV 75 mls/hr DIRECT SHRUTHI Administration Potassium Chloride 40 meq/ 520 mls @ 125 mls/hr 01/03/19 17:00 01/03/19 17:19 Sodium Chloride IV 01/05/19 21:10 125 mls/hr DIRECT SHRUTHI Administration Insulin Glargine 14 units 01/03/19 22:00 Lantus SUB-Q QHS SHRUTHI Insulin Human Lispro 0 unit 12/25/18 16:30 01/03/19 17:20 Humalog SUB-Q 6 unit ACHS SHRUTHI Administration Protocol Lorazepam 2 mg 12/26/18 15:34 01/01/19 21:11 Ativan IV 2 mg Q1H PRN Administration CIWA-Ar 8-15 Lorazepam 4 mg 12/26/18 15:34 Ativan IV Q1H PRN CIWA-Ar 16-25 Lorazepam 4 mg 12/26/18 15:34 Ativan IV Q15MIN PRN CIWA-Ar >25 Metformin HCl 1,000 mg 01/02/19 17:00 01/03/19 17:19 Glucophage PO 1,000 mg BIDDIAB SHRUTHI Administration Nifedipine 60 mg 12/31/18 22:00 01/03/19 12:02 Procardia Xl PO Not Given Q12HR SHRUTHI Ondansetron HCl 4 mg 12/25/18 13:12 Zofran IV Q8H PRN Nausea And Vomiting Sertraline HCl 200 mg 12/26/18 10:00 01/03/19 12:11 Zoloft PO Not Given QDAY SHRUTHI Sodium Chloride 10 ml 12/25/18 22:00 01/03/19 12:02 Sodium Chloride Flush Syringe 10 Ml IV Not Given BID SHRUTHI Sodium Chloride 10 ml 12/25/18 13:12 12/31/18 09:29 Sodium Chloride Flush Syringe 10 Ml IV 10 ml PRN PRN Administration LINE FLUSH Nutrition/Malnutrition Assess - Dietary Evaluation Nutrition/Malnutrition Findings: Nutrition Notes Start: 12/26/18 15:51 Freq: Status: Active Protocol: Document 01/01/19 09:47 TW (Rec: 01/01/19 09:53 TW [id number]) Co-Sign 01/01/19 09:47 LP Nutrition Notes Initial or Follow up Reassessment Current Diagnosis Diabetes,Hypertension Other Pertinent Diagnosis S/P closed hip reduction, Hx prostate cancer, Hx of depression,Sacral wound Current Diet Cardiac/Consistent CHO Labs/Tests Reviewed Pertinent Medications Reviewed Height 6 ft Weight 72.575 kg Mallory Body Weight (kg) 80.90 BMI 21.7 Subjective/Other Information Pt asleep and nonresponsive at time of visit. Pt commmunicated a poor appetite. RN stated he ate 10% of his breakfast, and did not want to eat more than that. Pt not drinking any of his ONS. Percent of energy/protein needs met: 10%/10% Burn Absent Trauma Absent #1 Nutrition Diagnosis Inadequate oral intake Diagnosis Progress(for reassessment Continues documentation) Is patient on ventilator? No Is Patient Ambulatory and/or Out of Bed No REE-([facility]-confined to bed) 2017.365 Calculation Used for Recommendations [facility] Additional Notes Protein Needs: 87-109g (1.2-1. 5g/kg) Fluid Needs: 1 ml/kcal Nutrition Intervention Change Diet Order: Cardiac/Consistent CHO, Mech soft Add Supplement/Snack (indicate name/kcal Ensure Clear 1 daily /protein ) Provides kCal: 240 Provides Protein (gm) 8 Goal #1 Meet at least 75% of calorie and protein needs via PO and ONS intakes Anticipated Discharge Needs: Cardiac/Consistent CHO Follow-Up By: 01/05/19 Additional Comments Follow for PO and ONS intakes and DM diet education
[2019-01-01] MEDS: ATIVAN IV PRN ×2 (11:46→21:11)
[2019-01-02] MEDS: HumaLOG SUB-Q SCH ×5 (01:25→22:32)
[2019-01-02] MEDS: SODIUM CHLORIDE FLUSH SYRINGE 10 ML IV SCH ×3 (01:32→22:00)
[2019-01-02 04:46] LABS: Basophils % (Auto) 0.5 % (0.0-1.8); Eosinophils # (Auto) 0.1 K/mm3 (0.0-0.4); Eosinophils % (Auto) 1.4 % (0.0-4.3); Hemoglobin 7.9 gm/dl (11.8-15.2); Lymphocytes # (Auto) 1.7 K/mm3 (1.2-5.4); Lymphocytes % (Auto) 16.7 % (13.4-35.0); Mean Corpuscular HGB Conc 34 % (32-34); Mean Corpuscular Volume 90 fl (84-94); Monocytes # (Auto) 0.7 K/mm3 (0.0-0.8); Monocytes % (Auto) 6.4 % (0.0-7.3); Platelet Count 296 K/mm3 (140-440); Red Blood Count 2.55 M/mm3 (3.65-5.03); Red Cell Distribution Width 17.5 % (13.2-15.2)
[2019-01-02 05:06] LABS: Calcium 7.7 mg/dL (8.4-10.2)
[2019-01-02] MEDS: NACL IV SCH (06:11)
[2019-01-02] MEDS: STERILE WATER IV SCH (06:11)
--- NOTE | 2019-01-02 09:21 | Progress Note ---
Subjective Interval history: Patient was seen today for follow-up on multiple renal related he is more alert Ultrasonogram showed evidence of urinary retention Vitals labs intake output medications were reviewed Social history: Reviewed Allergies: Reviewed Family history: Reviewed Physical examination HEENT: Oral mucosa moist no pallor or icterus Neck: Supple no JVD Chest: Clear to auscultation anteriorly CVS: Regular rate and rhythm S1 and S2 heard Abdomen: Soft nontender no suprapubic masses no organomegaly appreciable Extremity: Dry skin no edema Hydration status appears to be better Musculoskeletal: No joint effusion noted in knees and ankle Neurological: he is unarousable today Dermatology: No petechial rashes Psychiatry: No evidence of any agitation and aggression noted Assessment and plan Acute kidney injury renal function appears to be improving well Patient needs follow-up labs for renal function, electrolytes Hypokalemia receive replacement will do a follow-up Obstructive uropathy needs to be seen and followed by urology Hyperuricemia likely resulting from dehydration Hypernatremia: Will need free water follow-up labs Patient may require packed red blood cell transfusion Overall better from renal standpoint Encephalopathy slowly improving patient is more alert today We'll continue to follow and make recommendation from renal standpoint Objective - Vital Signs Vital signs: Vital Signs - 12hr 01/01/19 01/01/19 01/02/19 22:00 22:30 00:36 Temperature 98.4 F 98.4 F Pulse Rate 74 106 H Respiratory 17 16 20 Rate Respiratory 17 Rate [Right Leg ] Blood Pressure 99/65 Blood Pressure 99/65 163/66 [Right] O2 Sat by Pulse 98 98 Oximetry 01/02/19 01/02/19 01/02/19 06:21 07:14 08:00 Temperature 99.1 F 98.9 F 98.9 F Pulse Rate 100 H Respiratory 20 20 20 Rate Respiratory Rate [Right Leg ] Blood Pressure 144/82 143/80 Blood Pressure 143/80 [Right] O2 Sat by Pulse 100 Oximetry - Lab 01/02/19 04:27 01/02/19 04:27 Most recent lab results Calcium 7.7 mg/dL (8.4-10.2) L 01/02/19 04:27 Phosphorus 5.10 mg/dL (2.5-4.5) H 12/25/18 11:10 Magnesium 1.70 mg/dL (1.7-2.3) 12/30/18 21:15 Urine Creatinine 57.7 mg/dL (0.1-20.0) H 12/29/18 19:00 Urine Sodium 47 mmol/L 12/29/18 19:00 Medications & Allergies - Medications Allergies/Adverse Reactions: Allergies poison oak extract Allergy (Verified 11/27/18 06:08) Itching Home Medications: Home Medications Medication Instructions Recorded Confirmed Last Taken Type Bupropion HCl [Bupropion HCl Sr] 150 mg PO BID 09/10/17 12/26/18 11/24/18 09:00 History Insulin Detemir [Levemir Flextouch] 4 unit SQ QDAY 09/10/17 12/26/18 11/24/18 21:00 History Lanreotide Acetate [Somatuline 120 mg SQ QMONTH 09/10/17 12/26/18 11/24/18 09:00 History Depot] Sertraline [Zoloft] 200 mg PO QDAY 09/10/17 12/26/18 11/24/18 09:00 History Sildenafil Citrate [Viagra] 100 mg PO PRN PRN 09/10/17 12/26/18 11/24/18 09:00 History traZODone [Desyrel] 100 mg PO PRN PRN 09/10/17 12/26/18 11/24/18 09:00 History Metformin HCl [Glucophage] 1,000 mg PO BID 11/27/18 12/26/18 11/24/18 09:00 History Active Medications: Generic Name Dose Route Start Last Admin Trade Name Freq PRN Reason Stop Dose Admin Acetaminophen 650 mg 12/25/18 13:12 01/01/19 11:25 Tylenol PO 650 mg Q4H PRN Administration Pain MILD(1-3)/Fever >100.5/ISAAC Bupropion HCl 150 mg 12/26/18 10:00 01/01/19 22:26 Wellbutrin Sr PO 150 mg BID SHRUTHI Administration Dextrose 50 ml 12/25/18 13:19 D50w (25gm) Syringe IV PRN PRN Hypoglycemia Haloperidol Lactate 5 mg 12/26/18 15:34 Haldol IV Q1H PRN Unrespon. to mult. doses BZD's Hydralazine HCl 10 mg 01/01/19 10:00 01/01/19 11:46 Apresoline IV 10 mg Q4HR PRN Administration BP > 160/100 Sodium Chloride 38.5 meq/ 1,000 mls @ 200 mls/hr 01/01/19 11:00 01/02/19 06:11 Sterile Water IV 200 mls/hr DIRECT SHRUTHI Administration Insulin Glargine 12 units 01/01/19 22:00 01/01/19 22:26 Lantus SUB-Q 12 units QHS SHRUTHI Administration Insulin Human Lispro 0 unit 12/25/18 16:30 01/02/19 01:25 Humalog SUB-Q Not Given ACHS SHRUTHI Protocol Lorazepam 2 mg 12/26/18 15:34 01/01/19 21:11 Ativan IV 2 mg Q1H PRN Administration CIWA-Ar 8-15 Lorazepam 4 mg 12/26/18 15:34 Ativan IV Q1H PRN CIWA-Ar 16-25 Lorazepam 4 mg 12/26/18 15:34 Ativan IV Q15MIN PRN CIWA-Ar >25 Nifedipine 60 mg 12/31/18 22:00 01/01/19 22:26 Procardia Xl PO 60 mg Q12HR SHRUTHI Administration Ondansetron HCl 4 mg 12/25/18 13:12 Zofran IV Q8H PRN Nausea And Vomiting Sertraline HCl 200 mg 12/26/18 10:00 01/01/19 11:26 Zoloft PO 200 mg QDAY SHRUTHI Administration Sodium Chloride 10 ml 12/25/18 22:00 01/02/19 01:32 Sodium Chloride Flush Syringe 10 Ml IV 10 ml BID SHRUTHI Administration Sodium Chloride 10 ml 12/25/18 13:12 12/31/18 09:29 Sodium Chloride Flush Syringe 10 Ml IV 10 ml PRN PRN Administration LINE FLUSH
--- NOTE | 2019-01-02 09:51 | Progress Note ---
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 Paramedics stated that patient fell out of his Trike and required assistance to get back on. Patient is not able to stand up on his own. He is complaining of right hip pain. He was treated with intranasal fentanyl by paramedics prior to arrival [facility]. Patient was found to be anemic with hemoglobin of 7.4, and 1 unit PRBC transfused and 80. Patient admitted to the Surgical. Right hip fracture Hip XR revealed Superolateral dislocation of the right hip prosthesis including the acetabular component. Status post closed reduction right hip on 12/[address] Eitan Laird Following an admission Acute on chronic Right hip pain-secondary to frequent falls Pain management PT following Hypertension Continue to monitor BP Continue Norvasc 10mg daily IV hydralazine when necessary Hypernatremia Resolving Discontinued D5W LR Discontinued one fourth normal saline with potassium 20Meq Continue one fourth normal saline at 200mL/hr Continue to monitor electrolytes Hypokalmeia Monitor electrolytes Replete as needed Diabetes type 2 Continue POC BG monitoring SSI and scheduled Lantus Continue home dose metformin 1000 mg twice a day Chronic anemia Hgb on admission 7.4 Received 1u PRBC Montior CBC Transfuse when necessary History of depression Continue Wellbutrin 150 mg twice a day, Zoloft 200 mg daily Suspicion of UTI Urine culture NGTD Treated with ceftriaxone prophylactically; discontinued 12/29 SEVERIANO- likely multifactorial secondary to obstruction and volume depletion Creatinine on admission 1.5 Cr continues to improve now at 1.7 ( down from 3.0) Ramirez placed Receiving IV fluids Nephrology following and managing Metabolic acidosis- resolved Received bicarbonate infusion History of 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 History of Tobacco abuse DVT PPX On SCDs holding anti-coagulation due to anemia Disposition Plan: pening decision for home hospice vs SNF History Interval history: Mr. Delgadillo is seen today in the Surgical floor. He is alert, and able to answer a few yes/no questions. Expressed need of thirst. His oral intake has slightly improved. He is on 2 L nasal cannula with saturation of 98%. As per case management, family will make a decision whether pt will be going to SNF or home hospice once medically cleared for discharge. Hospitalist Physical - Physical exam Narrative exam: Present: disheveled, awake, alert - EENT Eyes: Present: PERRL, EOM intact ENT: hearing intact, clear oral mucosa, poor dentition - Neck Neck: Present: supple, normal ROM - Respiratory Respiratory effort: normal Respiratory: bilateral: diminished (bases), on 2L NC - Cardiovascular Heart rate: 108 ( minute) Heart Sounds: Present: S1 & S2. Absent: rub, click - Extremities Extremities: no ischemia, pulses intact, abnormal (scattered bruising to upper extremities; limited ROM to right hip) Peripheral Pulses: within normal limits - Abdominal General gastrointestinal: Present: soft, non-tender, normal bowel sounds Male genitourinary: Present: deferred - Rectal Rectal Exam: deferred - Integumentary Integumentary: Present: warm, dry (scattered bruising to upper extremities) - Musculoskeletal Musculoskeletal: generalized weakness - Psychiatric Psychiatric: other (flat affect, was drawn, follows command) - Neurologic Neurologic: moves all extremities - Constitutional Vitals: Temp Pulse Resp BP Pulse Ox 98.9 F 100 H 20 143/80 100 01/02/19 08:00 01/02/19 08:00 01/02/19 08:00 01/02/19 08:00 01/02/19 08:00 General appearance: Present: mild distress, disheveled Results - Labs CBC & Chem 7: 01/02/19 04:27 01/02/19 04:27 Labs: Laboratory Last Values WBC 10.2 K/mm3 (4.5-11.0) 01/02/19 04:27 RBC 2.55 M/mm3 (3.65-5.03) L 01/02/19 04:27 Hgb 7.9 gm/dl (11.8-15.2) L 01/02/19 04:27 Hct 23.0 % (35.5-45.6) L 01/02/19 04:27 MCV 90 fl (84-94) 01/02/19 04:27 MCH 31 pg (28-32) 01/02/19 04:27 MCHC 34 % (32-34) 01/02/19 04:27 RDW 17.5 % (13.2-15.2) H 01/02/19 04:27 Plt Count 296 K/mm3 (140-440) 01/02/19 04:27 Lymph % (Auto) 16.7 % (13.4-35.0) 01/02/19 04:27 Saunders % (Auto) 6.4 % (0.0-7.3) 01/02/19 04:27 Eos % (Auto) 1.4 % (0.0-4.3) 01/02/19 04:27 Baso % (Auto) 0.5 % (0.0-1.8) 01/02/19 04:27 Lymph # 1.7 K/mm3 (1.2-5.4) 01/02/19 04:27 Saunders # 0.7 K/mm3 (0.0-0.8) 01/02/19 04:27 Eos # 0.1 K/mm3 (0.0-0.4) 01/02/19 04:27 Baso # 0.0 K/mm3 (0.0-0.1) 01/02/19 04:27 Seg Neutrophils % 75.0 % (40.0-70.0) H 01/02/19 04:27 Seg Neutrophils # 7.6 K/mm3 (1.8-7.7) 01/02/19 04:27 PT 13.1 Sec. (12.2-14.9) 12/25/18 11:10 INR 0.94 (0.87-1.13) 12/25/18 11:10 APTT 26.2 Sec. (24.2-36.6) 12/25/18 11:10 VBG pH 7.298 (7.320-7.420) L 12/25/18 13:04 Sodium 148 mmol/L (137-145) H 01/02/19 04:27 Potassium 3.4 mmol/L (3.6-5.0) L 01/02/19 04:27 Chloride 112.6 mmol/L (98-107) H 01/02/19 04:27 Carbon Dioxide 23 mmol/L (22-30) 01/02/19 04:27 Anion Gap 16 mmol/L 01/02/19 04:27 BUN 26 mg/dL (9-20) H 01/02/19 04:27 Creatinine 1.7 mg/dL (0.8-1.5) H 01/02/19 04:27 Estimated GFR 41 ml/min 01/02/19 04:27 BUN/Creatinine Ratio 15 % 01/02/19 04:27 Glucose 234 mg/dL (75-100) H 01/02/19 04:27 POC Glucose 187 (70-105) H 01/02/19 07:18 Hemoglobin A1c 7.1 % (4-6) H 12/25/18 11:10 Ketones Quantitative Negative (Negative) 12/25/18 11:10 Osmolality 326 Mosm/kg 01/01/19 09:01 Lactic Acid 1.70 mmol/L (0.7-2.0) 12/25/18 13:04 Uric Acid 9.1 mg/dL (3.5-7.6) H 01/01/19 09:01 Calcium 7.7 mg/dL (8.4-10.2) L 01/02/19 04:27 Phosphorus 5.10 mg/dL (2.5-4.5) H 12/25/18 11:10 Magnesium 1.70 mg/dL (1.7-2.3) 12/30/18 21:15 Iron 48 ug/dL (49-181) L 12/25/18 Unknown TIBC 292 mcg/dL (250-450) 12/25/18 Unknown % Saturation 16.44 % 12/25/18 Unknown Transferrin 128 mg/dl (180-329) L 12/25/18 Unknown Total Bilirubin 0.30 mg/dL (0.1-1.2) 12/30/18 05:16 Direct Bilirubin < 0.2 mg/dL (0-0.2) 12/25/18 11:10 Indirect Bilirubin 0.0 mg/dL 12/25/18 11:10 AST 26 units/L (5-40) 12/30/18 05:16 ALT 47 units/L (7-56) 12/30/18 05:16 Alkaline Phosphatase 98 units/L (35-129) 12/30/18 05:16 Ammonia 41.0 umol/L (25-60) 12/25/18 11:10 Total Creatine Kinase 343 units/L (55-170) H 12/29/18 17:18 CK-MB (CK-2) 5.3 ng/mL (0.0-4.0) H 12/25/18 11:10 CK-MB (CK-2) Rel Index 4.6 (0-4) H 12/25/18 11:10 NT-Pro-B Natriuret Pep 2450 pg/mL (0-900) H 12/25/18 11:10 Total Protein 6.0 g/dL (6.3-8.2) L 12/30/18 05:16 Albumin 2.7 g/dL (3.9-5) L 12/30/18 05:16 Albumin/Globulin Ratio 0.8 % 12/30/18 05:16 Vitamin B12 654.9 pg/mL (211-911) 12/25/18 Unknown Folate > 20.0 ng/mL (7.3-26.0) 12/25/18 Unknown TSH 16.800 mlU/mL (0.270-4.200) H 12/25/18 11:10 Free T4 0.79 ng/dL (0.76-1.46) 12/25/18 11:10 Urine Color Colorless (Yellow) 12/25/18 Unknown Urine Turbidity Clear (Clear) 12/25/18 Unknown Urine pH 6.0 (5.0-7.0) 12/25/18 Unknown Ur Specific [place] 1.007 (1.003-1.030) 12/25/18 Unknown Urine Protein 30 mg/dl mg/dL (Negative) 12/25/18 Unknown Urine Glucose (UA) >=500 mg/dL (Negative) 12/25/18 Unknown Urine Ketones Neg mg/dL (Negative) 12/25/18 Unknown Urine Blood Mod (Negative) 12/25/18 Unknown Urine Nitrite Neg (Negative) 12/25/18 Unknown Ur Reducing Substances Not Reportable 12/25/18 Unknown Urine Bilirubin Neg (Negative) 12/25/18 Unknown Urine Ictotest Not Reportable 12/25/18 Unknown Urine Urobilinogen < 2.0 mg/dL (<2.0) 12/25/18 Unknown Ur Leukocyte Esterase Neg (Negative) 12/25/18 Unknown Urine WBC (Auto) < 1.0 /HPF (0.0-6.0) 12/25/18 Unknown Urine RBC (Auto) 3.0 /HPF (0.0-6.0) 12/25/18 Unknown Urine Creatinine 57.7 mg/dL (0.1-20.0) H 12/29/18 19:00 Urine Sodium 47 mmol/L 12/29/18 19:00 Vancomycin Trough 22.5 ug/mL (5.0-20.0) H 12/29/18 13:27 Blood Type A POSITIVE 12/25/18 11:10 Antibody Screen Negative 12/25/18 11:10 Crossmatch See Detail 12/25/18 11:10 Active Medications - Current Medications Current Medications: Generic Name Dose Route Start Last Admin Trade Name Freq PRN Reason Stop Dose Admin Acetaminophen 650 mg 12/25/18 13:12 01/01/19 11:25 Tylenol PO 650 mg Q4H PRN Administration Pain MILD(1-3)/Fever >100.5/ISAAC Bupropion HCl 150 mg 12/26/18 10:00 01/01/19 22:26 Wellbutrin Sr PO 150 mg BID SHRUTHI Administration Dextrose 50 ml 12/25/18 13:19 D50w (25gm) Syringe IV PRN PRN Hypoglycemia Haloperidol Lactate 5 mg 12/26/18 15:34 Haldol IV Q1H PRN Unrespon. to mult. doses BZD's Hydralazine HCl 10 mg 01/01/19 10:00 01/01/19 11:46 Apresoline IV 10 mg Q4HR PRN Administration BP > 160/100 Insulin Glargine 12 units 01/01/19 22:00 01/01/19 22:26 Lantus SUB-Q 12 units QHS SHRUTHI Administration Insulin Human Lispro 0 unit 12/25/18 16:30 01/02/19 01:25 Humalog SUB-Q Not Given ACHS [facility] Protocol Lorazepam 2 mg 12/26/18 15:34 01/01/19 21:11 Ativan IV 2 mg Q1H PRN Administration CIWA-Ar 8-15 Lorazepam 4 mg 12/26/18 15:34 Ativan IV Q1H PRN CIWA-Ar 16-25 Lorazepam 4 mg 12/26/18 15:34 Ativan IV Q15MIN PRN CIWA-Ar >25 Nifedipine 60 mg 12/31/18 22:00 01/01/19 22:26 Procardia Xl PO 60 mg Q12HR SHRUTHI Administration Ondansetron HCl 4 mg 12/25/18 13:12 Zofran IV Q8H PRN Nausea And Vomiting Potassium Chloride 40 meq 01/02/19 09:22 K-Dur PO 01/02/19 09:23 ONCE ONE Sertraline HCl 200 mg 12/26/18 10:00 01/01/19 11:26 Zoloft PO 200 mg QDAY SHRUTHI Administration Sodium Chloride 10 ml 12/25/18 22:00 01/02/19 01:32 Sodium Chloride Flush Syringe 10 Ml IV 10 ml BID SHRUTHI Administration Sodium Chloride 10 ml 12/25/18 13:12 12/31/18 09:29 Sodium Chloride Flush Syringe 10 Ml IV 10 ml PRN PRN Administration LINE FLUSH Nutrition/Malnutrition Assess - Dietary Evaluation Nutrition/Malnutrition Findings: Nutrition Notes Start: 12/26/18 15:51 Freq: Status: Active Protocol: Document 01/01/19 09:47 TW (Rec: 01/01/19 09:53 TW [id number]) Co-Sign 01/01/19 09:47 LP Nutrition Notes Initial or Follow up Reassessment Current Diagnosis Diabetes,Hypertension Other Pertinent Diagnosis S/P closed hip reduction, Hx prostate cancer, Hx of depression,Sacral wound Current Diet Cardiac/Consistent CHO Labs/Tests Reviewed Pertinent Medications Reviewed Height 6 ft Weight 72.575 kg [place] Body Weight (kg) 80.90 BMI 21.7 Subjective/Other Information Pt asleep and nonresponsive at time of visit. Pt commmunicated a poor appetite. RN stated he ate 10% of his breakfast, and did not want to eat more than that. Pt not drinking any of his ONS. Percent of energy/protein needs met: 10%/10% Burn Absent Trauma Absent #1 Nutrition Diagnosis Inadequate oral intake Diagnosis Progress(for reassessment Continues documentation) Is patient on ventilator? No Is Patient Ambulatory and/or Out of Bed No REE-([facility]-confined to bed) 7415.151 Calculation Used for Recommendations [facility] Additional Notes Protein Needs: 87-109g (1.2-1. 5g/kg) Fluid Needs: 1 ml/kcal Nutrition Intervention Change Diet Order: Cardiac/Consistent CHO, Mech soft Add Supplement/Snack (indicate name/kcal Ensure Clear 1 daily /protein ) Provides kCal: 240 Provides Protein (gm) 8 Goal #1 Meet at least 75% of calorie and protein needs via PO and ONS intakes Anticipated Discharge Needs: Cardiac/Consistent CHO Follow-Up By: 01/05/19 Additional Comments Follow for PO and ONS intakes and DM diet education <KATHARINA PERDUE M - Last Filed: 01/04/19 22:10> Assessment and Plan Assessment and plan: I saw and evaluated the patient. I agree with the findings and the plan of care as documented in the Nurse Practitioner's~note, with the following corrections and additions. -mentation improving, Na improving on hypotonic fluid awaiting SNF with hospice placement, sister is not able to take him home Hospitalist Physical - Constitutional Vitals: Temp Pulse Resp BP Pulse Ox 97.5 F L 87 18 129/73 100 01/04/19 19:25 01/04/19 19:25 01/04/19 19:25 01/04/19 19:25 01/04/19 19:25 Results - Labs CBC & Chem 7: 01/02/19 04:27 01/04/19 06:21 Labs: Laboratory Last Values WBC 10.2 K/mm3 (4.5-11.0) 01/02/19 04:27 RBC 2.55 M/mm3 (3.65-5.03) L 01/02/19 04:27 Hgb 7.9 gm/dl (11.8-15.2) L 01/02/19 04:27 Hct 23.0 % (35.5-45.6) L 01/02/19 04:27 MCV 90 fl (84-94) 01/02/19 04:27 MCH 31 pg (28-32) 01/02/19 04:27 MCHC 34 % (32-34) 01/02/19 04:27 RDW 17.5 % (13.2-15.2) H 01/02/19 04:27 Plt Count 296 K/mm3 (140-440) 01/02/19 04:27 Lymph % (Auto) 16.7 % (13.4-35.0) 01/02/19 04:27 Saunders % (Auto) 6.4 % (0.0-7.3) 01/02/19 04:27 Eos % (Auto) 1.4 % (0.0-4.3) 01/02/19 04:27 Baso % (Auto) 0.5 % (0.0-1.8) 01/02/19 04:27 Lymph # 1.7 K/mm3 (1.2-5.4) 01/02/19 04:27 Saunders # 0.7 K/mm3 (0.0-0.8) 01/02/19 04:27 Eos # 0.1 K/mm3 (0.0-0.4) 01/02/19 04:27 Baso # 0.0 K/mm3 (0.0-0.1) 01/02/19 04:27 Seg Neutrophils % 75.0 % (40.0-70.0) H 01/02/19 04:27 Seg Neutrophils # 7.6 K/mm3 (1.8-7.7) 01/02/19 04:27 PT 13.1 Sec. (12.2-14.9) 12/25/18 11:10 INR 0.94 (0.87-1.13) 12/25/18 11:10 APTT 26.2 Sec. (24.2-36.6) 12/25/18 11:10 VBG pH 7.298 (7.320-7.420) L 12/25/18 13:04 Sodium 148 mmol/L (137-145) H 01/04/19 06:21 Potassium 3.8 mmol/L (3.6-5.0) D 01/04/19 06:21 Chloride 114.2 mmol/L (98-107) H 01/04/19 06:21 Carbon Dioxide 22 mmol/L (22-30) 01/04/19 06:21 Anion Gap 16 mmol/L 01/04/19 06:21 BUN 17 mg/dL (9-20) 01/04/19 06:21 Creatinine 1.4 mg/dL (0.8-1.5) 01/04/19 06:21 Estimated GFR 52 ml/min 01/04/19 06:21 BUN/Creatinine Ratio 12 % 01/04/19 06:21 Glucose 74 mg/dL (75-100) L 01/04/19 06:21 POC Glucose 260 (70-105) H 01/04/19 17:32 Hemoglobin A1c 7.1 % (4-6) H 12/25/18 11:10 Ketones Quantitative Negative (Negative) 12/25/18 11:10 Osmolality 326 Mosm/kg 01/01/19 09:01 Lactic Acid 1.70 mmol/L (0.7-2.0) 12/25/18 13:04 Uric Acid 9.1 mg/dL (3.5-7.6) H 01/01/19 09:01 Calcium 7.9 mg/dL (8.4-10.2) L 01/04/19 06:21 Phosphorus 2.60 mg/dL (2.5-4.5) 01/04/19 06:21 Magnesium 1.60 mg/dL (1.7-2.3) L 01/04/19 06:21 Iron 48 ug/dL (49-181) L 12/25/18 Unknown TIBC 292 mcg/dL (250-450) 12/25/18 Unknown % Saturation 16.44 % 12/25/18 Unknown Transferrin 128 mg/dl (180-329) L 12/25/18 Unknown Total Bilirubin 0.30 mg/dL (0.1-1.2) 12/30/18 05:16 Direct Bilirubin < 0.2 mg/dL (0-0.2) 12/25/18 11:10 Indirect Bilirubin 0.0 mg/dL 12/25/18 11:10 AST 26 units/L (5-40) 12/30/18 05:16 ALT 47 units/L (7-56) 12/30/18 05:16 Alkaline Phosphatase 98 units/L (35-129) 12/30/18 05:16 Ammonia 41.0 umol/L (25-60) 12/25/18 11:10 Total Creatine Kinase 343 units/L (55-170) H 12/29/18 17:18 CK-MB (CK-2) 5.3 ng/mL (0.0-4.0) H 12/25/18 11:10 CK-MB (CK-2) Rel Index 4.6 (0-4) H 12/25/18 11:10 NT-Pro-B Natriuret Pep 2450 pg/mL (0-900) H 12/25/18 11:10 Total Protein 6.0 g/dL (6.3-8.2) L 12/30/18 05:16 Albumin 2.7 g/dL (3.9-5) L 12/30/18 05:16 Albumin/Globulin Ratio 0.8 % 12/30/18 05:16 Vitamin B12 654.9 pg/mL (211-911) 12/25/18 Unknown Folate > 20.0 ng/mL (7.3-26.0) 12/25/18 Unknown TSH 16.800 mlU/mL (0.270-4.200) H 12/25/18 11:10 Free T4 0.79 ng/dL (0.76-1.46) 12/25/18 11:10 Urine Color Colorless (Yellow) 12/25/18 Unknown Urine Turbidity Clear (Clear) 12/25/18 Unknown Urine pH 6.0 (5.0-7.0) 12/25/18 Unknown Ur Specific [place] 1.007 (1.003-1.030) 12/25/18 Unknown Urine Protein 30 mg/dl mg/dL (Negative) 12/25/18 Unknown Urine Glucose (UA) >=500 mg/dL (Negative) 12/25/18 Unknown Urine Ketones Neg mg/dL (Negative) 12/25/18 Unknown Urine Blood Mod (Negative) 12/25/18 Unknown Urine Nitrite Neg (Negative) 12/25/18 Unknown Ur Reducing Substances Not Reportable 12/25/18 Unknown Urine Bilirubin Neg (Negative) 12/25/18 Unknown Urine Ictotest Not Reportable 12/25/18 Unknown Urine Urobilinogen < 2.0 mg/dL (<2.0) 12/25/18 Unknown Ur Leukocyte Esterase Neg (Negative) 12/25/18 Unknown Urine WBC (Auto) < 1.0 /HPF (0.0-6.0) 12/25/18 Unknown Urine RBC (Auto) 3.0 /HPF (0.0-6.0) 12/25/18 Unknown Urine Creatinine 57.7 mg/dL (0.1-20.0) H 12/29/18 19:00 Urine Sodium 47 mmol/L 12/29/18 19:00 Vancomycin Trough 22.5 ug/mL (5.0-20.0) H 12/29/18 13:27 Blood Type A POSITIVE 12/25/18 11:10 Antibody Screen Negative 12/25/18 11:10 Crossmatch See Detail 12/25/18 11:10 Active Medications - Current Medications Current Medications: Generic Name Dose Route Start Last Admin Trade Name Freq PRN Reason Stop Dose Admin Acetaminophen 650 mg 12/25/18 13:12 01/04/19 03:03 Tylenol PO 650 mg Q4H PRN Administration Pain MILD(1-3)/Fever >100.5/ISAAC Bupropion HCl 150 mg 12/26/18 10:00 01/04/19 21:09 Wellbutrin Sr PO 150 mg BID SHRUTHI Administration Dextrose 50 ml 12/25/18 13:19 D50w (25gm) Syringe IV PRN PRN Hypoglycemia Haloperidol Lactate 5 mg 12/26/18 15:34 Haldol IV Q1H PRN Unrespon. to mult. doses BZD's Hydralazine HCl 10 mg 01/01/19 10:00 01/01/19 11:46 Apresoline IV 10 mg Q4HR PRN Administration BP > 160/100 Dextrose 1,000 mls @ 100 mls/hr 01/03/19 14:00 01/03/19 17:19 D5w IV 75 mls/hr DIRECT SHRUTHI Administration Potassium Chloride 40 meq/ 520 mls @ 125 mls/hr 01/03/19 17:00 01/04/19 02:59 Sodium Chloride IV 01/05/19 21:10 125 mls/hr DIRECT SHRUTHI Administration Insulin Glargine 14 units 01/03/19 22:00 01/03/19 21:47 Lantus SUB-Q 14 units QHS SHRUTHI Administration Insulin Human Lispro 0 unit 12/25/18 16:30 01/04/19 18:28 Humalog SUB-Q 9 unit ACHS SHRUTHI Administration Protocol Lorazepam 2 mg 12/26/18 15:34 01/04/19 18:31 Ativan IV 2 mg Q1H PRN Administration CIWA-Ar 8-15 Lorazepam 4 mg 12/26/18 15:34 Ativan IV Q1H PRN CIWA-Ar 16-25 Lorazepam 4 mg 12/26/18 15:34 Ativan IV Q15MIN PRN CIWA-Ar >25 Metformin HCl 1,000 mg 01/02/19 17:00 01/04/19 17:33 Glucophage PO 1,000 mg BIDDIAB SHRUTHI Administration Nifedipine 60 mg 12/31/18 22:00 01/04/19 21:08 Procardia Xl PO 60 mg Q12HR SHRUTHI Administration Ondansetron HCl 4 mg 12/25/18 13:12 Zofran IV Q8H PRN Nausea And Vomiting Sertraline HCl 200 mg 12/26/18 10:00 01/04/19 11:44 Zoloft PO 200 mg QDAY SHRUTHI Administration Sodium Chloride 10 ml 12/25/18 22:00 01/03/19 21:48 Sodium Chloride Flush Syringe 10 Ml IV 10 ml BID SHRUTHI Administration Sodium Chloride 10 ml 12/25/18 13:12 12/31/18 09:29 Sodium Chloride Flush Syringe 10 Ml IV 10 ml PRN PRN Administration LINE FLUSH Nutrition/Malnutrition Assess - Dietary Evaluation Nutrition/Malnutrition Findings: Nutrition Notes Start: 12/26/18 15:51 Freq: Status: Active Protocol: Document 01/01/19 09:47 TW (Rec: 01/01/19 09:53 TW [id number]) Co-Sign 01/01/19 09:47 LP Nutrition Notes Initial or Follow up Reassessment Current Diagnosis Diabetes,Hypertension Other Pertinent Diagnosis S/P closed hip reduction, Hx prostate cancer, Hx of depression,Sacral wound Current Diet Cardiac/Consistent CHO Labs/Tests Reviewed Pertinent Medications Reviewed Height 6 ft Weight 72.575 kg [place] Body Weight (kg) 80.90 BMI 21.7 Subjective/Other Information Pt asleep and nonresponsive at time of visit. Pt commmunicated a poor appetite. RN stated he ate 10% of his breakfast, and did not want to eat more than that. Pt not drinking any of his ONS. Percent of energy/protein needs met: 10%/10% Burn Absent Trauma Absent #1 Nutrition Diagnosis Inadequate oral intake Diagnosis Progress(for reassessment Continues documentation) Is patient on ventilator? No Is Patient Ambulatory and/or Out of Bed No REE-([facility]-confined to bed) 7477.099 Calculation Used for Recommendations [facility] Additional Notes Protein Needs: 87-109g (1.2-1. 5g/kg) Fluid Needs: 1 ml/kcal Nutrition Intervention Change Diet Order: Cardiac/Consistent CHO, Mech soft Add Supplement/Snack (indicate name/kcal Ensure Clear 1 daily /protein ) Provides kCal: 240 Provides Protein (gm) 8 Goal #1 Meet at least 75% of calorie and protein needs via PO and ONS intakes Anticipated Discharge Needs: Cardiac/Consistent CHO Follow-Up By: 01/05/19 Additional Comments Follow for PO and ONS intakes and DM diet education
[2019-01-02] MEDS: ZOLOFT PO SCH (10:36)
[2019-01-02] MEDS: WELLBUTRIN SR PO SCH ×2 (10:40→22:15)
[2019-01-02] MEDS ORDERED: K-DUR PO ONE ×2 (11:00→18:00)
[2019-01-02] MEDS: PROCARDIA XL PO SCH ×2 (11:31→22:15)
[2019-01-02] MEDS: GLUCOPHAGE PO SCH (17:46)
[2019-01-02] MEDS: LANTUS SUB-Q SCH (22:32)
[2019-01-03] MEDS: HumaLOG SUB-Q SCH ×4 (08:55→22:00)
[2019-01-03] MEDS: GLUCOPHAGE PO SCH ×2 (08:56→17:19)
[2019-01-03] MEDS: ZOLOFT PO SCH ×2 (08:56→12:11)
[2019-01-03] MEDS: PROCARDIA XL PO SCH ×3 (08:57→21:47)
[2019-01-03] MEDS: WELLBUTRIN SR PO SCH ×3 (08:57→21:47)
[2019-01-03] MEDS: SODIUM CHLORIDE FLUSH SYRINGE 10 ML IV SCH ×3 (08:57→21:48)
--- NOTE | 2019-01-03 11:08 | Progress Note ---
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 Laird Hypertension cont bp meds Hypernatremia, free water deficit cont hypotonic IVF, improving Hypokalmeia replaced Diabetes type 2 optimize insulins and metformin, giving higher SSI as he is on d5w for hypernatremia Chronic anemia, due to ca prostate sp 1 unit prbc History of depression Continue Wellbutrin 150 mg twice a day, Zoloft 200 mg daily UTI ruled out, neg urine cx SEVERIANO- likely multifactorial secondary to acute tubular stasis and vasomotor nephropathy sp sapp (obstructed due to prostate ca), do not remove, improving on ivf Metabolic acidosis- resolved Received bicarbonate infusion per nephrology 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 [facility], needs hospice upon dc acute metabolic encephalopathy -mentation improving, Na improving on hypotonic fluid immobility cont PT, awaiting SNF with hospice placement, sister is not able to take him home History of Tobacco abuse DVT PPX scds due to anemia Dispo; to SNF with hospice, dw case management History Interval history: patient is less confused, still requiring assistance with all ADLs including feeding Review of systems Constitutional: No fevers, CVS: No chest pain, no orthopnea, no dyspnea on exertion, no pedal edema GI: No abdominal pain, no diarrhea, no vomiting, no constipation Respiratory: No shortness of breath, no wheezing, no coughing Hospitalist Physical - Physical exam Narrative exam: General.: Appears chronically ill, non toxic HEENT: Moist mucous membranes, extraocular muscles intact, no lymphadenopathy Neck: supple Cardiac: S1-S2 heard Lungs: clear to auscultation bilaterally Abdomen: soft , nontender, nondistended, bowel sounds positive Extremities: no edema clubbing or cyanosis Skin: no rash or lesions Neurologic: no gross focal deficits, less confused today Psych: calm, and cooperative - Constitutional Vitals: Temp Pulse Resp BP Pulse Ox 97.6 F 85 20 156/85 99 01/03/19 07:30 01/03/19 07:30 01/03/19 07:30 01/03/19 07:30 01/03/19 07:30 General appearance: Present: mild distress, disheveled Results - Labs CBC & Chem 7: 01/06/19 04:15 01/06/19 04:15 Labs: Laboratory Last Values WBC 10.2 K/mm3 (4.5-11.0) 01/02/19 04:27 RBC 2.55 M/mm3 (3.65-5.03) L 01/02/19 04:27 Hgb 7.9 gm/dl (11.8-15.2) L 01/02/19 04:27 Hct 23.0 % (35.5-45.6) L 01/02/19 04:27 MCV 90 fl (84-94) 01/02/19 04:27 MCH 31 pg (28-32) 01/02/19 04:27 MCHC 34 % (32-34) 01/02/19 04:27 RDW 17.5 % (13.2-15.2) H 01/02/19 04:27 Plt Count 296 K/mm3 (140-440) 01/02/19 04:27 Lymph % (Auto) 16.7 % (13.4-35.0) 01/02/19 04:27 [place] % (Auto) 6.4 % (0.0-7.3) 01/02/19 04:27 Eos % (Auto) 1.4 % (0.0-4.3) 01/02/19 04:27 Baso % (Auto) 0.5 % (0.0-1.8) 01/02/19 04:27 Lymph # 1.7 K/mm3 (1.2-5.4) 01/02/19 04:27 [place] # 0.7 K/mm3 (0.0-0.8) 01/02/19 04:27 Eos # 0.1 K/mm3 (0.0-0.4) 01/02/19 04:27 Baso # 0.0 K/mm3 (0.0-0.1) 01/02/19 04:27 Seg Neutrophils % 75.0 % (40.0-70.0) H 01/02/19 04:27 Seg Neutrophils # 7.6 K/mm3 (1.8-7.7) 01/02/19 04:27 PT 13.1 Sec. (12.2-14.9) 12/25/18 11:10 INR 0.94 (0.87-1.13) 12/25/18 11:10 APTT 26.2 Sec. (24.2-36.6) 12/25/18 11:10 VBG pH 7.298 (7.320-7.420) L 12/25/18 13:04 Sodium 148 mmol/L (137-145) H 01/02/19 04:27 Potassium 3.4 mmol/L (3.6-5.0) L 01/02/19 04:27 Chloride 112.6 mmol/L (98-107) H 01/02/19 04:27 Carbon Dioxide 23 mmol/L (22-30) 01/02/19 04:27 Anion Gap 16 mmol/L 01/02/19 04:27 BUN 26 mg/dL (9-20) H 01/02/19 04:27 Creatinine 1.7 mg/dL (0.8-1.5) H 01/02/19 04:27 Estimated GFR 41 ml/min 01/02/19 04:27 BUN/Creatinine Ratio 15 % 01/02/19 04:27 Glucose 234 mg/dL (75-100) H 01/02/19 04:27 POC Glucose 215 (70-105) H 01/03/19 07:03 Hemoglobin A1c 7.1 % (4-6) H 12/25/18 11:10 Ketones Quantitative Negative (Negative) 12/25/18 11:10 Osmolality 326 Mosm/kg 01/01/19 09:01 Lactic Acid 1.70 mmol/L (0.7-2.0) 12/25/18 13:04 Uric Acid 9.1 mg/dL (3.5-7.6) H 01/01/19 09:01 Calcium 7.7 mg/dL (8.4-10.2) L 01/02/19 04:27 Phosphorus 5.10 mg/dL (2.5-4.5) H 12/25/18 11:10 Magnesium 1.70 mg/dL (1.7-2.3) 01/02/19 Unknown Iron 48 ug/dL (49-181) L 12/25/18 Unknown TIBC 292 mcg/dL (250-450) 12/25/18 Unknown % Saturation 16.44 % 12/25/18 Unknown Transferrin 128 mg/dl (180-329) L 12/25/18 Unknown Total Bilirubin 0.30 mg/dL (0.1-1.2) 12/30/18 05:16 Direct Bilirubin < 0.2 mg/dL (0-0.2) 12/25/18 11:10 Indirect Bilirubin 0.0 mg/dL 12/25/18 11:10 AST 26 units/L (5-40) 12/30/18 05:16 ALT 47 units/L (7-56) 12/30/18 05:16 Alkaline Phosphatase 98 units/L (35-129) 12/30/18 05:16 Ammonia 41.0 umol/L (25-60) 12/25/18 11:10 Total Creatine Kinase 343 units/L (55-170) H 12/29/18 17:18 CK-MB (CK-2) 5.3 ng/mL (0.0-4.0) H 12/25/18 11:10 CK-MB (CK-2) Rel Index 4.6 (0-4) H 12/25/18 11:10 NT-Pro-B Natriuret Pep 2450 pg/mL (0-900) H 12/25/18 11:10 Total Protein 6.0 g/dL (6.3-8.2) L 12/30/18 05:16 Albumin 2.7 g/dL (3.9-5) L 12/30/18 05:16 Albumin/Globulin Ratio 0.8 % 12/30/18 05:16 Vitamin B12 654.9 pg/mL (211-911) 12/25/18 Unknown Folate > 20.0 ng/mL (7.3-26.0) 12/25/18 Unknown TSH 16.800 mlU/mL (0.270-4.200) H 12/25/18 11:10 Free T4 0.79 ng/dL (0.76-1.46) 12/25/18 11:10 Urine Color Colorless (Yellow) 12/25/18 Unknown Urine Turbidity Clear (Clear) 12/25/18 Unknown Urine pH 6.0 (5.0-7.0) 12/25/18 Unknown Ur Specific [place] 1.007 (1.003-1.030) 12/25/18 Unknown Urine Protein 30 mg/dl mg/dL (Negative) 12/25/18 Unknown Urine Glucose (UA) >=500 mg/dL (Negative) 12/25/18 Unknown Urine Ketones Neg mg/dL (Negative) 12/25/18 Unknown Urine Blood Mod (Negative) 12/25/18 Unknown Urine Nitrite Neg (Negative) 12/25/18 Unknown Ur Reducing Substances Not Reportable 12/25/18 Unknown Urine Bilirubin Neg (Negative) 12/25/18 Unknown Urine Ictotest Not Reportable 12/25/18 Unknown Urine Urobilinogen < 2.0 mg/dL (<2.0) 12/25/18 Unknown Ur Leukocyte Esterase Neg (Negative) 12/25/18 Unknown Urine WBC (Auto) < 1.0 /HPF (0.0-6.0) 12/25/18 Unknown Urine RBC (Auto) 3.0 /HPF (0.0-6.0) 12/25/18 Unknown Urine Creatinine 57.7 mg/dL (0.1-20.0) H 12/29/18 19:00 Urine Sodium 47 mmol/L 12/29/18 19:00 Vancomycin Trough 22.5 ug/mL (5.0-20.0) H 12/29/18 13:27 Blood Type A POSITIVE 12/25/18 11:10 Antibody Screen Negative 12/25/18 11:10 Crossmatch See Detail 12/25/18 11:10 Active Medications - Current Medications Current Medications: Generic Name Dose Route Start Last Admin Trade Name Freq PRN Reason Stop Dose Admin Acetaminophen 650 mg 12/25/18 13:12 01/01/19 11:25 Tylenol PO 650 mg Q4H PRN Administration Pain MILD(1-3)/Fever >100.5/ISAAC Bupropion HCl 150 mg 12/26/18 10:00 01/03/19 08:57 Wellbutrin Sr PO 150 mg BID SHRUTHI Administration Dextrose 50 ml 12/25/18 13:19 D50w (25gm) Syringe IV PRN PRN Hypoglycemia Haloperidol Lactate 5 mg 12/26/18 15:34 Haldol IV Q1H PRN Unrespon. to mult. doses BZD's Hydralazine HCl 10 mg 01/01/19 10:00 01/01/19 11:46 Apresoline IV 10 mg Q4HR PRN Administration BP > 160/100 Insulin Human Lispro 0 unit 12/25/18 16:30 01/03/19 08:55 Humalog SUB-Q 3 unit ACHS SHRUTHI Administration Protocol Lorazepam 2 mg 12/26/18 15:34 01/01/19 21:11 Ativan IV 2 mg Q1H PRN Administration CIWA-Ar 8-15 Lorazepam 4 mg 12/26/18 15:34 Ativan IV Q1H PRN CIWA-Ar 16-25 Lorazepam 4 mg 12/26/18 15:34 Ativan IV Q15MIN PRN CIWA-Ar >25 Metformin HCl 1,000 mg 01/02/19 17:00 01/03/19 08:56 Glucophage PO 1,000 mg BIDDIAB SHRUTHI Administration Nifedipine 60 mg 12/31/18 22:00 01/03/19 08:57 Procardia Xl PO 60 mg Q12HR SHRUTHI Administration Ondansetron HCl 4 mg 12/25/18 13:12 Zofran IV Q8H PRN Nausea And Vomiting Sertraline HCl 200 mg 12/26/18 10:00 01/03/19 08:56 Zoloft PO 200 mg QDAY SHRUTHI Administration Sodium Chloride 10 ml 12/25/18 22:00 01/03/19 08:57 Sodium Chloride Flush Syringe 10 Ml IV 10 ml BID SHRUTHI Administration Sodium Chloride 10 ml 12/25/18 13:12 12/31/18 09:29 Sodium Chloride Flush Syringe 10 Ml IV 10 ml PRN PRN Administration LINE FLUSH Nutrition/Malnutrition Assess - Dietary Evaluation Nutrition/Malnutrition Findings: Nutrition Notes Start: 12/26/18 15:51 Freq: Status: Active Protocol: Document 01/01/19 09:47 TW (Rec: 01/01/19 09:53 TW [id number]) Co-Sign 01/01/19 09:47 LP Nutrition Notes Initial or Follow up Reassessment Current Diagnosis Diabetes,Hypertension Other Pertinent Diagnosis S/P closed hip reduction, Hx prostate cancer, Hx of depression,Sacral wound Current Diet Cardiac/Consistent CHO Labs/Tests Reviewed Pertinent Medications Reviewed Height 6 ft Weight 72.575 kg [place] Body Weight (kg) 80.90 BMI 21.7 Subjective/Other Information Pt asleep and nonresponsive at time of visit. Pt commmunicated a poor appetite. RN stated he ate 10% of his breakfast, and did not want to eat more than that. Pt not drinking any of his ONS. Percent of energy/protein needs met: 10%/10% Burn Absent Trauma Absent #1 Nutrition Diagnosis Inadequate oral intake Diagnosis Progress(for reassessment Continues documentation) Is patient on ventilator? No Is Patient Ambulatory and/or Out of Bed No REE-([facility]-confined to bed) [phone] Calculation Used for Recommendations [facility] Additional Notes Protein Needs: 87-109g (1.2-1. 5g/kg) Fluid Needs: 1 ml/kcal Nutrition Intervention Change Diet Order: Cardiac/Consistent CHO, Mech soft Add Supplement/Snack (indicate name/kcal Ensure Clear 1 daily /protein ) Provides kCal: 240 Provides Protein (gm) 8 Goal #1 Meet at least 75% of calorie and protein needs via PO and ONS intakes Anticipated Discharge Needs: Cardiac/Consistent CHO Follow-Up By: 01/05/19 Additional Comments Follow for PO and ONS intakes and DM diet education
[2019-01-03 14:37] LABS: Calcium 8.1 mg/dL (8.4-10.2)
--- NOTE | 2019-01-03 17:06 | Progress Note ---
Assessment and Plan - Patient Problems (1) Hypokalemia Current Visit: Yes Status: Acute Plan to address problem: Hypokalemia Primary team has ordered potassium chloride 40 mEq 3 bags Recheck magnesium as well (2) Acute kidney injury Current Visit: Yes Status: Acute Plan to address problem: Acute kidney injury improving We'll continue fluid hydration current creatinine is 1.5 mg/DL Etiology acute kidney injury likely when depletion (3) Hypernatremia Current Visit: Yes Status: Acute Plan to address problem: Hyponatremia will begin dextrose 5% water infusion 75 mL an hour for free water replacement (4) Acidosis Current Visit: Yes Status: Acute Plan to address problem: Mild metabolic acidosis Monitor We'll discontinue saline infusion Subjective Interval history: 58-year-old gentleman by chronic kidney disease hypertension diabetes nephrology following for worsening renal function and electrolytes abnormalities He was seen today denies any orthopnea PND have lower extremity edema denies any shortness of breath Objective - Vital Signs Vital signs: Vital Signs - 12hr 01/03/19 01/03/19 01/03/19 07:30 10:00 11:30 Temperature 97.6 F 97.1 F L Pulse Rate 85 105 H Respiratory 20 20 Rate Blood Pressure 156/85 165/95 [Right] O2 Sat by Pulse 99 96 95 Oximetry 01/03/19 15:00 Temperature 97.1 F L Pulse Rate 76 Respiratory 16 Rate Blood Pressure 144/84 [Right] O2 Sat by Pulse 96 Oximetry - General Appearance General appearance: cachectic, chronically ill EENT: ATNC, PERRL Neck: no JVD Respiratory: Present: Clear to Ascultation Cardiology: regular, S1S2 Gastrointestinal: normal, normoactive bowel sounds Integumentary: no rash Neurologic: no focal deficit Musculoskeletal: deferred Psychiatric: mood/affect appropriate - Lab 01/02/19 04:27 01/03/19 13:55 Most recent lab results Calcium 8.1 mg/dL (8.4-10.2) L 01/03/19 13:55 Phosphorus 5.10 mg/dL (2.5-4.5) H 12/25/18 11:10 Magnesium 1.70 mg/dL (1.7-2.3) 01/02/19 Unknown Urine Creatinine 57.7 mg/dL (0.1-20.0) H 12/29/18 19:00 Urine Sodium 47 mmol/L 12/29/18 19:00 Medications & Allergies - Medications Allergies/Adverse Reactions: Allergies poison oak extract Allergy (Verified 11/27/18 06:08) Itching Home Medications: Home Medications Medication Instructions Recorded Confirmed Last Taken Type Bupropion HCl [Bupropion HCl Sr] 150 mg PO BID 09/10/17 12/26/18 11/24/18 09:00 History Insulin Detemir [Levemir Flextouch] 4 unit SQ QDAY 09/10/17 12/26/18 11/24/18 21:00 History Lanreotide Acetate [Somatuline 120 mg SQ QMONTH 09/10/17 12/26/18 11/24/18 09:00 History Depot] Sertraline [Zoloft] 200 mg PO QDAY 09/10/17 12/26/18 11/24/18 09:00 History Sildenafil Citrate [Viagra] 100 mg PO PRN PRN 09/10/17 12/26/18 11/24/18 09:00 History traZODone [Desyrel] 100 mg PO PRN PRN 09/10/17 12/26/18 11/24/18 09:00 History Metformin HCl [Glucophage] 1,000 mg PO BID 11/27/18 12/26/18 11/24/18 09:00 History Active Medications: Generic Name Dose Route Start Last Admin Trade Name Freq PRN Reason Stop Dose Admin Acetaminophen 650 mg 12/25/18 13:12 01/01/19 11:25 Tylenol PO 650 mg Q4H PRN Administration Pain MILD(1-3)/Fever >100.5/ISAAC Bupropion HCl 150 mg 12/26/18 10:00 01/03/19 12:11 Wellbutrin Sr PO Not Given BID SHRUTHI Dextrose 50 ml 12/25/18 13:19 D50w (25gm) Syringe IV PRN PRN Hypoglycemia Haloperidol Lactate 5 mg 12/26/18 15:34 Haldol IV Q1H PRN Unrespon. to mult. doses BZD's Hydralazine HCl 10 mg 01/01/19 10:00 01/01/19 11:46 Apresoline IV 10 mg Q4HR PRN Administration BP > 160/100 Dextrose 1,000 mls @ 75 mls/hr 01/03/19 14:00 D5w IV DIRECT SHRUTHI Potassium Chloride 40 meq/ 520 mls @ 125 mls/hr 01/03/19 17:00 Sodium Chloride IV 01/05/19 21:10 DIRECT SHRUTHI Insulin Glargine 14 units 01/03/19 22:00 Lantus SUB-Q QHS SHRUTHI Insulin Human Lispro 0 unit 12/25/18 16:30 01/03/19 12:13 Humalog SUB-Q 1 unit ACHS SHRUTHI Administration Protocol Lorazepam 2 mg 12/26/18 15:34 01/01/19 21:11 Ativan IV 2 mg Q1H PRN Administration CIWA-Ar 8-15 Lorazepam 4 mg 12/26/18 15:34 Ativan IV Q1H PRN CIWA-Ar 16-25 Lorazepam 4 mg 12/26/18 15:34 Ativan IV Q15MIN PRN CIWA-Ar >25 Metformin HCl 1,000 mg 01/02/19 17:00 01/03/19 08:56 Glucophage PO 1,000 mg BIDDIAB SHRUTHI Administration Nifedipine 60 mg 12/31/18 22:00 01/03/19 12:02 Procardia Xl PO Not Given Q12HR SHRUTHI Ondansetron HCl 4 mg 12/25/18 13:12 Zofran IV Q8H PRN Nausea And Vomiting Sertraline HCl 200 mg 12/26/18 10:00 01/03/19 12:11 Zoloft PO Not Given QDAY SHRUTHI Sodium Chloride 10 ml 12/25/18 22:00 01/03/19 12:02 Sodium Chloride Flush Syringe 10 Ml IV Not Given BID SHRUTHI Sodium Chloride 10 ml 12/25/18 13:12 12/31/18 09:29 Sodium Chloride Flush Syringe 10 Ml IV 10 ml PRN PRN Administration LINE FLUSH
[2019-01-03] MEDS: D5W 1,000 ML IV SCH (17:19)
[2019-01-03] MEDS: KCL 40 MEQ in NACL 0.45% 500 ML IV SCH ×2 (17:19→22:56)
[2019-01-03] MEDS: LANTUS SUB-Q SCH (21:47)
[2019-01-04] MEDS: KCL 40 MEQ in NACL 0.45% 500 ML IV SCH (02:59)
[2019-01-04] MEDS: TYLENOL PO PRN (03:03)
[2019-01-04] MEDS: ATIVAN IV PRN ×2 (03:16→18:31)
[2019-01-04 06:58] LABS: Calcium 7.9 mg/dL (8.4-10.2)
[2019-01-04] MEDS: GLUCOPHAGE PO SCH ×2 (08:44→17:33)
[2019-01-04] MEDS: WELLBUTRIN SR PO SCH ×2 (10:22→21:09)
[2019-01-04] MEDS: PROCARDIA XL PO SCH ×2 (10:44→21:08)
[2019-01-04] MEDS: ZOLOFT PO SCH (11:44)
[2019-01-04] MEDS ORDERED: MAGNESIUM SULFATE 2GM/50ML 2 GM/50 ML BAG IV ONE (12:00)
[2019-01-04] MEDS: HumaLOG SUB-Q SCH ×3 (12:23→23:18)
--- NOTE | 2019-01-04 15:12 | Progress Note ---
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 Laird Hypertension cont bp meds Hypernatremia, free water deficit cont hypotonic IVF, improving Hypokalmeia replaced Diabetes type 2 optimize insulins and metformin, giving higher SSI as he is on d5w for hypernatremia Chronic anemia, due to ca prostate sp 1 unit prbc History of depression Continue Wellbutrin 150 mg twice a day, Zoloft 200 mg daily UTI ruled out, neg urine cx SEVERIANO- likely multifactorial secondary to acute tubular stasis and vasomotor nephropathy sp sapp (obstructed due to prostate ca), do not remove, improving on ivf Metabolic acidosis- resolved Received bicarbonate infusion per nephrology 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 [facility], needs hospice upon dc acute metabolic encephalopathy -mentation improving, Na improving on hypotonic fluid immobility cont PT, awaiting SNF with hospice placement, sister is not able to take him home History of Tobacco abuse DVT PPX scds due to anemia Dispo; to SNF with hospice, dw case management History Interval history: patient is less confused, still requiring assistance with all ADLs including feeding Review of systems Constitutional: No fevers, CVS: No chest pain, no orthopnea, no dyspnea on exertion, no pedal edema GI: No abdominal pain, no diarrhea, no vomiting, no constipation Respiratory: No shortness of breath, no wheezing, no coughing Hospitalist Physical - Physical exam Narrative exam: General.: Appears chronically ill, non toxic HEENT: Moist mucous membranes, extraocular muscles intact, no lymphadenopathy Neck: supple Cardiac: S1-S2 heard Lungs: clear to auscultation bilaterally Abdomen: soft , nontender, nondistended, bowel sounds positive Extremities: no edema clubbing or cyanosis Skin: no rash or lesions Neurologic: no gross focal deficits, less confused today Psych: calm, and cooperative - Constitutional Vitals: Temp Pulse Resp BP Pulse Ox 97.7 F 80 18 142/83 95 01/04/19 07:00 01/04/19 07:00 01/04/19 07:00 01/04/19 07:00 01/04/19 09:15 General appearance: Present: mild distress, disheveled Results - Labs CBC & Chem 7: 01/06/19 04:15 01/06/19 04:15 Labs: Laboratory Last Values WBC 10.2 K/mm3 (4.5-11.0) 01/02/19 04:27 RBC 2.55 M/mm3 (3.65-5.03) L 01/02/19 04:27 Hgb 7.9 gm/dl (11.8-15.2) L 01/02/19 04:27 Hct 23.0 % (35.5-45.6) L 01/02/19 04:27 MCV 90 fl (84-94) 01/02/19 04:27 MCH 31 pg (28-32) 01/02/19 04:27 MCHC 34 % (32-34) 01/02/19 04:27 RDW 17.5 % (13.2-15.2) H 01/02/19 04:27 Plt Count 296 K/mm3 (140-440) 01/02/19 04:27 Lymph % (Auto) 16.7 % (13.4-35.0) 01/02/19 04:27 [place] % (Auto) 6.4 % (0.0-7.3) 01/02/19 04:27 Eos % (Auto) 1.4 % (0.0-4.3) 01/02/19 04:27 Baso % (Auto) 0.5 % (0.0-1.8) 01/02/19 04:27 Lymph # 1.7 K/mm3 (1.2-5.4) 01/02/19 04:27 [place] # 0.7 K/mm3 (0.0-0.8) 01/02/19 04:27 Eos # 0.1 K/mm3 (0.0-0.4) 01/02/19 04:27 Baso # 0.0 K/mm3 (0.0-0.1) 01/02/19 04:27 Seg Neutrophils % 75.0 % (40.0-70.0) H 01/02/19 04:27 Seg Neutrophils # 7.6 K/mm3 (1.8-7.7) 01/02/19 04:27 PT 13.1 Sec. (12.2-14.9) 12/25/18 11:10 INR 0.94 (0.87-1.13) 12/25/18 11:10 APTT 26.2 Sec. (24.2-36.6) 12/25/18 11:10 VBG pH 7.298 (7.320-7.420) L 12/25/18 13:04 Sodium 148 mmol/L (137-145) H 01/04/19 06:21 Potassium 3.8 mmol/L (3.6-5.0) D 01/04/19 06:21 Chloride 114.2 mmol/L (98-107) H 01/04/19 06:21 Carbon Dioxide 22 mmol/L (22-30) 01/04/19 06:21 Anion Gap 16 mmol/L 01/04/19 06:21 BUN 17 mg/dL (9-20) 01/04/19 06:21 Creatinine 1.4 mg/dL (0.8-1.5) 01/04/19 06:21 Estimated GFR 52 ml/min 01/04/19 06:21 BUN/Creatinine Ratio 12 % 01/04/19 06:21 Glucose 74 mg/dL (75-100) L 01/04/19 06:21 POC Glucose 203 (70-105) H 01/04/19 11:46 Hemoglobin A1c 7.1 % (4-6) H 12/25/18 11:10 Ketones Quantitative Negative (Negative) 12/25/18 11:10 Osmolality 326 Mosm/kg 01/01/19 09:01 Lactic Acid 1.70 mmol/L (0.7-2.0) 12/25/18 13:04 Uric Acid 9.1 mg/dL (3.5-7.6) H 01/01/19 09:01 Calcium 7.9 mg/dL (8.4-10.2) L 01/04/19 06:21 Phosphorus 2.60 mg/dL (2.5-4.5) 01/04/19 06:21 Magnesium 1.60 mg/dL (1.7-2.3) L 01/04/19 06:21 Iron 48 ug/dL (49-181) L 12/25/18 Unknown TIBC 292 mcg/dL (250-450) 12/25/18 Unknown % Saturation 16.44 % 12/25/18 Unknown Transferrin 128 mg/dl (180-329) L 12/25/18 Unknown Total Bilirubin 0.30 mg/dL (0.1-1.2) 12/30/18 05:16 Direct Bilirubin < 0.2 mg/dL (0-0.2) 12/25/18 11:10 Indirect Bilirubin 0.0 mg/dL 12/25/18 11:10 AST 26 units/L (5-40) 12/30/18 05:16 ALT 47 units/L (7-56) 12/30/18 05:16 Alkaline Phosphatase 98 units/L (35-129) 12/30/18 05:16 Ammonia 41.0 umol/L (25-60) 12/25/18 11:10 Total Creatine Kinase 343 units/L (55-170) H 12/29/18 17:18 CK-MB (CK-2) 5.3 ng/mL (0.0-4.0) H 12/25/18 11:10 CK-MB (CK-2) Rel Index 4.6 (0-4) H 12/25/18 11:10 NT-Pro-B Natriuret Pep 2450 pg/mL (0-900) H 12/25/18 11:10 Total Protein 6.0 g/dL (6.3-8.2) L 12/30/18 05:16 Albumin 2.7 g/dL (3.9-5) L 12/30/18 05:16 Albumin/Globulin Ratio 0.8 % 12/30/18 05:16 Vitamin B12 654.9 pg/mL (211-911) 12/25/18 Unknown Folate > 20.0 ng/mL (7.3-26.0) 12/25/18 Unknown TSH 16.800 mlU/mL (0.270-4.200) H 12/25/18 11:10 Free T4 0.79 ng/dL (0.76-1.46) 12/25/18 11:10 Urine Color Colorless (Yellow) 12/25/18 Unknown Urine Turbidity Clear (Clear) 12/25/18 Unknown Urine pH 6.0 (5.0-7.0) 12/25/18 Unknown Ur Specific [place] 1.007 (1.003-1.030) 12/25/18 Unknown Urine Protein 30 mg/dl mg/dL (Negative) 12/25/18 Unknown Urine Glucose (UA) >=500 mg/dL (Negative) 12/25/18 Unknown Urine Ketones Neg mg/dL (Negative) 12/25/18 Unknown Urine Blood Mod (Negative) 12/25/18 Unknown Urine Nitrite Neg (Negative) 12/25/18 Unknown Ur Reducing Substances Not Reportable 12/25/18 Unknown Urine Bilirubin Neg (Negative) 12/25/18 Unknown Urine Ictotest Not Reportable 12/25/18 Unknown Urine Urobilinogen < 2.0 mg/dL (<2.0) 12/25/18 Unknown Ur Leukocyte Esterase Neg (Negative) 12/25/18 Unknown Urine WBC (Auto) < 1.0 /HPF (0.0-6.0) 12/25/18 Unknown Urine RBC (Auto) 3.0 /HPF (0.0-6.0) 12/25/18 Unknown Urine Creatinine 57.7 mg/dL (0.1-20.0) H 12/29/18 19:00 Urine Sodium 47 mmol/L 12/29/18 19:00 Vancomycin Trough 22.5 ug/mL (5.0-20.0) H 12/29/18 13:27 Blood Type A POSITIVE 12/25/18 11:10 Antibody Screen Negative 12/25/18 11:10 Crossmatch See Detail 12/25/18 11:10 Active Medications - Current Medications Current Medications: Generic Name Dose Route Start Last Admin Trade Name Freq PRN Reason Stop Dose Admin Acetaminophen 650 mg 12/25/18 13:12 01/04/19 03:03 Tylenol PO 650 mg Q4H PRN Administration Pain MILD(1-3)/Fever >100.5/ISAAC Bupropion HCl 150 mg 12/26/18 10:00 01/04/19 10:22 Wellbutrin Sr PO 150 mg BID SHRUTHI Administration Dextrose 50 ml 12/25/18 13:19 D50w (25gm) Syringe IV PRN PRN Hypoglycemia Haloperidol Lactate 5 mg 12/26/18 15:34 Haldol IV Q1H PRN Unrespon. to mult. doses BZD's Hydralazine HCl 10 mg 01/01/19 10:00 01/01/19 11:46 Apresoline IV 10 mg Q4HR PRN Administration BP > 160/100 Dextrose 1,000 mls @ 100 mls/hr 01/03/19 14:00 01/03/19 17:19 D5w IV 75 mls/hr DIRECT SHRUTHI Administration Potassium Chloride 40 meq/ 520 mls @ 125 mls/hr 01/03/19 17:00 01/04/19 02:59 Sodium Chloride IV 01/05/19 21:10 125 mls/hr DIRECT SHRUTHI Administration Insulin Glargine 14 units 01/03/19 22:00 01/03/19 21:47 Lantus SUB-Q 14 units QHS SHRUTHI Administration Insulin Human Lispro 0 unit 12/25/18 16:30 01/04/19 12:23 Humalog SUB-Q 6 unit ACHS SHRUTHI Administration Protocol Lorazepam 2 mg 12/26/18 15:34 01/04/19 03:16 Ativan IV 2 mg Q1H PRN Administration CIWA-Ar 8-15 Lorazepam 4 mg 12/26/18 15:34 Ativan IV Q1H PRN CIWA-Ar 16-25 Lorazepam 4 mg 12/26/18 15:34 Ativan IV Q15MIN PRN CIWA-Ar >25 Metformin HCl 1,000 mg 01/02/19 17:00 01/04/19 08:44 Glucophage PO 1,000 mg BIDDIAB SHRUTHI Administration Nifedipine 60 mg 12/31/18 22:00 01/04/19 10:44 Procardia Xl PO 60 mg Q12HR SHRUTHI Administration Ondansetron HCl 4 mg 12/25/18 13:12 Zofran IV Q8H PRN Nausea And Vomiting Sertraline HCl 200 mg 12/26/18 10:00 01/04/19 11:44 Zoloft PO 200 mg QDAY SHRUTHI Administration Sodium Chloride 10 ml 12/25/18 22:00 01/03/19 21:48 Sodium Chloride Flush Syringe 10 Ml IV 10 ml BID SHRUTHI Administration Sodium Chloride 10 ml 12/25/18 13:12 12/31/18 09:29 Sodium Chloride Flush Syringe 10 Ml IV 10 ml PRN PRN Administration LINE FLUSH Nutrition/Malnutrition Assess - Dietary Evaluation Nutrition/Malnutrition Findings: Nutrition Notes Start: 12/26/18 15:51 Freq: Status: Active Protocol: Document 01/01/19 09:47 TW (Rec: 01/01/19 09:53 TW [id number]) Co-Sign 01/01/19 09:47 LP Nutrition Notes Initial or Follow up Reassessment Current Diagnosis Diabetes,Hypertension Other Pertinent Diagnosis S/P closed hip reduction, Hx prostate cancer, Hx of depression,Sacral wound Current Diet Cardiac/Consistent CHO Labs/Tests Reviewed Pertinent Medications Reviewed Height 6 ft Weight 72.575 kg [place] Body Weight (kg) 80.90 BMI 21.7 Subjective/Other Information Pt asleep and nonresponsive at time of visit. Pt commmunicated a poor appetite. RN stated he ate 10% of his breakfast, and did not want to eat more than that. Pt not drinking any of his ONS. Percent of energy/protein needs met: 10%/10% Burn Absent Trauma Absent #1 Nutrition Diagnosis Inadequate oral intake Diagnosis Progress(for reassessment Continues documentation) Is patient on ventilator? No Is Patient Ambulatory and/or Out of Bed No REE-([facility]-confined to bed) 4206.288 Calculation Used for Recommendations [facility] Additional Notes Protein Needs: 87-109g (1.2-1. 5g/kg) Fluid Needs: 1 ml/kcal Nutrition Intervention Change Diet Order: Cardiac/Consistent CHO, Mech soft Add Supplement/Snack (indicate name/kcal Ensure Clear 1 daily /protein ) Provides kCal: 240 Provides Protein (gm) 8 Goal #1 Meet at least 75% of calorie and protein needs via PO and ONS intakes Anticipated Discharge Needs: Cardiac/Consistent CHO Follow-Up By: 01/05/19 Additional Comments Follow for PO and ONS intakes and DM diet education
--- NOTE | 2019-01-04 15:32 | Progress Note ---
Assessment and Plan - Patient Problems (1) Hypokalemia Current Visit: Yes Status: Acute Plan to address problem: Hypokalemia resolved Primary team has ordered potassium chloride 40 mEq 3 bags Recheck basic metabolic panel and magnesium as well (2) Acute kidney injury Current Visit: Yes Status: Acute Plan to address problem: Acute kidney injury improving We'll continue fluid hydration current creatinine is 1.4 mg/DL Etiology acute kidney injury likely secondary to depletion Continue IV fluids (3) Hypernatremia Current Visit: Yes Status: Acute Plan to address problem: Hypernatremia We will increase dextrose 5% water infusion to 125 mL an hour for free water replacement Recheck labs (4) Acidosis Current Visit: Yes Status: Acute Plan to address problem: Mild metabolic acidosis Monitor We'll discontinue saline infusion Subjective Interval history: 58-year-old gentleman by chronic kidney disease hypertension diabetes nephrology following for worsening renal function and electrolytes abnormalities He was seen today denies any orthopnea PND have lower extremity edema denies any shortness of breath Complains of feeling dehydrated requesting water Discussed with nursing staff ensure free water access Objective - Vital Signs Vital signs: Vital Signs - 12hr 01/04/19 01/04/19 07:00 09:15 Temperature 97.7 F Pulse Rate 80 Respiratory 18 Rate Blood Pressure 142/83 [Right] O2 Sat by Pulse 95 Oximetry - General Appearance General appearance: chronically ill, frail EENT: ATNC, PERRL, mucous membranes moist Neck: no JVD, JVD Respiratory: Present: Clear to Ascultation Cardiology: regular, S1S2 Gastrointestinal: normal, normoactive bowel sounds Integumentary: no rash Neurologic: no focal deficit, other (awake and alert) Psychiatric: mood/affect appropriate - Lab 01/02/19 04:27 01/04/19 06:21 Most recent lab results Calcium 7.9 mg/dL (8.4-10.2) L 01/04/19 06:21 Phosphorus 2.60 mg/dL (2.5-4.5) 01/04/19 06:21 Magnesium 1.60 mg/dL (1.7-2.3) L 01/04/19 06:21 Urine Creatinine 57.7 mg/dL (0.1-20.0) H 12/29/18 19:00 Urine Sodium 47 mmol/L 12/29/18 19:00 - Imaging Chest x-ray: image reviewed (I reviewed chest x-ray clear lung dailey) Medications & Allergies - Medications Allergies/Adverse Reactions: Allergies poison oak extract Allergy (Verified 11/27/18 06:08) Itching Home Medications: Home Medications Medication Instructions Recorded Confirmed Last Taken Type Bupropion HCl [Bupropion HCl Sr] 150 mg PO BID 09/10/17 12/26/18 11/24/18 09:00 History Insulin Detemir [Levemir Flextouch] 4 unit SQ QDAY 09/10/17 12/26/18 11/24/18 21:00 History Lanreotide Acetate [Somatuline 120 mg SQ QMONTH 09/10/17 12/26/18 11/24/18 09:00 History Depot] Sertraline [Zoloft] 200 mg PO QDAY 09/10/17 12/26/18 11/24/18 09:00 History Sildenafil Citrate [Viagra] 100 mg PO PRN PRN 09/10/17 12/26/18 11/24/18 09:00 History traZODone [Desyrel] 100 mg PO PRN PRN 09/10/17 12/26/18 11/24/18 09:00 History Metformin HCl [Glucophage] 1,000 mg PO BID 11/27/18 12/26/18 11/24/18 09:00 History Active Medications: Generic Name Dose Route Start Last Admin Trade Name Freq PRN Reason Stop Dose Admin Acetaminophen 650 mg 12/25/18 13:12 01/04/19 03:03 Tylenol PO 650 mg Q4H PRN Administration Pain MILD(1-3)/Fever >100.5/ISAAC Bupropion HCl 150 mg 12/26/18 10:00 01/04/19 10:22 Wellbutrin Sr PO 150 mg BID SHRUTHI Administration Dextrose 50 ml 12/25/18 13:19 D50w (25gm) Syringe IV PRN PRN Hypoglycemia Haloperidol Lactate 5 mg 12/26/18 15:34 Haldol IV Q1H PRN Unrespon. to mult. doses BZD's Hydralazine HCl 10 mg 01/01/19 10:00 01/01/19 11:46 Apresoline IV 10 mg Q4HR PRN Administration BP > 160/100 Dextrose 1,000 mls @ 100 mls/hr 01/03/19 14:00 01/03/19 17:19 D5w IV 75 mls/hr DIRECT SHRUTHI Administration Potassium Chloride 40 meq/ 520 mls @ 125 mls/hr 01/03/19 17:00 01/04/19 02:59 Sodium Chloride IV 01/05/19 21:10 125 mls/hr DIRECT SHRUTHI Administration Insulin Glargine 14 units 01/03/19 22:00 01/03/19 21:47 Lantus SUB-Q 14 units QHS SHRUTHI Administration Insulin Human Lispro 0 unit 12/25/18 16:30 01/04/19 12:23 Humalog SUB-Q 6 unit ACHS SHRUTHI Administration Protocol Lorazepam 2 mg 12/26/18 15:34 01/04/19 03:16 Ativan IV 2 mg Q1H PRN Administration CIWA-Ar 8-15 Lorazepam 4 mg 12/26/18 15:34 Ativan IV Q1H PRN CIWA-Ar 16-25 Lorazepam 4 mg 12/26/18 15:34 Ativan IV Q15MIN PRN CIWA-Ar >25 Metformin HCl 1,000 mg 01/02/19 17:00 01/04/19 08:44 Glucophage PO 1,000 mg BIDDIAB SHRUTHI Administration Nifedipine 60 mg 12/31/18 22:00 01/04/19 10:44 Procardia Xl PO 60 mg Q12HR SHRUTHI Administration Ondansetron HCl 4 mg 12/25/18 13:12 Zofran IV Q8H PRN Nausea And Vomiting Sertraline HCl 200 mg 12/26/18 10:00 01/04/19 11:44 Zoloft PO 200 mg QDAY SHRUTHI Administration Sodium Chloride 10 ml 12/25/18 22:00 01/03/19 21:48 Sodium Chloride Flush Syringe 10 Ml IV 10 ml BID SHRUTHI Administration Sodium Chloride 10 ml 12/25/18 13:12 12/31/18 09:29 Sodium Chloride Flush Syringe 10 Ml IV 10 ml PRN PRN Administration LINE FLUSH
[2019-01-04] MEDS: LANTUS SUB-Q SCH (23:18)
[2019-01-04] MEDS: SODIUM CHLORIDE FLUSH SYRINGE 10 ML IV SCH (23:22)
[2019-01-05] MEDS: ATIVAN IV PRN (00:15)
[2019-01-05] MEDS: GLUCOPHAGE PO SCH ×2 (07:58→17:34)
[2019-01-05] MEDS: ZOLOFT PO SCH ×2 (07:58→12:10)
[2019-01-05] MEDS: PROCARDIA XL PO SCH ×3 (07:58→22:18)
[2019-01-05] MEDS: WELLBUTRIN SR PO SCH ×3 (07:58→22:16)
[2019-01-05] MEDS: SODIUM CHLORIDE FLUSH SYRINGE 10 ML IV SCH ×3 (07:59→22:21)
[2019-01-05] MEDS: D5W 1,000 ML IV SCH (08:08)
[2019-01-05] MEDS: HumaLOG SUB-Q SCH ×4 (08:27→22:22)
--- NOTE | 2019-01-05 09:58 | Progress Note ---
Assessment and Plan Impression * Acute and chronic renal failure * Hypernatremia * Hypertension * Urinary retention * Diabetes * Right hip dislocation Recommendations * Patient's renal function is stable. Most likely his baseline. * He remains hypernatremic. Continue hypotonic IV fluid * Encourage oral free water intake * Continue Ramirez catheter in for now because of his urinary retention * Consider urology evaluation * Status post closed reduction of his right hip Subjective Date of service: 01/05/19 Interval history: Patient is awake and alert. His breakfast is at bedside. However it appears that he has not touched it. Appears comfortable. Objective - Vital Signs Vital signs: Vital Signs - 12hr 01/05/19 01/05/19 01/05/19 00:03 00:04 04:54 Temperature 97.2 F L 97.2 F L Pulse Rate 86 87 86 Respiratory 18 18 16 Rate Blood Pressure 149/81 110/72 O2 Sat by Pulse 100 100 98 Oximetry 01/05/19 01/05/19 04:55 07:02 Temperature 97.6 F 98.1 F Pulse Rate 83 Respiratory 16 Rate Blood Pressure 141/78 O2 Sat by Pulse 99 Oximetry - General Appearance General appearance: well-developed, well-nourished, appears stated age EENT: PERRL, mucous membranes moist Neck: no JVD, no thyromegaly, no carotid bruit, supple Respiratory: Present: Clear to Ascultation Cardiology: regular, normal heart rate, S1S2, no murmurs Gastrointestinal: normal, normoactive bowel sounds, other (Ramirez catheter in place) Integumentary: no rash, other (no edema) - Lab 01/02/19 04:27 01/04/19 06:21 Most recent lab results Calcium 7.9 mg/dL (8.4-10.2) L 01/04/19 06:21 Phosphorus 2.60 mg/dL (2.5-4.5) 01/04/19 06:21 Magnesium 1.80 mg/dL (1.7-2.3) 01/05/19 04:28 Urine Creatinine 57.7 mg/dL (0.1-20.0) H 12/29/18 19:00 Urine Sodium 47 mmol/L 12/29/18 19:00 Medications & Allergies - Medications Allergies/Adverse Reactions: Allergies poison oak extract Allergy (Verified 11/27/18 06:08) Itching Home Medications: Home Medications Medication Instructions Recorded Confirmed Last Taken Type Bupropion HCl [Bupropion HCl Sr] 150 mg PO BID 09/10/17 12/26/18 11/24/18 09:00 History Insulin Detemir [Levemir Flextouch] 4 unit SQ QDAY 09/10/17 12/26/18 11/24/18 21:00 History Lanreotide Acetate [Somatuline 120 mg SQ QMONTH 09/10/17 12/26/18 11/24/18 09:00 History Depot] Sertraline [Zoloft] 200 mg PO QDAY 09/10/17 12/26/18 11/24/18 09:00 History Sildenafil Citrate [Viagra] 100 mg PO PRN PRN 09/10/17 12/26/18 11/24/18 09:00 History traZODone [Desyrel] 100 mg PO PRN PRN 09/10/17 12/26/18 11/24/18 09:00 History Metformin HCl [Glucophage] 1,000 mg PO BID 11/27/18 12/26/18 11/24/18 09:00 History Active Medications: Generic Name Dose Route Start Last Admin Trade Name Freq PRN Reason Stop Dose Admin Acetaminophen 650 mg 12/25/18 13:12 01/04/19 03:03 Tylenol PO 650 mg Q4H PRN Administration Pain MILD(1-3)/Fever >100.5/ISAAC Bupropion HCl 150 mg 12/26/18 10:00 01/05/19 07:58 Wellbutrin Sr PO 150 mg BID SHRUTHI Administration Dextrose 50 ml 12/25/18 13:19 D50w (25gm) Syringe IV PRN PRN Hypoglycemia Haloperidol Lactate 5 mg 12/26/18 15:34 Haldol IV Q1H PRN Unrespon. to mult. doses BZD's Hydralazine HCl 10 mg 01/01/19 10:00 01/01/19 11:46 Apresoline IV 10 mg Q4HR PRN Administration BP > 160/100 Dextrose 1,000 mls @ 100 mls/hr 01/03/19 14:00 01/05/19 08:08 D5w IV 75 mls/hr DIRECT SHRUTHI Administration Potassium Chloride 40 meq/ 520 mls @ 125 mls/hr 01/03/19 17:00 01/04/19 02:59 Sodium Chloride IV 01/05/19 21:10 125 mls/hr DIRECT SHRUTHI Administration Insulin Glargine 14 units 01/03/19 22:00 01/04/19 23:18 Lantus SUB-Q 14 units QHS SHRUTHI Administration Insulin Human Lispro 0 unit 12/25/18 16:30 01/05/19 08:27 Humalog SUB-Q 5 unit ACHS SHRUTHI Administration Protocol Lorazepam 2 mg 12/26/18 15:34 01/05/19 00:15 Ativan IV 2 mg Q1H PRN Administration CIWA-Ar 8-15 Lorazepam 4 mg 12/26/18 15:34 Ativan IV Q1H PRN CIWA-Ar 16-25 Lorazepam 4 mg 12/26/18 15:34 Ativan IV Q15MIN PRN CIWA-Ar >25 Metformin HCl 1,000 mg 01/02/19 17:00 01/05/19 07:58 Glucophage PO 1,000 mg BIDDIAB SHRUTHI Administration Nifedipine 60 mg 12/31/18 22:00 01/05/19 07:58 Procardia Xl PO 60 mg Q12HR SHRUTHI Administration Ondansetron HCl 4 mg 12/25/18 13:12 Zofran IV Q8H PRN Nausea And Vomiting Sertraline HCl 200 mg 12/26/18 10:00 01/05/19 07:58 Zoloft PO 200 mg QDAY SHRUTHI Administration Sodium Chloride 10 ml 12/25/18 22:00 01/05/19 07:59 Sodium Chloride Flush Syringe 10 Ml IV 10 ml BID SHRUTHI Administration Sodium Chloride 10 ml 12/25/18 13:12 12/31/18 09:29 Sodium Chloride Flush Syringe 10 Ml IV 10 ml PRN PRN Administration LINE FLUSH
--- NOTE | 2019-01-05 11:20 | Progress Note ---
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 Laird Hypertension cont bp meds Hypernatremia, free water deficit cont hypotonic IVF, improving Hypokalmeia replaced Diabetes type 2 optimize insulins and metformin, giving higher SSI as he is on d5w for hypernatremia Chronic anemia, due to ca prostate sp 1 unit prbc, order another unit History of depression Continue Wellbutrin 150 mg twice a day, Zoloft 200 mg daily UTI ruled out, neg urine cx SEVERIANO- likely multifactorial secondary to acute tubular stasis and vasomotor nephropathy sp sapp (obstructed due to prostate ca), do not remove sapp, improving on ivf Metabolic acidosis- resolved Received bicarbonate infusion per nephrology 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 receiving rx at [place], needs hospice upon dc acute metabolic encephalopathy -mentation improving, Na improving on hypotonic fluid immobility cont PT, awaiting SNF with hospice placement, sister is not able to take him home History of Tobacco abuse DVT PPX scds due to anemia Dispo; to SNF with hospice, dw case management History Interval history: patient is less confused, still requiring assistance with all ADLs including feeding Review of systems Constitutional: No fevers, CVS: No chest pain, no orthopnea, no dyspnea on exertion, no pedal edema GI: No abdominal pain, no diarrhea, no vomiting, no constipation Respiratory: No shortness of breath, no wheezing, no coughing Hospitalist Physical - Physical exam Narrative exam: General.: Appears chronically ill, non toxic HEENT: Moist mucous membranes, extraocular muscles intact, no lymphadenopathy Neck: supple Cardiac: S1-S2 heard Lungs: clear to auscultation bilaterally Abdomen: soft , nontender, nondistended, bowel sounds positive Extremities: no edema clubbing or cyanosis Skin: no rash or lesions Neurologic: no gross focal deficits, less confused today Psych: calm, and cooperative - Constitutional Vitals: Temp Pulse Resp BP Pulse Ox 98.1 F 83 16 141/78 99 01/05/19 07:02 01/05/19 07:02 01/05/19 07:02 01/05/19 07:02 01/05/19 10:00 General appearance: Present: mild distress, disheveled Results - Labs CBC & Chem 7: 01/06/19 04:15 01/06/19 04:15 Labs: Laboratory Last Values WBC 10.2 K/mm3 (4.5-11.0) 01/02/19 04:27 RBC 2.55 M/mm3 (3.65-5.03) L 01/02/19 04:27 Hgb 7.9 gm/dl (11.8-15.2) L 01/02/19 04:27 Hct 23.0 % (35.5-45.6) L 01/02/19 04:27 MCV 90 fl (84-94) 01/02/19 04:27 MCH 31 pg (28-32) 01/02/19 04:27 MCHC 34 % (32-34) 01/02/19 04:27 RDW 17.5 % (13.2-15.2) H 01/02/19 04:27 Plt Count 296 K/mm3 (140-440) 01/02/19 04:27 Lymph % (Auto) 16.7 % (13.4-35.0) 01/02/19 04:27 [place] % (Auto) 6.4 % (0.0-7.3) 01/02/19 04:27 Eos % (Auto) 1.4 % (0.0-4.3) 01/02/19 04:27 Baso % (Auto) 0.5 % (0.0-1.8) 01/02/19 04:27 Lymph # 1.7 K/mm3 (1.2-5.4) 01/02/19 04:27 [place] # 0.7 K/mm3 (0.0-0.8) 01/02/19 04:27 Eos # 0.1 K/mm3 (0.0-0.4) 01/02/19 04:27 Baso # 0.0 K/mm3 (0.0-0.1) 01/02/19 04:27 Seg Neutrophils % 75.0 % (40.0-70.0) H 01/02/19 04:27 Seg Neutrophils # 7.6 K/mm3 (1.8-7.7) 01/02/19 04:27 PT 13.1 Sec. (12.2-14.9) 12/25/18 11:10 INR 0.94 (0.87-1.13) 12/25/18 11:10 APTT 26.2 Sec. (24.2-36.6) 12/25/18 11:10 VBG pH 7.298 (7.320-7.420) L 12/25/18 13:04 Sodium 148 mmol/L (137-145) H 01/04/19 06:21 Potassium 3.8 mmol/L (3.6-5.0) D 01/04/19 06:21 Chloride 114.2 mmol/L (98-107) H 01/04/19 06:21 Carbon Dioxide 22 mmol/L (22-30) 01/04/19 06:21 Anion Gap 16 mmol/L 01/04/19 06:21 BUN 17 mg/dL (9-20) 01/04/19 06:21 Creatinine 1.4 mg/dL (0.8-1.5) 01/04/19 06:21 Estimated GFR 52 ml/min 01/04/19 06:21 BUN/Creatinine Ratio 12 % 01/04/19 06:21 Glucose 74 mg/dL (75-100) L 01/04/19 06:21 POC Glucose 167 (70-105) H 01/05/19 07:12 Hemoglobin A1c 7.1 % (4-6) H 12/25/18 11:10 Ketones Quantitative Negative (Negative) 12/25/18 11:10 Osmolality 326 Mosm/kg 01/01/19 09:01 Lactic Acid 1.70 mmol/L (0.7-2.0) 12/25/18 13:04 Uric Acid 9.1 mg/dL (3.5-7.6) H 01/01/19 09:01 Calcium 7.9 mg/dL (8.4-10.2) L 01/04/19 06:21 Phosphorus 2.60 mg/dL (2.5-4.5) 01/04/19 06:21 Magnesium 1.80 mg/dL (1.7-2.3) 01/05/19 04:28 Iron 48 ug/dL (49-181) L 12/25/18 Unknown TIBC 292 mcg/dL (250-450) 12/25/18 Unknown % Saturation 16.44 % 12/25/18 Unknown Transferrin 128 mg/dl (180-329) L 12/25/18 Unknown Total Bilirubin 0.30 mg/dL (0.1-1.2) 12/30/18 05:16 Direct Bilirubin < 0.2 mg/dL (0-0.2) 12/25/18 11:10 Indirect Bilirubin 0.0 mg/dL 12/25/18 11:10 AST 26 units/L (5-40) 12/30/18 05:16 ALT 47 units/L (7-56) 12/30/18 05:16 Alkaline Phosphatase 98 units/L (35-129) 12/30/18 05:16 Ammonia 41.0 umol/L (25-60) 12/25/18 11:10 Total Creatine Kinase 343 units/L (55-170) H 12/29/18 17:18 CK-MB (CK-2) 5.3 ng/mL (0.0-4.0) H 12/25/18 11:10 CK-MB (CK-2) Rel Index 4.6 (0-4) H 12/25/18 11:10 NT-Pro-B Natriuret Pep 2450 pg/mL (0-900) H 12/25/18 11:10 Total Protein 6.0 g/dL (6.3-8.2) L 12/30/18 05:16 Albumin 2.7 g/dL (3.9-5) L 12/30/18 05:16 Albumin/Globulin Ratio 0.8 % 12/30/18 05:16 Vitamin B12 654.9 pg/mL (211-911) 12/25/18 Unknown Folate > 20.0 ng/mL (7.3-26.0) 12/25/18 Unknown TSH 16.800 mlU/mL (0.270-4.200) H 12/25/18 11:10 Free T4 0.79 ng/dL (0.76-1.46) 12/25/18 11:10 Urine Color Colorless (Yellow) 12/25/18 Unknown Urine Turbidity Clear (Clear) 12/25/18 Unknown Urine pH 6.0 (5.0-7.0) 12/25/18 Unknown Ur Specific [place] 1.007 (1.003-1.030) 12/25/18 Unknown Urine Protein 30 mg/dl mg/dL (Negative) 12/25/18 Unknown Urine Glucose (UA) >=500 mg/dL (Negative) 12/25/18 Unknown Urine Ketones Neg mg/dL (Negative) 12/25/18 Unknown Urine Blood Mod (Negative) 12/25/18 Unknown Urine Nitrite Neg (Negative) 12/25/18 Unknown Ur Reducing Substances Not Reportable 12/25/18 Unknown Urine Bilirubin Neg (Negative) 12/25/18 Unknown Urine Ictotest Not Reportable 12/25/18 Unknown Urine Urobilinogen < 2.0 mg/dL (<2.0) 12/25/18 Unknown Ur Leukocyte Esterase Neg (Negative) 12/25/18 Unknown Urine WBC (Auto) < 1.0 /HPF (0.0-6.0) 12/25/18 Unknown Urine RBC (Auto) 3.0 /HPF (0.0-6.0) 12/25/18 Unknown Urine Creatinine 57.7 mg/dL (0.1-20.0) H 12/29/18 19:00 Urine Sodium 47 mmol/L 12/29/18 19:00 Vancomycin Trough 22.5 ug/mL (5.0-20.0) H 12/29/18 13:27 Blood Type A POSITIVE 12/25/18 11:10 Antibody Screen Negative 12/25/18 11:10 Crossmatch See Detail 12/25/18 11:10 Active Medications - Current Medications Current Medications: Generic Name Dose Route Start Last Admin Trade Name Freq PRN Reason Stop Dose Admin Acetaminophen 650 mg 12/25/18 13:12 01/04/19 03:03 Tylenol PO 650 mg Q4H PRN Administration Pain MILD(1-3)/Fever >100.5/ISAAC Bupropion HCl 150 mg 12/26/18 10:00 01/05/19 07:58 Wellbutrin Sr PO 150 mg BID SHRUTHI Administration Dextrose 50 ml 12/25/18 13:19 D50w (25gm) Syringe IV PRN PRN Hypoglycemia Haloperidol Lactate 5 mg 12/26/18 15:34 Haldol IV Q1H PRN Unrespon. to mult. doses BZD's Hydralazine HCl 10 mg 01/01/19 10:00 01/01/19 11:46 Apresoline IV 10 mg Q4HR PRN Administration BP > 160/100 Dextrose 1,000 mls @ 100 mls/hr 01/03/19 14:00 01/05/19 08:08 D5w IV 75 mls/hr DIRECT SHRUTHI Administration Potassium Chloride 40 meq/ 520 mls @ 125 mls/hr 01/03/19 17:00 01/04/19 02:59 Sodium Chloride IV 01/05/19 21:10 125 mls/hr DIRECT SHRUTHI Administration Insulin Glargine 14 units 01/03/19 22:00 01/04/19 23:18 Lantus SUB-Q 14 units QHS SHRUTHI Administration Insulin Human Lispro 0 unit 12/25/18 16:30 01/05/19 08:27 Humalog SUB-Q 5 unit ACHS SHRUTHI Administration Protocol Lorazepam 2 mg 12/26/18 15:34 01/05/19 00:15 Ativan IV 2 mg Q1H PRN Administration CIWA-Ar 8-15 Lorazepam 4 mg 12/26/18 15:34 Ativan IV Q1H PRN CIWA-Ar 16-25 Lorazepam 4 mg 12/26/18 15:34 Ativan IV Q15MIN PRN CIWA-Ar >25 Metformin HCl 1,000 mg 01/02/19 17:00 01/05/19 07:58 Glucophage PO 1,000 mg BIDDIAB SHRUTHI Administration Nifedipine 60 mg 12/31/18 22:00 01/05/19 07:58 Procardia Xl PO 60 mg Q12HR SHRUTHI Administration Ondansetron HCl 4 mg 12/25/18 13:12 Zofran IV Q8H PRN Nausea And Vomiting Sertraline HCl 200 mg 12/26/18 10:00 01/05/19 07:58 Zoloft PO 200 mg QDAY SHRUTHI Administration Sodium Chloride 10 ml 12/25/18 22:00 01/05/19 07:59 Sodium Chloride Flush Syringe 10 Ml IV 10 ml BID SHRUTHI Administration Sodium Chloride 10 ml 12/25/18 13:12 12/31/18 09:29 Sodium Chloride Flush Syringe 10 Ml IV 10 ml PRN PRN Administration LINE FLUSH Nutrition/Malnutrition Assess - Dietary Evaluation Nutrition/Malnutrition Findings: Nutrition Notes Start: 12/26/18 15:51 Freq: Status: Active Protocol: Document 01/01/19 09:47 TW (Rec: 05/02/19 09:53 TW [id number]) Co-Sign 01/01/19 09:47 LP Nutrition Notes Initial or Follow up Reassessment Current Diagnosis Diabetes,Hypertension Other Pertinent Diagnosis S/P closed hip reduction, Hx prostate cancer, Hx of depression,Sacral wound Current Diet Cardiac/Consistent CHO Labs/Tests Reviewed Pertinent Medications Reviewed Height 6 ft Weight 72.575 kg [place] Body Weight (kg) 80.90 BMI 21.7 Subjective/Other Information Pt asleep and nonresponsive at time of visit. Pt commmunicated a poor appetite. RN stated he ate 10% of his breakfast, and did not want to eat more than that. Pt not drinking any of his ONS. Percent of energy/protein needs met: 10%/10% Burn Absent Trauma Absent #1 Nutrition Diagnosis Inadequate oral intake Diagnosis Progress(for reassessment Continues documentation) Is patient on ventilator? No Is Patient Ambulatory and/or Out of Bed No REE-([facility]-confined to bed) 3722.288 Calculation Used for Recommendations [facility] Additional Notes Protein Needs: 87-109g (1.2-1. 5g/kg) Fluid Needs: 1 ml/kcal Nutrition Intervention Change Diet Order: Cardiac/Consistent CHO, Mech soft Add Supplement/Snack (indicate name/kcal Ensure Clear 1 daily /protein ) Provides kCal: 240 Provides Protein (gm) 8 Goal #1 Meet at least 75% of calorie and protein needs via PO and ONS intakes Anticipated Discharge Needs: Cardiac/Consistent CHO Follow-Up By: 01/05/19 Additional Comments Follow for PO and ONS intakes and DM diet education
[2019-01-05] MEDS: LANTUS SUB-Q SCH (22:30)
[2019-01-06 07:24] LABS: Basophils % (Auto) 0.6 % (0.0-1.8); Eosinophils # (Auto) 0.1 K/mm3 (0.0-0.4); Eosinophils % (Auto) 1.9 % (0.0-4.3); Hematocrit 21.4 % (35.5-45.6); Hemoglobin 7.1 gm/dl (11.8-15.2); Lymphocytes # (Auto) 0.9 K/mm3 (1.2-5.4); Mean Corpuscular HGB Conc 33 % (32-34); Mean Corpuscular Volume 90 fl (84-94); Monocytes # (Auto) 0.5 K/mm3 (0.0-0.8); Platelet Count 353 K/mm3 (140-440); Red Blood Count 2.37 M/mm3 (3.65-5.03); Red Cell Distribution Width 16.7 % (13.2-15.2)
[2019-01-06] MEDS: SODIUM CHLORIDE FLUSH SYRINGE 10 ML IV SCH ×2 (07:40→09:02)
[2019-01-06] MEDS: HumaLOG SUB-Q SCH ×5 (08:29→22:50)
[2019-01-06] MEDS: GLUCOPHAGE PO SCH ×2 (09:01→16:52)
[2019-01-06] MEDS: ZOLOFT PO SCH (09:01)
[2019-01-06] MEDS: PROCARDIA XL PO SCH ×2 (09:01→21:41)
[2019-01-06] MEDS: WELLBUTRIN SR PO SCH ×2 (09:01→21:41)
--- NOTE | 2019-01-06 09:15 | Progress Note ---
Assessment and Plan Impression * Acute and chronic renal failure * Hypernatremia * Hypertension * Urinary retention * Diabetes * Right hip dislocation Recommendations * Patient's renal function is stable. Most likely his baseline. * Hypernatremia is improving. Reduce IV fluid. * Encourage oral free water intake * Continue Ramirez catheter in for now because of his urinary retention * Consider urology evaluation * Status post closed reduction of his right hip Subjective Date of service: 01/06/19 Interval history: Patient is awake and alert. Appears comfortable. Denies any shortness of breath. IV fluid infusing. Objective - Vital Signs Vital signs: Vital Signs - 12hr 01/05/19 01/06/19 01/06/19 23:16 07:10 07:45 Temperature 97.9 F 97.0 F L 97.4 F L Pulse Rate 94 H 83 Respiratory 18 20 18 Rate Blood Pressure 96/62 149/84 Blood Pressure 149/84 [Right] O2 Sat by Pulse 98 84 100 Oximetry - General Appearance General appearance: well-developed, well-nourished, appears stated age EENT: PERRL, mucous membranes moist Neck: no JVD, no thyromegaly, no carotid bruit, supple Respiratory: Present: Clear to Ascultation Cardiology: regular, normal heart rate, S1S2, no murmurs Gastrointestinal: normal, normoactive bowel sounds Integumentary: no rash, other (no edema. Dressing over his right hip. Right knee in a brace) - Lab 01/06/19 04:15 01/06/19 04:15 Most recent lab results Calcium 8.0 mg/dL (8.4-10.2) L 01/06/19 04:15 Phosphorus 2.60 mg/dL (2.5-4.5) 01/04/19 06:21 Magnesium 1.80 mg/dL (1.7-2.3) 01/05/19 12:29 57.7 mg/dL (0.1-20.0) H 12/29/18 19:00 47 mmol/L 12/29/18 19:00 Medications & Allergies - Medications Allergies/Adverse Reactions: Allergies poison oak extract Allergy (Verified 11/27/18 06:08) Itching Home Medications: Home Medications Medication Instructions Recorded Confirmed Last Taken Type Bupropion HCl [Bupropion HCl Sr] 150 mg PO BID 09/10/17 12/26/18 11/24/18 09:00 History Insulin Detemir [Levemir Flextouch] 4 unit SQ QDAY 09/10/17 12/26/18 11/24/18 21:00 History Lanreotide Acetate [Somatuline 120 mg SQ QMONTH 09/10/17 12/26/18 11/24/18 09:00 History Depot] Sertraline [Zoloft] 200 mg PO QDAY 09/10/17 12/26/18 11/24/18 09:00 History Sildenafil Citrate [Viagra] 100 mg PO PRN PRN 09/10/17 12/26/18 11/24/18 09:00 History traZODone [Desyrel] 100 mg PO PRN PRN 09/10/17 12/26/18 11/24/18 09:00 History Metformin HCl [Glucophage] 1,000 mg PO BID 11/27/18 12/26/18 11/24/18 09:00 History Active Medications: Generic Name Dose Route Start Last Admin Trade Name Freq PRN Reason Stop Dose Admin Acetaminophen 650 mg 12/25/18 13:12 01/04/19 03:03 Tylenol PO 650 mg Q4H PRN Administration Pain MILD(1-3)/Fever >100.5/ISAAC Bupropion HCl 150 mg 12/26/18 10:00 01/06/19 09:01 Wellbutrin Sr PO 150 mg BID SHRUTHI Administration Dextrose 50 ml 12/25/18 13:19 D50w (25gm) Syringe IV PRN PRN Hypoglycemia Haloperidol Lactate 5 mg 12/26/18 15:34 Haldol IV Q1H PRN Unrespon. to mult. doses BZD's Hydralazine HCl 10 mg 01/01/19 10:00 01/01/19 11:46 Apresoline IV 10 mg Q4HR PRN Administration BP > 160/100 Dextrose 1,000 mls @ 100 mls/hr 01/03/19 14:00 01/05/19 08:08 D5w IV 75 mls/hr DIRECT SHRUTHI Administration Insulin Glargine 14 units 01/03/19 22:00 01/05/19 22:30 Lantus SUB-Q Not Given QHS SHRUTHI Insulin Human Lispro 0 unit 12/25/18 16:30 01/06/19 08:29 Humalog SUB-Q Not Given ACHS SHRUTHI Protocol Lorazepam 2 mg 12/26/18 15:34 01/05/19 00:15 Ativan IV 2 mg Q1H PRN Administration CIWA-Ar 8-15 Lorazepam 4 mg 12/26/18 15:34 Ativan IV Q1H PRN CIWA-Ar 16-25 Lorazepam 4 mg 12/26/18 15:34 Ativan IV Q15MIN PRN CIWA-Ar >25 Metformin HCl 1,000 mg 01/02/19 17:00 01/06/19 09:01 Glucophage PO 1,000 mg BIDDIAB SHRUTHI Administration Nifedipine 60 mg 12/31/18 22:00 01/06/19 09:01 Procardia Xl PO 60 mg Q12HR SHRUTHI Administration Ondansetron HCl 4 mg 12/25/18 13:12 Zofran IV Q8H PRN Nausea And Vomiting Sertraline HCl 200 mg 12/26/18 10:00 01/06/19 09:01 Zoloft PO 200 mg QDAY SHRUTHI Administration Sodium Chloride 10 ml 12/25/18 22:00 01/06/19 09:02 Sodium Chloride Flush Syringe 10 Ml IV 10 ml BID SHRUTHI Administration Sodium Chloride 10 ml 12/25/18 13:12 12/31/18 09:29 Sodium Chloride Flush Syringe 10 Ml IV 10 ml PRN PRN Administration LINE FLUSH
[2019-01-06] MEDS ORDERED: NACL 0.9% 500 ML 500 ML IV ONE (11:30)
[2019-01-06] MEDS ORDERED: MAGNESIUM SULFATE 2GM/50ML 2 GM/50 ML BAG IV ONE (11:30)
[2019-01-06] MEDS: NACL 0.45% 1000 ML 1,000 ML IV SCH (11:55)
[2019-01-06] MEDS ORDERED: K-DUR PO ONE (12:00)
--- NOTE | 2019-01-06 13:34 | Progress Note ---
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 Laird Hypertension cont bp meds Hypernatremia, free water deficit cont hypotonic IVF, improving Hypokalmeia replaced Diabetes type 2 optimize insulins and metformin, giving higher SSI as he is on d5w for hypernatremia Chronic anemia, due to ca prostate sp 1 unit prbc, order another unit History of depression Continue Wellbutrin 150 mg twice a day, Zoloft 200 mg daily UTI ruled out, neg urine cx SEVERIANO- likely multifactorial secondary to acute tubular stasis and vasomotor nephropathy sp sapp (obstructed due to prostate ca), do not remove sapp, improving on ivf Metabolic acidosis- resolved Received bicarbonate infusion per nephrology 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 Hospitalist Physical - Physical exam Narrative exam: Not in cardiopulmonary distress. The patient appeared well nourished and normally developed. Vital signs as documented. Head exam is unremarkable. No scleral icterus . Neck is without jugular venous distension, thyromegaly, or carotid bruits. Lungs are clear to auscultation. Cardiac exam reveals regular rate and Rhythm. First and second heart sounds normal. No murmurs, rubs or gallops. Abdominal exam reveals normal bowel sounds, no masses, no organomegaly and no aortic enlargement. Extremities are nonedematous and both femoral and pedal pulses are normal. QC LAB TECHNICIAN: Confused. - Constitutional Vitals: Temp Pulse Resp BP Pulse Ox 97.6 F 83 18 170/92 100 01/06/19 10:00 01/06/19 10:00 01/06/19 07:45 01/06/19 10:01/06/19 07:45 General appearance: Present: mild distress, disheveled Results - Labs CBC & Chem 7: 01/06/19 04:15 01/06/19 04:15 Labs: Laboratory Last Values WBC 7.6 K/mm3 (4.5-11.0) 01/06/19 04:15 RBC 2.37 M/mm3 (3.65-5.03) L 01/06/19 04:15 Hgb 7.1 gm/dl (11.8-15.2) L 01/06/19 04:15 Hct 21.4 % (35.5-45.6) L 01/06/19 04:15 MCV 90 fl (84-94) 01/06/19 04:15 MCH 30 pg (28-32) 01/06/19 04:15 MCHC 33 % (32-34) 01/06/19 04:15 RDW 16.7 % (13.2-15.2) H 01/06/19 04:15 Plt Count 353 K/mm3 (140-440) 01/06/19 04:15 Lymph % (Auto) 12.0 % (13.4-35.0) L 01/06/19 04:15 Iron % (Auto) 7.0 % (0.0-7.3) 01/06/19 04:15 Eos % (Auto) 1.9 % (0.0-4.3) 01/06/19 04:15 Baso % (Auto) 0.6 % (0.0-1.8) 01/06/19 04:15 Lymph # 0.9 K/mm3 (1.2-5.4) L 01/06/19 04:15 Iron # 0.5 K/mm3 (0.0-0.8) 01/06/19 04:15 Eos # 0.1 K/mm3 (0.0-0.4) 01/06/19 04:15 Baso # 0.0 K/mm3 (0.0-0.1) 01/06/19 04:15 Seg Neutrophils % 78.5 % (40.0-70.0) H 01/06/19 04:15 Seg Neutrophils # 6.0 K/mm3 (1.8-7.7) 01/06/19 04:15 PT 13.1 Sec. (12.2-14.9) 12/25/18 11:10 INR 0.94 (0.87-1.13) 12/25/18 11:10 APTT 26.2 Sec. (24.2-36.6) 12/25/18 11:10 VBG pH 7.298 (7.320-7.420) L 12/25/18 13:04 Sodium 139 mmol/L (137-145) 01/06/19 04:15 Potassium 3.5 mmol/L (3.6-5.0) L 01/06/19 04:15 Chloride 106.2 mmol/L (98-107) 01/06/19 04:15 Carbon Dioxide 22 mmol/L (22-30) 01/06/19 04:15 14 mmol/L 01/06/19 04:15 BUN 17 mg/dL (9-20) 01/06/19 04:15 1.3 mg/dL (0.8-1.5) 01/06/19 04:15 Estimated GFR 57 ml/min 01/06/19 04:15 13 % 01/06/19 04:15 Glucose 66 mg/dL (75-100) L 01/06/19 04:15 POC Glucose 318 (70-105) H 01/06/19 11:28 7.1 % (4-6) H 12/25/18 11:10 Negative (Negative) 12/25/18 11:10 326 Mosm/kg 01/01/19 09:01 Lactic Acid 1.70 mmol/L (0.7-2.0) 12/25/18 13:04 9.1 mg/dL (3.5-7.6) H 01/01/19 09:01 Calcium 8.0 mg/dL (8.4-10.2) L 01/06/19 04:15 Phosphorus 3.40 mg/dL (2.5-4.5) 01/06/19 04:15 Magnesium 1.60 mg/dL (1.7-2.3) L 01/06/19 04:15 Iron 48 ug/dL (49-181) L 12/25/18 Unknown TIBC 292 mcg/dL (250-450) 12/25/18 Unknown % Saturation 16.44 % 12/25/18 Unknown 128 mg/dl (180-329) L 12/25/18 Unknown 0.30 mg/dL (0.1-1.2) 12/30/18 05:16 < 0.2 mg/dL (0-0.2) 12/25/18 11:10 0.0 mg/dL 12/25/18 11:10 AST 26 units/L (5-40) 12/30/18 05:16 ALT 47 units/L (7-56) 12/30/18 05:16 98 units/L (35-129) 12/30/18 05:16 41.0 umol/L (25-60) 12/25/18 11:10 343 units/L (55-170) H 12/29/18 17:18 CK-MB (CK-2) 5.3 ng/mL (0.0-4.0) H 12/25/18 11:10 CK-MB (CK-2) Rel Index 4.6 (0-4) H 12/25/18 11:10 NT-Pro-B Natriuret Pep 2450 pg/mL (0-900) H 12/25/18 11:10 6.0 g/dL (6.3-8.2) L 12/30/18 05:16 2.7 g/dL (3.9-5) L 12/30/18 05:16 0.8 % 12/30/18 05:16 Vitamin B12 654.9 pg/mL (211-911) 12/25/18 Unknown > 20.0 ng/mL (7.3-26.0) 12/25/18 Unknown TSH 16.800 mlU/mL (0.270-4.200) H 12/25/18 11:10 Free T4 0.79 ng/dL (0.76-1.46) 12/25/18 11:10 Colorless (Yellow) 12/25/18 Unknown Clear (Clear) 12/25/18 Unknown 6.0 (5.0-7.0) 12/25/18 Unknown Ur Specific [place] 1.007 (1.003-1.030) 12/25/18 Unknown 30 mg/dl mg/dL (Negative) 12/25/18 Unknown >=500 mg/dL (Negative) 12/25/18 Unknown Neg mg/dL (Negative) 12/25/18 Unknown Mod (Negative) 12/25/18 Unknown Neg (Negative) 12/25/18 Unknown Ur Reducing Substances Not Reportable 12/25/18 Unknown Neg (Negative) 12/25/18 Unknown Not Reportable 12/25/18 Unknown < 2.0 mg/dL (<2.0) 12/25/18 Unknown Ur Leukocyte Esterase Neg (Negative) 12/25/18 Unknown < 1.0 /HPF (0.0-6.0) 12/25/18 Unknown 3.0 /HPF (0.0-6.0) 12/25/18 Unknown 57.7 mg/dL (0.1-20.0) H 12/29/18 19:00 47 mmol/L 12/29/18 19:00 Vancomycin Trough 22.5 ug/mL (5.0-20.0) H 12/29/18 13:27 Blood Type A POSITIVE 12/25/18 11:10 Antibody Screen Negative 12/25/18 11:10 Crossmatch See Detail 12/25/18 11:10 Active Medications - Current Medications Current Medications: Generic Name Dose Route Start Last Admin Trade Name Freq PRN Reason Stop Dose Admin Acetaminophen 650 mg 12/25/18 13:12 01/04/19 03:03 Tylenol PO 650 mg Q4H PRN Administration Pain MILD(1-3)/Fever >100.5/ISAAC Bupropion HCl 150 mg 12/26/18 10:00 01/06/19 09:01 Wellbutrin Sr PO 150 mg BID SHRUTHI Administration Dextrose 50 ml 12/25/18 13:19 D50w (25gm) Syringe IV PRN PRN Hypoglycemia Enoxaparin Sodium 40 mg 01/06/19 22:00 Lovenox SUB-Q QDAY@2200 SHRUTHI Haloperidol Lactate 5 mg 12/26/18 15:34 Haldol IV Q1H PRN Unrespon. to mult. doses BZD's Hydralazine HCl 10 mg 01/01/19 10:00 01/01/19 11:46 Apresoline IV 10 mg Q4HR PRN Administration BP > 160/100 Sodium Chloride 1,000 mls @ 75 mls/hr 01/06/19 11:00 01/06/19 11:55 Nacl 0.45% 1000 Ml IV 75 mls/hr DIRECT SHRUTHI Administration Insulin Glargine 14 units 01/03/19 22:00 01/05/19 22:30 Lantus SUB-Q Not Given QHS [facility] Insulin Human Lispro 0 unit 12/25/18 16:30 01/06/19 12:03 Humalog SUB-Q 4 unit ACHS SHRUTHI Administration Protocol Lorazepam 2 mg 12/26/18 15:34 01/05/19 00:15 Ativan IV 2 mg Q1H PRN Administration CIWA-Ar 8-15 Lorazepam 4 mg 12/26/18 15:34 Ativan IV Q1H PRN CIWA-Ar 16-25 Lorazepam 4 mg 12/26/18 15:34 Ativan IV Q15MIN PRN CIWA-Ar >25 Metformin HCl 1,000 mg 01/02/19 17:00 01/06/19 09:01 Glucophage PO 1,000 mg BIDDIAB SHRUTHI Administration Nifedipine 60 mg 12/31/18 22:00 01/06/19 09:01 Procardia Xl PO 60 mg Q12HR SHRUTHI Administration Ondansetron HCl 4 mg 12/25/18 13:12 Zofran IV Q8H PRN Nausea And Vomiting Sertraline HCl 200 mg 12/26/18 10:00 01/06/19 09:01 Zoloft PO 200 mg QDAY SHRUTHI Administration Sodium Chloride 10 ml 12/25/18 22:00 01/06/19 09:02 Sodium Chloride Flush Syringe 10 Ml IV 10 ml BID SHRUTHI Administration Sodium Chloride 10 ml 12/25/18 13:12 12/31/18 09:29 Sodium Chloride Flush Syringe 10 Ml IV 10 ml PRN PRN Administration LINE FLUSH Nutrition/Malnutrition Assess - Dietary Evaluation Nutrition/Malnutrition Findings: Nutrition Notes Start: 12/26/18 15:51 Freq: Status: Active Protocol: Document 01/05/19 15:36 OH (Rec: 01/05/19 15:48 OH [id number]) Nutrition Notes Initial or Follow up Reassessment Labs/Tests Reviewed Height 6 ft Weight 72.575 kg Bee Body Weight (kg) 80.90 BMI 21.7 Subjective/Other Information Pt. lying in bed with trouble being roused by RN. Per RN pt not consuming much of anything food brooks only water/coke. Pt . 's family to make a decision regarding placement in HOSPICE/SNF secondary to CA metasis. Percent of energy/protein needs met: 10/10% Current % PO Negligible #1 Nutrition Diagnosis Inadequate oral intake Diagnosis Progress(for reassessment Continues documentation) Calculation Used for Recommendations Bernadette Woodruff Additional Notes Protein Needs: 87-109g (1.2-1. 5g/kg) Fluid Needs: 1 ml/kcal Nutrition Intervention Change Diet Order: Cardiac/Consistent CHO, Mech soft Nutrition Support: Glucerna 1.2 @65 cc/hr x24 hours with 110 cc/water q 4 hours per MD recommendation Kcal 1,899 Protein (gm) 93 Fluid (mL) 1,255 Add Supplement/Snack (indicate name/kcal Ensure Clear 1 daily /protein ) Provides kCal: 240 Provides Protein (gm) 8 Goal #1 Monitor for PEG/DOBB NATE placement Goal #2 Initiate Glucerna 1.2 @ 10 cc/ hr and titrate to goal rate 65 cc/hr with 110 cc water flush q 4 hours Anticipated Discharge Needs: Unable to determine at this time Follow-Up By: 01/07/19 Additional Comments F/U: po intake/TF CONSULT
[2019-01-06] MEDS ORDERED: NACL 0.9% 500 ML 500 ML ONE (15:15)
[2019-01-06] MEDS: LANTUS SUB-Q SCH (21:42)
[2019-01-06] MEDS ORDERED: LOVENOX SUB-Q SCH (22:00)
[2019-01-07] MEDS: SODIUM CHLORIDE FLUSH SYRINGE 10 ML IV SCH (02:07)
[2019-01-07] MEDS: NACL 0.45% 1000 ML 1,000 ML IV SCH (04:29)
[2019-01-07 07:52] LABS: Basophils # (Auto) 0.1 K/mm3 (0.0-0.1); Basophils % (Auto) 0.9 % (0.0-1.8); Eosinophils # (Auto) 0.1 K/mm3 (0.0-0.4); Eosinophils % (Auto) 1.7 % (0.0-4.3); Hematocrit 29.1 % (35.5-45.6); Hemoglobin 9.7 gm/dl (11.8-15.2); Lymphocytes # (Auto) 1.1 K/mm3 (1.2-5.4); Lymphocytes % (Auto) 14.4 % (13.4-35.0); Mean Corpuscular HGB Conc 34 % (32-34); Mean Corpuscular Volume 90 fl (84-94); Monocytes # (Auto) 0.6 K/mm3 (0.0-0.8); Monocytes % (Auto) 7.4 % (0.0-7.3); Platelet Count 383 K/mm3 (140-440); Red Blood Count 3.23 M/mm3 (3.65-5.03); Red Cell Distribution Width 16.5 % (13.2-15.2)
[2019-01-07 08:04] LABS: BUN/Creatinine Ratio 13; Blood Urea Nitrogen 16 mg/dL (9-20); Calcium 8.3 mg/dL (8.4-10.2); Hemolysis Index 8
[2019-01-07] MEDS ORDERED: NORVASC PO SCH (10:00)
[2019-01-07] MEDS: TYLENOL PO PRN (11:20)
[2019-01-07] MEDS: PROCARDIA XL PO SCH (11:21)
[2019-01-07] MEDS: ZOLOFT PO SCH (11:21)
[2019-01-07] MEDS: GLUCOPHAGE PO SCH ×2 (11:21→16:44)
[2019-01-07] MEDS: WELLBUTRIN SR PO SCH (11:22)
[2019-01-07] MEDS: HumaLOG SUB-Q SCH (11:29)
--- NOTE | 2019-01-07 11:37 | Progress Note ---
Assessment and Plan Impression * Acute and chronic renal failure * Hypernatremia * Hypertension * Urinary retention * Diabetes * Right hip dislocation Recommendations * Patient's renal function is stable. Most likely his baseline. * Hypernatremia has been corrected. Discontinue his IV fluid for now . * Encourage oral free water intake * Continue Ramirez catheter in for now because of his urinary retention * Consider urology evaluation * Status post closed reduction of his right hip Subjective Date of service: 12/31/18 Interval history: Patient is awake and alert. Appears comfortable. Denies any shortness of breath. IV fluid infusing. According to patient's nurse he consumed 50% of his breakfast Objective - Vital Signs Vital signs: Vital Signs - 12hr 01/07/19 01/07/19 01/07/19 00:06 04:54 07:35 Temperature 98.0 F 97.3 F L 97.6 F Pulse Rate 85 79 82 Respiratory 18 19 18 Rate Blood Pressure 157/90 Blood Pressure 167/84 160/90 [Right] O2 Sat by Pulse 99 100 100 Oximetry 01/07/19 11:30 Temperature 97.8 F Pulse Rate 74 Respiratory 18 Rate Blood Pressure Blood Pressure 163/86 [Right] O2 Sat by Pulse 99 Oximetry - General Appearance General appearance: chronically ill, frail EENT: PERRL, mucous membranes moist Neck: no JVD, no thyromegaly, no carotid bruit, supple Respiratory: Present: Clear to Ascultation Cardiology: regular, normal heart rate Gastrointestinal: normal, normoactive bowel sounds Integumentary: other (no edema) - Lab 01/07/19 07:00 01/07/19 07:00 Most recent lab results Calcium 8.3 mg/dL (8.4-10.2) L 01/07/19 07:00 Phosphorus 3.40 mg/dL (2.5-4.5) 01/06/19 04:15 Magnesium 1.60 mg/dL (1.7-2.3) L 01/06/19 04:15 57.7 mg/dL (0.1-20.0) H 12/29/18 19:00 47 mmol/L 12/29/18 19:00 Medications & Allergies - Medications Allergies/Adverse Reactions: Allergies poison oak extract Allergy (Verified 11/27/18 06:08) Itching Home Medications: Home Medications Medication Instructions Recorded Confirmed Last Taken Type Bupropion HCl [Bupropion HCl Sr] 150 mg PO BID 09/10/17 12/26/18 11/24/18 09:00 History Insulin Detemir [Levemir Flextouch] 4 unit SQ QDAY 09/10/17 12/26/18 11/24/18 21:00 History Lanreotide Acetate [Somatuline 120 mg SQ QMONTH 09/10/17 12/26/18 11/24/18 09:00 History Depot] Sertraline [Zoloft] 200 mg PO QDAY 09/10/17 12/26/18 11/24/18 09:00 History Sildenafil Citrate [Viagra] 100 mg PO PRN PRN 09/10/17 12/26/18 11/24/18 09:00 History traZODone [Desyrel] 100 mg PO PRN PRN 09/10/17 12/26/18 11/24/18 09:00 History Metformin HCl [Glucophage] 1,000 mg PO BID 11/27/18 12/26/18 11/24/18 09:00 History Active Medications: Generic Name Dose Route Start Last Admin Trade Name Freq PRN Reason Stop Dose Admin Acetaminophen 650 mg 12/25/18 13:12 01/07/19 11:20 Tylenol PO 650 mg Q4H PRN Administration Pain MILD(1-3)/Fever >100.5/ISAAC Bupropion HCl 150 mg 12/26/18 10:00 01/07/19 11:22 Wellbutrin Sr PO 150 mg BID SHRUTHI Administration Dextrose 50 ml 12/25/18 13:19 D50w (25gm) Syringe IV PRN PRN Hypoglycemia Enoxaparin Sodium 40 mg 01/06/19 22:00 01/06/19 21:41 Lovenox SUB-Q 40 mg QDAY@2200 SHRUTHI Administration Haloperidol Lactate 5 mg 12/26/18 15:34 Haldol IV Q1H PRN Unrespon. to mult. doses BZD's Hydralazine HCl 10 mg 01/01/19 10:00 01/01/19 11:46 Apresoline IV 10 mg Q4HR PRN Administration BP > 160/100 Sodium Chloride 1,000 mls @ 75 mls/hr 01/06/19 11:00 01/07/19 04:29 Nacl 0.45% 1000 Ml IV 75 mls/hr DIRECT SHRUTHI Administration Insulin Glargine 14 units 01/03/19 22:00 01/06/19 21:42 Lantus SUB-Q 14 units QHS SHRUTHI Administration Insulin Human Lispro 0 unit 12/25/18 16:30 01/07/19 11:29 Humalog SUB-Q Not Given ACHS SHRUTHI Protocol Lorazepam 2 mg 12/26/18 15:34 01/05/19 00:15 Ativan IV 2 mg Q1H PRN Administration CIWA-Ar 8-15 Lorazepam 4 mg 12/26/18 15:34 Ativan IV Q1H PRN CIWA-Ar 16-25 Lorazepam 4 mg 12/26/18 15:34 Ativan IV Q15MIN PRN CIWA-Ar >25 Metformin HCl 1,000 mg 01/02/19 17:00 01/07/19 11:21 Glucophage PO 1,000 mg BIDDIAB SHRUTHI Administration Nifedipine 60 mg 12/31/18 22:00 01/07/19 11:21 Procardia Xl PO 60 mg Q12HR SHURTHI Administration Ondansetron HCl 4 mg 12/25/18 13:12 Zofran IV Q8H PRN Nausea And Vomiting Sertraline HCl 200 mg 12/26/18 10:00 01/07/19 11:21 Zoloft PO 200 mg QDAY SHRUTHI Administration Sodium Chloride 10 ml 12/25/18 22:00 01/07/19 02:07 Sodium Chloride Flush Syringe 10 Ml IV Not Given BID SHRUTHI Sodium Chloride 10 ml 12/25/18 13:12 12/31/18 09:29 Sodium Chloride Flush Syringe 10 Ml IV 10 ml PRN PRN Administration LINE FLUSH
--- NOTE | 2019-01-07 12:50 | Discharge Summary ---
Providers - Providers Date of Admission: 12/25/18 13:12 Attending physician: MARKIE SUAREZ MD 12/25/18 13:19 Consult to Dietitian/Nutrition [CONS] Routine Physician Instructions: Reason For Exam: Reason for Consult: Diet education Consult to Physician [CONS] Routine Comment: DR ODILIA RAMIREZ W/[employer] COMPONENTS INSPECTOR Aditya ASHER @1256 Consulting Provider: FRACISCO LAIRD Physician Instructions: Reason For Exam: bipolar hip dislocation 12/29/18 08:00 Consult to Wound/ET Nurse [CONS] Routine Reason For Exam: wound eval 12/29/18 15:29 Consult to Physician [CONS] Routine Comment: Consulting Provider: EVA MCKINNEY Physician Instructions: Reason For Exam: ARF Primary care physician: SENIOR INFRASTRUCTURE ARCHITECT Hospitalization Reason for admission: Right femur fracture, dementia, delirium Condition: Stable Hospital course: A 58-year-old male with history of chronic anemia, depression, hypertension, diabetes, 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 Laird Hypertension; cont bp meds Hypernatremia,corrected Hypokalmeia; corrected Diabetes type 2; continue home meds Chronic anemia, due to ca prostate; sp 2 units of prbc; stable. History of depression; Continue Wellbutrin 150 mg twice a day, Zoloft 200 mg daily UTI ruled out, neg urine cx SEVERIANO- likely multifactorial secondary to acute tubular stasis and vasomotor nephropathy. 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 Disposition: [id number]/[place]-[id number] SNF [facility] Time spent for discharge: 34 minutes - Discharge Diagnoses (1) Acidosis Status: Acute (2) Acute kidney injury Status: Acute (3) Altered mental status Status: Acute Qualifiers: Altered mental status type: delirium Qualified Code(s): R41.0 - Disorientation, unspecified (4) Anemia of chronic disease Status: Acute (5) Hip dislocation, right Status: Acute Qualifiers: Encounter type: initial encounter Qualified Code(s): S73.004A - Unspecified dislocation of right hip, initial encounter (6) Hyperglycemia due to type 1 diabetes mellitus Status: Acute (7) Hypernatremia Status: Acute Core Measure Documentation - Palliative Care Palliative Care/ Comfort Measures: Not Applicable - Core Measures Any of the following diagnoses?: none Exam - Physical Exam Narrative exam: Not in cardiopulmonary distress. The patient appeared well nourished and normally developed. Vital signs as documented. Head exam is unremarkable. No scleral icterus . Neck is without jugular venous distension, thyromegaly, or carotid bruits. Lungs are clear to auscultation. Cardiac exam reveals regular rate and Rhythm. First and second heart sounds normal. No murmurs, rubs or gallops. Abdominal exam reveals normal bowel sounds, no masses, no organomegaly and no aortic enlargement. Extremities are nonedematous and both femoral and pedal pulses are normal. EQUESTRIAN TRAINER: Confused. - Constitutional Vitals: Temp Pulse Resp BP Pulse Ox 97.8 F 74 18 163/86 99 01/07/19 11:30 01/07/19 11:30 01/07/19 11:30 01/07/19 11:30 01/07/19 11:30 Plan Activity: advance as tolerated Weight Bearing Status: Weight Bear as Tolerated Diet: diabetic Follow up with: PRIMARY CAREMD [Primary Care Provider] - 3-5 Days
[2019-01-07 17:00] VITALS: BP 142/81
[2019-01-07] MEDS ORDERED: SODIUM BICARBONATE PO SCH (22:00)
== END 2019-01-07 17:15 | DRG 559 ==
LOC: ED 10:52 → 3B-SURG 13:12
PROVIDERS: ADMIT Internal Medicine; ATTEND Internal Medicine
PROC: 30233N1 Transfusion of Nonautologous Red Blood Cells into Peripheral Vein, Percutaneous Approach (ICD-10-PCS; 2018-12-25)
PROC: 0SWAXJZ Revision of Synthetic Substitute in Right Hip Joint, Acetabular Surface, External Approach (ICD-10-PCS; 2018-12-25)
PROC: 0SWAXJZ Revision of Synthetic Substitute in Right Hip Joint, Acetabular Surface, External Approach (ICD-10-PCS; principal; 2018-12-26)
DX: T84.020A Dislocation of internal right hip prosthesis, initial encounter (principal); N17.0 Acute kidney failure with tubular necrosis; G93.41 Metabolic encephalopathy; E43 Unspecified severe protein-calorie malnutrition; S72.001A Fracture of unspecified part of neck of right femur, initial encounter for closed fracture; E87.0 Hyperosmolality and hypernatremia; E87.2 Acidosis; F31.9 Bipolar disorder, unspecified; D63.8 Anemia in other chronic diseases classified elsewhere; C61 Malignant neoplasm of prostate; I42.9 Cardiomyopathy, unspecified; E10.65 Type 1 diabetes mellitus with hyperglycemia; E10.36 Type 1 diabetes mellitus with diabetic cataract; F17.210 Nicotine dependence, cigarettes, uncomplicated; E03.9 Hypothyroidism, unspecified; G89.29 Other chronic pain; E87.6 Hypokalemia; N13.9 Obstructive and reflux uropathy, unspecified; R33.9 Retention of urine, unspecified; Y83.8 Other surgical procedures as the cause of abnormal reaction of the patient, or of later complication, without mention of misadventure at the time of the procedure; E83.42 Hypomagnesemia; F03.90 Unspecified dementia, unspecified severity, without behavioral disturbance, psychotic disturbance, mood disturbance, and anxiety; C78.00 Secondary malignant neoplasm of unspecified lung; W18.30XA Fall on same level, unspecified, initial encounter; Y93.89 Activity, other specified; Y92.89 Other specified places as the place of occurrence of the external cause; Y99.8 Other external cause status; Z86.718 Personal history of other venous thrombosis and embolism
CPT/HCPCS: 36415; 36430; 51702; 71045; 76770; 80048; 80053; 80076; 80202; 81001; 82010; 82140; 82550; 82553; 82570; 82607; 82747; 82805; 82962; 83036; 83550; 83735; 83880; 83930; 84100; 84300; 84439; 84443; 84550; 85025; 85027; 85610; 85730; 86850; 86900; 86901; 86920; 87040; 87086; 93005; 93010; 94760; 96361; 96365; 96375; G0378; J0360; J0696; J1170; J1200; J1630; J1650; J1815; J2060; J2185; J2250; J2270; J2405; J2704; J3010; J3370; J3475; J3480; J7030; J7040; J7050; J7070; J7121; J7131; P9016